=== PATIENT | male | born 1945 | race Caucasian/White ===

== ENCOUNTER 2019-02-01 20:55 | Inpatient (IN) | payer MEDICARE, MEDICAID ==
[~2019-02-01] VITALS: Ht 172.7 cm; Wt 97.6 kg
--- NOTE | 2019-02-01 21:15 | ED.ADGEN ---
Past History Past Medical History: Anxiety, Arthritis, CAD, Constipation, CVA, Dementia, Depression, Diabetes, Hypertension, Vascular Disease Past Surgical History: Other Past Surgical History Amputation lst toe Rt. and Lt. 5th toe- vascular dz Smoking: Chew Adult General Chief Complaint Chief Complaint " .. I guess they sent me here to get checked out....'.. Where did you get all these pretty nurses....?... " I am semi retired.. I bought the [employer] in [place]... and work there forever... 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 the only thing .. 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 I always had a fixation for trailers... all sizes.. and models...crazy thing.. stealing trailers... I do have bad diabetes.. and I chew tobacco for all my life.. just swallowed the juice.. did not spit.. but that probably made my circulation bad.. I ended up getting this right toe hacked off.. then the Lt side of my foot...for same thing... now my only problem is these fracture teeth and infection up here on the Rt... ( Teeth 2 and 3).. ..I ve been getting antibiotic for them... they probably need to come out...".. " Oh .. I do get jock rot... from my diabetes.. need to be powdered up down there...." HPI HPI Patient is a 73 year old male who presents with above hx and complaints. Pt. "Chiki" has been admitted to [facility] Dr. Jang after medical clearance in ED. Pt. is a resident of [facility]. since 08/15/16. Pt. recently having mental status change, disruptive behavior, Aggressive towards other pt. and staff, sexually inappropriate, urinating where ever he wants, difficult to re-direct for past 2 months. Pt. has hx of diabetes, delusions of persecution, dementia, hypertension, peripheral vascular disease resulting in amputation of right great toe and left lateral foot. Patient has a, gait disorder, generalized muscle weakness, deconditioning, osteoarthritis, abscess tooth infection. Patient has been noncompliant with medications and treatment plan. Pt. normally follows with Dr. Ulises Montemayor. Review of Systems Review of Systems Constitutional: Denies fever or chills [] Eyes: Denies change in visual acuity, redness, or eye pain [] HENT: Denies nasal congestion or sore throat [] Dental pain Respiratory: Denies cough or shortness of breath [] Cardiovascular: No additional information not addressed in HPI [] GI: Denies abdominal pain, nausea, vomiting, bloody stools or diarrhea [] : Denies dysuria or hematuria [] Musculoskeletal: Denies back pain or joint pain [] Integument: Denies rash or skin lesions [] Neurologic: Denies headache, focal weakness or sensory changes [] Endocrine: Denies polyuria or polydipsia [] All other systems were reviewed and found to be within normal limits, except as documented in this note. Family History Family History Diabetes hypertension Current Medications Current Medications Current Medications Medications (Trade) Dose Ordered Sig/Sandhya Start Time Stop Time Status Last Admin Dose Admin Acetaminophen (Tylenol) 650 mg PRN Q4HRS PRN 02/01/19 23:00 02/02/19 22:59 Enoxaparin Sodium (Lovenox 100mg Syringe) 100 mg 1X ONCE 02/01/19 23:00 02/01/19 23:01 DC 02/01/19 23:38 100 MG Insulin Human Regular (HumuLIN R VIAL) 10 unit 1X ONCE 02/01/19 23:00 02/01/19 23:01 DC 02/01/19 23:39 10 UNIT Lactated Ringer's 1,000 ml @ 1,000 mls/hr Q1H 02/01/19 21:30 02/01/19 22:29 DC 02/01/19 23:00 1,000 MLS/HR Allergies Allergies Allergies Coded Allergies Type Severity Reaction Last Updated Verified No Known Drug Allergies 02/01/19 No Physical Exam Physical Exam Constitutional: no acute distress, non-toxic appearance. [] HENT: Normocephalic, atraumatic, bilateral external ears normal, oropharynx moist, no oral exudates, nose normal. [Fx. and decay Dental area of 2,3. ] Eyes: PERRLA, EOMI, conjunctiva normal, no discharge. [] Neck: Normal range of motion, no tenderness, supple, no stridor. [] Cardiovascular: Tachycardia Heart rate regular rhythm, no murmur []PMI to Lt. Lungs & Thorax: Bilateral breath sounds equal at apexes on auscultation [] Abdomen: Bowel sounds normal, soft, no tenderness, no masses, no pulsatile masses. [] Obese. Skin: Warm, dry, areas of skin breakdown groin and sacral area. Yeast rash. Back: No tenderness, no CVA tenderness. Arthritic changes. Extremities: No tenderness, no cyanosis, no clubbing, ROM intact, bilateral edema. [] Hair loss. Missing Rt. lst toe and Lt 5th toe. No cording appreciated in legs. Delay in capillary refill more 3 sec in toes. Decreased foot pulses. Neurologic: Alert and oriented X 3, moves all ext. 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 . []Decreased distal sensory. Psychologic: Pt. at lst very angry and would not get out of transport vehicle when arrived at ED, Affect anxious, , obvious some memory problems. , mood normal. [] Current Patient Data Vital Signs Vital Signs Date Time Temp Pulse Resp B/P (MAP) Pulse Ox O2 Delivery O2 Flow Rate FiO2 02/01/19 21:04 97.8 109 18 97 Room Air Lab Results Laboratory Tests Test 02/01/19 21:07 02/01/19 21:15 Urine Collection Type Unknown Urine Color Yellow Urine Clarity Clear Urine pH 5.5 Urine Specific [place] 1.010 Urine Protein Neg (NEG-TRACE) Urine Glucose (UA) >=1000 mg/dL (NEG) Urine Ketones (Stick) Neg mg/dL (NEG) Urine Blood Neg (NEG) Urine Nitrite Neg (NEG) Urine Bilirubin Neg (NEG) Urine Urobilinogen Dipstick 0.2 mg/dL (0.2 mg/dL) Urine Leukocyte Esterase Neg (NEG) Urine RBC 0 /HPF (0-2) Urine WBC Occ /HPF (0-4) Urine Squamous Epithelial Cells Few /LPF Urine Bacteria 0 /HPF (0-FEW) Urine Opiates Screen Neg (NEG) Urine Methadone Screen Neg (NEG) Urine Barbiturates Neg (NEG) Urine Phencyclidine Screen Neg (NEG) Urine Amphetamine/Methamphetamine Neg (NEG) Urine Benzodiazepines Screen Neg (NEG) Urine Cocaine Screen Neg (NEG) Urine Cannabinoids Screen Neg (NEG) Urine Ethyl Alcohol Neg (NEG) White Blood Count 7.8 x10^3/uL (4.0-11.0) Red Blood Count 4.30 x10^6/uL (4.30-5.70) Hemoglobin 13.4 g/dL (13.0-17.5) Hematocrit 40.3 % (39.0-53.0) Mean Corpuscular Volume 94 fL (79-100) Mean Corpuscular Hemoglobin 31 pg (25-35) Mean Corpuscular Hemoglobin Concent 33 g/dL (31-37) Red Cell Distribution Width 14.3 % (11.5-14.5) Platelet Count 218 x10^3/uL (140-400) Neutrophils (%) (Auto) 59 % (31-73) Lymphocytes (%) (Auto) 29 % (24-48) Monocytes (%) (Auto) 10 % (0-9) H Eosinophils (%) (Auto) 2 % (0-3) Basophils (%) (Auto) 0 % (0-3) Neutrophils # (Auto) 4.5 x10^3uL (1.8-7.7) Lymphocytes # (Auto) 2.3 x10^3/uL (1.0-4.8) Monocytes # (Auto) 0.7 x10^3/uL (0.0-1.1) Eosinophils # (Auto) 0.2 x10^3/uL (0.0-0.7) Basophils # (Auto) 0.0 x10^3/uL (0.0-0.2) Erythrocyte Sedimentation Rate 17 (0-15) H Prothrombin Time 9.5 SEC (9.4-11.4) Prothrombin Time INR 0.9 (0.9-1.1) PTT 24 SEC (23-33) D-Dimer (Lakshmi) 0.59 mg/L (0.00-0.50) H Sodium Level 134 mmol/L (136-145) L Potassium Level 4.4 mmol/L (3.5-5.1) Chloride Level 98 mmol/L (98-107) Carbon Dioxide Level 27 mmol/L (21-32) Anion Gap 9 (6-14) Blood Urea Nitrogen 20 mg/dL (8-26) Creatinine 1.0 mg/dL (0.7-1.3) Estimated GFR (Cockcroft-Gault) 72.8 Glucose Level 310 mg/dL (70-99) H Calcium Level 8.7 mg/dL (8.5-10.1) Magnesium Level 2.0 mg/dL (1.8-2.4) Total Bilirubin 0.2 mg/dL (0.2-1.0) Direct Bilirubin 0.1 mg/dL (0.0-0.2) Aspartate Amino Transferase (AST) 17 U/L (15-37) Alanine Aminotransferase (ALT) 21 U/L (16-63) Alkaline Phosphatase 114 U/L (46-116) Creatine Kinase 160 U/L (39-308) Troponin I Quantitative 0.031 ng/mL (0-0.055) KE-Juj-A-Type Natriuretic Peptide 478 pg/mL (0-449) H Total Protein 7.0 g/dL (6.4-8.2) Albumin 3.7 g/dL (3.4-5.0) Lipase 163 U/L (73-393) EKG EKG My interpretation EKG shows a sinus rhythm at 99 bpm. Does have left axis deviation and a fascicular block. No findings of acute STEMI with contralateral changes.[] Radiology/Procedures Radiology/Procedures [][place] [address] IMAGING REPORT Signed PATIENT: TIARRA SKINNER ACCOUNT: [id number] : 1945 LOCATION: ER AGE: 73 SEX: M EXAM STATUS: REG ER ORD. PHYSICIAN: ANABEL MARTIN MD REASON: Mental status change, hx cva PROCEDURE: CT HEAD AND CERVICAL SPINE WO CT Head W/O Contrast: History: Mental status change Comparison: none Axial images were obtained without contrast. There is moderate diffuse atrophy. There is no mass effect, extraaxial fluid collections or hydrocephalus. There is no gross bleed. Moderate, diffuse periventricular and subcortical white matter hypoattenuation is seen. There is no focal loss of jhaveri-white matter distinction to suggest acute ischemia, i.e. stroke. Impression: No acute findings. End impression CT C-Spine without contrast: Clinical History: Technique: Axial helical images of the cervical spine were obtained without contrast, axial coronal and sagittal reconstruction was performed. Findings: There is no loss of vertebral body stature. There is no prevertebral soft tissue swelling. The vertebral bodies are well aligned. The C1-C2 relationship is normal. The visualized osseous structures appear normal. Evaluation of the central canal is limited without contrast. There is multiple posterior disc bulges resulting in flattening of the thecal sac. There does not appear to be gross flattening of the cervical cord. There is marked narrowing of multiple neuroforamen. Impression: No acute findings. Clinical correlation suggested. PQRS Compliance Statement: One or more of the following individualized dose reduction techniques were utilized for this examination: 1. Automated exposure control 2. Adjustment of the mA and/or kV according to patient size 3. Use of iterative reconstruction technique Electronically signed by: Paresh Fraga III, MD (02/01/2019 10:38 PM) [facility] [place] Course & Med Decision Making Course & Med Decision Making Pertinent Labs and Imaging studies reviewed. (See chart for details) Patient admitted to [facility]. . Consult to Dr. Schwartz for medical issues. [] Final Impression Final Impression 1. Mental Status Change 2. Behavior issues- Aggressive, Inappropriate Sexual 3. Paranoid delusions of persecution[] 4. Dementia 5. Diabetes gluc 310 6. Hypertension 7. Peripheral vascular disease 8. Gait disorder 9. Dental infection 10.Elevation D-dimer 0.59 11. Mild Elevation BNP 478 12. Mild Elevation D-dimer 0.59 13 Mild Elevation ESR 17 Dragon Disclaimer Dragon Disclaimer This electronic medical record was generated, in whole or in part, using a voice recognition dictation system. Discharge Summary Visit Information Final Diagnosis Problems Medical Problems: (1) Mental status change resolved Status: Acute Brief Hospital Course Allergies Allergies Coded Allergies Type Severity Reaction Last Updated Verified No Known Drug Allergies 02/01/19 No Vital Signs Vital Signs Date Time Temp Pulse Resp B/P (MAP) Pulse Ox O2 Delivery O2 Flow Rate FiO2 02/01/19 21:04 97.8 109 18 97 Room Air Lab Results Laboratory Tests Test 02/01/19 21:07 02/01/19 21:15 Urine Collection Type Unknown Urine Color Yellow Urine Clarity Clear Urine pH 5.5 Urine Specific [place] 1.010 Urine Protein Neg (NEG-TRACE) Urine Glucose (UA) >=1000 mg/dL (NEG) Urine Ketones (Stick) Neg mg/dL (NEG) Urine Blood Neg (NEG) Urine Nitrite Neg (NEG) Urine Bilirubin Neg (NEG) Urine Urobilinogen Dipstick 0.2 mg/dL (0.2 mg/dL) Urine Leukocyte Esterase Neg (NEG) Urine RBC 0 /HPF (0-2) Urine WBC Occ /HPF (0-4) Urine Squamous Epithelial Cells Few /LPF Urine Bacteria 0 /HPF (0-FEW) Urine Opiates Screen Neg (NEG) Urine Methadone Screen Neg (NEG) Urine Barbiturates Neg (NEG) Urine Phencyclidine Screen Neg (NEG) Urine Amphetamine/Methamphetamine Neg (NEG) Urine Benzodiazepines Screen Neg (NEG) Urine Cocaine Screen Neg (NEG) Urine Cannabinoids Screen Neg (NEG) Urine Ethyl Alcohol Neg (NEG) White Blood Count 7.8 x10^3/uL (4.0-11.0) Red Blood Count 4.30 x10^6/uL (4.30-5.70) Hemoglobin 13.4 g/dL (13.0-17.5) Hematocrit 40.3 % (39.0-53.0) Mean Corpuscular Volume 94 fL (79-100) Mean Corpuscular Hemoglobin 31 pg (25-35) Mean Corpuscular Hemoglobin Concent 33 g/dL (31-37) Red Cell Distribution Width 14.3 % (11.5-14.5) Platelet Count 218 x10^3/uL (140-400) Neutrophils (%) (Auto) 59 % (31-73) Lymphocytes (%) (Auto) 29 % (24-48) Monocytes (%) (Auto) 10 % (0-9) Eosinophils (%) (Auto) 2 % (0-3) Basophils (%) (Auto) 0 % (0-3) Neutrophils # (Auto) 4.5 x10^3uL (1.8-7.7) Lymphocytes # (Auto) 2.3 x10^3/uL (1.0-4.8) Monocytes # (Auto) 0.7 x10^3/uL (0.0-1.1) Eosinophils # (Auto) 0.2 x10^3/uL (0.0-0.7) Basophils # (Auto) 0.0 x10^3/uL (0.0-0.2) Erythrocyte Sedimentation Rate 17 (0-15) Prothrombin Time 9.5 SEC (9.4-11.4) Prothromb Time International Ratio 0.9 (0.9-1.1) Activated Partial Thromboplast Time 24 SEC (23-33) D-Dimer (Lakshmi) 0.59 mg/L (0.00-0.50) Sodium Level 134 mmol/L (136-145) Potassium Level 4.4 mmol/L (3.5-5.1) Chloride Level 98 mmol/L (98-107) Carbon Dioxide Level 27 mmol/L (21-32) Anion Gap 9 (6-14) Blood Urea Nitrogen 20 mg/dL (8-26) Creatinine 1.0 mg/dL (0.7-1.3) Estimated GFR (Cockcroft-Gault) 72.8 Glucose Level 310 mg/dL (70-99) Calcium Level 8.7 mg/dL (8.5-10.1) Magnesium Level 2.0 mg/dL (1.8-2.4) Total Bilirubin 0.2 mg/dL (0.2-1.0) Direct Bilirubin 0.1 mg/dL (0.0-0.2) Aspartate Amino Transf (AST/SGOT) 17 U/L (15-37) Alanine Aminotransferase (ALT/SGPT) 21 U/L (16-63) Alkaline Phosphatase 114 U/L (46-116) Creatine Kinase 160 U/L (39-308) Troponin I Quantitative 0.031 ng/mL (0-0.055) MJ-Xmc-F-Type Natriuretic Peptide 478 pg/mL (0-449) Total Protein 7.0 g/dL (6.4-8.2) Albumin 3.7 g/dL (3.4-5.0) Lipase 163 U/L (73-393) Brief Hospital Course Mr. Skinner is a 73 old male who presented with hx mental status change and behavioral issues. Admitted to [facility] Dr. Jang, and Med. consult to Dr. Schwartz for medical issues. Discharge Information Condition at Discharge: Improved, Stable Dischare Medications Current Medications Lactated Ringer's 1,000 ml @ 1,000 mls/hr Q1H IV Last administered on 02/01/19at 23:00; Admin Dose 1,000 MLS/HR; Start 02/01/19 at 21:30; Stop 02/01/19 at 22:29; Status DC Insulin Human Regular (HumuLIN R VIAL) 10 unit 1X ONCE IV Last administered on 02/01/19at 23:39; Admin Dose 10 UNIT; Start 02/01/19 at 23:00; Stop 02/01/19 at 23:01; Status DC Acetaminophen (Tylenol) 650 mg PRN Q4HRS PRN PO FEVER; Start 02/01/19 at 23:00; Stop 02/02/19 at 22:59 Enoxaparin Sodium (Lovenox 100mg Syringe) 100 mg 1X ONCE SQ Last administered on 02/01/19at 23:38; Admin Dose 100 MG; Start 02/01/19 at 23:00; Stop 02/01/19 at 23:01; Status DC Active Scripts Active Dragon Disclaimer This chart was dictated in whole or in part using Voice Recognition software in a busy, high-work load, and often noisy Emergency Department environment. It may contain unintended and wholly unrecognized errors or omissions. ANABEL MARTIN MD Feb 01, 2019 21:15
[2019-02-01] MEDS: IV RINGERS SOLUTION,LACTATED 1,000 ML IV SCH ×2 (21:30→23:00)
[2019-02-01 21:35] LABS: BASO % 0 % (0-3); EOS # 0.2 x10^3/uL (0.0-0.7); EOS % 2 % (0-3); HEMATOCRIT 40.3 % (39.0-53.0); HEMOGLOBIN 13.4 g/dL (13.0-17.5); LYMPH # 2.3 x10^3/uL (1.0-4.8); LYMPH % 29 % (24-48); MEAN CORPUSCULAR HEMOGLOBIN 31 pg (25-35); MEAN CORPUSCULAR HGB CONC 33 g/dL (31-37); MEAN CORPUSCULAR VOLUME 94 fL (79-100); MONO # 0.7 x10^3/uL (0.0-1.1); MONO % 10 % (0-9); NEUT # 4.5 x10^3uL (1.8-7.7); NEUT % 59 % (31-73); PLATELET COUNT 218 x10^3/uL (140-400); RED CELL DISTRIBUTION WIDTH 14.3 % (11.5-14.5); WHITE BLOOD COUNT 7.8 x10^3/uL (4.0-11.0)
[2019-02-01 21:39] LABS: BARBITURATES NEG (NEG); BENZODIAZEPINES NEG (NEG); CANNABINOIDS NEG (NEG); COCAINE NEG (NEG); METHADONE NEG (NEG); OPIATES NEG (NEG); PHENCYCLIDINE NEG (NEG)
[2019-02-01 21:40] LABS: AMPHETAMINE/METHAMPHETAMINE NEG (NEG)
[2019-02-01 21:43] LABS: BILIRUBIN,URINE NEG (NEG); CLARITY,URINE CLEAR; COLOR,URINE YELLOW; GLUCOSE,URINE >=1000 mg/dL (NEG); NITRITE,URINE NEG (NEG); UROBILINOGEN,URINE 0.2 mg/dL (0.2 mg/dL)
[2019-02-01 21:44] LABS: BACTERIA,URINE 0 /HPF (0-FEW); RBC,URINE 0 /HPF (0-2); SQUAMOUS EPITHELIAL CELL,UR FEW /LPF; WBC,URINE OCC /HPF (0-4)
[2019-02-01 22:02] LABS: ALBUMIN 3.7 g/dL (3.4-5.0); CALCIUM 8.7 mg/dL (8.5-10.1); DIRECT BILIRUBIN 0.1 mg/dL (0.0-0.2); GFR 72.8; POTASSIUM 4.4 mmol/L (3.5-5.1); TOTAL BILIRUBIN 0.2 mg/dL (0.2-1.0)
--- NOTE | 2019-02-01 22:31 | EKG ---
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
[2019-02-01 22:38] LABS: SEDIMENTATION RATE 17 (0-15)
--- NOTE | 2019-02-01 22:41 | RAD ---
CT Head W/O Contrast: History: Mental status change Comparison: none Axial images were obtained without contrast. There is moderate diffuse atrophy. There is no mass effect, extraaxial fluid collections or hydrocephalus. There is no gross bleed. Moderate, diffuse periventricular and subcortical white matter hypoattenuation is seen. There is no focal loss of jhaveri-white matter distinction to suggest acute ischemia, i.e. stroke. Impression: No acute findings. End impression CT C-Spine without contrast: Clinical History: Technique: Axial helical images of the cervical spine were obtained without contrast, axial coronal and sagittal reconstruction was performed. Findings: There is no loss of vertebral body stature. There is no prevertebral soft tissue swelling. The vertebral bodies are well aligned. The C1-C2 relationship is normal. The visualized osseous structures appear normal. Evaluation of the central canal is limited without contrast. There is multiple posterior disc bulges resulting in flattening of the thecal sac. There does not appear to be gross flattening of the cervical cord. There is marked narrowing of multiple neuroforamen. Impression: No acute findings. Clinical correlation suggested. PQRS Compliance Statement: One or more of the following individualized dose reduction techniques were utilized for this examination: 1. Automated exposure control 2. Adjustment of the mA and/or kV according to patient size 3. Use of iterative reconstruction technique Electronically signed by: Paresh Fraga III, MD (02/01/2019 10:38 PM) [facility]
[2019-02-01] MEDS ORDERED: ENOXAPARIN ** NOTE DOSE ** SYRINGE SQ ONE (23:00)
[2019-02-01] MEDS ORDERED: ACETAMINOPHEN 325 MG TABLET PO PRN (23:00)
[2019-02-01] MEDS ORDERED: INSULIN REGULAR 100 UNIT/ML 3ML VIAL. IV ONE (23:00)
[2019-02-02] MEDS ORDERED: MAG HYDROX/AL HYDROX/SIMETH 30 ML ORAL.SUSP PO PRN (00:45)
[2019-02-02] MEDS ORDERED: MAGNESIUM HYDROXIDE 2,400 MG/30 ML ORAL.SUSP. PO PRN (00:45)
[2019-02-02] MEDS ORDERED: METHYL SALICYLATE/MENTHOL TOPICAL OINTMENT 57GM TUBE. TP PRN (00:45)
[2019-02-02] MEDS ORDERED: ACETAMINOPHEN 325 MG TABLET PO PRN (00:45)
[2019-02-02] MEDS ORDERED: NYST15PO9 TP (01:09)
[2019-02-02] MEDS ORDERED: CARB1TAB46 PO (01:09)
[2019-02-02] MEDS ORDERED: DIVA500T4 PO (01:09)
[2019-02-02] MEDS ORDERED: ACET325T9 PO (01:09)
[2019-02-02] MEDS ORDERED: METO25TA4 PO (01:09)
[2019-02-02] MEDS ORDERED: DIVA125C2 PO (01:09)
[2019-02-02] MEDS ORDERED: INSU100V13 SQ (01:09)
[2019-02-02] MEDS ORDERED: CILO100T PO (01:09)
[2019-02-02] MEDS ORDERED: MULT1TAB52 PO (01:09)
[2019-02-02] MEDS ORDERED: METF10007 PO (01:09)
--- NOTE | 2019-02-02 01:18 | NUR ---
Admission Note with Justification for Admission to [facility] Patient admitted to [facility] for protective oversight for emergency stabilization of acute psychiatric crisis. Pt admitted from: [facility]/ [facility] Mode of arrival: EMS Accompanied By: [facility] Staff Precipitating behaviors that initiated intake and admission:delusional, sexually inappropriate comments, grabbing staff's private parts, exposing genitals, urinating around unit, verbally aggressive, paranoid, hides his belongings around unit and then blames staff for stealing them, barricading bathroom with chairs, running sink until bathroom is flooded, props chairs inside bathroom door so they will fall when door is opened, refusing medication, making racially inappropriate comments Description of failure of out patient attempts at stabilization in previous setting list behavior and medication trials:[place] Jul 2018, med changes Behaviors and assessment findings upon admission: calm, cooperative. A/O x4, flirtatious, interactive, compliant, helpless Plan: Admit for protective oversight for adjustment and stabilization of medications, behaviors and mood. Intense treatment regimen including groups, medication adjustments, therapy, consistent regimen for ADL's, self care, and sleep hygiene. Daily monitoring by Inpatient staff, Psychiatry, and Medical Physician.
[2019-02-02 01:54] VITALS: BP 124/65
--- NOTE | 2019-02-02 06:18 | NUR ---
Pt has been rude, irritable and argumentative this morning. Pt is very sarcastic and condescending when interacting with staff. Pt stating that he was kidnapped and that this isn't a hospital; it is a shelter.
[2019-02-02 06:30] VITALS: BP 132/71
[2019-02-02 07:36] LABS: BASO % 1 % (0-3); EOS # 0.2 x10^3/uL (0.0-0.7); EOS % 3 % (0-3); HEMATOCRIT 38.4 % (39.0-53.0); HEMOGLOBIN 12.9 g/dL (13.0-17.5); LYMPH # 1.6 x10^3/uL (1.0-4.8); LYMPH % 24 % (24-48); MEAN CORPUSCULAR HEMOGLOBIN 32 pg (25-35); MEAN CORPUSCULAR HGB CONC 34 g/dL (31-37); MEAN CORPUSCULAR VOLUME 94 fL (79-100); MONO # 0.6 x10^3/uL (0.0-1.1); MONO % 9 % (0-9); NEUT # 4.2 x10^3uL (1.8-7.7); NEUT % 64 % (31-73); PLATELET COUNT 207 x10^3/uL (140-400); RED BLOOD COUNT 4.08 x10^6/uL (4.30-5.70); WHITE BLOOD COUNT 6.6 x10^3/uL (4.0-11.0)
[2019-02-02 07:44] LABS: CALCIUM 8.8 mg/dL (8.5-10.1); CREATININE 0.8 mg/dL (0.7-1.3); GFR 94.2; POTASSIUM 4.2 mmol/L (3.5-5.1)
[2019-02-02] MEDS: DIVALPROEX 125 MG CAP.SPRINK PO SCH ×2 (07:54→20:21)
[2019-02-02] MEDS: ACETAMINOPHEN 325 MG TABLET PO SCH ×2 (07:54→20:14)
[2019-02-02] MEDS: ASPIRIN 81 MG TAB.CHEW PO SCH (07:55)
[2019-02-02] MEDS: CARBIDOPA/LEVODOPA 10/100MG TABLET PO SCH ×3 (07:55→20:11)
[2019-02-02] MEDS: MULTIVITAMIN with MINERAL TABLET. PO SCH (07:55)
[2019-02-02] MEDS: CEPHALEXIN 250 MG CAPSULE PO SCH ×3 (07:55→20:11)
[2019-02-02] MEDS: metFORMIN 500 MG TABLET PO SCH ×2 (07:55→17:00)
[2019-02-02] MEDS: CILOSTAZOL 50 MG TABLET. PO SCH ×2 (07:56→20:12)
[2019-02-02] MEDS: METOPROLOL TART IMMED RELEASE 25 MG TABLET PO SCH ×2 (07:56→20:14)
[2019-02-02] MEDS: LACTOBACILLUS RHAMNOSUS GG 1 CAPSULE. PO SCH ×2 (07:58→20:13)
[2019-02-02] MEDS: INSULIN LISPRO 300 UNITS/3 ML INSULN.PEN. SQ SCH ×3 (08:00→17:00)
--- NOTE | 2019-02-02 08:16 | RAD ---
AP chest. HISTORY: Hypertension AP view was taken of the chest. Lungs are clear. Heart is normal in size without heart failure. There is no pleural effusion. IMPRESSION: 1. No acute chest disease. Electronically signed by: Alejandro Valera MD (02/02/2019 8:13 AM) [facility]
--- NOTE | 2019-02-02 08:51 | RAD ---
Bilateral lower extremity venous ultrasound, : History: Bilateral leg swelling Sonographic evaluation including grayscale, color flow and spectral Doppler analysis of the deep veins of the lower extremities was performed. The femoral and popliteal veins demonstrate normal compressibility and normal responses to distal augmentation maneuvers. Color imaging of those vessels shows no evidence of intraluminal clot. The visualized deep veins in both calves are patent. IMPRESSION: There is no sonographic evidence of deep vein thrombosis in either lower extremity. Electronically signed by: Alejandro Valera MD (02/02/2019 8:48 AM) [facility]
[2019-02-02] MEDS ORDERED: ENOXAPARIN ** NOTE DOSE ** SYRINGE SQ SCH (09:00)
[2019-02-02] MEDS: IPRATRPIUM/ALBUTEROL 0.5/2.5MG 3 ML NEBU. NEB SCH ×4 (10:30→20:00)
[2019-02-02 10:42] LABS: THYROID STIM HORMONE (TSH) 2.891 uIU/mL (0.358-3.740)
[2019-02-02 16:27] VITALS: BP 111/69
--- NOTE | 2019-02-02 18:25 | NUR ---
Pt up for breakfast. was irritable and refused meds. stated he doesn't take any meds. Hid meds in lunch ice cream. Pt has not been sexually inappropriate thus far. is condescending with staff at times. pt urinated on floor in DR in am. states he cannot control his bladder.
[2019-02-02] MEDS: INSULIN GLARGINE 300 UNITS/3 ML INSULN.PEN. SQ SCH (20:30)
[2019-02-02] MEDS ORDERED: DIVALPROEX ER 500 MG TAB.ER.24H PO SCH (21:00)
--- NOTE | 2019-02-02 21:53 | PDOC ---
Exam Note: Maxwell Note: Please also refer to the separate dictated note~for this date of service dictated separately. Discussed the patient with Nursing staff reviewed the chart.~Reviewed interim history and current functioning. Reviewed vital signs,~Labs/ Radiology~and current medications noted below. Continue current treatment with the changes noted in the dictated addendum note Assessment: Vital Signs/I&O: Vital Signs Date Time Temp Pulse Resp B/P (MAP) Pulse Ox O2 Delivery O2 Flow Rate FiO2 02/02/19 20:14 71 111/69 02/02/19 16:27 97.9 20 99 02/02/19 06:30 Room Air I & O 02/01/19 02/01/19 02/02/19 15:00 23:00 07:00 Intake Total 1000 ml Balance 1000 ml Labs: Laboratory Tests Test 02/01/19 23:30 02/02/19 07:21 02/02/19 07:36 02/02/19 12:05 Glucose Level 253 mg/dL (70-99) H 280 mg/dL (70-99) H White Blood Count 6.6 x10^3/uL (4.0-11.0) Red Blood Count 4.08 x10^6/uL (4.30-5.70) L Hemoglobin 12.9 g/dL (13.0-17.5) L Hematocrit 38.4 % (39.0-53.0) L Mean Corpuscular Volume 94 fL (79-100) Mean Corpuscular Hemoglobin 32 pg (25-35) Mean Corpuscular Hemoglobin Concent 34 g/dL (31-37) Red Cell Distribution Width 14.0 % (11.5-14.5) Platelet Count 207 x10^3/uL (140-400) Neutrophils (%) (Auto) 64 % (31-73) Lymphocytes (%) (Auto) 24 % (24-48) Monocytes (%) (Auto) 9 % (0-9) Eosinophils (%) (Auto) 3 % (0-3) Basophils (%) (Auto) 1 % (0-3) Neutrophils # (Auto) 4.2 x10^3uL (1.8-7.7) Lymphocytes # (Auto) 1.6 x10^3/uL (1.0-4.8) Monocytes # (Auto) 0.6 x10^3/uL (0.0-1.1) Eosinophils # (Auto) 0.2 x10^3/uL (0.0-0.7) Basophils # (Auto) 0.0 x10^3/uL (0.0-0.2) Sodium Level 136 mmol/L (136-145) Potassium Level 4.2 mmol/L (3.5-5.1) Chloride Level 100 mmol/L (98-107) Carbon Dioxide Level 26 mmol/L (21-32) Anion Gap 10 (6-14) Blood Urea Nitrogen 17 mg/dL (8-26) Creatinine 0.8 mg/dL (0.7-1.3) Estimated GFR (Cockcroft-Gault) 94.2 Calcium Level 8.8 mg/dL (8.5-10.1) Glucose (Fingerstick) 265 mg/dL (70-99) H 289 mg/dL (70-99) H Test 02/02/19 17:22 02/02/19 20:42 Glucose (Fingerstick) 266 mg/dL (70-99) H 414 mg/dL (70-99) H Current Medications: Meds: Current Medications Medications (Trade) Dose Ordered Sig/Sandhya Route PRN Reason Start Time Stop Time Status Last Admin Dose Admin Insulin Human Regular (HumuLIN R VIAL) 10 unit 1X ONCE IV 02/01/19 23:00 02/01/19 23:01 DC 02/01/19 23:39 Albuterol/ Ipratropium (Duoneb) 3 ml RTQID NEB 02/02/19 08:00 02/03/19 07:59 02/02/19 16:21 Cephalexin HCl (Keflex) 500 mg TID PO 02/02/19 09:00 02/02/19 20:11 Enoxaparin Sodium (Lovenox 100mg Syringe) 100 mg 1X ONCE SQ 02/01/19 23:00 02/01/19 23:01 DC 02/01/19 23:38 Enoxaparin Sodium (Lovenox 100mg Syringe) 100 mg BID SQ 02/02/19 09:00 02/02/19 15:33 DC 02/02/19 07:56 Aspirin (Children'S Aspirin) 81 mg DAILY08 PO 02/02/19 08:00 02/02/19 07:55 Acetaminophen (Tylenol) 325 mg BID PO 02/02/19 09:00 02/02/19 07:54 Metoprolol Tartrate (Lopressor) 25 mg BID PO 02/02/19 09:00 02/02/19 20:14 Carbidopa/Levodopa (Sinemet 10/100) 1 tab TID PO 02/02/19 09:00 02/02/19 20:11 Cilostazol (Pletal) 100 mg BID PO 02/02/19 09:00 02/02/19 20:12 Divalproex Sodium (Depakote Sprinkles) 125 mg DAILY PO 02/02/19 09:00 02/02/19 07:54 Insulin Glargine (Lantus) 45 units QHS SQ 02/02/19 21:00 02/02/19 20:30 Metformin HCl (Glucophage) 1,000 mg BIDWMEALS PO 02/02/19 08:00 02/02/19 07:55 Multivitamins/ Calcium (Thera-M Plus) 1 tab DAILY PO 02/02/19 09:00 02/02/19 07:55 Insulin Human Lispro (HumaLOG) 0-5 UNITS TIDWMEALS SQ 02/02/19 08:00 02/02/19 17:00 Lactobacillus Rhamnosus (Culturelle) 1 cap BID PO 02/02/19 09:00 02/02/19 07:58 Divalproex Sodium (Depakote Sprinkles) 500 mg HS PO 02/02/19 21:00 02/02/19 20:21 I have reviewed the current psychotropics carefully including drug interactions. Risk benefit ratio favors no change other than as noted in my dictated progress note. Diagnosis: Problems: (1) Mental status change resolved (2) Anxiety disorder (3) Bipolar affective, mixed, sev w/ psych (4) Dementia, vascular, with depression (5) Dementia, vascular, with delusions (6) Impulse control disorder (7) Psychosis, atypical EMERSON RUTH MD Feb 02, 2019 21:53
--- NOTE | 2019-02-02 23:31 | NUR ---
Pt has been rude, condescending, sarcastic and irritable this evening. 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 Pt making statements to staff such as "he isn't worth a pimple on a poor man's ass." Pt refusing any snacks this evening. Pt approached with whole medications as he was rolling his wheelchair down the mota. Pt refused to stop his wheelchair, running over nurse's feet. Pt eventually compliant with medication. Pt taken to bed where he was rude and demanding, refusing to say please or thank you. Pt again stating that he was in charge here and that this nurse is fired.
[2019-02-03] MEDS: IPRATRPIUM/ALBUTEROL 0.5/2.5MG 3 ML NEBU. NEB SCH (06:34)
[2019-02-03 06:57] VITALS: BP 122/73
[2019-02-03 07:41] LABS: VAL ACID 35 mcg/mL (50-100)
[2019-02-03] MEDS: INSULIN LISPRO 300 UNITS/3 ML INSULN.PEN. SQ SCH ×3 (08:00→17:14)
[2019-02-03] MEDS: LACTOBACILLUS RHAMNOSUS GG 1 CAPSULE. PO SCH ×3 (08:13→20:24)
[2019-02-03] MEDS: METOPROLOL TART IMMED RELEASE 25 MG TABLET PO SCH ×3 (08:13→20:24)
[2019-02-03] MEDS: ASPIRIN 81 MG TAB.CHEW PO SCH ×2 (08:13→12:10)
[2019-02-03] MEDS: CARBIDOPA/LEVODOPA 10/100MG TABLET PO SCH ×5 (08:14→20:24)
[2019-02-03] MEDS: metFORMIN 500 MG TABLET PO SCH ×3 (08:14→17:00)
[2019-02-03] MEDS: DIVALPROEX 125 MG CAP.SPRINK PO SCH ×3 (08:14→20:24)
[2019-02-03] MEDS: MULTIVITAMIN with MINERAL TABLET. PO SCH ×2 (08:14→12:10)
[2019-02-03] MEDS: ACETAMINOPHEN 325 MG TABLET PO SCH ×3 (08:14→20:23)
[2019-02-03] MEDS: CEPHALEXIN 250 MG CAPSULE PO SCH ×4 (08:14→20:24)
[2019-02-03] MEDS: CETIRIZINE HCL 10 MG TABLET PO SCH ×2 (08:17→12:10)
[2019-02-03] MEDS: CILOSTAZOL 50 MG TABLET. PO SCH ×3 (08:19→20:28)
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
--- NOTE | 2019-02-03 12:30 | NUR ---
Patient has been refusing his morning medications. Attempted to hide medications in his lunch, patient did not eat those items. Patient did accept his lunch time insulin. Will continue to monitor.
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
--- NOTE | 2019-02-03 13:47 | NUR ---
PSYCHOSOCIAL ASSESSMENT ADMISSION DATE: 02/01/19 CONTACT INFORMATION: DPOA/Guardian Contact Name: Sera Martin Contact Address: [place], [place] Contact Phone #: ETHNIC ORIGIN: REASONS FOR ADMISSION: Aggressive Poor impulse control Other ADDITIONAL ADMISSION COMMENTS: According to the intake, pt is sexually inappropriate, non-compliant with medications and urinating everywhere. REASON FOR ADMISSION IN PATIENT/FAMILY'S OWN WORDS: We think he's been Bipolar for the longest time but never treated for it. PATIENT/FAMILY EXPECTATIONS FOR ADMISSION: Medication and Behavioral Mgmt LIVING SITUATION: Patient lives with: Jail Other living arrangements: Contact Name: [facility] Contact Address: [address] [place] [address]; [place] [address] Contact Phone #: Contact Fax #: FAMILY RELATIONS: Marital Status: # of Marriages: 1 # of Children: 2 [facility] Family Support: Cooperative Involved in DC Planning Additional Comments r/t Family: Pt was to his Latasha for over 30 years; however, pt fell ill 4 years ago (dx with Cancer) and . Together the 2 have 2 daughters. 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 service: N Mu-Ism background: "used to consider himself as Yazdanism". Sexual orientation: Heterosexual Educational Level: Graduated HS; last grade completed was 12th grade Past/Present Interests/Hobbies: fishing, being around people Financial support/resources: Social Security SS Disability Monthly income: Person handling finances: Pt dtr and facility has been named his payee Do you have a history of legal problems: N Cultural considerations: None SOCIAL RELATIONSHIPS-CURRENT/PAST: Psychiatrist: PCP: Dr. Restrepo Counselor/Therapist: [facility]: Support Group: [facility]Automation Qa Analyst: Other relationships: STRENGTHS & WEAKNESSES: Patient's strengths: Good verbal skills Financial support Approachable Other patient strengths: Patient's weaknesses: Poor social skills Verbally Aggressive Other patient weaknesses: PRELIMINARY PLAN OF TREATMENT: Preliminary plan: Promote Coping Skill Improved Social Skills Medication Stabilization Dec. Outbursts Other preliminary treatment comments: DISCHARGE PLANNING: Discharge planning/disposition: Placement Needed Additional discharge needs identified: ADDITIONAL INFORMATION: Other Pertinent Data: Pt dtr reports that his facility does not wish to have him back. She is not sure what to do next and has talked to [facility] about options. SW informed pt dtr that there would be 2 options for SW to check into and will be in contact with her.
[2019-02-03 16:28] VITALS: BP 143/80
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
--- NOTE | 2019-02-03 17:15 | NUR ---
Patient refused his afternoon dose of Sinnemet and dinner time dose of Metformin. He did accept the Keflex and insulin doses. Will report to MD and continue to monitor.
[2019-02-03 20:07] LABS: THYROXINE 7.1 ug/dL (4.5-12.0)
[2019-02-03] MEDS: INSULIN GLARGINE 300 UNITS/3 ML INSULN.PEN. SQ SCH (20:28)
[2019-02-03] MEDS: risperiDONE ORAL 1 MG/ML 30ml BOTTLE. SL SCH (20:29)
--- NOTE | 2019-02-03 21:45 | NUR ---
Nursing Note The patient was located in the day room and quiet mota this shift. The patient was very agitated at the beginning of the shift but was calm and compliant for his medication and assessment by this nurse. the patient is currently siting in the day room talking with staff members.
--- NOTE | 2019-02-03 22:37 | PDOC ---
Exam Note: Maxwell Note: Please also refer to the separate dictated note~for this date of service dictated separately.~Patient seen individually. Discussed the patient with Nursing staff reviewed the chart.~Reviewed interim history and current functioning. Reviewed vital signs,~Labs/ Radiology~and current medications noted below. Continue current treatment with the changes noted in the dictated addendum note Assessment: Vital Signs/I&O: Vital Signs Date Time Temp Pulse Resp B/P (MAP) Pulse Ox O2 Delivery O2 Flow Rate FiO2 02/03/19 20:24 87 143/80 02/03/19 16:28 97.7 18 99 02/02/19 06:30 Room Air I & O 02/02/19 02/02/19 02/03/19 14:59 22:59 06:59 Intake Total 960 ml 240 ml 240 ml Balance 960 ml 240 ml 240 ml Labs: Laboratory Tests Test 02/03/19 07:04 02/03/19 07:24 02/03/19 11:52 02/03/19 17:09 Iron Level 97 ug/dL (65-175) Total Iron Binding Capacity 330 ug/dL (250-450) Iron Saturation 29 % (15-34) 25-Hydroxy Vitamin D Total 20.8 ng/mL (30-100) L Thyroxine (T4) 7.1 ug/dL (4.5-12.0) Total Triiodothyronine (TT3) 101 ng/dL (71-180) Valproic Acid Level 35 mcg/mL (50-100) L Valproic Acid Last Dose Date 02/02/2019 Valproic Acid Last Dose Time 0900 Treponema pallidum Antibody Nonreactive (Nonreactive) Glucose (Fingerstick) 118 mg/dL (70-99) H 171 mg/dL (70-99) H 289 mg/dL (70-99) H Test 02/03/19 19:59 Glucose (Fingerstick) 302 mg/dL (70-99) H Current Medications: Meds: Current Medications Medications (Trade) Dose Ordered Sig/Sandhya Route PRN Reason Start Time Stop Time Status Last Admin Dose Admin Risperidone (RisperDAL) 0.25 mg HS SL 02/03/19 21:00 02/03/19 20:29 I have reviewed the current psychotropics carefully including drug interactions. Risk benefit ratio favors no change other than as noted in my dictated progress note. Diagnosis: Problems: (1) Anxiety disorder (2) Bipolar affective, mixed, sev w/ psych (3) Dementia, vascular, with depression (4) Dementia, vascular, with delusions (5) Impulse control disorder (6) Psychosis, atypical EMERSON RUTH MD Feb 03, 2019 22:37
[2019-02-03 23:11] LABS: HEMOGLOBIN A1C 10.3 % (4.8-5.6)
[2019-02-04 06:06] VITALS: BP 106/65
[2019-02-04] MEDS: INSULIN LISPRO 300 UNITS/3 ML INSULN.PEN. SQ SCH ×3 (08:00→17:35)
[2019-02-04] MEDS: ACETAMINOPHEN 325 MG TABLET PO SCH ×3 (08:17→19:27)
[2019-02-04] MEDS: metFORMIN 500 MG TABLET PO SCH ×3 (08:17→17:32)
[2019-02-04] MEDS: CEPHALEXIN 250 MG CAPSULE PO SCH ×3 (08:18→19:29)
[2019-02-04] MEDS: ASPIRIN 81 MG TAB.CHEW PO SCH (08:18)
[2019-02-04] MEDS: CARBIDOPA/LEVODOPA 10/100MG TABLET PO SCH ×3 (08:18→19:28)
[2019-02-04] MEDS: LACTOBACILLUS RHAMNOSUS GG 1 CAPSULE. PO SCH ×3 (08:18→19:28)
[2019-02-04] MEDS: DIVALPROEX 125 MG CAP.SPRINK PO SCH ×2 (08:18→19:28)
[2019-02-04] MEDS: CETIRIZINE HCL 10 MG TABLET PO SCH (08:18)
[2019-02-04] MEDS: MULTIVITAMIN with MINERAL TABLET. PO SCH (08:18)
[2019-02-04] MEDS: METOPROLOL TART IMMED RELEASE 25 MG TABLET PO SCH ×3 (08:19→19:28)
[2019-02-04] MEDS: CILOSTAZOL 50 MG TABLET. PO SCH ×3 (08:20→19:28)
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
[2019-02-04 16:26] VITALS: BP 121/72
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
--- NOTE | 2019-02-04 17:54 | NUR ---
patient was argumentative at dinner after an instance of incontinence. 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 He refused his metformin, but accepted his insulin injection. Will report to MD and oncoming shift, will continue to monitor.
[2019-02-04] MEDS: risperiDONE ORAL 1 MG/ML 30ml BOTTLE. SL SCH (19:31)
[2019-02-04] MEDS: INSULIN GLARGINE 300 UNITS/3 ML INSULN.PEN. SQ SCH (19:32)
--- NOTE | 2019-02-04 21:20 | NUR ---
Nursing Note The patient took his medication whole and was pleasant and calm during his assessment and interactions with this nurse. However the patient became increasingly agitated and called the staff fat and stupid while staff was providing cares for the patient. The patient is currently in the day room.
--- NOTE | 2019-02-04 22:46 | PDOC ---
Exam Note: Maxwell Note: Please also refer to the separate dictated note~for this date of service dictated separately.~Patient seen individually. Discussed the patient with Nursing staff reviewed the chart.~Reviewed interim history and current functioning. Reviewed vital signs,~Labs/ Radiology~and current medications noted below. Continue current treatment with the changes noted in the dictated addendum note Assessment: Vital Signs/I&O: Vital Signs Date Time Temp Pulse Resp B/P (MAP) Pulse Ox O2 Delivery O2 Flow Rate FiO2 02/04/19 19:28 77 121/72 02/04/19 16:26 98.9 16 97 02/04/19 06:06 Room Air I & O 02/03/19 02/03/19 02/04/19 14:59 22:59 06:59 Intake Total 1400 ml 460 ml Balance 1400 ml 460 ml Labs: Laboratory Tests Test 02/04/19 07:44 02/04/19 12:19 02/04/19 16:47 02/04/19 19:17 Glucose (Fingerstick) 137 mg/dL (70-99) H 282 mg/dL (70-99) H 238 mg/dL (70-99) H 272 mg/dL (70-99) H Current Medications: Meds: Current Medications Medications (Trade) Dose Ordered Sig/Sandhya Route PRN Reason Start Time Stop Time Status Last Admin Dose Admin Divalproex Sodium (Depakote Sprinkles) 500 mg BID PO 02/04/19 21:00 02/04/19 19:28 I have reviewed the current psychotropics carefully including drug interactions. Risk benefit ratio favors no change other than as noted in my dictated progress note. Diagnosis: Problems: (1) Mental status change resolved (2) Anxiety disorder (3) Bipolar affective, mixed, sev w/ psych (4) Dementia, vascular, with depression (5) Dementia, vascular, with delusions (6) Impulse control disorder (7) Psychosis, atypical (8) Dementia in Alzheimer's disease with delusions EMERSON RUTH MD Feb 04, 2019 22:46
--- NOTE | 2019-02-05 02:44 | PN ---
DATE: 02/03/2019 PSYCHIATRIC PROGRESS NOTE This late entry of 02/03/2019 covers elements not covered in my initial note. SUBJECTIVE: I met with the patient at length in the evening. The patient is alert, oriented x 4. He is quite grandiose, paranoid, believes he is a federal digital forensics investigator investigating nursing homes and hospitals. He believes he has been kidnapped and brought here. Refused his medications earlier in the day except insulin, took his p.m. Keflex. He attended groups and was social. 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 About 10 years ago, his alcohol intake increased dramatically. There is a family history of bipolar disorder, which is quite significant. He remains paranoid, delusional. REVIEW OF SYSTEMS: Ambulation impaired, in wheelchair. No CV, , pulmonary, eye, ENT system symptoms on review. MENTAL STATUS EXAM: Oriented to himself and situation. Speech coherent, rapid, loud at times. Abstraction fair, computation impaired, language function intact, attention span short. Mood and affect remains quite grandiose. No active suicidal or homicidal ideation. LABORATORY DATA: Reviewed. IMPRESSION: Schizoaffective disorder, bipolar type, mixed with psychotic features; anxiety disorder, unspecified; mild cognitive impairment; impulse control disorder. PLAN: Start Risperdal liquid 0.25 mg at bedtime. Maintain Depakote at current dosage. Check CBC, CMP, valproic acid level. Adjust Depakote to reach therapeutic level. MAN Bladimir RUTH MD DR: TAINA/siddhartha JOB#: [id number] / [id number]
[2019-02-05 05:59] VITALS: BP 119/49
[2019-02-05] MEDS: CEPHALEXIN 250 MG CAPSULE PO SCH ×3 (07:56→19:52)
[2019-02-05] MEDS: DIVALPROEX 125 MG CAP.SPRINK PO SCH ×2 (07:57→19:48)
[2019-02-05] MEDS: CARBIDOPA/LEVODOPA 10/100MG TABLET PO SCH ×3 (07:57→19:53)
[2019-02-05] MEDS: MULTIVITAMIN with MINERAL TABLET. PO SCH ×2 (07:57→09:00)
[2019-02-05] MEDS: CETIRIZINE HCL 10 MG TABLET PO SCH (07:57)
[2019-02-05] MEDS: ASPIRIN 81 MG TAB.CHEW PO SCH ×2 (07:57→08:00)
[2019-02-05] MEDS: ACETAMINOPHEN 325 MG TABLET PO SCH ×2 (07:58→19:48)
[2019-02-05] MEDS: LACTOBACILLUS RHAMNOSUS GG 1 CAPSULE. PO SCH ×3 (07:58→19:48)
[2019-02-05] MEDS: METOPROLOL TART IMMED RELEASE 25 MG TABLET PO SCH ×3 (07:58→19:48)
[2019-02-05] MEDS: metFORMIN 500 MG TABLET PO SCH ×2 (07:58→17:28)
[2019-02-05] MEDS: CILOSTAZOL 50 MG TABLET. PO SCH ×3 (08:03→19:52)
[2019-02-05] MEDS: INSULIN LISPRO 300 UNITS/3 ML INSULN.PEN. SQ SCH ×3 (08:04→17:29)
[2019-02-05] MEDS: BENZOCAINE 20% ORAL GEL 11.9GM TUBE. TP PRN ×2 (10:43→12:55)
[2019-02-05 16:23] VITALS: BP 148/84
--- NOTE | 2019-02-05 16:34 | NUR ---
SW left a message with pt dtr in order to complete pt PSA. SW will attempt again at a later time.
--- NOTE | 2019-02-05 18:30 | NUR ---
Patient has been calm, social, and interactive throughout this shift. He refused a portion of his morning medications, but was compliant with all future medications. Patient was compliant with male exterior urinary catheter placement and tolerated the procedure well. Patient stated that he prefers to have his showers done by the day shift only. He participated in most of the group activities today and had no reports of sexually inappropriate behavior. Will continue to monitor and report to oncoming shift.
[2019-02-05] MEDS: INSULIN GLARGINE 300 UNITS/3 ML INSULN.PEN. SQ SCH (19:50)
[2019-02-05] MEDS: risperiDONE ORAL 1 MG/ML 30ml BOTTLE. SL SCH (19:50)
--- NOTE | 2019-02-05 22:19 | PDOC ---
Exam Note: Maxwell Note: Please also refer to the separate dictated note~for this date of service dictated separately.~Patient seen individually. Discussed the patient with Nursing staff reviewed the chart.~Reviewed interim history and current functioning. Reviewed vital signs,~Labs/ Radiology~and current medications noted below. Continue current treatment with the changes noted in the dictated addendum note Assessment: Vital Signs/I&O: Vital Signs Date Time Temp Pulse Resp B/P (MAP) Pulse Ox O2 Delivery O2 Flow Rate FiO2 02/05/19 19:48 108 148/84 02/05/19 16:23 98.3 18 97 02/04/19 06:06 Room Air I & O 02/04/19 02/04/19 02/05/19 15:00 23:00 07:00 Intake Total 600 ml 240 ml 240 ml Balance 600 ml 240 ml 240 ml Labs: Laboratory Tests Test 02/05/19 07:26 02/05/19 12:09 02/05/19 16:55 02/05/19 19:30 Glucose (Fingerstick) 179 mg/dL (70-99) H 166 mg/dL (70-99) H 238 mg/dL (70-99) H 314 mg/dL (70-99) H Current Medications: I have reviewed the current psychotropics carefully including drug interactions. Risk benefit ratio favors no change other than as noted in my dictated progress note. Diagnosis: Problems: (1) Mental status change resolved (2) Anxiety disorder (3) Bipolar affective, mixed, sev w/ psych (4) Dementia, vascular, with depression (5) Dementia, vascular, with delusions (6) Impulse control disorder (7) Psychosis, atypical EMERSON RUTH MD Feb 05, 2019 22:18
--- NOTE | 2019-02-05 22:28 | NUR ---
Nursing Note The patient was located in the day room for his medication and assessment. The patient took his medication whole. The patient did not display any irritability this shift and was pleasant during interactions with this nurse and peers. The patient is currently sleeping in his room.
--- NOTE | 2019-02-06 01:55 | PN ---
DATE: 02/04/2019 This late entry of 02/04/2019 covers elements not covered in my initial note. SUBJECTIVE: I met with the patient evening of 02/04/2019. He slept 5 hours previous night. There is no change per nursing report. He refused his medications, agitated at times, agitated with a shower, later took his medications. Continues to have significant mood lability. REVIEW OF SYSTEMS: Ambulation impaired, in wheelchair. No CV, , pulmonary, eye, ENT system symptoms on review. Reliability varies. MENTAL STATUS EXAM: Oriented to himself and situation. Speech coherent, can be pressured at times, somewhat grandiose. Abstraction fair, computation impaired, language function intact. Mood and affect remains grandiose, labile. LABORATORY DATA: Reviewed. IMPRESSION: Bipolar 1 disorder, mixed with psychotic features; major neurocognitive disorder, Alzheimer, vascular with delusions. Rest unchanged. PLAN: Continue Risperdal 0.25 mg at bedtime, Depakote is 125 mg a.m. and 500 mg at bedtime, level subtherapeutic at 35. We will increase Depakote to 500 mg b.i.d. Check CBC, CMP, valproic acid level, ammonia level in 3 days. Rest unchanged for now. MAN Bladimir RUTH MD DR: TAINA/siddhartha JOB#: [id number] / [id number]
[2019-02-06 04:54] VITALS: BP 110/68
[2019-02-06] MEDS: CILOSTAZOL 50 MG TABLET. PO SCH ×2 (08:39→19:50)
[2019-02-06] MEDS: DIVALPROEX 125 MG CAP.SPRINK PO SCH ×2 (08:39→19:49)
[2019-02-06] MEDS: metFORMIN 500 MG TABLET PO SCH ×2 (08:40→17:33)
[2019-02-06] MEDS: CARBIDOPA/LEVODOPA 10/100MG TABLET PO SCH ×3 (08:40→19:49)
[2019-02-06] MEDS: CEPHALEXIN 250 MG CAPSULE PO SCH ×3 (08:40→19:49)
[2019-02-06] MEDS: ASPIRIN 81 MG TAB.CHEW PO SCH (08:40)
[2019-02-06] MEDS: CETIRIZINE HCL 10 MG TABLET PO SCH (08:41)
[2019-02-06] MEDS: INSULIN LISPRO 300 UNITS/3 ML INSULN.PEN. SQ SCH ×3 (08:43→17:34)
[2019-02-06] MEDS: INSULIN GLARGINE 300 UNITS/3 ML INSULN.PEN. SQ SCH ×2 (08:46→19:47)
[2019-02-06] MEDS: METOPROLOL TART IMMED RELEASE 25 MG TABLET PO SCH (09:00)
[2019-02-06] MEDS: LACTOBACILLUS RHAMNOSUS GG 1 CAPSULE. PO SCH ×2 (09:00→19:50)
[2019-02-06] MEDS: MULTIVITAMIN with MINERAL TABLET. PO SCH (09:00)
[2019-02-06] MEDS: ACETAMINOPHEN 325 MG TABLET PO SCH ×2 (09:00→19:50)
--- NOTE | 2019-02-06 10:20 | NUR ---
Patient has had urinary incontinence with large outputs. He has had excoriation issues in the general groin area since admission. External male urinary catheter was placed, and affected skin area covered with calazime lotion mixed with nystatin powder. Will discuss with hospitalist during rounds. While placing the catheter, patient mentioned in conversation multiple times that the female staff were possibly unpleasant because they were on their periods. Patient also mentioned that his investigation into the unit was not going to go well for multiple staff members, though he did state that he would offer me a large sum of money to go work at one of his [employer]. Will report to MD and continue to monitor. Addendum: 02/06/19 at 1405 by BHARTI LI II, RN Discussed the exterior male catheter with Laly Murray of infection control. She stated that her understanding of protocol is that the catheter had to be changed daily. Discussed implications for the patient and she agreed with decision to discuss with hospitalist and recommend indwelling Peres catheter and wound care consult until patient's incontinence issues are resolved.
--- NOTE | 2019-02-06 10:23 | NUR ---
WEEKLY ACTIVITY THERAPY NOTE Date of Admission: 02/02/2019 Date of AT Assessment: 02/04/2019 Goal aimed: to sustain engagement Initial goal:Pt. will participate in all groups he is invited to. Weekly progress towards goal: achieved Group participation level: moderate to full Weekly highlights: many full participations in groups Behaviors observed: commenting on how beautiful women are around here, hard of hearing moves closer to group lead, social Plan: no change to goal Beneficial adaptations: reminders and invitations
--- NOTE | 2019-02-06 11:29 | NUR ---
WEEKLY NOTE: Pt continues to be delusional and can be irritable at times. Pt has been noted to make some sexualized behaviors/comments towards female staff. Pt is social with his peers and is attempting to attend group more often. Pt will continues to have medication changes and monitor his Condom Catheter. Pt facility is requesting a level II for placement at this time. SW will educate pt facility as to why [facility] no longer completes level II on the unit and will aid in any way possible in resource setting for pt discharge/return to their facility. ELOS the end of next week, if not the beginning of the week after.
[2019-02-06 16:23] VITALS: BP 127/71
[2019-02-06] MEDS: risperiDONE ORAL 1 MG/ML 30ml BOTTLE. SL SCH (19:48)
[2019-02-06] MEDS: METOPROLOL SUCC 24HR ER 25 MG TAB.ER.24H. PO SCH (19:51)
--- NOTE | 2019-02-06 22:15 | NUR ---
Nursing Note The patient was located in the day room for his medication and assessment. The patient was compliant with his medication and took his medication whole. The patient was appropriate during interactions with this nurse. The patient was ordered to have a Peres catheter placed on 02/06/19@HS however when attempting to place the catheter this nurse was unable to fully insert the catheter due to an obstacle in the urethra. The patient was experiencing a large amount of pain throughout the procedure so this nurse stopped the attempt. A condom catheter was placed instead and the patient remains in bed at this time.
--- NOTE | 2019-02-06 22:22 | PDOC ---
Exam Note: Maxwell Note: Please also refer to the separate dictated note~for this date of service dictated separately.~Patient seen individually. Discussed the patient with Nursing staff reviewed the chart.~Reviewed interim history and current functioning. Reviewed vital signs,~Labs/ Radiology~and current medications noted below. Continue current treatment with the changes noted in the dictated addendum note Assessment: Vital Signs/I&O: Vital Signs Date Time Temp Pulse Resp B/P (MAP) Pulse Ox O2 Delivery O2 Flow Rate FiO2 02/06/19 19:51 117 127/71 02/06/19 16:23 97.7 20 98 Room Air I & O 02/05/19 02/05/19 02/06/19 14:59 22:59 06:59 Intake Total 600 ml 240 ml 120 ml Output Total 2200 ml Balance 600 ml 240 ml -2080 ml Labs: Laboratory Tests Test 02/06/19 07:23 02/06/19 11:38 02/06/19 17:13 02/06/19 19:28 Glucose (Fingerstick) 159 mg/dL (70-99) H 241 mg/dL (70-99) H 215 mg/dL (70-99) H 244 mg/dL (70-99) H Current Medications: Meds: Current Medications Medications (Trade) Dose Ordered Sig/Sandhya Route PRN Reason Start Time Stop Time Status Last Admin Dose Admin Insulin Glargine (Lantus) 10 units DAILY SQ 02/06/19 09:00 02/06/19 08:46 Metoprolol Succinate (Toprol Xl) 25 mg QHS PO 02/06/19 21:00 02/06/19 19:51 I have reviewed the current psychotropics carefully including drug interactions. Risk benefit ratio favors no change other than as noted in my dictated progress note. 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
[2019-02-07 04:58] VITALS: BP 94/58
--- NOTE | 2019-02-07 06:45 | NUR ---
Wound Care Wound care consult for groin maceration. Pt has IAD with yeasty rash. Applied vitamin A&D ointment mixed with Nystatin powder to groin and scrotum. Nystatin ointment ordered. Pt has condom catheter in place at this time. No other wounds noted on full skin inspection. WC will continue to follow for possible changes. Discussed POC with Kristyn PENALOZA
[2019-02-07] MEDS: INSULIN LISPRO 300 UNITS/3 ML INSULN.PEN. SQ SCH ×3 (09:20→17:20)
[2019-02-07] MEDS: INSULIN GLARGINE 300 UNITS/3 ML INSULN.PEN. SQ SCH ×2 (09:24→20:36)
[2019-02-07] MEDS: ACETAMINOPHEN 325 MG TABLET PO SCH ×2 (09:25→20:23)
[2019-02-07] MEDS: risperiDONE ORAL 1 MG/ML 30ml BOTTLE. SL SCH (09:25)
[2019-02-07] MEDS: ASPIRIN 81 MG TAB.CHEW PO SCH (09:26)
[2019-02-07] MEDS: CEPHALEXIN 250 MG CAPSULE PO SCH ×3 (09:26→20:22)
[2019-02-07] MEDS: DIVALPROEX 125 MG CAP.SPRINK PO SCH ×2 (09:26→20:22)
[2019-02-07] MEDS: LACTOBACILLUS RHAMNOSUS GG 1 CAPSULE. PO SCH ×3 (09:26→20:23)
[2019-02-07] MEDS: CARBIDOPA/LEVODOPA 10/100MG TABLET PO SCH ×3 (09:26→20:25)
[2019-02-07] MEDS: metFORMIN 500 MG TABLET PO SCH ×2 (09:26→17:21)
[2019-02-07] MEDS: CILOSTAZOL 50 MG TABLET. PO SCH ×2 (09:26→20:37)
[2019-02-07] MEDS: MULTIVITAMIN with MINERAL TABLET. PO SCH ×2 (09:26→09:46)
[2019-02-07] MEDS: CETIRIZINE HCL 10 MG TABLET PO SCH (09:27)
--- NOTE | 2019-02-07 14:51 | NUR ---
Patient condom catheter came off patient r/t inversion of uncircumcised penis. When nurse assessed patient and asked him why he has the catheter, he stated that he "just pisses all over". grain processor RN had attempted to place Peres catheter last night but insertion was met with resistance and patient was reportedly "writhing in pain and yelling out". It was suggested by night nursing staff that a Coude catheter be inserted. Will speak with doctor Schwartz regarding this at rounds. Per [employer]'s this patient has been able to express his need to urinate multiple times throughout the day and has only had one incontinent episode. He has skin excoriation in the scrotum and perineal area, which is being managed with calazime cream as a barrier.
--- NOTE | 2019-02-07 15:05 | NUR ---
patient grouchy and condescending at morning med pass. He pulled out the multivitamin and lactobacillus and refused to take them stating that he "does not need them". Nursing education provided but patient continued to refuse meds. He has been compliant with remainder of medications given to this point today and has not expressed any delusions to this staff member when asked.
[2019-02-07 15:37] VITALS: BP 107/55
--- NOTE | 2019-02-07 19:10 | NUR ---
Dr. Schwartz has discontinue the order for the catheter. Patient is able to realize that he has to urinate and make his needs known. Patient only had one episode of incontinence today. Dr. Schwartz aware that patient has excoriation in groin area. Wound care has recommended calazime cream for perineum and scrotal area.
[2019-02-07] MEDS: METOPROLOL SUCC 24HR ER 25 MG TAB.ER.24H. PO SCH (20:49)
[2019-02-07] MEDS ORDERED: NYSTATIN 100,000 UNIT/GM TOPICAL OINTMENT 15GM TUBE. TP SCH (21:00)
--- NOTE | 2019-02-07 22:36 | PDOC ---
Exam Note: Maxwell Note: Please also refer to the separate dictated note~for this date of service dictated separately.~Patient seen individually. Discussed the patient with Nursing staff reviewed the chart.~Reviewed interim history and current functioning. Reviewed vital signs,~Labs/ Radiology~and current medications noted below. Continue current treatment with the changes noted in the dictated addendum note Assessment: Vital Signs/I&O: Vital Signs Date Time Temp Pulse Resp B/P (MAP) Pulse Ox O2 Delivery O2 Flow Rate FiO2 02/07/19 20:49 108 107/55 02/07/19 15:37 98.5 18 99 02/06/19 16:23 Room Air I & O 02/06/19 02/06/19 02/07/19 14:59 22:59 06:59 Intake Total 720 ml 480 ml 120 ml Output Total 1900 ml Balance 720 ml 480 ml -1780 ml Labs: Laboratory Tests Test 02/07/19 07:12 02/07/19 11:40 02/07/19 16:38 02/07/19 19:54 Glucose (Fingerstick) 119 mg/dL (70-99) H 214 mg/dL (70-99) H 135 mg/dL (70-99) H 175 mg/dL (70-99) H Current Medications: I have reviewed the current psychotropics carefully including drug interactions. Risk benefit ratio favors no change other than as noted in my dictated progress note. 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
--- NOTE | 2019-02-07 22:59 | PN ---
DATE: 02/05/2019 PSYCHIATRIC PROGRESS NOTE. This late entry of 02/05/2019 covers the elements not covered in my initial note. SUBJECTIVE: I met with the patient in the evening of 02/05/2019. The patient slept 5-3/4 hours previous night. He has been compliant with his medications, but gets quite agitated at times, but he was calling staff stupid in the evening, does better during the day shift; compliant with medications. He was having repeated incontinence and has received [place] catheter and was very appreciative of this. REVIEW OF SYSTEMS: Ambulation impaired, in wheelchair. No CV, , pulmonary, eye system symptoms on review. MENTAL STATUS EXAM: Reasonably oriented. Speech is coherent, has some latency. Abstraction fair, computation impaired, language function intact, attention span short. Mood and affect somewhat anxious, labile at times. He does have short term memory deficits. LABORATORY DATA: Reviewed. IMPRESSION: Bipolar disorder, unspecified; major neurocognitive disorder; Alzheimer, vascular with delusion; depression; psychotic disorder, unspecified. Rest unchanged. PLAN: Continue Risperdal 0.25 mg at bedtime. Depakote has been adjusted to 500 mg b.i.d. with repeat labs and valproic acid level on 02/08/2019. EMERSON RUTH MD DR: TAINA/siddhartha JOB#: [id number] / [id number]
--- NOTE | 2019-02-07 23:51 | NUR ---
The patient was located in the day room for his medication and assessment. The patient was compliant with his medication and took his medication whole. The patient was appropriate during interactions with this nurse. pt is currently sleeping in his room
--- NOTE | 2019-02-08 02:22 | PN ---
DATE: 02/06/2019 PSYCHIATRIC PROGRESS NOTE This late entry 02/06/2019 covers elements not covered in my initial note. SUBJECTIVE: I met with the patient in the evening of 02/06/2019 and staffed at a treatment team meeting with the entire team in the morning. Reviewed the patient's history at length. He is sleeping about 6-1/4 hours. Appetite 75-100%, slept 5 hours previous night. He can be quite abrasive and demeaning to nursing staff, calling staff fat and stupid. We will do a mini mental status examinations or SLUMS score to quantify his cognitive deficits. He has some hypersexual talk telling staff that if someone is being raped, they should just enjoy it. I addressed this with him individually. Insight very limited. He has otherwise been social, somewhat delusional at times, refusing medications, argumentative. REVIEW OF SYSTEMS: Ambulation impaired, in wheelchair. No CV, , pulmonary, eye system symptoms on review. MENTAL STATUS EXAMINATION: Oriented to himself and situation. Speech has some latency, coherent. Abstraction fair, computation impaired, language function intact, attention span short. Memory is impaired. Mood and affect remain somewhat labile. LABORATORY DATA: Reviewed. IMPRESSION: Unchanged from initial note. PLAN: No change from initial note. We are adjusting his Depakote. We will repeat labs on 02/08/2019. Continue Respirdal. MAN Bladimir RUTH MD DR: TAINA/siddhartha JOB#: [id number] / [id number]
[2019-02-08 05:31] VITALS: BP 112/67
[2019-02-08] MEDS: NYSTATIN TOPICAL POWDER 15GM BOTTLE. TP PRN (06:05)
[2019-02-08] MEDS: ASPIRIN 81 MG TAB.CHEW PO SCH (07:36)
[2019-02-08] MEDS: metFORMIN 500 MG TABLET PO SCH ×4 (07:37→17:06)
[2019-02-08] MEDS: LACTOBACILLUS RHAMNOSUS GG 1 CAPSULE. PO SCH ×3 (07:37→21:00)
[2019-02-08] MEDS: ACETAMINOPHEN 325 MG TABLET PO SCH ×3 (07:38→21:00)
[2019-02-08] MEDS: DIVALPROEX 125 MG CAP.SPRINK PO SCH ×4 (07:38→21:00)
[2019-02-08] MEDS: MULTIVITAMIN with MINERAL TABLET. PO SCH (07:38)
[2019-02-08] MEDS: CEPHALEXIN 250 MG CAPSULE PO SCH ×5 (07:38→21:00)
[2019-02-08] MEDS: CARBIDOPA/LEVODOPA 10/100MG TABLET PO SCH ×5 (07:38→21:00)
[2019-02-08] MEDS: CETIRIZINE HCL 10 MG TABLET PO SCH (07:39)
[2019-02-08] MEDS: CILOSTAZOL 50 MG TABLET. PO SCH ×4 (07:41→21:00)
[2019-02-08 07:46] LABS: BASO % 1 % (0-3); EOS # 0.3 x10^3/uL (0.0-0.7); EOS % 5 % (0-3); HEMATOCRIT 37.5 % (39.0-53.0); HEMOGLOBIN 12.5 g/dL (13.0-17.5); LYMPH # 1.2 x10^3/uL (1.0-4.8); LYMPH % 19 % (24-48); MEAN CORPUSCULAR HEMOGLOBIN 31 pg (25-35); MEAN CORPUSCULAR HGB CONC 33 g/dL (31-37); MEAN CORPUSCULAR VOLUME 94 fL (79-100); MONO # 0.5 x10^3/uL (0.0-1.1); MONO % 9 % (0-9); NEUT % 66 % (31-73); PLATELET COUNT 227 x10^3/uL (140-400); RED BLOOD COUNT 3.98 x10^6/uL (4.30-5.70); RED CELL DISTRIBUTION WIDTH 14.3 % (11.5-14.5)
[2019-02-08 08:11] LABS: ALBUMIN 3.2 g/dL (3.4-5.0); ALBUMIN/GLOBULIN RATIO 0.9 (1.0-1.7); ALK PHOS 86 U/L (46-116); ALT (SGPT) 14 U/L (16-63); ANION GAP 10 (6-14); AST (SGOT) 14 U/L (15-37); BLOOD UREA NITROGEN 13 mg/dL (8-26); BUN/CREATININE RATIO 14 (6-20); CALCIUM 8.6 mg/dL (8.5-10.1); CARBON DIOXIDE 26 mmol/L (21-32); CHLORIDE 100 mmol/L (98-107); CREATININE 0.9 mg/dL (0.7-1.3); GFR 82.3; GLUCOSE 163 mg/dL (70-99); POTASSIUM 4.1 mmol/L (3.5-5.1); SODIUM 136 mmol/L (136-145); TOTAL BILIRUBIN 0.2 mg/dL (0.2-1.0); TOTAL PROTEIN 6.8 g/dL (6.4-8.2)
[2019-02-08] MEDS: INSULIN LISPRO 300 UNITS/3 ML INSULN.PEN. SQ SCH ×3 (08:14→17:15)
[2019-02-08 08:16] LABS: VAL ACID 77 mcg/mL (50-100)
[2019-02-08] MEDS: INSULIN GLARGINE 300 UNITS/3 ML INSULN.PEN. SQ SCH ×2 (09:09→19:53)
[2019-02-08] MEDS: NYSTATIN 100,000 UNIT/GM TOPICAL CREAM 15GM TUBE. TP SCH ×2 (09:09→19:51)
--- NOTE | 2019-02-08 10:34 | NUR ---
Patient was outside on the patio, allowed for morning assessment, took insulin and lantus only. Patient had the medications in his mouth at first but spit them out. Said that "he doesn't need any medications, that he stopped taking everything 4 years ago and has done great." Also that he wants medications to "stop being shoved down his throat." Patient went on to tell the nurse that "she didn't do anything wrong and that is how he is." Patient is now sitting on the patio, no agitation noted, will continue to monitor.
--- NOTE | 2019-02-08 14:00 | NUR ---
The nurse went to give patient his 1400 medications, patient took these whole with water. Patient visited with nurse, was talking about his relationship with his children and how difficult it is at times. Also that he feels that he was thrown in here and kidnapped. The nurse reminded patient that he needs to continue to take his medications. Patient became a little tearful. Patient is currently sleeping in bed, will continue to monitor.
[2019-02-08 16:24] VITALS: BP 151/81
--- NOTE | 2019-02-08 17:28 | NUR ---
While assisting to get the patient up and ready for dinner the patient was talking about how the governor of [place] asked him to be here and that he was kidnapped against his will. Also that he was documenting/investigating everything that takes place here and was going to report everything back to her. Patient said that "this place will be shut down." Patient also told the nurse she "will read about this place in the newspaper." Patient is currently eating dinner. Will continue to monitor.
[2019-02-08] MEDS: METOPROLOL SUCC 24HR ER 25 MG TAB.ER.24H. PO SCH ×2 (19:48→21:00)
[2019-02-08] MEDS: risperiDONE ORAL 1 MG/ML 30ml BOTTLE. SL SCH ×2 (19:51→21:02)
--- NOTE | 2019-02-08 23:04 | PDOC ---
Exam Note: Maxwell Note: Please also refer to the separate dictated note~for this date of service dictated separately.~Patient seen individually. Discussed the patient with Nursing staff reviewed the chart.~Reviewed interim history and current functioning. Reviewed vital signs,~Labs/ Radiology~and current medications noted below. Continue current treatment with the changes noted in the dictated addendum note Assessment: Vital Signs/I&O: Vital Signs Date Time Temp Pulse Resp B/P (MAP) Pulse Ox O2 Delivery O2 Flow Rate FiO2 02/08/19 21:00 92 151/81 02/08/19 16:24 97.6 20 98 02/06/19 16:23 Room Air I & O 02/07/19 02/07/19 02/08/19 15:00 23:00 07:00 Intake Total 480 ml 480 ml 240 ml Balance 480 ml 480 ml 240 ml Labs: Laboratory Tests Test 02/08/19 07:28 02/08/19 07:31 02/08/19 12:15 02/08/19 16:33 White Blood Count 6.0 x10^3/uL (4.0-11.0) Red Blood Count 3.98 x10^6/uL (4.30-5.70) L Hemoglobin 12.5 g/dL (13.0-17.5) L Hematocrit 37.5 % (39.0-53.0) L Mean Corpuscular Volume 94 fL (79-100) Mean Corpuscular Hemoglobin 31 pg (25-35) Mean Corpuscular Hemoglobin Concent 33 g/dL (31-37) Red Cell Distribution Width 14.3 % (11.5-14.5) Platelet Count 227 x10^3/uL (140-400) Neutrophils (%) (Auto) 66 % (31-73) Lymphocytes (%) (Auto) 19 % (24-48) L Monocytes (%) (Auto) 9 % (0-9) Eosinophils (%) (Auto) 5 % (0-3) H Basophils (%) (Auto) 1 % (0-3) Neutrophils # (Auto) 4.0 x10^3uL (1.8-7.7) Lymphocytes # (Auto) 1.2 x10^3/uL (1.0-4.8) Monocytes # (Auto) 0.5 x10^3/uL (0.0-1.1) Eosinophils # (Auto) 0.3 x10^3/uL (0.0-0.7) Basophils # (Auto) 0.0 x10^3/uL (0.0-0.2) Sodium Level 136 mmol/L (136-145) Potassium Level 4.1 mmol/L (3.5-5.1) Chloride Level 100 mmol/L (98-107) Carbon Dioxide Level 26 mmol/L (21-32) Anion Gap 10 (6-14) Blood Urea Nitrogen 13 mg/dL (8-26) Creatinine 0.9 mg/dL (0.7-1.3) Estimated GFR (Cockcroft-Gault) 82.3 BUN/Creatinine Ratio 14 (6-20) Glucose Level 163 mg/dL (70-99) H Calcium Level 8.6 mg/dL (8.5-10.1) Total Bilirubin 0.2 mg/dL (0.2-1.0) Aspartate Amino Transferase (AST) 14 U/L (15-37) L Alanine Aminotransferase (ALT) 14 U/L (16-63) L Alkaline Phosphatase 86 U/L (46-116) Ammonia 32 mcmol/L (11-34) Total Protein 6.8 g/dL (6.4-8.2) Albumin 3.2 g/dL (3.4-5.0) L Albumin/Globulin Ratio 0.9 (1.0-1.7) L Valproic Acid Level 77 mcg/mL (50-100) Valproic Acid Last Dose Date 02/07/19 Valproic Acid Last Dose Time 2100 Glucose (Fingerstick) 162 mg/dL (70-99) H 229 mg/dL (70-99) H 202 mg/dL (70-99) H Test 02/08/19 19:30 Glucose (Fingerstick) 243 mg/dL (70-99) H Current Medications: Meds: Current Medications Medications (Trade) Dose Ordered Sig/Sandhya Route PRN Reason Start Time Stop Time Status Last Admin Dose Admin Nystatin (Mycostatin) 1 laila BID TP 02/08/19 09:00 02/08/19 19:51 Risperidone (RisperDAL) 0.75 mg HS SL 02/08/19 21:00 02/08/19 21:02 I have reviewed the current psychotropics carefully including drug interactions. Risk benefit ratio favors no change other than as noted in my dictated progress note. 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
--- NOTE | 2019-02-08 23:43 | NUR ---
Pt has been located in the dayroom this evening. Pt had one episode of incontinence without alerting staff that he needed to use the restroom. Pt has been very argumentative and irritable with staff. Pt adamantly refused all of his HS medications, stating that he "does not need them;" he has "not taken any medications for 4 years and is doing just fine." Dr. Jang present and speaking with patient and pt continues to refuse his medications. Pt states "you are not my boss." Pt then tells this nurse that "you are in for a surprise. I am turning you in to the Feds. The tankage grinder operator and jurors will prosecute you and send you to the [facility]." Pt continues to be rude and argumentative with any staff that approach him.
--- NOTE | 2019-02-08 23:44 | NUR ---
Liquid risperdal hidden and consumed in [facility].
[2019-02-09 05:49] VITALS: BP 148/83
[2019-02-09] MEDS: CARBIDOPA/LEVODOPA 10/100MG TABLET PO SCH ×4 (07:44→21:00)
[2019-02-09] MEDS: DIVALPROEX 125 MG CAP.SPRINK PO SCH (07:44)
[2019-02-09] MEDS: CEPHALEXIN 250 MG CAPSULE PO SCH ×3 (07:44→21:00)
[2019-02-09] MEDS: metFORMIN 500 MG TABLET PO SCH ×3 (08:00→17:04)
[2019-02-09] MEDS: INSULIN LISPRO 300 UNITS/3 ML INSULN.PEN. SQ SCH ×3 (08:00→17:16)
[2019-02-09] MEDS: ASPIRIN 81 MG TAB.CHEW PO SCH (08:00)
[2019-02-09] MEDS: CILOSTAZOL 50 MG TABLET. PO SCH ×2 (08:02→21:00)
[2019-02-09] MEDS: LACTOBACILLUS RHAMNOSUS GG 1 CAPSULE. PO SCH ×2 (08:02→21:00)
[2019-02-09] MEDS: CETIRIZINE HCL 10 MG TABLET PO SCH (08:03)
[2019-02-09] MEDS: ACETAMINOPHEN 325 MG TABLET PO SCH ×2 (08:03→21:00)
[2019-02-09] MEDS: MULTIVITAMIN with MINERAL TABLET. PO SCH (08:03)
[2019-02-09] MEDS: NYSTATIN 100,000 UNIT/GM TOPICAL CREAM 15GM TUBE. TP SCH ×2 (08:06→21:00)
[2019-02-09] MEDS: INSULIN GLARGINE 300 UNITS/3 ML INSULN.PEN. SQ SCH ×2 (08:07→21:03)
--- NOTE | 2019-02-09 09:54 | NUR ---
Patient was in the dining room upon morning assessment, took the Depakote, antibiotic, and Lantus only. Patient refused the rest of his medications. Pt did allow for morning assessment. Patient was calm and interactive, no agitation noted. Will continue to monitor.
[2019-02-09 17:24] VITALS: BP 145/75
[2019-02-09] MEDS: VALPROATE ACID 250 MG/5 ML ORAL SOLUTION PO SCH (20:33)
[2019-02-09] MEDS: risperiDONE ORAL 1 MG/ML 30ml BOTTLE. SL SCH (20:33)
[2019-02-09] MEDS: METOPROLOL SUCC 24HR ER 25 MG TAB.ER.24H. PO SCH (21:00)
--- NOTE | 2019-02-09 22:11 | PDOC ---
Exam Note: Maxwell Note: Please also refer to the separate dictated note~for this date of service dictated separately.~Patient seen individually. Discussed the patient with Nursing staff reviewed the chart.~Reviewed interim history and current functioning. Reviewed vital signs,~Labs/ Radiology~and current medications noted below. Continue current treatment with the changes noted in the dictated addendum note Assessment: Vital Signs/I&O: Vital Signs Date Time Temp Pulse Resp B/P (MAP) Pulse Ox O2 Delivery O2 Flow Rate FiO2 02/09/19 21:00 97 145/75 02/09/19 17:24 98.0 20 99 02/09/19 05:49 Room Air I & O 02/08/19 02/08/19 02/09/19 15:00 23:00 07:00 Intake Total 960 ml 460 ml 240 ml Balance 960 ml 460 ml 240 ml Labs: Laboratory Tests Test 02/09/19 07:09 02/09/19 11:42 02/09/19 17:06 02/09/19 19:15 Glucose (Fingerstick) 100 mg/dL (70-99) H 232 mg/dL (70-99) H 234 mg/dL (70-99) H 273 mg/dL (70-99) H Current Medications: Meds: Current Medications Medications (Trade) Dose Ordered Sig/Sandhya Route PRN Reason Start Time Stop Time Status Last Admin Dose Admin Valproic Acid (Depakene) 500 mg BID PO 02/09/19 21:00 02/09/19 20:33 I have reviewed the current psychotropics carefully including drug interactions. Risk benefit ratio favors no change other than as noted in my dictated progress note. 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
--- NOTE | 2019-02-09 22:57 | NUR ---
Pt located in the dayroom this evening. Pt calm and pleasant until approached with medication. Pt adamantly refusing all medication, stating he does not need it. Liquid Risperdal and Depakene hidden and consumed in strawberry boost. All other HS medications non administered.
--- NOTE | 2019-02-09 23:49 | PN ---
DATE: PSYCHIATRIC PROGRESS NOTE This late entry 02/07/2019 covers elements not covered in my initial note. SUBJECTIVE: I met with the patient in the evening of 01/09/2019. The patient slept 6-1/4 hours previous night. He has been somewhat condescending sexually inappropriate at times, pulled off his condom catheter and has been continent of urine; thereafter, will defer to Dr. Schwartz. He refused his lactobacillus, did attend groups. REVIEW OF SYSTEMS: Ambulation impaired, in wheelchair. No CV, , pulmonary, eye, ENT system symptoms on review. MENTAL STATUS EXAM: Reasonably oriented. Speech is coherent, abstraction fair, computation impaired, language function intact, attention span short. Mood and affect remain somewhat anxious and labile, but improving. LABORATORY DATA: Reviewed. IMPRESSION: Unchanged from initial note. 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 PLAN: Continue Risperdal 0.25 mg at bedtime, Depakote 500 mg b.i.d. Check labs level on 02/08/2019. Adjust thereafter to reach therapeutic level. MAN Bladimir RUTH MD DR: TAINA/siddhartha JOB#: [id number] / [id number]
--- NOTE | 2019-02-09 23:49 | PN ---
DATE: 02/08/2019 PSYCHIATRIC PROGRESS NOTE This late entry of 02/08/2019 covers elements not covered in my initial note. SUBJECTIVE: I met with the patient in the evening. The patient slept 5-1/2 hours previous night. Since the [place] catheter was removed, he has been urinating all over the hallway and elsewhere, even though he is quite able to control this. I addressed this with him. He is refusing his p.m. medications. Valproic acid level on 02/08/2019 is 77, therapeutic. REVIEW OF SYSTEMS: Ambulation impaired, in wheelchair. No CV, , PULMONARY, EYE, ENT system symptoms on review. MENTAL STATUS EXAM: Oriented to himself and situation. Speech is coherent, abstraction fair, computation impaired, language function intact, attention span short. Mood and affect somewhat anxious, labile. LABORATORY DATA: Reviewed. IMPRESSION: Bipolar 1 disorder, unspecified; major neurocognitive disorder; Alzheimer, vascular with delusion; depression; behavioral disturbance; anxiety disorder, unspecified; personality disorder, unspecified. PLAN: Increase Risperdal from 0.25 mg at bedtime to 0.75 mg at bedtime. Continue Depakote at current dosage. Use Zyprexa p.r.n., rest we will adjust gradually. EMERSON RUTH MD DR: TAINA/siddhartha JOB#: [id number] / [id number]
[2019-02-10 06:02] VITALS: BP 102/73
[2019-02-10] MEDS: CILOSTAZOL 50 MG TABLET. PO SCH ×3 (07:41→20:16)
[2019-02-10] MEDS: LACTOBACILLUS RHAMNOSUS GG 1 CAPSULE. PO SCH ×3 (07:41→20:16)
[2019-02-10] MEDS: ASPIRIN 81 MG TAB.CHEW PO SCH (07:41)
[2019-02-10] MEDS: metFORMIN 500 MG TABLET PO SCH ×2 (07:41→17:00)
[2019-02-10] MEDS: MULTIVITAMIN with MINERAL TABLET. PO SCH (07:42)
[2019-02-10] MEDS: CARBIDOPA/LEVODOPA 10/100MG TABLET PO SCH ×3 (07:42→20:06)
[2019-02-10] MEDS: ACETAMINOPHEN 325 MG TABLET PO SCH ×2 (07:42→20:05)
[2019-02-10] MEDS: CETIRIZINE HCL 10 MG TABLET PO SCH (07:42)
[2019-02-10] MEDS: CEPHALEXIN 250 MG CAPSULE PO SCH ×2 (07:43→13:29)
[2019-02-10] MEDS: NYSTATIN 100,000 UNIT/GM TOPICAL CREAM 15GM TUBE. TP SCH ×2 (07:44→21:19)
[2019-02-10] MEDS: VALPROATE ACID 250 MG/5 ML ORAL SOLUTION PO SCH ×2 (07:44→19:57)
[2019-02-10] MEDS: INSULIN LISPRO 300 UNITS/3 ML INSULN.PEN. SQ SCH ×3 (08:00→17:15)
[2019-02-10] MEDS: INSULIN GLARGINE 300 UNITS/3 ML INSULN.PEN. SQ SCH ×2 (08:29→20:09)
--- NOTE | 2019-02-10 10:43 | NUR ---
Patient was in the dining room during rounding, took his antibiotic, drank most of his milk with depakene in it. Patient refused the rest of his medications, allowed for morning assessment. No agitation noted at this time, will continue to monitor.
[2019-02-10] MEDS: NYSTATIN TOPICAL POWDER 15GM BOTTLE. TP PRN (14:35)
[2019-02-10 16:03] VITALS: BP 149/84
[2019-02-10] MEDS: risperiDONE ORAL 1 MG/ML 30ml BOTTLE. SL SCH (19:58)
[2019-02-10] MEDS: METOPROLOL SUCC 24HR ER 25 MG TAB.ER.24H. PO SCH (20:06)
--- NOTE | 2019-02-10 20:29 | PN ---
DATE: 02/09/2019 PSYCHIATRIC PROGRESS NOTE This late entry 02/09/2019, covers the elements not covered in my initial note. SUBJECTIVE: I met with the patient in the evening of 02/09/2019. The patient slept 6-1/4 hours previous night. At night, he refused his medications, later took the Risperdal. He has been sarcastic, rude and condescending per nursing staff. He was threatening a female nursing staff that he did call the feds on her and [facility]. 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 Addressed this with him. REVIEW OF SYSTEMS: Ambulation impaired, in wheelchair. No CV, , pulmonary, eye, ENT system symptoms on review. MENTAL STATUS EXAM: Oriented to himself and situation. Speech is coherent, can be little pressured at times. Abstraction fair, computation impaired, language function intact, attention span short. Mood and affect remain somewhat anxious, labile at times. LABORATORY DATA: Reviewed. IMPRESSION: Schizoaffective disorder, bipolar type, major neurocognitive disorder, early Alzheimer, vascular with delusion, behavioral disturbance. Rest unchanged. PLAN: Start Zyprexa Zydis 2.5 mg q.2 hours p.r.n. psychosis, agitation, max 10 mg in 24 hours. Change the Depakote 500 b.i.d. to liquid. Maintain Risperdal 0.75 mg at bedtime to liquid. Adjust further as clinically indicated. MAN Bladimir RUTH MD DR: TAINA/siddhartha JOB#: [id number] / [id number]
--- NOTE | 2019-02-10 22:19 | NUR ---
Pt located in the dayroom all evening, sitting calmly. Liquid risperdal and depakene hidden and consumed in strawberry boost. Pt went through his HS pills and chose which meds he would take and which ones he would refuse for the night. Pt appears less argumentative this evening.
--- NOTE | 2019-02-10 22:30 | PDOC ---
Exam Note: Maxwell Note: Please also refer to the separate dictated note~for this date of service dictated separately.~Patient seen individually. Discussed the patient with Nursing staff reviewed the chart.~Reviewed interim history and current functioning. Reviewed vital signs,~Labs/ Radiology~and current medications noted below. Continue current treatment with the changes noted in the dictated addendum note Assessment: Vital Signs/I&O: Vital Signs Date Time Temp Pulse Resp B/P (MAP) Pulse Ox O2 Delivery O2 Flow Rate FiO2 02/10/19 20:06 94 149/84 02/10/19 16:03 97.9 18 99 02/09/19 05:49 Room Air I & O 02/09/19 02/09/19 02/10/19 14:59 22:59 06:59 Intake Total 840 ml 480 ml Balance 840 ml 480 ml Labs: Laboratory Tests Test 02/10/19 08:10 02/10/19 11:53 02/10/19 16:50 02/10/19 19:48 Glucose (Fingerstick) 134 mg/dL (70-99) H 175 mg/dL (70-99) H 194 mg/dL (70-99) H 276 mg/dL (70-99) H Current Medications: Meds: Current Medications Medications (Trade) Dose Ordered Sig/Sandhya Route PRN Reason Start Time Stop Time Status Last Admin Dose Admin Risperidone (RisperDAL) 1 mg HS SL 02/10/19 21:00 02/10/19 19:58 I have reviewed the current psychotropics carefully including drug interactions. Risk benefit ratio favors no change other than as noted in my dictated progress note. 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
[2019-02-11 04:19] VITALS: BP 102/64
[2019-02-11] MEDS: CARBIDOPA/LEVODOPA 10/100MG TABLET PO SCH ×4 (08:34→21:37)
[2019-02-11] MEDS: VALPROATE ACID 250 MG/5 ML ORAL SOLUTION PO SCH ×2 (08:34→21:35)
[2019-02-11] MEDS: metFORMIN 500 MG TABLET PO SCH ×2 (08:36→17:08)
[2019-02-11] MEDS: INSULIN LISPRO 300 UNITS/3 ML INSULN.PEN. SQ SCH ×3 (08:39→17:09)
[2019-02-11] MEDS: INSULIN GLARGINE 300 UNITS/3 ML INSULN.PEN. SQ SCH ×2 (08:42→21:39)
[2019-02-11] MEDS: MULTIVITAMIN with MINERAL TABLET. PO SCH (09:20)
[2019-02-11] MEDS: CETIRIZINE HCL 10 MG TABLET PO SCH (09:20)
[2019-02-11] MEDS: LACTOBACILLUS RHAMNOSUS GG 1 CAPSULE. PO SCH ×2 (09:20→21:37)
[2019-02-11] MEDS: NYSTATIN 100,000 UNIT/GM TOPICAL CREAM 15GM TUBE. TP SCH ×2 (09:20→21:34)
[2019-02-11] MEDS: ASPIRIN 81 MG TAB.CHEW PO SCH (09:20)
[2019-02-11] MEDS: CILOSTAZOL 50 MG TABLET. PO SCH ×2 (09:20→21:36)
[2019-02-11] MEDS: ACETAMINOPHEN 325 MG TABLET PO SCH ×2 (09:20→21:37)
--- NOTE | 2019-02-11 09:28 | NUR ---
Nursing Note: Wound care nurses treated pt this morning Heel Medix Boots ordered. Nystatin cream applied by them. Hid some of pt's meds; pt refused BP meds, vitamin, aspirin, and Pletal. Explained to pt that all meds are important, especially Pletal as it is effects blood flow to legs which is necessary for healing. Explained to pt that d/t new wounds discovered on his heals today by Wound Care, it is important that he take this particular medication. Pt understood and still refused. Pt was extremely rude when answering orientation questions, stating, "I've been here for nine days." Explained to pt that orientation question are part of our assessment each shift. Pt then complained of noise in the room.
--- NOTE | 2019-02-11 12:20 | NUR ---
Nursing Note: Pt's FSBS 351. Pt was given a regular Boost w/medication instead of a glucose controlled Boost which increased his FSBS. 8 units of Humalog given. Will continue to monitor.
--- NOTE | 2019-02-11 13:43 | NUR ---
Wound Care Wound care consult for groin maceration. see wound assessment. Pt has IAD with yeasty rash. Applied vitamin A&D ointment mixed with Nystatin powder to groin and scrotum. patient has a a DFU on the left and right heel, the wounds were cleaned, measured and pictured at this time, the right heel recommendations of skin prep and a foam dressing, change every 2-3 days, the left heel wound was cleaned, measured and pictured and redressed with Iodoflex with a foam dressing, recommendations of changing every 2-3 days. No other wounds noted on full skin inspection. WC will continue to follow for possible changes. Heelmedix boots ordered at this time, Discussed POC with with CA Joshi.
--- NOTE | 2019-02-11 14:31 | NUR ---
Nursing Note: Pt refused 1300 Carbidopa/Levodopa stating that he has never taking that medication before. Explained to pt that he had indeed rec this medication regularly since he had been here. Pt fervently denied. Will continue to monitor.
[2019-02-11 15:51] VITALS: BP 123/73
[2019-02-11] MEDS: FLUCONAZOLE 100 MG TABLET. PO SCH (17:08)
--- NOTE | 2019-02-11 18:48 | NUR ---
Nursing Note: After talking to Dr. Jang, pt says he is willing to take his Pletal. Will inform hourly shift. Will continue to monitor.
[2019-02-11] MEDS: METOPROLOL SUCC 24HR ER 25 MG TAB.ER.24H. PO SCH (21:37)
[2019-02-11] MEDS: risperiDONE ORAL 1 MG/ML 30ml BOTTLE. SL SCH (21:40)
--- NOTE | 2019-02-11 22:31 | PDOC ---
Exam Note: Maxwell Note: Please also refer to the separate dictated note~for this date of service dictated separately.~Patient seen individually. Discussed the patient with Nursing staff reviewed the chart.~Reviewed interim history and current functioning. Reviewed vital signs,~Labs/ Radiology~and current medications noted below. Continue current treatment with the changes noted in the dictated addendum note Assessment: Vital Signs/I&O: Vital Signs Date Time Temp Pulse Resp B/P (MAP) Pulse Ox O2 Delivery O2 Flow Rate FiO2 02/11/19 21:40 89 123/73 02/11/19 15:51 97.4 16 97 02/11/19 04:19 Room Air I & O 02/10/19 02/10/19 02/11/19 15:00 23:00 07:00 Intake Total 840 ml 840 ml Balance 840 ml 840 ml Labs: Laboratory Tests Test 02/11/19 07:33 02/11/19 12:08 02/11/19 16:25 02/11/19 19:09 Glucose (Fingerstick) 210 mg/dL (70-99) H 351 mg/dL (70-99) H 232 mg/dL (70-99) H 272 mg/dL (70-99) H Current Medications: Meds: Current Medications Medications (Trade) Dose Ordered Sig/Sandhya Route PRN Reason Start Time Stop Time Status Last Admin Dose Admin Fluconazole (Diflucan) 100 mg DAILY PO 02/11/19 16:30 02/20/19 17:00 02/11/19 17:09 I have reviewed the current psychotropics carefully including drug interactions. Risk benefit ratio favors no change other than as noted in my dictated progress note. 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
--- NOTE | 2019-02-11 23:01 | PN ---
DATE: 02/10/2019 PSYCHIATRIC PROGRESS NOTE This late entry 02/10/2019 covers elements not covered in my initial note. SUBJECTIVE: I met with the patient in the evening of 02/10/2019. The patient slept 6 hours previous night. At times, he is resistive to medications, but took his Depakene and milk from a particular female nursing staff that he is more accepting from. He has been making comments to this nursing staff that he is a pretty nurse. REVIEW OF SYSTEMS: Ambulation impaired, in wheelchair. No CV, , pulmonary, eye, ENT system symptoms on review. MENTAL STATUS EXAMINATION: Oriented to himself and situation. Speech is coherent, abstraction fair, computation impaired, language function intact, attention span short. Mood and affect remain somewhat anxious, labile at times. LABORATORY DATA: Reviewed. IMPRESSION: Unchanged from initial note. PLAN: Increase Risperdal from 0.75 mg at bedtime to 1 mg at bedtime. Rest unchanged for now. MAN Bladimir RUTH MD DR: TAINA/siddhartha JOB#: [id number] / [id number]
[2019-02-12 05:43] VITALS: BP 112/68
[2019-02-12] MEDS: INSULIN LISPRO 300 UNITS/3 ML INSULN.PEN. SQ SCH ×3 (08:12→17:37)
[2019-02-12] MEDS: CILOSTAZOL 50 MG TABLET. PO SCH ×3 (08:13→21:00)
[2019-02-12] MEDS: ASPIRIN 81 MG TAB.CHEW PO SCH ×2 (08:13→12:58)
[2019-02-12] MEDS: CARBIDOPA/LEVODOPA 10/100MG TABLET PO SCH ×4 (08:13→21:00)
[2019-02-12] MEDS: metFORMIN 500 MG TABLET PO SCH ×3 (08:14→17:36)
[2019-02-12] MEDS: LACTOBACILLUS RHAMNOSUS GG 1 CAPSULE. PO SCH ×3 (08:14→21:00)
[2019-02-12] MEDS: FLUCONAZOLE 100 MG TABLET. PO SCH ×2 (08:14→17:15)
[2019-02-12] MEDS: MULTIVITAMIN with MINERAL TABLET. PO SCH ×2 (08:15→13:00)
[2019-02-12] MEDS: CETIRIZINE HCL 10 MG TABLET PO SCH ×2 (08:15→12:59)
[2019-02-12] MEDS: ACETAMINOPHEN 325 MG TABLET PO SCH ×3 (08:15→21:00)
[2019-02-12] MEDS: NYSTATIN 100,000 UNIT/GM TOPICAL CREAM 15GM TUBE. TP SCH ×3 (08:16→21:00)
[2019-02-12] MEDS: INSULIN GLARGINE 300 UNITS/3 ML INSULN.PEN. SQ SCH ×2 (08:17→22:18)
[2019-02-12] MEDS: VALPROATE ACID 250 MG/5 ML ORAL SOLUTION PO SCH ×3 (08:18→21:00)
--- NOTE | 2019-02-12 13:19 | NUR ---
Patient rude and condescending to staff. He was combative during toileting, attempting to hit staff. He then banged his own head into the wall intentionally. He has refused all medications thus far today, even after being approached multiple times (3). He was only compliant with his insulin. Patient is acting hateful and talking down to staff. Will attempt to give psych meds this afternoon hidden in snack. Patient also stated that he had "been kidnapped". Attempted to reorient patient to situation but he refused to listen and rolled away in his wheel chair.
[2019-02-12 15:41] VITALS: BP 146/76
--- NOTE | 2019-02-12 18:00 | NUR ---
Patient was eventually compliant with depakene hidden in red gatorade and given to him by PHARMACEUTICAL SALES REPRESENTATIVE. At dinner time nurse brought metformin to patient in the wrapper and showed him the medication. He agreed to take the medication. He was compliant with insulin given all day. Patient continues to propel himself with his heels while in his wheelchair despite being told to stop doing it because it is making the heel wounds worse. Patient has medi-boots to wear while in bed to protect his heels.
--- NOTE | 2019-02-12 20:55 | PDOC ---
Exam Note: Maxwell Note: Please also refer to the separate dictated note~for this date of service dictated separately.~Patient seen individually. Discussed the patient with Nursing staff reviewed the chart.~Reviewed interim history and current functioning. Reviewed vital signs,~Labs/ Radiology~and current medications noted below. Continue current treatment with the changes noted in the dictated addendum note Assessment: Vital Signs/I&O: Vital Signs Date Time Temp Pulse Resp B/P (MAP) Pulse Ox O2 Delivery O2 Flow Rate FiO2 02/12/19 15:41 98.2 95 18 146/76 (99) 93 02/12/19 05:43 Room Air I & O 02/11/19 02/11/19 02/12/19 15:00 23:00 07:00 Intake Total 960 ml 600 ml Balance 960 ml 600 ml Labs: Laboratory Tests Test 02/12/19 07:22 02/12/19 11:49 02/12/19 17:14 02/12/19 19:01 Glucose (Fingerstick) 139 mg/dL (70-99) H 186 mg/dL (70-99) H 237 mg/dL (70-99) H 278 mg/dL (70-99) H Current Medications: I have reviewed the current psychotropics carefully including drug interactions. Risk benefit ratio favors no change other than as noted in my dictated progress note. Diagnosis: Problems: (1) Mental status change resolved (2) Anxiety disorder (3) Bipolar affective, mixed, sev w/ psych (4) Dementia, vascular, with depression (5) Dementia, vascular, with delusions (6) Impulse control disorder (7) Psychosis, atypical (8) Dementia in Alzheimer's disease with delusions (9) Major neurocognitive disorder (10) Personality disorder EMERSON RUTH MD Feb 12, 2019 20:55
[2019-02-12] MEDS: risperiDONE ORAL 1 MG/ML 30ml BOTTLE. SL SCH (21:00)
[2019-02-12] MEDS: METOPROLOL SUCC 24HR ER 25 MG TAB.ER.24H. PO SCH (21:00)
--- NOTE | 2019-02-12 22:00 | NUR ---
Pt in day room requested to see all meds before taking them. Meds shown to pt and pu Addendum: 02/12/19 at 2359 by MICKY TERRY RN purpose explained. Pt chose to only take the insulin. Reminded pt the meds were to help him and prevent complications and he said he knows that but it is his body.
--- NOTE | 2019-02-12 23:57 | PN ---
DATE: 02/11/2019 PSYCHIATRIC PROGRESS NOTE This late entry 02/11/2019 covers elements not covered in my initial note. SUBJECTIVE: I met with the patient in the evening of 02/11/2019 at length. The patient slept 6-3/4 hours previous night. He is compliant with his medications, but rude and argumentative with staff, refused his a.m. medications, refused his Pletal. I had a lengthy discussion with him about the need to be compliant with his medications. He did have a wound consult and they are following him for his wounds on the heel due to peripheral vascular disease and I explained to him the necessity to be compliant with Pletal in addition to the others. We have requested the pharmacy to printout drug information on Pletal and handed to him as well and he was appreciative of the information and said he would be compliant. REVIEW OF SYSTEMS: Ambulation impaired, in wheelchair. No CV, , pulmonary, eye system symptoms on review. He complained of feeling cold and I got him an extra blanket. MENTAL STATUS EXAMINATION: Oriented to himself and situation. Speech is coherent, less pressured. Abstraction fair, computation impaired, language function intact, attention span short. Mood and affect remain somewhat anxious, labile at times. LABORATORY DATA: Reviewed. IMPRESSION: Unchanged from initial note. PLAN: No change from initial note. EMERSON RUTH MD DR: TAINA/siddhartha JOB#: [id number] / [id number]
[2019-02-13 06:12] VITALS: BP 106/68
[2019-02-13] MEDS: metFORMIN 500 MG TABLET PO SCH ×2 (07:57→17:23)
[2019-02-13] MEDS: ASPIRIN 81 MG TAB.CHEW PO SCH (07:57)
[2019-02-13] MEDS: INSULIN LISPRO 300 UNITS/3 ML INSULN.PEN. SQ SCH ×3 (07:58→17:23)
[2019-02-13] MEDS: LACTOBACILLUS RHAMNOSUS GG 1 CAPSULE. PO SCH ×3 (07:58→20:33)
[2019-02-13] MEDS: ACETAMINOPHEN 325 MG TABLET PO SCH ×3 (08:00→20:34)
[2019-02-13] MEDS: CARBIDOPA/LEVODOPA 10/100MG TABLET PO SCH ×4 (08:00→20:33)
[2019-02-13] MEDS: MULTIVITAMIN with MINERAL TABLET. PO SCH (08:00)
[2019-02-13] MEDS: CILOSTAZOL 50 MG TABLET. PO SCH ×3 (08:01→20:33)
[2019-02-13] MEDS: FLUCONAZOLE 100 MG TABLET. PO SCH (08:01)
[2019-02-13] MEDS: CETIRIZINE HCL 10 MG TABLET PO SCH (08:01)
[2019-02-13] MEDS: INSULIN GLARGINE 300 UNITS/3 ML INSULN.PEN. SQ SCH ×2 (08:02→19:25)
[2019-02-13] MEDS: VALPROATE ACID 250 MG/5 ML ORAL SOLUTION PO SCH ×2 (08:02→19:21)
[2019-02-13] MEDS: NYSTATIN 100,000 UNIT/GM TOPICAL CREAM 15GM TUBE. TP SCH ×2 (08:03→19:25)
--- NOTE | 2019-02-13 10:18 | NUR ---
WEEKLY ACTIVITY THERAPY NOTE Date of Admission: 02/02/2019 Date of AT Assessment: 02/04/2019 Goal aimed: to sustain engagement Initial goal:Pt. will participate in all groups he is invited to. Weekly progress towards goal: did not achieve- no interest when invited on Sunday Group participation level: moderate to full Weekly highlights: enjoys socializing and watering the garden Behaviors observed: difficulty focusing at times, annoyed with peer earlier in the week but accepted assistance from ACT therapist to remove self from the situation and reminders he can only control himself, reading occasionally, chats with peer's visitors, impatient with a male peer towards the end of the week. Plan: no change to goal Beneficial adaptations: reminders and invitations, outdoor/garden
--- NOTE | 2019-02-13 11:26 | NUR ---
WEEKLY NOTE: Pt is eating 75-100% and sleeping on average 6 hours. Pt does attend groups but needs to be redirected at times due to his attitude and abrasive conversation. Pt is combative with cares and continues to refuse all medications, except for his insulin. Pt facility is attempting to find placement for pt and SW is aiding in this process. It is understood that pt may have to return to placement if nothing more can be found.
--- NOTE | 2019-02-13 13:27 | NUR ---
NURSING NOTE PT WAS IN THE DINNING ROOM UPON ASSESSMENT AND MEDICATION ADMINISTRATION. PT NEEDED EXTRA ENCOURAGEMENT FOR MEDICATIONS. PT WAS POURING PILLS OUT AND ASKING ABOUT EACH ONE OVER AND OVER AGAIN. PT TOLD THE MEDICATIONS ARE THE SAME AND THAT HE NEEDS TO TAKE THEM. PT DID EVENTUALLY TAKE HIS MEDS. PT WAS A&O THIS MORNING. PT HAS 3+ PITTING EDEMA IN BLE. PT C/O TOOTH PAIN THAT HE STATES HAS BEEN GOING ON FOR 4 MONTHS. NO SWELLING OR REDNESS NOTED. PT WAS ITCHING ON HIS ARMS AND LEGS, PT HAS SCRATCH ABRASIONS UP AND DOWN BOTH ARMS AND LEGS. PT ABDOMEN IS ROUND AND FIRM, PT DENIES PAIN. LBM REPORTED PER PT WAS THIS AM. PT HAS OCCASIONAL FLIRTATIOUS COMMENTS TO FEMALES. PT INSTRUCTED TO CALL EMPLOYEES AND PATIENTS BY NAME. WILL CONTINUE TO MONITOR. CA FISCHER
[2019-02-13 16:11] VITALS: BP 135/81
[2019-02-13] MEDS: METOPROLOL SUCC 24HR ER 25 MG TAB.ER.24H. PO SCH ×2 (19:22→20:34)
[2019-02-13] MEDS: risperiDONE ORAL 1 MG/ML 30ml BOTTLE. SL SCH (19:24)
--- NOTE | 2019-02-13 21:39 | NUR ---
Nursing note: Assumed care of pt in the day room where he was quietly reading a magazine. He was compliant with insulin but refused all his oral meds. He was given his liquid meds in [facility]. He was pleasant but adamant that he isn't taking his pills. Educated about the need for compliance but not interested. He is A&OX3, no c/o pain, not agitated unless pressed to take meds.
--- NOTE | 2019-02-13 22:27 | PDOC ---
Exam Note: Maxwell Note: Please also refer to the separate dictated note~for this date of service dictated separately.~Patient seen individually. Discussed the patient with Nursing staff reviewed the chart.~Reviewed interim history and current functioning. Reviewed vital signs,~Labs/ Radiology~and current medications noted below. Continue current treatment with the changes noted in the dictated addendum note Assessment: Vital Signs/I&O: Vital Signs Date Time Temp Pulse Resp B/P (MAP) Pulse Ox O2 Delivery O2 Flow Rate FiO2 02/13/19 20:34 103 135/81 02/13/19 16:11 97.8 20 98 02/13/19 06:12 Room Air I & O 02/12/19 02/12/19 02/13/19 15:00 23:00 07:00 Intake Total 720 ml 600 ml 240 ml Balance 720 ml 600 ml 240 ml Labs: Laboratory Tests Test 02/13/19 07:25 02/13/19 11:42 02/13/19 17:15 02/13/19 19:15 Glucose (Fingerstick) 135 mg/dL (70-99) H 270 mg/dL (70-99) H 187 mg/dL (70-99) H 266 mg/dL (70-99) H Current Medications: I have reviewed the current psychotropics carefully including drug interactions. Risk benefit ratio favors no change other than as noted in my dictated progress note. Diagnosis: Problems: (1) Anxiety disorder (2) Bipolar affective, mixed, sev w/ psych (3) Dementia, vascular, with depression (4) Dementia, vascular, with delusions (5) Impulse control disorder (6) Psychosis, atypical (7) Dementia in Alzheimer's disease with delusions (8) PVD (peripheral vascular disease) (9) Personality disorder (10) Major neurocognitive disorder EMERSON RUTH MD Feb 13, 2019 22:27
[2019-02-14 06:00] VITALS: BP 131/73
[2019-02-14] MEDS: INSULIN LISPRO 300 UNITS/3 ML INSULN.PEN. SQ SCH ×3 (08:39→17:36)
[2019-02-14] MEDS: INSULIN GLARGINE 300 UNITS/3 ML INSULN.PEN. SQ SCH ×2 (11:00→19:43)
[2019-02-14] MEDS: VALPROATE ACID 250 MG/5 ML ORAL SOLUTION PO SCH ×2 (11:38→19:38)
[2019-02-14] MEDS: ASPIRIN 81 MG TAB.CHEW PO SCH (11:42)
[2019-02-14] MEDS: MULTIVITAMIN with MINERAL TABLET. PO SCH (11:42)
[2019-02-14] MEDS: metFORMIN 500 MG TABLET PO SCH ×2 (11:43→16:38)
[2019-02-14] MEDS: CILOSTAZOL 50 MG TABLET. PO SCH ×2 (11:44→19:40)
[2019-02-14] MEDS: LACTOBACILLUS RHAMNOSUS GG 1 CAPSULE. PO SCH ×2 (11:44→19:40)
[2019-02-14] MEDS: FLUCONAZOLE 100 MG TABLET. PO SCH (11:44)
[2019-02-14] MEDS: CETIRIZINE HCL 10 MG TABLET PO SCH (11:45)
[2019-02-14] MEDS: NYSTATIN 100,000 UNIT/GM TOPICAL CREAM 15GM TUBE. TP SCH ×2 (11:45→21:00)
[2019-02-14] MEDS: ACETAMINOPHEN 325 MG TABLET PO SCH ×2 (11:45→19:40)
[2019-02-14] MEDS: CARBIDOPA/LEVODOPA 10/100MG TABLET PO SCH ×3 (11:45→19:40)
--- NOTE | 2019-02-14 11:47 | NUR ---
Patient has refused almost all of his morning PO medications. He was compliant with only the aspirin and a multivitamin. Nurse hid depakene in grape juice and he drank that. Nurse provided education about what each unopened pill was for. On a previous day his objection was that "you could be giving me anything, those pills are unwrapped". Today his objection was that "the doctor only prescribed those so he could get richer, I don't need any of those pills." Patient refused to take: glucaphage, cilostazol, carbidopa/levodopa, lactobacillus, cetirizine, acetaminophen and fluconazole. He also refused to allow nurse to apply nystatin cream to his rash. Nurse advised patient that he WOULD be getting his first IM Risperdal Consta injection today. He asked why and nurse replied that it would be something that is only given twice a month and it is an injection because he is non-compliant with his PO meds. He seemed happier to get an injection than to take PO medications.
[2019-02-14] MEDS: risperiDONE MICROSPHERES 12.5 MG/2 ML DISP.SYRIN. IM SCH (14:24)
[2019-02-14 16:04] VITALS: BP 150/78
--- NOTE | 2019-02-14 17:08 | NUR ---
Patient was compliant with meds in afternoon and evening. Risperdal Consta IM injection given in left bicep. patient cooperative with IM injection. It will be due again february 28 on the "every two week schedule". He was more social and less condescending toward this nurse. Patient tried to take a fork hidden in a magazine from lunchroom after meal was over. Staff found fork and patient denied knowledge of fork. He then asked to go to take a nap after lunch, but only laid down for 15 minutes and then insisted that we assist him up. He was " weighting" when DIRECTOR OF BRAND MARKETING's assisted him to transfer. At one point he was observed transferring himself from chair to toilet independently.
--- NOTE | 2019-02-14 18:34 | NUR ---
Patient again tried to smuggle a fork out of dining room. He seems to enjoy being "searched" for contraband. Spoke with charge nurse and other staff and decided to change patients diet to [employer] with NO utensils. Advised Torres in the kitchen and will change order in [facility] as well.
[2019-02-14] MEDS: risperiDONE ORAL 1 MG/ML 30ml BOTTLE. SL SCH (19:38)
[2019-02-14] MEDS: METOPROLOL SUCC 24HR ER 25 MG TAB.ER.24H. PO SCH (19:39)
[2019-02-14] MEDS: MIRTAZAPINE 7.5 MG TABLET. PO SCH (21:00)
--- NOTE | 2019-02-14 21:00 | NUR ---
Patient in day room on assumption of care, watching television. He was cooperative and compliant with his medications. Appropriate behavior with peers and staff. No agitation, denies SI/HI.
--- NOTE | 2019-02-14 22:13 | PDOC ---
Exam Note: Maxwell Note: Please also refer to the separate dictated note~for this date of service dictated separately.~Patient seen individually. Discussed the patient with Nursing staff reviewed the chart.~Reviewed interim history and current functioning. Reviewed vital signs,~Labs/ Radiology~and current medications noted below. Continue current treatment with the changes noted in the dictated addendum note Assessment: Vital Signs/I&O: Vital Signs Date Time Temp Pulse Resp B/P (MAP) Pulse Ox O2 Delivery O2 Flow Rate FiO2 02/14/19 19:43 102 150/78 02/14/19 16:04 97.2 20 98 Room Air I & O 02/13/19 02/13/19 02/14/19 14:59 22:59 06:59 Intake Total 960 ml 240 ml 120 ml Balance 960 ml 240 ml 120 ml Labs: Laboratory Tests Test 02/14/19 07:19 02/14/19 12:00 02/14/19 17:10 02/14/19 19:20 Glucose (Fingerstick) 121 mg/dL (70-99) H 189 mg/dL (70-99) H 275 mg/dL (70-99) H 298 mg/dL (70-99) H Current Medications: Meds: Current Medications Medications (Trade) Dose Ordered Sig/Sandhya Route PRN Reason Start Time Stop Time Status Last Admin Dose Admin Risperidone (RisperDAL CONSTA) 12.5 mg Q2WKS IM 02/14/19 09:00 02/14/19 14:24 Mirtazapine (Remeron) 7.5 mg QHS PO 02/14/19 21:00 02/14/19 21:08 I have reviewed the current psychotropics carefully including drug interactions. Risk benefit ratio favors no change other than as noted in my dictated progress note. 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
--- NOTE | 2019-02-14 22:57 | PN ---
DATE: 02/12/2019 PSYCHIATRIC PROGRESS NOTE This late entry, 02/12/2019, covers elements not covered in my initial note. SUBJECTIVE: I met with the patient in the evening of 02/12/2019. The patient slept 6-1/2 hours previous night. Per nursing report, he has been mean, somewhat combative during toileting, refused his medications, did take the insulin, took some of his medications in juice. He states he has been kidnapped. He was cooperative with physical therapy. REVIEW OF SYSTEMS: Ambulation impaired, in wheelchair. No CV, , pulmonary, eye, ENT system symptoms on review. MENTAL STATUS EXAM: Oriented to himself and situation. Speech has some latency, coherent. Abstraction fair, computation impaired, language function intact, attention span short. Mood and affect somewhat anxious, labile at times. LABORATORY DATA: Reviewed. IMPRESSION: Unchanged from initial note. Major depressive disorder, recurrent with psychotic features, mild cognitive impairment, major neurocognitive disorder, possibly vascular with depression, delusions. Rest unchanged. PLAN: Continue current psychotropics including Depakene 500 mg b.i.d., Risperdal 1 mg at bedtime, Zyprexa p.r.n. Adjust as clinically indicated. EMERSON RUTH MD DR: TAINA/siddhartha JOB#: [id number] / [id number]
--- NOTE | 2019-02-14 23:31 | PN ---
DATE: 02/13/2019 PSYCHIATRIC PROGRESS NOTE This late entry, 02/13/2019, covers elements not covered in my initial note. SUBJECTIVE: I met with the patient evening of 02/13/2019 at length and staffed at a treatment team meeting in the morning. Reviewed the patient's history, progress. Appetite 50-75% of his meals, sleeping about 7-1/2 hours. He has been combative with toileting, swinging at staff. At one point, he became aggressive, hit his head on the wall. No injuries noted. He often refuses his psychotropics and I addressed this with him. He feels he has been kidnapped. Nursing staff had raised the question about using Risperdal Consta to help with some of his paranoia, agitation, and we will discuss with the patient's daughter who is his DPOA including the risk/benefit ratio before doing this. REVIEW OF SYSTEMS: Ambulation impaired, in wheelchair. No CV, , pulmonary, eye system symptoms on review. MENTAL STATUS EXAM: Oriented to himself and situation. Speech has some latency, coherent. Abstraction fair, computation impaired, language function intact, attention span short. Mood and affect, intermittently anxious, labile, somewhat paranoid. LABORATORY DATA: Reviewed. IMPRESSION: Unchanged from initial note. PLAN: No change from initial note. I would prefer not to use the Risperdal Consta if he can avoid it, and we will have the daughter have a discussion with the patient as well before deciding finally, depending on his compliance with treatment going forward. MAN Bladimir RUTH MD DR: TAINA/siddhartha JOB#: [id number] / [id number]
[2019-02-15 06:27] VITALS: BP 117/69
[2019-02-15 06:46] LABS: BASO # 0.1 x10^3/uL (0.0-0.2); BASO % 1 % (0-3); EOS # 0.3 x10^3/uL (0.0-0.7); EOS % 4 % (0-3); HEMATOCRIT 39.7 % (39.0-53.0); HEMOGLOBIN 13.2 g/dL (13.0-17.5); LYMPH % 23 % (24-48); MEAN CORPUSCULAR HEMOGLOBIN 31 pg (25-35); MEAN CORPUSCULAR HGB CONC 33 g/dL (31-37); MEAN CORPUSCULAR VOLUME 94 fL (79-100); MONO % 12 % (0-9); NEUT # 5.1 x10^3uL (1.8-7.7); NEUT % 61 % (31-73); PLATELET COUNT 266 x10^3/uL (140-400); RED BLOOD COUNT 4.23 x10^6/uL (4.30-5.70); RED CELL DISTRIBUTION WIDTH 13.9 % (11.5-14.5); WHITE BLOOD COUNT 8.5 x10^3/uL (4.0-11.0)
[2019-02-15 07:13] LABS: ALBUMIN 3.5 g/dL (3.4-5.0); ALBUMIN/GLOBULIN RATIO 0.9 (1.0-1.7); CREATININE 0.9 mg/dL (0.7-1.3); GFR 82.3; POTASSIUM 4.3 mmol/L (3.5-5.1); TOTAL BILIRUBIN 0.2 mg/dL (0.2-1.0); TOTAL PROTEIN 7.4 g/dL (6.4-8.2)
[2019-02-15] MEDS: ACETAMINOPHEN 325 MG TABLET PO SCH ×2 (08:03→19:17)
[2019-02-15] MEDS: CETIRIZINE HCL 10 MG TABLET PO SCH (08:03)
[2019-02-15] MEDS: VALPROATE ACID 250 MG/5 ML ORAL SOLUTION PO SCH ×2 (08:03→19:16)
[2019-02-15] MEDS: CARBIDOPA/LEVODOPA 10/100MG TABLET PO SCH ×3 (08:03→19:16)
[2019-02-15] MEDS: MULTIVITAMIN with MINERAL TABLET. PO SCH (08:03)
[2019-02-15] MEDS: ASPIRIN 81 MG TAB.CHEW PO SCH (08:04)
[2019-02-15] MEDS: LACTOBACILLUS RHAMNOSUS GG 1 CAPSULE. PO SCH ×3 (08:04→19:16)
[2019-02-15] MEDS: FLUCONAZOLE 100 MG TABLET. PO SCH (08:04)
[2019-02-15] MEDS: metFORMIN 500 MG TABLET PO SCH ×2 (08:04→16:55)
[2019-02-15] MEDS: NYSTATIN 100,000 UNIT/GM TOPICAL CREAM 15GM TUBE. TP SCH ×2 (08:05→21:00)
[2019-02-15] MEDS: CILOSTAZOL 50 MG TABLET. PO SCH ×2 (08:05→19:36)
[2019-02-15] MEDS: INSULIN LISPRO 300 UNITS/3 ML INSULN.PEN. SQ SCH ×3 (08:11→16:58)
[2019-02-15] MEDS: INSULIN GLARGINE 300 UNITS/3 ML INSULN.PEN. SQ SCH ×2 (08:11→20:54)
--- NOTE | 2019-02-15 10:56 | NUR ---
Assumed care of pt at approx 0700. Patient was in day room at time of assessment and medication. Patient is calm and compliant with assessment. Patient is refusing all psych medications. Patient did take his diabetic medications and his insulin. Will attempt to administer medications crushed in food at lunch. Will continue to monitor.
[2019-02-15 16:34] VITALS: BP 136/79
[2019-02-15] MEDS: MIRTAZAPINE 7.5 MG TABLET. PO SCH (19:16)
[2019-02-15] MEDS: METOPROLOL SUCC 24HR ER 25 MG TAB.ER.24H. PO SCH (19:16)
[2019-02-15] MEDS: risperiDONE ORAL 1 MG/ML 30ml BOTTLE. SL SCH (19:25)
--- NOTE | 2019-02-15 19:36 | NUR ---
REPORT GIVEN VIA RAJESH, TRANSFER OF CARE. PT PLEASANT DURING BATH AND MEDICATIONS. PT WILL REFUSE MEDICATIONS IF IT IS NOT MIXED WITH ICECREAM. PT ASKING STAFF TO TOILET HIM; BUT IS ABLE TO TOILET HIMSELF,ATTENTION SEEKING BEHAVIOR. PT IS NOT AGGRESSIVE AT THIS TIME. WILL CTM.
--- NOTE | 2019-02-15 23:10 | PDOC ---
Exam Note: Maxwell Note: Please also refer to the separate dictated note~for this date of service dictated separately.~Patient seen individually. Discussed the patient with Nursing staff reviewed the chart.~Reviewed interim history and current functioning. Reviewed vital signs,~Labs/ Radiology~and current medications noted below. Continue current treatment with the changes noted in the dictated addendum note Assessment: Vital Signs/I&O: Vital Signs Date Time Temp Pulse Resp B/P (MAP) Pulse Ox O2 Delivery O2 Flow Rate FiO2 02/15/19 19:38 102 136/79 02/15/19 16:34 98.6 20 98 02/15/19 06:27 Room Air I & O 02/14/19 02/14/19 02/15/19 15:00 23:00 07:00 Intake Total 960 ml 720 ml Balance 960 ml 720 ml Labs: Laboratory Tests Test 02/15/19 06:26 02/15/19 07:17 02/15/19 13:04 02/15/19 16:48 White Blood Count 8.5 x10^3/uL (4.0-11.0) Red Blood Count 4.23 x10^6/uL (4.30-5.70) L Hemoglobin 13.2 g/dL (13.0-17.5) Hematocrit 39.7 % (39.0-53.0) Mean Corpuscular Volume 94 fL (79-100) Mean Corpuscular Hemoglobin 31 pg (25-35) Mean Corpuscular Hemoglobin Concent 33 g/dL (31-37) Red Cell Distribution Width 13.9 % (11.5-14.5) Platelet Count 266 x10^3/uL (140-400) Neutrophils (%) (Auto) 61 % (31-73) Lymphocytes (%) (Auto) 23 % (24-48) L Monocytes (%) (Auto) 12 % (0-9) H Eosinophils (%) (Auto) 4 % (0-3) H Basophils (%) (Auto) 1 % (0-3) Neutrophils # (Auto) 5.1 x10^3uL (1.8-7.7) Lymphocytes # (Auto) 2.0 x10^3/uL (1.0-4.8) Monocytes # (Auto) 1.0 x10^3/uL (0.0-1.1) Eosinophils # (Auto) 0.3 x10^3/uL (0.0-0.7) Basophils # (Auto) 0.1 x10^3/uL (0.0-0.2) Sodium Level 135 mmol/L (136-145) L Potassium Level 4.3 mmol/L (3.5-5.1) Chloride Level 101 mmol/L (98-107) Carbon Dioxide Level 27 mmol/L (21-32) Anion Gap 7 (6-14) Blood Urea Nitrogen 13 mg/dL (8-26) Creatinine 0.9 mg/dL (0.7-1.3) Estimated GFR (Cockcroft-Gault) 82.3 BUN/Creatinine Ratio 14 (6-20) Glucose Level 232 mg/dL (70-99) H Calcium Level 9.0 mg/dL (8.5-10.1) Total Bilirubin 0.2 mg/dL (0.2-1.0) Aspartate Amino Transferase (AST) 14 U/L (15-37) L Alanine Aminotransferase (ALT) 16 U/L (16-63) Alkaline Phosphatase 89 U/L (46-116) Total Protein 7.4 g/dL (6.4-8.2) Albumin 3.5 g/dL (3.4-5.0) Albumin/Globulin Ratio 0.9 (1.0-1.7) L Glucose (Fingerstick) 229 mg/dL (70-99) H 293 mg/dL (70-99) H 220 mg/dL (70-99) H Test 02/15/19 19:07 Glucose (Fingerstick) 295 mg/dL (70-99) H Current Medications: I have reviewed the current psychotropics carefully including drug interactions. Risk benefit ratio favors no change other than as noted in my dictated progress note. Diagnosis: Problems: (1) Mental status change resolved (2) Anxiety disorder (3) Bipolar affective, mixed, sev w/ psych (4) Dementia, vascular, with depression (5) Dementia, vascular, with delusions (6) Impulse control disorder (7) Psychosis, atypical (8) Dementia in Alzheimer's disease with delusions (9) Type 2 diabetes mellitus (10) HTN (hypertension) (11) HLD (hyperlipidemia) (12) PVD (peripheral vascular disease) (13) Personality disorder (14) Major neurocognitive disorder FLORY,MAN M MD Feb 15, 2019 23:10
[2019-02-16 06:03] VITALS: BP 113/69
[2019-02-16] MEDS: metFORMIN 500 MG TABLET PO SCH ×2 (07:37→16:37)
[2019-02-16] MEDS: CILOSTAZOL 50 MG TABLET. PO SCH ×2 (07:37→21:00)
[2019-02-16] MEDS: LACTOBACILLUS RHAMNOSUS GG 1 CAPSULE. PO SCH ×3 (07:37→19:41)
[2019-02-16] MEDS: CETIRIZINE HCL 10 MG TABLET PO SCH ×2 (07:38→08:37)
[2019-02-16] MEDS: CARBIDOPA/LEVODOPA 10/100MG TABLET PO SCH ×4 (07:38→19:43)
[2019-02-16] MEDS: FLUCONAZOLE 100 MG TABLET. PO SCH ×2 (07:38→08:37)
[2019-02-16] MEDS: VALPROATE ACID 250 MG/5 ML ORAL SOLUTION PO SCH ×2 (07:38→19:41)
[2019-02-16] MEDS: MULTIVITAMIN with MINERAL TABLET. PO SCH (07:38)
[2019-02-16] MEDS: ASPIRIN 81 MG TAB.CHEW PO SCH (07:38)
[2019-02-16] MEDS: INSULIN LISPRO 300 UNITS/3 ML INSULN.PEN. SQ SCH ×3 (07:38→16:38)
[2019-02-16] MEDS: ACETAMINOPHEN 325 MG TABLET PO SCH ×2 (07:38→19:42)
[2019-02-16] MEDS: INSULIN GLARGINE 300 UNITS/3 ML INSULN.PEN. SQ SCH ×2 (07:39→19:51)
[2019-02-16] MEDS: NYSTATIN TOPICAL POWDER 15GM BOTTLE. TP PRN ×2 (07:39→19:43)
[2019-02-16] MEDS: NYSTATIN 100,000 UNIT/GM TOPICAL CREAM 15GM TUBE. TP SCH ×2 (07:39→19:50)
--- NOTE | 2019-02-16 13:56 | NUR ---
NURSING NOTE PT WAS IN THE DINNING ROOM UPON ASSESSMENT AND MEDICATION ADMINISTRATION. PT REFUSED SOME OF HIS MEDS THIS AM. PT BECAME ANGRY WHEN STRESSING THE IMPORTANCE OF TAKING THE MEDICATIONS. PT WAS A&O THIS MORNING. PT HAS 3+ PITTING EDEMA IN BLE. PT WAS ITCHING ON HIS ARMS AND LEGS, PT HAS SCRATCH ABRASIONS UP AND DOWN BOTH ARMS AND LEGS. PT HAS OCCASIONAL FLIRTATIOUS COMMENTS TO FEMALES. PT INSTRUCTED TO CALL EMPLOYEES AND PATIENTS BY NAME, NO OTHER BEHAVIORS NOTED. WILL CONTINUE TO MONITOR. CA FISCHER
[2019-02-16 16:26] VITALS: BP 128/78
[2019-02-16] MEDS: MIRTAZAPINE 7.5 MG TABLET. PO SCH (19:42)
[2019-02-16] MEDS: METOPROLOL SUCC 24HR ER 25 MG TAB.ER.24H. PO SCH (19:42)
[2019-02-16] MEDS: risperiDONE ORAL 1 MG/ML 30ml BOTTLE. SL SCH (21:00)
--- NOTE | 2019-02-16 21:00 | NUR ---
Patient up in day room at change of shift, watching television. Pleasant mood, appropriate with peers and staff. Compliant with assessment, mostly compliant with medications. Took most of his meds crushed with yogurt. Liquid medications mixed with gatorade, which he drank half of. No agitation, denies SI/HI.
--- NOTE | 2019-02-16 22:30 | PDOC ---
Exam Note: Maxwell Note: Please also refer to the separate dictated note~for this date of service dictated separately.~Patient seen individually. Discussed the patient with Nursing staff reviewed the chart.~Reviewed interim history and current functioning. Reviewed vital signs,~Labs/ Radiology~and current medications noted below. Continue current treatment with the changes noted in the dictated addendum note Assessment: Vital Signs/I&O: Vital Signs Date Time Temp Pulse Resp B/P (MAP) Pulse Ox O2 Delivery O2 Flow Rate FiO2 02/16/19 19:43 90 113/69 02/16/19 16:26 97.6 20 98 02/16/19 06:03 Room Air I & O 02/15/19 02/15/19 02/16/19 14:59 22:59 06:59 Intake Total 720 ml 480 ml Balance 720 ml 480 ml Labs: Laboratory Tests Test 02/16/19 07:18 02/16/19 11:35 02/16/19 16:32 02/16/19 19:02 Glucose (Fingerstick) 123 mg/dL (70-99) H 199 mg/dL (70-99) H 180 mg/dL (70-99) H 219 mg/dL (70-99) H Current Medications: I have reviewed the current psychotropics carefully including drug interactions. Risk benefit ratio favors no change other than as noted in my dictated progress note. Diagnosis: Problems: (1) Mental status change resolved (2) Anxiety disorder (3) Bipolar affective, mixed, sev w/ psych (4) Dementia, vascular, with depression (5) Dementia, vascular, with delusions (6) Impulse control disorder (7) Psychosis, atypical (8) Dementia in Alzheimer's disease with delusions (9) Major neurocognitive disorder EMERSON RUTH MD Feb 16, 2019 22:30
--- NOTE | 2019-02-16 22:32 | PN ---
DATE: 02/14/2019 PSYCHIATRIC PROGRESS NOTE This late entry 02/14/2019 covers the elements not covered in my initial note. SUBJECTIVE: I met with the patient in the evening of 02/14/2019. He slept 3-3/4 hours previous night, refused his a.m. medications, took his aspirin. He has been started on Risperdal Consta 12.5 mg IM every 2 weeks post-consent from his DPOA and the patient was agreeable to this. He would rather have this and the oral psychotropics. Given his history of CVA, we will have to be careful with this and as soon as he is compliant with his oral psychotropics this should be discontinued. REVIEW OF SYSTEMS: Ambulation impaired, in wheelchair. No CV, , pulmonary, eye system symptoms on review. MENTAL STATUS EXAM: Reasonably oriented. Speech has some latency, coherent. Abstraction fair, computation impaired, language function intact, attention span short. Mood and affect somewhat withdrawn at times, less grandiose. LABORATORY DATA: Reviewed. IMPRESSION: Unchanged from initial note. PLAN: No change from initial note other than noted above. MAN Bladimir RUTH MD DR: TAINA/siddhartha JOB#: [id number] / [id number]
[2019-02-17 05:44] VITALS: BP 135/73
[2019-02-17] MEDS: LACTOBACILLUS RHAMNOSUS GG 1 CAPSULE. PO SCH ×2 (07:35→19:41)
[2019-02-17] MEDS: ACETAMINOPHEN 325 MG TABLET PO SCH ×2 (07:35→19:41)
[2019-02-17] MEDS: CARBIDOPA/LEVODOPA 10/100MG TABLET PO SCH ×3 (07:35→19:41)
[2019-02-17] MEDS: ASPIRIN 81 MG TAB.CHEW PO SCH (07:35)
[2019-02-17] MEDS: metFORMIN 500 MG TABLET PO SCH ×2 (07:35→17:01)
[2019-02-17] MEDS: CETIRIZINE HCL 10 MG TABLET PO SCH (07:35)
[2019-02-17] MEDS: FLUCONAZOLE 100 MG TABLET. PO SCH (07:35)
[2019-02-17] MEDS: MULTIVITAMIN with MINERAL TABLET. PO SCH (07:35)
[2019-02-17] MEDS: VALPROATE ACID 250 MG/5 ML ORAL SOLUTION PO SCH ×3 (07:36→21:00)
[2019-02-17] MEDS: CILOSTAZOL 50 MG TABLET. PO SCH ×2 (07:37→19:44)
[2019-02-17] MEDS: INSULIN LISPRO 300 UNITS/3 ML INSULN.PEN. SQ SCH ×3 (07:37→17:04)
[2019-02-17] MEDS: NYSTATIN 100,000 UNIT/GM TOPICAL CREAM 15GM TUBE. TP SCH ×2 (07:37→19:41)
[2019-02-17] MEDS: INSULIN GLARGINE 300 UNITS/3 ML INSULN.PEN. SQ SCH ×2 (07:38→19:43)
--- NOTE | 2019-02-17 10:32 | NUR ---
NURSING NOTE PT WAS IN THE DINNING ROOM UPON ASSESSMENT AND MEDICATION ADMINISTRATION. PT COMPLIANT WITH MEDS THIS AM. PT COMPLIANT WITH SHOWER THIS AM AND DRESSING CHANGES. NO BEHAVIORS NOTED THUS FAR. WILL CONTINUE TO MONITOR. CA FISCHER
[2019-02-17 16:07] VITALS: BP 133/73
--- NOTE | 2019-02-17 16:30 | NUR ---
Wound Care patient seen per f/u of Wound care consult. see wound assessment. Pt has IAD with yeasty rash. Applied Nystatin powder to groin and scrotum. patient has a a DFU on the left and right heel, the wounds were cleaned and measured at this time, recommendations of Iodoflex with Aquacel Ag with a non adhesive foam and tape, change every 2-3 days. the wounds have some maceration and bruising, recommendations of wearing the heelmedix boots all the time to off-load the heels. 1 boot was wet -possibly from urine- patient stated that could have happened because he doesn't always know when he has to urinate- staff notified and the boot was going to get washed, air dried and would be reapplied after that. applied 1 boot to the right foot and patient stated he would off- load the left by elevating it on the other boot. WC will f/u 02/20/2019 to reassess. Discussed plan of care with CA Shah.
--- NOTE | 2019-02-17 16:51 | NUR ---
SW attempted to contact pt dtr Sera to discuss pt care and to discuss referrals being sent out for placement. SW will attempt to contact pt dtr again at a later time!
[2019-02-17] MEDS: MIRTAZAPINE 7.5 MG TABLET. PO SCH (19:41)
[2019-02-17] MEDS: METOPROLOL SUCC 24HR ER 25 MG TAB.ER.24H. PO SCH (19:41)
[2019-02-17] MEDS: risperiDONE ORAL 1 MG/ML 30ml BOTTLE. SL SCH ×2 (19:41→21:00)
--- NOTE | 2019-02-17 21:00 | NUR ---
Patient in the day room on assumption of care, watching television. Calm, cooperative and compliant with assessment and most medications. Patient refused to take the liquid medications despite repeated attempts. Took all other medications crushed in yogurt. No agitation, no hallucinations or delusions noted. Medi-boots present on both feet, patient is tolerating well. Denies SI/HI.
--- NOTE | 2019-02-17 22:30 | PN ---
DATE: 02/15/2019 PSYCHIATRIC PROGRESS NOTE This late entry 02/15/2019 covers elements not covered in my initial note. SUBJECTIVE: I met with the patient in the evening of 02/15/2019. The patient slept 6-1/2 hours previous night. He refused his psychotropic medications, does take them later, trying to get staff to toilet him even though he can do it himself, complains of dry skin. REVIEW OF SYSTEMS: Ambulation impaired, in wheelchair. No CV, , pulmonary, eye, ENT system symptoms on review. MENTAL STATUS EXAM: Oriented to himself and situation. Speech has some latency, coherent. Abstraction fair, computation impaired, language function intact, attention span short. Mood and affect shows improvement. LABORATORY DATA: Reviewed. IMPRESSION: Unchanged from initial note. PLAN: Continue current psychotropics. He has been started on Risperdal Consta. Maintain the rest unchanged for now and gradually reduce the oral Risperdal. EMERSON RUTH MD DR: TAINA/siddhartha JOB#: [id number] / [id number]
--- NOTE | 2019-02-17 22:46 | PN ---
DATE: 02/16/2019 PSYCHIATRIC PROGRESS NOTE This late entry, 02/16, covers elements not covered in my initial note. SUBJECTIVE: I met with the patient in the evening of 02/16. The patient slept 6-1/4 hours previous night. He refused his a.m. medications. Blood sugar in the evening was 219, in the morning was in the 100s. Somewhat rude at times, but redirects. REVIEW OF SYSTEMS: Ambulation impaired, in wheelchair. No CV, , pulmonary, eye system symptoms on review. He has vague somatic symptoms. MENTAL STATUS EXAM: Oriented to himself and situation. Speech is coherent, abstraction fair, computation impaired, language function intact. Psychotic symptoms are much improved, less paranoid. LABORATORY DATA: Reviewed. IMPRESSION: Unchanged from initial note. PLAN: No change from initial note. MAN AyannaGena RUTH MD DR: TAINA/siddhartha JOB#: [id number] / [id number]
[2019-02-18 05:45] VITALS: BP 103/66
[2019-02-18] MEDS: metFORMIN 500 MG TABLET PO SCH ×2 (07:29→17:00)
[2019-02-18] MEDS: MULTIVITAMIN with MINERAL TABLET. PO SCH (07:29)
[2019-02-18] MEDS: LACTOBACILLUS RHAMNOSUS GG 1 CAPSULE. PO SCH ×2 (07:29→21:19)
[2019-02-18] MEDS: FLUCONAZOLE 100 MG TABLET. PO SCH (07:29)
[2019-02-18] MEDS: ACETAMINOPHEN 325 MG TABLET PO SCH ×2 (07:29→21:19)
[2019-02-18] MEDS: ASPIRIN 81 MG TAB.CHEW PO SCH (07:29)
[2019-02-18] MEDS: NYSTATIN 100,000 UNIT/GM TOPICAL CREAM 15GM TUBE. TP SCH ×2 (07:30→21:21)
[2019-02-18] MEDS: CILOSTAZOL 50 MG TABLET. PO SCH ×2 (07:30→21:21)
[2019-02-18] MEDS: VALPROATE ACID 250 MG/5 ML ORAL SOLUTION PO SCH ×2 (07:30→21:21)
[2019-02-18] MEDS: CARBIDOPA/LEVODOPA 10/100MG TABLET PO SCH ×3 (07:30→21:20)
[2019-02-18] MEDS: CETIRIZINE HCL 10 MG TABLET PO SCH (07:30)
[2019-02-18] MEDS: INSULIN LISPRO 300 UNITS/3 ML INSULN.PEN. SQ SCH ×3 (08:39→17:01)
[2019-02-18] MEDS: INSULIN GLARGINE 300 UNITS/3 ML INSULN.PEN. SQ SCH ×2 (08:41→21:23)
--- NOTE | 2019-02-18 08:52 | PDOC ---
Exam Note: Maxwell Note: Late entry for DOS 02/17/2019. Please also refer to the separate dictated note~for this date of service dictated separately.~Patient seen individually. Discussed the patient with Nursing staff reviewed the chart.~Reviewed interim history and current functioning. Reviewed vital signs,~Labs/ Radiology~and current medications noted below. Continue current treatment with the changes noted in the dictated addendum note Assessment: Vital Signs/I&O: Vital Signs Date Time Temp Pulse Resp B/P (MAP) Pulse Ox O2 Delivery O2 Flow Rate FiO2 02/18/19 05:45 98.2 94 20 103/66 (78) 97 Room Air I & O 02/17/19 02/17/19 02/18/19 15:00 23:00 07:00 Intake Total 600 ml 480 ml 240 ml Balance 600 ml 480 ml 240 ml Labs: Laboratory Tests Test 02/17/19 11:44 02/17/19 17:00 02/17/19 19:09 02/18/19 07:36 Glucose (Fingerstick) 218 mg/dL (70-99) H 197 mg/dL (70-99) H 212 mg/dL (70-99) H 173 mg/dL (70-99) H Current Medications: I have reviewed the current psychotropics carefully including drug interactions. Risk benefit ratio favors no change other than as noted in my dictated progress note. Diagnosis: Problems: (1) Anxiety disorder (2) Bipolar affective, mixed, sev w/ psych (3) Dementia, vascular, with depression (4) Dementia, vascular, with delusions (5) Impulse control disorder (6) Psychosis, atypical (7) Dementia in Alzheimer's disease with delusions (8) Personality disorder (9) Major neurocognitive disorder EMERSON RUTH MD Feb 18, 2019 08:52
--- NOTE | 2019-02-18 13:16 | NUR ---
NURSING NOTE PT WAS IN THE DINNING ROOM UPON ASSESSMENT AND MEDICATION ADMINISTRATION. PT COMPLIANT WITH MEDS THIS AM. PT WAS GIVEN NYSTATIN CREAM TO APPLY TO HIS GROIN AREA WITH A GLOVE. PT DID FINE PUTTING THE CREAM ON BY HIMSELF. PT COMPLIANT WITH HIS MEDI BOOTS. PT PARTICIPATED IN GROUP AND WAS CALM THUS FAR TODAY. NO BEHAVIORS NOTED THUS FAR. WILL CONTINUE TO MONITOR. CA FISCHER
--- NOTE | 2019-02-18 13:25 | PN ---
DATE: 02/17/2019 This late entry 02/17/2019 covers elements not covered in my initial note. SUBJECTIVE: I met with the patient evening of 02/17/2019. For the most part, the patient has done better during the day on 02/17/2019. He has attended groups, took his meds in the morning, refused Sinemet later in the day. He does have soft boot on his right heel and had questions if nursing staff could push his wheelchair so that he does not hurt and injure his left heel. Wound Care is involved with this. REVIEW OF SYSTEMS: Positive for impaired ambulation, in wheelchair. No CV, , pulmonary, eye, ENT system symptoms on review. MENTAL STATUS EXAM: Reasonably oriented to place and situation. Speech has some latency, coherent. Abstraction fair, computation impaired, language function intact, attention span short. He is less paranoid. LABORATORY DATA: Reviewed. IMPRESSION: Unchanged from initial note. PLAN: Since we have the Risperdal Consta started, we will reduce the oral Risperdal from 1 mg at bedtime down to 0.75 mg p.o. at bedtime and continue to reduce it gradually. Maintain Depakene and Remeron along with Zyprexa, which is p.r.n. EMERSON RUTH MD DR: TAINA/siddhartha JOB#: [id number] / [id number]
[2019-02-18 15:45] VITALS: BP 123/73
--- NOTE | 2019-02-18 17:00 | NUR ---
SW sent over referrals to [facility] and [facility] for review and potential placement.
[2019-02-18] MEDS: METOPROLOL SUCC 24HR ER 25 MG TAB.ER.24H. PO SCH (21:19)
[2019-02-18] MEDS: MIRTAZAPINE 7.5 MG TABLET. PO SCH (21:21)
[2019-02-18] MEDS: risperiDONE ORAL 1 MG/ML 30ml BOTTLE. SL SCH (21:29)
--- NOTE | 2019-02-18 22:25 | PDOC ---
Exam Note: Maxwell Note: Please also refer to the separate dictated note~for this date of service dictated separately.~Patient seen individually. Discussed the patient with Nursing staff reviewed the chart.~Reviewed interim history and current functioning. Reviewed vital signs,~Labs/ Radiology~and current medications noted below. Continue current treatment with the changes noted in the dictated addendum note Assessment: Vital Signs/I&O: Vital Signs Date Time Temp Pulse Resp B/P (MAP) Pulse Ox O2 Delivery O2 Flow Rate FiO2 02/18/19 21:30 113 123/73 02/18/19 15:45 97.7 20 95 Room Air I & O 02/17/19 02/17/19 02/18/19 14:59 22:59 06:59 Intake Total 600 ml 480 ml 240 ml Balance 600 ml 480 ml 240 ml Labs: Laboratory Tests Test 02/18/19 07:36 02/18/19 11:39 Glucose (Fingerstick) 173 mg/dL (70-99) H 232 mg/dL (70-99) H Current Medications: I have reviewed the current psychotropics carefully including drug interactions. Risk benefit ratio favors no change other than as noted in my dictated progress note. Diagnosis: Problems: (1) Anxiety disorder (2) Bipolar affective, mixed, sev w/ psych (3) Dementia, vascular, with depression (4) Dementia, vascular, with delusions (5) Impulse control disorder (6) Psychosis, atypical (7) Dementia in Alzheimer's disease with delusions (8) Personality disorder (9) Major neurocognitive disorder EMERSON RUTH MD Feb 18, 2019 22:25
--- NOTE | 2019-02-19 01:31 | NUR ---
Nursing Note The patient was located in the day room for his medication and assessment. The patient was compliant with his medication and assessment. The patient was cooperative during cares and was appropriate during interactions with staff and peers. The patient is currently sleeping in his room.
[2019-02-19 06:29] VITALS: BP 108/68
[2019-02-19] MEDS: ASPIRIN 81 MG TAB.CHEW PO SCH (07:35)
[2019-02-19] MEDS: metFORMIN 500 MG TABLET PO SCH ×2 (07:35→16:18)
[2019-02-19] MEDS: LACTOBACILLUS RHAMNOSUS GG 1 CAPSULE. PO SCH ×3 (07:36→20:44)
[2019-02-19] MEDS: VALPROATE ACID 250 MG/5 ML ORAL SOLUTION PO SCH ×3 (07:37→20:45)
[2019-02-19] MEDS: CILOSTAZOL 50 MG TABLET. PO SCH ×3 (07:37→20:45)
[2019-02-19] MEDS: FLUCONAZOLE 100 MG TABLET. PO SCH (07:37)
[2019-02-19] MEDS: ACETAMINOPHEN 325 MG TABLET PO SCH ×2 (07:38→19:20)
[2019-02-19] MEDS: NYSTATIN 100,000 UNIT/GM TOPICAL CREAM 15GM TUBE. TP SCH ×2 (07:38→19:22)
[2019-02-19] MEDS: CARBIDOPA/LEVODOPA 10/100MG TABLET PO SCH ×3 (07:38→16:17)
[2019-02-19] MEDS: MULTIVITAMIN with MINERAL TABLET. PO SCH (07:38)
[2019-02-19] MEDS: CETIRIZINE HCL 10 MG TABLET PO SCH (07:38)
[2019-02-19] MEDS: INSULIN LISPRO 300 UNITS/3 ML INSULN.PEN. SQ SCH ×3 (08:00→16:55)
[2019-02-19] MEDS: INSULIN GLARGINE 300 UNITS/3 ML INSULN.PEN. SQ SCH ×2 (08:12→19:39)
--- NOTE | 2019-02-19 09:34 | NUR ---
Patient was verbally aggressive this morning in the dining room during medication pass. Patient was agitated and suspicious of the medications that were being administered. He refused to take them in pudding. Patient was then placed in the quiet mota. He wanted to see all the medications in their receptacles and be educated on what they are for before he took them all whole. He was then more cooperative and released from the mota. Liquid medications put in coffee. Addendum: 02/19/19 at 1405 by DYLON BANKS RN Patient is becoming increasingly inappropriate today with some of the other patients on the unit. Patient was seen asking one of the other patients to be his girlfriend and was holding her hand.
[2019-02-19 15:49] VITALS: BP 114/75
[2019-02-19] MEDS: MIRTAZAPINE 7.5 MG TABLET. PO SCH (19:19)
[2019-02-19] MEDS: METOPROLOL SUCC 24HR ER 25 MG TAB.ER.24H. PO SCH (19:19)
[2019-02-19] MEDS: risperiDONE ORAL 1 MG/ML 30ml BOTTLE. SL SCH (19:22)
--- NOTE | 2019-02-19 21:31 | NUR ---
Nursingnote: Assumed care of pt in his room. He was sitting quietly reading. Pt was calm and cooperative, interactive and pleasant. 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 He was shown each of his meds in the blister packs and he refused to take the psyche meds. He took the risperdal in his water unaware. He remained in his room reading.
--- NOTE | 2019-02-19 21:57 | PDOC ---
Exam Note: Maxwell Note: Please also refer to the separate dictated note~for this date of service dictated separately.~Patient seen individually. Discussed the patient with Nursing staff reviewed the chart.~Reviewed interim history and current functioning. Reviewed vital signs,~Labs/ Radiology~and current medications noted below. Continue current treatment with the changes noted in the dictated addendum note Assessment: Vital Signs/I&O: Vital Signs Date Time Temp Pulse Resp B/P (MAP) Pulse Ox O2 Delivery O2 Flow Rate FiO2 02/19/19 19:24 104 114/75 02/19/19 15:49 97.8 18 98 02/18/19 15:45 Room Air I & O 02/18/19 02/18/19 02/19/19 15:00 23:00 07:00 Intake Total 960 ml 600 ml 360 ml Balance 960 ml 600 ml 360 ml Labs: Laboratory Tests Test 02/19/19 08:01 02/19/19 12:25 02/19/19 16:47 02/19/19 19:29 Glucose (Fingerstick) 117 mg/dL (70-99) H 146 mg/dL (70-99) H 161 mg/dL (70-99) H 185 mg/dL (70-99) H Current Medications: I have reviewed the current psychotropics carefully including drug interactions. Risk benefit ratio favors no change other than as noted in my dictated progress note. Diagnosis: Problems: (1) Anxiety disorder (2) Bipolar affective, mixed, sev w/ psych (3) Dementia, vascular, with depression (4) Dementia, vascular, with delusions (5) Impulse control disorder (6) Psychosis, atypical (7) Dementia in Alzheimer's disease with delusions (8) Personality disorder (9) Major neurocognitive disorder EMERSON RUTH MD Feb 19, 2019 21:56
--- NOTE | 2019-02-20 01:00 | PN ---
DATE: 02/18/2019 PSYCHIATRIC PROGRESS NOTE This late entry 02/18/2019 covers elements not covered in my initial note. SUBJECTIVE: I met with the patient in the evening of 02/18/2019. The patient slept 7 hours previous night. Overall, per nursing report, he is doing better, still somewhat rude and abrasive, but not sexually inappropriate. REVIEW OF SYSTEMS: Ambulation impaired, in wheelchair and he has podus boots on both lower extremities. No CV, , pulmonary, eye, ENT system symptoms on review. MENTAL STATUS EXAM: Reasonably oriented. Speech is coherent, has some latency. Abstraction fair, computation impaired, language function intact, attention span short. Mood and affect somewhat less labile. LABORATORY DATA: Reviewed. IMPRESSION: Unchanged from initial note. PLAN: Since the patient is on Risperdal Consta, we will reduce the oral Risperdal from 0.75 mg at bedtime down to 0.5 mg at bedtime after he has been on the 0.75 mg for 3 days. Continue rest unchanged for now. MAN Bladimir RUTH MD DR: TAINA/siddhartha JOB#: [id number] / [id number]
[2019-02-20 06:11] VITALS: BP 119/79
[2019-02-20] MEDS: ACETAMINOPHEN 325 MG TABLET PO SCH ×2 (07:58→20:57)
[2019-02-20] MEDS: metFORMIN 500 MG TABLET PO SCH ×2 (07:58→17:30)
[2019-02-20] MEDS: LACTOBACILLUS RHAMNOSUS GG 1 CAPSULE. PO SCH ×3 (07:58→20:57)
[2019-02-20] MEDS: MULTIVITAMIN with MINERAL TABLET. PO SCH (07:58)
[2019-02-20] MEDS: FLUCONAZOLE 100 MG TABLET. PO SCH ×2 (07:58→09:00)
[2019-02-20] MEDS: CETIRIZINE HCL 10 MG TABLET PO SCH ×2 (07:58→09:00)
[2019-02-20] MEDS: CARBIDOPA/LEVODOPA 10/100MG TABLET PO SCH ×4 (07:58→20:57)
[2019-02-20] MEDS: ASPIRIN 81 MG TAB.CHEW PO SCH (07:58)
[2019-02-20] MEDS: VALPROATE ACID 250 MG/5 ML ORAL SOLUTION PO SCH ×2 (07:59→20:57)
[2019-02-20] MEDS: CILOSTAZOL 50 MG TABLET. PO SCH ×2 (08:02→21:01)
[2019-02-20] MEDS: INSULIN GLARGINE 300 UNITS/3 ML INSULN.PEN. SQ SCH ×2 (08:03→21:08)
[2019-02-20] MEDS: INSULIN LISPRO 300 UNITS/3 ML INSULN.PEN. SQ SCH ×3 (08:04→17:31)
[2019-02-20] MEDS: NYSTATIN 100,000 UNIT/GM TOPICAL CREAM 15GM TUBE. TP SCH ×2 (09:00→21:08)
--- NOTE | 2019-02-20 10:13 | NUR ---
WEEKLY ACTIVITY THERAPY NOTE Date of Admission: 02/02/2019 Date of AT Assessment: 02/04/2019 Goal aimed: to sustain engagement Initial goal:Pt. will participate in all groups he is invited to. Weekly progress towards goal: achieved, 11 groups this weeks Group participation level: moderate to full Weekly highlights: painting independently a couple times this week Behaviors observed: appropriate with our groups, sleeping during many groups for half the time, enjoys cog stim groups Plan: no change to goal Beneficial adaptations: reminders and invitations, outdoor/garden
--- NOTE | 2019-02-20 13:41 | NUR ---
Patient has been calm, social, talkative, and interactive throughout this shift. He refused a portion of his morning medications as indicated in the eMAR. He has participated in the group activities today and was cooperative with Physical therapy. Will continue to monitor and report to oncoming shift.
--- NOTE | 2019-02-20 14:46 | NUR ---
WEEKLY NOTE: Pt is mostly medication compliant. He is more interactive with peers and it has been noted, he is being flirtatious with one peer in particular. Pt has had a decrease in making sexual comments towards staff and is overall more compliant with all cares and staff direction. ELISABETH has sent a referral to [facility] (who has no male beds) and [facility] for placment purposes. ELISABETH will follow up with those referrals and pt family. YUNIOR towards the end of next week.
[2019-02-20 15:49] VITALS: BP 111/58
--- NOTE | 2019-02-20 16:00 | NUR ---
Wound Care patient seen per f/u of Wound care consult. see wound assessment. Pt has IAD with yeasty rash. Applied Nystatin powder to groin and scrotum. patient has a a DFU on the left and right heel, the wounds were cleaned and redressed at this time with recommendations of Iodoflex with Aquacel Ag with a non adhesive foam and tape, change every 2-3 days. the wounds have some maceration and bruising, recommendations of wearing the heelmedix boots all the time to off-load the heels. patients heelmedix boots re-applied at this time. recommendations of patient elevating legs on pillows after eating d/t swelling and to off-load, recommendations that patient not scoot with his feet to wheel around the unit, to have staff help patient move to different places and patients feet be elevated. patient assessed from head to toe and no other wounds noted at this time. notified CA Aguilar about the POC and wound care will continue to f/u.
--- NOTE | 2019-02-20 18:10 | NUR ---
Patient was incontinent at dinner, at which time CNAs and he were in a verbal altercation. Patient left the dining room and was found in his room partially clothed. Assisted patient into his bed and finished dressing him. Adjusted him in bed with feet elevated. Re-informed the staff of wound care instructions to keep feet elevated, extremely limited walking, and that he is not to use his feet to propel himself in the wheelchair. Will continue to monitor.
[2019-02-20] MEDS: risperiDONE ORAL 1 MG/ML 30ml BOTTLE. SL SCH (20:57)
[2019-02-20] MEDS: MIRTAZAPINE 7.5 MG TABLET. PO SCH (20:57)
[2019-02-20] MEDS: METOPROLOL SUCC 24HR ER 25 MG TAB.ER.24H. PO SCH (21:10)
--- NOTE | 2019-02-20 22:10 | PDOC ---
Exam Note: Maxwell Note: Please also refer to the separate dictated note~for this date of service dictated separately.~Patient seen individually. Discussed the patient with Nursing staff reviewed the chart.~Reviewed interim history and current functioning. Reviewed vital signs,~Labs/ Radiology~and current medications noted below. Continue current treatment with the changes noted in the dictated addendum note Assessment: Vital Signs/I&O: Vital Signs Date Time Temp Pulse Resp B/P (MAP) Pulse Ox O2 Delivery O2 Flow Rate FiO2 02/20/19 21:11 125 158/99 02/20/19 15:49 97.8 20 98 Room Air I & O 02/19/19 02/19/19 02/20/19 15:00 23:00 07:00 Intake Total 720 ml 200 ml 240 ml Balance 720 ml 200 ml 240 ml Labs: Laboratory Tests Test 02/20/19 07:19 02/20/19 12:18 02/20/19 17:07 02/20/19 19:08 Glucose (Fingerstick) 184 mg/dL (70-99) H 204 mg/dL (70-99) H 177 mg/dL (70-99) H 224 mg/dL (70-99) H Current Medications: I have reviewed the current psychotropics carefully including drug interactions. Risk benefit ratio favors no change other than as noted in my dictated progress note. 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
--- NOTE | 2019-02-21 01:20 | NUR ---
Nursing Note The patient was located in his room for his medication and assessment. The patient took his medication whole and was calm and cooperative during interactions with this nurse. The patient is currently sleeping in his room.
[2019-02-21 05:25] VITALS: BP 95/57
[2019-02-21] MEDS: INSULIN LISPRO 300 UNITS/3 ML INSULN.PEN. SQ SCH ×3 (08:00→17:16)
[2019-02-21] MEDS: ACETAMINOPHEN 325 MG TABLET PO SCH ×2 (08:02→20:00)
[2019-02-21] MEDS: ASPIRIN 81 MG TAB.CHEW PO SCH (08:02)
[2019-02-21] MEDS: metFORMIN 500 MG TABLET PO SCH ×2 (08:02→17:11)
[2019-02-21] MEDS: MULTIVITAMIN with MINERAL TABLET. PO SCH (08:03)
[2019-02-21] MEDS: CARBIDOPA/LEVODOPA 10/100MG TABLET PO SCH ×3 (08:03→19:58)
[2019-02-21] MEDS: CETIRIZINE HCL 10 MG TABLET PO SCH ×2 (08:03→09:00)
[2019-02-21] MEDS: VALPROATE ACID 250 MG/5 ML ORAL SOLUTION PO SCH ×2 (08:04→19:58)
[2019-02-21] MEDS: CILOSTAZOL 50 MG TABLET. PO SCH ×2 (08:05→19:59)
[2019-02-21] MEDS: INSULIN GLARGINE 300 UNITS/3 ML INSULN.PEN. SQ SCH ×2 (08:27→20:03)
[2019-02-21] MEDS: LACTOBACILLUS RHAMNOSUS GG 1 CAPSULE. PO SCH ×2 (09:00→19:58)
[2019-02-21] MEDS: NYSTATIN 100,000 UNIT/GM TOPICAL CREAM 15GM TUBE. TP SCH ×2 (12:10→20:01)
[2019-02-21 15:31] VITALS: BP 117/70
--- NOTE | 2019-02-21 18:00 | NUR ---
Patient has been calm, social, talkative, and interactive throughout this shift. He refused a portion of his morning medications as indicated in the eMAR. He has participated in the group activities today and was cooperative with Physical therapy. Patient concerned that staff are not familiar with restrictions placed by wound care, reassured patient that they are aware. Patient concerned about abscess in LUQ region; wound care and MD notified, new orders received. Will continue to monitor and report to oncoming shift.
[2019-02-21] MEDS: MIRTAZAPINE 7.5 MG TABLET. PO SCH (19:58)
[2019-02-21] MEDS: METOPROLOL SUCC 24HR ER 25 MG TAB.ER.24H. PO SCH (20:00)
[2019-02-21] MEDS: CEPHALEXIN 250 MG/5 ML ORAL.SUSP. PEG SCH (20:00)
[2019-02-21] MEDS: risperiDONE ORAL 1 MG/ML 30ml BOTTLE. SL SCH (20:00)
--- NOTE | 2019-02-21 22:14 | PDOC ---
Exam Note: Maxwell Note: Please also refer to the separate dictated note~for this date of service dictated separately.~Patient seen individually. Discussed the patient with Nursing staff reviewed the chart.~Reviewed interim history and current functioning. Reviewed vital signs,~Labs/ Radiology~and current medications noted below. Continue current treatment with the changes noted in the dictated addendum note Assessment: Vital Signs/I&O: Vital Signs Date Time Temp Pulse Resp B/P (MAP) Pulse Ox O2 Delivery O2 Flow Rate FiO2 02/21/19 20:03 106 117/70 02/21/19 15:31 97.8 20 97 02/21/19 05:25 Room Air I & O 02/20/19 02/20/19 02/21/19 15:00 23:00 07:00 Intake Total 1200 ml 240 ml 120 ml Balance 1200 ml 240 ml 120 ml Labs: Laboratory Tests Test 02/21/19 07:18 02/21/19 12:11 02/21/19 17:09 02/21/19 19:05 Glucose (Fingerstick) 82 mg/dL (70-99) 143 mg/dL (70-99) H 162 mg/dL (70-99) H 259 mg/dL (70-99) H Current Medications: Meds: Current Medications Medications (Trade) Dose Ordered Sig/Sandhya Route PRN Reason Start Time Stop Time Status Last Admin Dose Admin Risperidone (RisperDAL) 0.5 mg HS SL 02/21/19 21:00 02/21/19 20:03 Cephalexin HCl (Keflex) 500 mg TID PEG 02/21/19 21:00 03/03/19 14:01 02/21/19 20:03 I have reviewed the current psychotropics carefully including drug interactions. Risk benefit ratio favors no change other than as noted in my dictated progress note. 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
--- NOTE | 2019-02-21 22:49 | PN ---
DATE: 02/19/2019 PSYCHAITRIC PROGRESS NOTE This is a late entry 02/19/2019, covers the elements not covered in my initial note. SUBJECTIVE: I met with the patient in the evening of 02/19/2019. The patient slept 5 hours previous night. Per nursing report, the patient had a "rough day." He refused his a.m. medications, took them later, somewhat anxious, a little abrasive with staff, but redirected. He resents staff when they point out to him how at times, he comes across somewhat inappropriate with another female patient. 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 REVIEW OF SYSTEMS: Ambulation impaired, in wheelchair, some discomfort of his heels consequent wounds. Wound care is involved. No CV, , pulmonary, eye system symptoms on review. MENTAL STATUS EXAM: Oriented to himself and situation. Speech has some latency, coherent. Abstraction fair, computation impaired, language function intact, attention span short. Mood and affect is improved. LABORATORY DATA: Reviewed. IMPRESSION: Unchanged from initial note. At times, he still has some mood lability, but overall better. IMPRESSION: Unchanged from initial note. PLAN: No change from initial note. EMERSON RUTH MD DR: TAINA/siddhartha JOB#: [id number] / [id number]
--- NOTE | 2019-02-21 23:01 | NUR ---
Nursing Note Pt remembers me by name from last weekend. He is pleasant but inquisitive about all of his meds. Patient requesting a list of his meds. Tries to refuse the remeron, and the culturelle but I crushed it and put in his yogurt. He talks about his day and the arguments he has with staff regarding propelling himself in the chair. His heel wounds seem worse to me than they were last week, instructed patient to keep the boots on and too not use his heels to propel himself in the chair. He responded "Well they won't push me so how am I supposed to get around?" Reinforced with patient to please be cautious of his heel wounds.
--- NOTE | 2019-02-21 23:08 | PN ---
DATE: 02/20/2019 This late entry, 02/20/2019, covers elements not covered in my initial note. SUBJECTIVE: I met with the patient in the evening of 02/20/2019. Staffed at a treatment team meeting with the entire team in the morning. The patient is sleeping 5-6 hours. Appetite 75-100%, often refuses medications, takes it later. REVIEW OF SYSTEMS: Ambulation impaired, in wheelchair, some discomfort of his heels and Wound Care is following him. REVIEW OF SYSTEMS: No CV, , pulmonary, eye system symptoms on review. MENTAL STATUS EXAM: Oriented reasonably. Speech is coherent, abstraction fair, computation impaired, language function intact, attention span short. Mood and affect somewhat withdrawn, met with him at some length in his room. LABORATORY DATA: Reviewed. IMPRESSION: Unchanged from initial note. PLAN: No change from initial note. MAN Bladimir RUTH MD DR: TAINA/siddhartha JOB#: [id number] / [id number]
[2019-02-22 05:44] VITALS: BP 121/72
[2019-02-22 07:37] LABS: BASO % 0 % (0-3); EOS # 0.4 x10^3/uL (0.0-0.7); EOS % 5 % (0-3); HEMATOCRIT 38.2 % (39.0-53.0); HEMOGLOBIN 12.7 g/dL (13.0-17.5); LYMPH # 1.5 x10^3/uL (1.0-4.8); LYMPH % 20 % (24-48); MEAN CORPUSCULAR HEMOGLOBIN 31 pg (25-35); MEAN CORPUSCULAR HGB CONC 33 g/dL (31-37); MEAN CORPUSCULAR VOLUME 94 fL (79-100); MONO # 0.7 x10^3/uL (0.0-1.1); MONO % 10 % (0-9); NEUT # 4.7 x10^3uL (1.8-7.7); NEUT % 64 % (31-73); PLATELET COUNT 229 x10^3/uL (140-400); RED BLOOD COUNT 4.05 x10^6/uL (4.30-5.70); RED CELL DISTRIBUTION WIDTH 13.8 % (11.5-14.5); WHITE BLOOD COUNT 7.4 x10^3/uL (4.0-11.0)
[2019-02-22 07:51] LABS: ALBUMIN 3.2 g/dL (3.4-5.0); ALBUMIN/GLOBULIN RATIO 0.8 (1.0-1.7); CALCIUM 8.7 mg/dL (8.5-10.1); CREATININE 0.9 mg/dL (0.7-1.3); GFR 82.3; POTASSIUM 4.2 mmol/L (3.5-5.1); TOTAL BILIRUBIN 0.2 mg/dL (0.2-1.0)
[2019-02-22] MEDS: INSULIN LISPRO 300 UNITS/3 ML INSULN.PEN. SQ SCH ×3 (08:00→17:21)
[2019-02-22] MEDS: ASPIRIN 81 MG TAB.CHEW PO SCH (08:09)
[2019-02-22] MEDS: ACETAMINOPHEN 325 MG TABLET PO SCH ×2 (08:09→19:48)
[2019-02-22] MEDS: CARBIDOPA/LEVODOPA 10/100MG TABLET PO SCH ×3 (08:09→19:53)
[2019-02-22] MEDS: metFORMIN 500 MG TABLET PO SCH ×2 (08:09→17:20)
[2019-02-22] MEDS: CETIRIZINE HCL 10 MG TABLET PO SCH (08:09)
[2019-02-22] MEDS: MULTIVITAMIN with MINERAL TABLET. PO SCH (08:09)
[2019-02-22] MEDS: LACTOBACILLUS RHAMNOSUS GG 1 CAPSULE. PO SCH ×2 (08:10→19:48)
[2019-02-22] MEDS: VALPROATE ACID 250 MG/5 ML ORAL SOLUTION PO SCH ×2 (08:10→19:46)
[2019-02-22] MEDS: NYSTATIN 100,000 UNIT/GM TOPICAL CREAM 15GM TUBE. TP SCH ×2 (08:10→19:52)
[2019-02-22] MEDS: INSULIN GLARGINE 300 UNITS/3 ML INSULN.PEN. SQ SCH ×2 (08:11→19:52)
[2019-02-22] MEDS: CILOSTAZOL 50 MG TABLET. PO SCH ×2 (08:12→19:49)
[2019-02-22] MEDS: CEPHALEXIN 250 MG/5 ML ORAL.SUSP. PEG SCH ×3 (08:13→19:49)
[2019-02-22] MEDS ORDERED: CETIRIZINE HCL 10 MG TABLET PO PRN (09:45)
--- NOTE | 2019-02-22 11:12 | NUR ---
Patient has been calm, social, talkative, and interactive so far this shift. He was cooperative with morning meds; all liquid meds were mixed together and given to him in juice. Patient continues to walk on his heels when self propelling his wheelchair; reinforced previous patient education on wound care instructions, but patient does not want to wait for staff. Staff reminded of wound care instruction related to his heel wounds. Patient continues to be concerned about abscess in LUQ region; reminded patient that MD started antibiotics to treat and that staff will monitor for changes. Will continue to monitor
[2019-02-22 15:52] VITALS: BP 139/72
--- NOTE | 2019-02-22 18:30 | NUR ---
Patient has been increasingly grandiose and talkative from late afternoon into this evening. 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 He offered me a job working for him, stating that I would have the exact same benefits as him as well as a generous salary. Patient requested county maps of local area, which were provided; and my personal contact information, provided patient with number to nurses' station. Will continue to monitor and report to oncoming shift.
[2019-02-22] MEDS: risperiDONE ORAL 1 MG/ML 30ml BOTTLE. SL SCH (19:47)
[2019-02-22] MEDS: METOPROLOL SUCC 24HR ER 25 MG TAB.ER.24H. PO SCH (19:48)
[2019-02-22] MEDS: MIRTAZAPINE 7.5 MG TABLET. PO SCH (19:48)
--- NOTE | 2019-02-22 21:00 | NUR ---
Patient in the day room on assumption of care. Calm, cooperative, pleasant demeanor. Compliant with meds crushed and mixed in pudding, but resistant to liquid meds. He was asked what he would like to drink, and he stated "water". This curriculum writer asked him again and explained that his liquid antibiotic would be mixed in with it, and wouldn't he prefer to have it mixed with something else to mask the taste. He declined. Liquid medications brought to him in water, which he went on to spill. Re-pulled medications and when asked what he wanted to mix it with, he stated "Just give it to me straight. He drank it and washed it down with water. Complai Addendum: 02/23/19 at 0035 by KYLE RAMIRES RN RN He was compliant with keeping his medi-boots on throughout the evening.
--- NOTE | 2019-02-22 22:03 | PDOC ---
Exam Note: Maxwell Note: Please also refer to the separate dictated note~for this date of service dictated separately.~Patient seen individually. Discussed the patient with Nursing staff reviewed the chart.~Reviewed interim history and current functioning. Reviewed vital signs,~Labs/ Radiology~and current medications noted below. Continue current treatment with the changes noted in the dictated addendum note Assessment: Vital Signs/I&O: Vital Signs Date Time Temp Pulse Resp B/P (MAP) Pulse Ox O2 Delivery O2 Flow Rate FiO2 02/22/19 19:52 88 139/72 02/22/19 15:52 97.6 22 98 02/21/19 05:25 Room Air I & O 02/21/19 02/21/19 02/22/19 15:00 23:00 07:00 Intake Total 480 ml 480 ml 120 ml Balance 480 ml 480 ml 120 ml Labs: Laboratory Tests Test 02/22/19 07:12 02/22/19 08:01 02/22/19 12:06 02/22/19 17:12 White Blood Count 7.4 x10^3/uL (4.0-11.0) Red Blood Count 4.05 x10^6/uL (4.30-5.70) L Hemoglobin 12.7 g/dL (13.0-17.5) L Hematocrit 38.2 % (39.0-53.0) L Mean Corpuscular Volume 94 fL (79-100) Mean Corpuscular Hemoglobin 31 pg (25-35) Mean Corpuscular Hemoglobin Concent 33 g/dL (31-37) Red Cell Distribution Width 13.8 % (11.5-14.5) Platelet Count 229 x10^3/uL (140-400) Neutrophils (%) (Auto) 64 % (31-73) Lymphocytes (%) (Auto) 20 % (24-48) L Monocytes (%) (Auto) 10 % (0-9) H Eosinophils (%) (Auto) 5 % (0-3) H Basophils (%) (Auto) 0 % (0-3) Neutrophils # (Auto) 4.7 x10^3uL (1.8-7.7) Lymphocytes # (Auto) 1.5 x10^3/uL (1.0-4.8) Monocytes # (Auto) 0.7 x10^3/uL (0.0-1.1) Eosinophils # (Auto) 0.4 x10^3/uL (0.0-0.7) Basophils # (Auto) 0.0 x10^3/uL (0.0-0.2) Sodium Level 139 mmol/L (136-145) Potassium Level 4.2 mmol/L (3.5-5.1) Chloride Level 103 mmol/L (98-107) Carbon Dioxide Level 30 mmol/L (21-32) Anion Gap 6 (6-14) Blood Urea Nitrogen 14 mg/dL (8-26) Creatinine 0.9 mg/dL (0.7-1.3) Estimated GFR (Cockcroft-Gault) 82.3 BUN/Creatinine Ratio 16 (6-20) Glucose Level 151 mg/dL (70-99) H Calcium Level 8.7 mg/dL (8.5-10.1) Total Bilirubin 0.2 mg/dL (0.2-1.0) Aspartate Amino Transferase (AST) 14 U/L (15-37) L Alanine Aminotransferase (ALT) 11 U/L (16-63) L Alkaline Phosphatase 82 U/L (46-116) Total Protein 7.0 g/dL (6.4-8.2) Albumin 3.2 g/dL (3.4-5.0) L Albumin/Globulin Ratio 0.8 (1.0-1.7) L Glucose (Fingerstick) 129 mg/dL (70-99) H 189 mg/dL (70-99) H 165 mg/dL (70-99) H Test 02/22/19 19:10 Glucose (Fingerstick) 192 mg/dL (70-99) H Current Medications: I have reviewed the current psychotropics carefully including drug interactions. Risk benefit ratio favors no change other than as noted in my dictated progress note. 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
[2019-02-23 05:00] VITALS: BP 112/82
[2019-02-23] MEDS: CILOSTAZOL 50 MG TABLET. PO SCH ×2 (07:42→19:47)
[2019-02-23] MEDS: ASPIRIN 81 MG TAB.CHEW PO SCH (07:42)
[2019-02-23] MEDS: MULTIVITAMIN with MINERAL TABLET. PO SCH (07:42)
[2019-02-23] MEDS: LACTOBACILLUS RHAMNOSUS GG 1 CAPSULE. PO SCH ×2 (07:42→19:39)
[2019-02-23] MEDS: ACETAMINOPHEN 325 MG TABLET PO SCH ×2 (07:42→19:39)
[2019-02-23] MEDS: CARBIDOPA/LEVODOPA 10/100MG TABLET PO SCH ×3 (07:42→19:39)
[2019-02-23] MEDS: VALPROATE ACID 250 MG/5 ML ORAL SOLUTION PO SCH ×2 (07:42→19:38)
[2019-02-23] MEDS: metFORMIN 500 MG TABLET PO SCH ×2 (07:42→16:17)
[2019-02-23] MEDS: CEPHALEXIN 250 MG/5 ML ORAL.SUSP. PEG SCH ×3 (07:48→19:40)
[2019-02-23] MEDS: INSULIN LISPRO 300 UNITS/3 ML INSULN.PEN. SQ SCH ×3 (08:06→17:15)
[2019-02-23] MEDS: INSULIN GLARGINE 300 UNITS/3 ML INSULN.PEN. SQ SCH ×2 (08:06→19:45)
[2019-02-23] MEDS: NYSTATIN 100,000 UNIT/GM TOPICAL CREAM 15GM TUBE. TP SCH ×2 (08:07→19:43)
[2019-02-23 16:07] VITALS: BP 122/80
[2019-02-23] MEDS: MIRTAZAPINE 7.5 MG TABLET. PO SCH (19:38)
[2019-02-23] MEDS: METOPROLOL SUCC 24HR ER 25 MG TAB.ER.24H. PO SCH (19:39)
[2019-02-23] MEDS: risperiDONE ORAL 1 MG/ML 30ml BOTTLE. SL SCH (19:43)
--- NOTE | 2019-02-23 21:00 | NUR ---
Patient in the day room on assumption of care. Calm, cooperative and compliant with medications and assessments. He took his medications crushed in yogurt, and drank his liquid medications mixed together, and washed it down with water. He was pleasant, interactive and appropriate with peers and staff. No agitation noted.
--- NOTE | 2019-02-23 21:07 | PDOC ---
Exam Note: Maxwell Note: Please also refer to the separate dictated note~for this date of service dictated separately.~Patient seen individually. Discussed the patient with Nursing staff reviewed the chart.~Reviewed interim history and current functioning. Reviewed vital signs,~Labs/ Radiology~and current medications noted below. Continue current treatment with the changes noted in the dictated addendum note Assessment: Vital Signs/I&O: Vital Signs Date Time Temp Pulse Resp B/P (MAP) Pulse Ox O2 Delivery O2 Flow Rate FiO2 02/23/19 19:46 98 122/80 02/23/19 16:07 98.0 18 99 Room Air I & O 02/22/19 02/22/19 02/23/19 14:59 22:59 06:59 Intake Total 600 ml 240 ml Balance 600 ml 240 ml Labs: Laboratory Tests Test 02/23/19 07:53 02/23/19 12:09 02/23/19 17:12 02/23/19 19:19 Glucose (Fingerstick) 126 mg/dL (70-99) H 156 mg/dL (70-99) H 171 mg/dL (70-99) H 145 mg/dL (70-99) H Current Medications: I have reviewed the current psychotropics carefully including drug interactions. Risk benefit ratio favors no change other than as noted in my dictated progress note. 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
--- NOTE | 2019-02-23 22:35 | PN ---
DATE: 02/21/2019 PSYCHIATRIC PROGRESS NOTE. This late entry of 02/21/2019 covers the elements not covered in my initial note. SUBJECTIVE: I met with the patient in the evening. The patient slept 6-1/2 hours previous night. He questions his medications at night to [place], the nursing staff, but took it later. Refused some of his a.m. medications. Wound care recommendations are being followed and he had many questions on this. REVIEW OF SYSTEMS: Ambulation impaired, in wheelchair. No CV, , pulmonary, eye system symptoms on review. MENTAL STATUS EXAM: Oriented to himself, situation. Speech is coherent, abstraction fair, computation impaired, language function intact, attention span short. Mood and affect is improved. LABORATORY DATA: Reviewed. IMPRESSION: Unchanged from initial note. PLAN: No change from initial note. MAN Bladimir RUTH MD DR: TAINA/siddhartha JOB#: [id number] / [id number]
[2019-02-24 05:00] VITALS: BP 110/67
--- NOTE | 2019-02-24 05:14 | PN ---
DATE: 02/22/2019 PSYCHIATRIC PROGRESS NOTE This late entry, 02/22/2019, covers elements not covered in my initial note. SUBJECTIVE: I met with the patient in the evening of 02/22/2019. The patient slept 4-1/2 hours previous night. He has been somewhat resistive to medications, took them crushed in yogurt, spilled his antibiotics in the evening, somewhat flirty with nursing staff per nursing report and Zyrtec has been changed p.r.n. REVIEW OF SYSTEMS: Ambulation impaired, in wheelchair, complains of discomfort in his heel consequent to the wounds being addressed by Wound Care. No CV, , pulmonary, eye system symptoms on review. MENTAL STATUS EXAM: Reasonably oriented. Speech is coherent, has some latency. Abstraction fair, computation impaired, language function intact. Mood and affect is improved. LABORATORY DATA: Reviewed. IMPRESSION: Unchanged from initial note. PLAN: No change from initial note. EMERSON RUTH MD DR: TAINA/siddhartha JOB#: [id number] / [id number]
[2019-02-24] MEDS: INSULIN LISPRO 300 UNITS/3 ML INSULN.PEN. SQ SCH ×3 (08:00→17:00)
[2019-02-24] MEDS: CILOSTAZOL 50 MG TABLET. PO SCH ×2 (08:13→21:43)
[2019-02-24] MEDS: LACTOBACILLUS RHAMNOSUS GG 1 CAPSULE. PO SCH ×2 (08:13→21:38)
[2019-02-24] MEDS: CEPHALEXIN 250 MG/5 ML ORAL.SUSP. PEG SCH ×3 (08:13→21:46)
[2019-02-24] MEDS: ACETAMINOPHEN 325 MG TABLET PO SCH ×2 (08:14→21:37)
[2019-02-24] MEDS: CARBIDOPA/LEVODOPA 10/100MG TABLET PO SCH ×3 (08:14→21:37)
[2019-02-24] MEDS: ASPIRIN 81 MG TAB.CHEW PO SCH (08:14)
[2019-02-24] MEDS: metFORMIN 500 MG TABLET PO SCH ×2 (08:14→17:15)
[2019-02-24] MEDS: MULTIVITAMIN with MINERAL TABLET. PO SCH (08:14)
[2019-02-24] MEDS: VALPROATE ACID 250 MG/5 ML ORAL SOLUTION PO SCH ×2 (08:15→21:37)
[2019-02-24] MEDS: INSULIN GLARGINE 300 UNITS/3 ML INSULN.PEN. SQ SCH ×2 (08:17→21:44)
[2019-02-24] MEDS: NYSTATIN 100,000 UNIT/GM TOPICAL CREAM 15GM TUBE. TP SCH ×2 (08:17→21:43)
[2019-02-24 15:53] VITALS: BP 131/73
--- NOTE | 2019-02-24 16:30 | NUR ---
Wound care Wound care follow up for bilateral heel DFU's. Left heel dressed with Iodoflex and Aquacel Ag with foam dressing, recommend to change every 2-3 days. Right heel dressed with Medihoney alginate, Aquacel Ag and foam dressing, recommend to change every 2-3 days. Bilateral heel medix boots applied. Groin maceration is resolved, Calazime cream applied for protection. NO other wounds noted at this time. WC will continue to follow for possible changes.
--- NOTE | 2019-02-24 18:10 | NUR ---
Patient has been grandiose and talkative from late afternoon into this evening. He extended the job offer again, with an increase in benefits and salary. 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 He was cooperative with all medications as provided and interactive during group activities. Will continue to monitor and report to oncoming shift.
[2019-02-24] MEDS: risperiDONE ORAL 1 MG/ML 30ml BOTTLE. SL SCH (21:38)
[2019-02-24] MEDS: MIRTAZAPINE 7.5 MG TABLET. PO SCH (21:38)
[2019-02-24] MEDS: METOPROLOL SUCC 24HR ER 25 MG TAB.ER.24H. PO SCH (21:38)
[2019-02-24] MEDS: ASCORBIC ACID 500 MG TABLET PO SCH (21:42)
--- NOTE | 2019-02-24 22:27 | PDOC ---
Exam Note: Maxwell Note: Please also refer to the separate dictated note~for this date of service dictated separately.~Patient seen individually. Discussed the patient with Nursing staff reviewed the chart.~Reviewed interim history and current functioning. Reviewed vital signs,~Labs/ Radiology~and current medications noted below. Continue current treatment with the changes noted in the dictated addendum note Assessment: Vital Signs/I&O: Vital Signs Date Time Temp Pulse Resp B/P (MAP) Pulse Ox O2 Delivery O2 Flow Rate FiO2 02/24/19 21:39 112 131/73 02/24/19 15:53 98.3 18 98 02/24/19 05:00 Room Air I & O 02/23/19 02/23/19 02/24/19 14:59 22:59 06:59 Intake Total 720 ml 240 ml 100 ml Balance 720 ml 240 ml 100 ml Labs: Laboratory Tests Test 02/24/19 07:39 02/24/19 08:49 02/24/19 11:50 02/24/19 16:55 Glucose (Fingerstick) 67 mg/dL (70-99) L 131 mg/dL (70-99) H 121 mg/dL (70-99) H 147 mg/dL (70-99) H Test 02/24/19 19:42 Glucose (Fingerstick) 207 mg/dL (70-99) H Current Medications: Meds: Current Medications Medications (Trade) Dose Ordered Sig/Sandhya Route PRN Reason Start Time Stop Time Status Last Admin Dose Admin Ascorbic Acid (Vitamin C) 500 mg BID PO 02/24/19 21:00 02/24/19 21:45 I have reviewed the current psychotropics carefully including drug interactions. Risk benefit ratio favors no change other than as noted in my dictated progress note. Diagnosis: Problems: (1) Mental status change resolved (2) Anxiety disorder (3) Bipolar affective, mixed, sev w/ psych (4) Dementia, vascular, with depression (5) Dementia, vascular, with delusions (6) Impulse control disorder (7) Psychosis, atypical (8) Dementia in Alzheimer's disease with delusions (9) Personality disorder (10) Major neurocognitive disorder EMERSON RUTH MD Feb 24, 2019 22:27
--- NOTE | 2019-02-24 23:37 | PN ---
DATE: 02/23/2019 PSYCHIATRIC PROGRESS NOTE This late entry 02/23/2019 covers elements not covered in my initial note. SUBJECTIVE: I met with the patient in the evening of 02/23/2019. The patient slept 5-1/2 hours previous night. Overall, he has had a good day. He is taking medications whole, takes some meds in liquids, more appropriate. REVIEW OF SYSTEMS: Ambulation impaired, in wheelchair. Complains of discomfort, bilateral heels, does have wound care following him. REVIEW OF SYSTEMS: No CV, , pulmonary, eye system symptoms on review. MENTAL STATUS EXAM: Reasonably oriented. Speech is coherent, has some latency. Abstraction fair, computation impaired, language function intact, attention span short. Mood and affect somewhat withdrawn, but improved. LABORATORY DATA: Reviewed. IMPRESSION: Unchanged from initial note. PLAN: No change from initial note. MAN Bladimir RUTH MD DR: TAINA/siddhartha JOB#: [id number] / [id number]
--- NOTE | 2019-02-25 | NUR ---
Nursing Note The patient was located in his room for his medication and assessment. The patient was compliant with his medication and assessment. The patient was appropriate during interactions with staff and peers. The patient is currently sleeping in his room.
[2019-02-25 06:20] VITALS: BP 121/73
[2019-02-25] MEDS: INSULIN LISPRO 300 UNITS/3 ML INSULN.PEN. SQ SCH ×3 (08:00→17:06)
[2019-02-25] MEDS: CARBIDOPA/LEVODOPA 10/100MG TABLET PO SCH ×3 (08:08→21:11)
[2019-02-25] MEDS: MULTIVITAMIN with MINERAL TABLET. PO SCH (08:08)
[2019-02-25] MEDS: ASPIRIN 81 MG TAB.CHEW PO SCH (08:08)
[2019-02-25] MEDS: VALPROATE ACID 250 MG/5 ML ORAL SOLUTION PO SCH ×2 (08:08→21:11)
[2019-02-25] MEDS: LACTOBACILLUS RHAMNOSUS GG 1 CAPSULE. PO SCH ×2 (08:08→21:12)
[2019-02-25] MEDS: ASCORBIC ACID 500 MG TABLET PO SCH ×2 (08:08→21:12)
[2019-02-25] MEDS: ACETAMINOPHEN 325 MG TABLET PO SCH ×2 (08:09→21:12)
[2019-02-25] MEDS: metFORMIN 500 MG TABLET PO SCH ×2 (08:09→17:05)
[2019-02-25] MEDS: CILOSTAZOL 50 MG TABLET. PO SCH ×2 (08:10→21:14)
[2019-02-25] MEDS: NYSTATIN 100,000 UNIT/GM TOPICAL CREAM 15GM TUBE. TP SCH ×2 (08:11→21:43)
[2019-02-25] MEDS: INSULIN GLARGINE 300 UNITS/3 ML INSULN.PEN. SQ SCH (08:12)
[2019-02-25] MEDS: CEPHALEXIN 250 MG/5 ML ORAL.SUSP. PEG SCH ×3 (08:14→21:57)
[2019-02-25] MEDS: INSULIN GLARGINE SYRINGE. SQ SCH ×2 (08:54→21:38)
[2019-02-25] MEDS ORDERED: INSULIN GLARGINE SYRINGE. SQ SCH (09:00)
[2019-02-25 16:13] VITALS: BP 113/69
[2019-02-25] MEDS ORDERED: INSULIN GLARGINE 300 UNITS/3 ML INSULN.PEN. SQ SCH (21:00)
[2019-02-25] MEDS: MIRTAZAPINE 7.5 MG TABLET. PO SCH (21:12)
[2019-02-25] MEDS: METOPROLOL SUCC 24HR ER 25 MG TAB.ER.24H. PO SCH (21:16)
[2019-02-25] MEDS: risperiDONE ORAL 1 MG/ML 30ml BOTTLE. SL SCH (21:17)
--- NOTE | 2019-02-25 21:28 | PN ---
DATE: 02/24/2019 PSYCHIATRIC PROGRESS NOTE This late entry 02/24/2019 covers elements not covered in my initial note. SUBJECTIVE: I met with the patient at length in his room individually. The patient slept 6 hours previous night. He is doing reasonably well, but was complaining about some of the nursing aides and how they interact with him. We addressed this at some length. He has been less grandiose, not offering $50,000 salary to one of the nursing staff to work for him like he did a few days back. REVIEW OF SYSTEMS: Ambulation impaired, in wheelchair. No CV, , pulmonary, eye system symptoms on review. Complains of discomfort in his chest area from skin wounds being treated by Dr. Schwartz, is on Keflex. MENTAL STATUS EXAM: Oriented to himself and situation. Speech is less pressured. Abstraction fair, computation impaired, language function intact. Mood and affect despite the above is improved. LABORATORY DATA: Reviewed. IMPRESSION: Unchanged from initial note. PLAN: No change from initial note. MAN Bladimir RUTH MD DR: TAINA/siddhartha JOB#: [id number] / [id number]
--- NOTE | 2019-02-25 21:57 | PDOC ---
Exam Note: Maxwell Note: Please also refer to the separate dictated note~for this date of service dictated separately.~Patient seen individually. Discussed the patient with Nursing staff reviewed the chart.~Reviewed interim history and current functioning. Reviewed vital signs,~Labs/ Radiology~and current medications noted below. Continue current treatment with the changes noted in the dictated addendum note Assessment: Vital Signs/I&O: Vital Signs Date Time Temp Pulse Resp B/P (MAP) Pulse Ox O2 Delivery O2 Flow Rate FiO2 02/25/19 21:24 116 155/94 02/25/19 16:13 98.4 18 97 02/25/19 06:20 Room Air I & O 02/24/19 02/24/19 02/25/19 15:00 23:00 07:00 Intake Total 840 ml 240 ml 240 ml Balance 840 ml 240 ml 240 ml Labs: Laboratory Tests Test 02/25/19 07:45 02/25/19 11:35 02/25/19 16:53 02/25/19 19:09 Glucose (Fingerstick) 110 mg/dL (70-99) H 150 mg/dL (70-99) H 183 mg/dL (70-99) H 201 mg/dL (70-99) H Current Medications: Meds: Current Medications Medications (Trade) Dose Ordered Sig/Sandhya Route PRN Reason Start Time Stop Time Status Last Admin Dose Admin Insulin Glargine (Lantus Syringe) 10 unit DAILY SQ 02/25/19 09:00 02/25/19 08:54 Insulin Glargine (Lantus Syringe) 45 unit QHS SQ 02/25/19 21:00 02/25/19 21:40 I have reviewed the current psychotropics carefully including drug interactions. Risk benefit ratio favors no change other than as noted in my dictated progress note. 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
--- NOTE | 2019-02-26 00:58 | NUR ---
Nursing Note The patient was calm and compliant taking his medication whole. The patient was appropriate during interactions with staff and peers. The patient is currently sleeping in his room.
[2019-02-26 05:53] VITALS: BP 102/63
[2019-02-26] MEDS: INSULIN LISPRO 300 UNITS/3 ML INSULN.PEN. SQ SCH ×3 (08:00→17:00)
[2019-02-26] MEDS: VALPROATE ACID 250 MG/5 ML ORAL SOLUTION PO SCH ×2 (09:11→20:48)
[2019-02-26] MEDS: ASPIRIN 81 MG TAB.CHEW PO SCH (09:11)
[2019-02-26] MEDS: metFORMIN 500 MG TABLET PO SCH ×2 (09:12→17:22)
[2019-02-26] MEDS: CARBIDOPA/LEVODOPA 10/100MG TABLET PO SCH ×3 (09:12→20:48)
[2019-02-26] MEDS: ASCORBIC ACID 500 MG TABLET PO SCH ×2 (09:12→20:48)
[2019-02-26] MEDS: LACTOBACILLUS RHAMNOSUS GG 1 CAPSULE. PO SCH ×2 (09:12→20:48)
[2019-02-26] MEDS: ACETAMINOPHEN 325 MG TABLET PO SCH ×2 (09:12→20:48)
[2019-02-26] MEDS: CILOSTAZOL 50 MG TABLET. PO SCH ×2 (09:12→20:45)
[2019-02-26] MEDS: MULTIVITAMIN with MINERAL TABLET. PO SCH (09:12)
[2019-02-26] MEDS: CEPHALEXIN 250 MG/5 ML ORAL.SUSP. PEG SCH ×3 (09:13→20:52)
[2019-02-26] MEDS: INSULIN GLARGINE SYRINGE. SQ SCH ×2 (09:13→20:47)
[2019-02-26] MEDS: NYSTATIN 100,000 UNIT/GM TOPICAL CREAM 15GM TUBE. TP SCH ×2 (09:14→20:52)
--- NOTE | 2019-02-26 13:50 | NUR ---
ELISABETH spoke with Opal at [facility] to discuss pt care. Opal just wanted to make sure that pt was not having anymore physical behaviors and felt that he would be fine on their milieu. ELISABETH will send updated notes; pt will be able to discharge there once they are able to straighten out his Medicaid payment. Since pt was in a Skilled facility, they will need to have permission from Medicaid to place him in an AL/MC unit. ELISABETH will contact Michelle at [facility] and let them know; as well as pt daughter.
[2019-02-26 15:55] VITALS: BP 124/72
--- NOTE | 2019-02-26 18:10 | NUR ---
Patient has been calm, social, talkative, and interactive throughout this shift. He has participated in the group activities today and was cooperative with Physical therapy. He has been grandiose and talking about opening a baltazar/orchard and buying a plane after discharge. Will continue to monitor and report to oncoming shift.
[2019-02-26] MEDS: risperiDONE ORAL 1 MG/ML 30ml BOTTLE. SL SCH (20:46)
[2019-02-26] MEDS: MIRTAZAPINE 7.5 MG TABLET. PO SCH (20:48)
[2019-02-26] MEDS: METOPROLOL SUCC 24HR ER 25 MG TAB.ER.24H. PO SCH (20:48)
--- NOTE | 2019-02-26 21:32 | PDOC ---
Exam Note: Maxwell Note: Please also refer to the separate dictated note~for this date of service dictated separately.~Patient seen individually. Discussed the patient with Nursing staff reviewed the chart.~Reviewed interim history and current functioning. Reviewed vital signs,~Labs/ Radiology~and current medications noted below. Continue current treatment with the changes noted in the dictated addendum note Assessment: Vital Signs/I&O: Vital Signs Date Time Temp Pulse Resp B/P (MAP) Pulse Ox O2 Delivery O2 Flow Rate FiO2 02/26/19 20:52 75 124/72 02/26/19 15:55 97.7 18 97 02/25/19 06:20 Room Air I & O 02/25/19 02/25/19 02/26/19 15:00 23:00 07:00 Intake Total 840 ml 720 ml Balance 840 ml 720 ml Labs: Laboratory Tests Test 02/26/19 08:12 02/26/19 12:25 02/26/19 17:13 02/26/19 19:04 Glucose (Fingerstick) 126 mg/dL (70-99) H 149 mg/dL (70-99) H 146 mg/dL (70-99) H 174 mg/dL (70-99) H Current Medications: Meds: Current Medications Medications (Trade) Dose Ordered Sig/Sandhya Route PRN Reason Start Time Stop Time Status Last Admin Dose Admin Risperidone (RisperDAL) 0.25 mg HS SL 02/26/19 21:00 02/26/19 20:52 I have reviewed the current psychotropics carefully including drug interactions. Risk benefit ratio favors no change other than as noted in my dictated progress note. 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
--- NOTE | 2019-02-27 01:41 | PN ---
DATE: 02/25/2019 PSYCHIATRIC PROGRESS NOTE This late entry, 02/25/2019, covers elements not covered in my initial note. SUBJECTIVE: I met with the patient in the evening of 02/25/2019. The patient slept 6 hours previous night. Per CA Aguilar, he did well the previous night, but today, on 02/25/2019, he stripped his bandages off the leg. He is somewhat withdrawn, confused. REVIEW OF SYSTEMS: No CV, , pulmonary, eye system symptoms on review. Ambulation impaired, in wheelchair. As I met with him at length, he is complaining of certain staff members; I addressed with him. MENTAL STATUS EXAMINATION: Oriented to himself, situation. Speech has some latency, coherent and otherwise quite interactive. Abstraction fair, computation impaired. Language function intact. Attention span short, mood and affect is improved. LABORATORY DATA: Reviewed. IMPRESSION: Unchanged from initial note. Major depressive disorder, rule out psychotic features; mild cognitive impairment, status post cerebrovascular accident. PLAN: Continue current psychotropics. In a day or so, we will reduce his oral Risperdal as he is on the Risperdal Consta, continue rest unchanged. MAN Bladimir RUTH MD DR: TAINA/siddhartha JOB#: [id number] / [id number]
[2019-02-27 05:49] VITALS: BP 123/71
[2019-02-27] MEDS: LACTOBACILLUS RHAMNOSUS GG 1 CAPSULE. PO SCH ×2 (08:00→19:55)
[2019-02-27] MEDS: INSULIN LISPRO 300 UNITS/3 ML INSULN.PEN. SQ SCH ×3 (08:00→17:00)
[2019-02-27] MEDS: CEPHALEXIN 250 MG/5 ML ORAL.SUSP. PEG SCH ×3 (08:00→20:00)
[2019-02-27] MEDS: VALPROATE ACID 250 MG/5 ML ORAL SOLUTION PO SCH ×2 (08:00→19:54)
[2019-02-27] MEDS: ACETAMINOPHEN 325 MG TABLET PO SCH ×2 (08:01→19:55)
[2019-02-27] MEDS: metFORMIN 500 MG TABLET PO SCH ×2 (08:01→17:45)
[2019-02-27] MEDS: MULTIVITAMIN with MINERAL TABLET. PO SCH (08:01)
[2019-02-27] MEDS: CARBIDOPA/LEVODOPA 10/100MG TABLET PO SCH ×4 (08:01→20:58)
[2019-02-27] MEDS: ASPIRIN 81 MG TAB.CHEW PO SCH (08:01)
[2019-02-27] MEDS: ASCORBIC ACID 500 MG TABLET PO SCH ×2 (08:02→19:55)
[2019-02-27] MEDS: INSULIN GLARGINE SYRINGE. SQ SCH ×2 (08:02→19:55)
[2019-02-27] MEDS: CILOSTAZOL 50 MG TABLET. PO SCH ×3 (08:06→20:58)
[2019-02-27] MEDS: NYSTATIN 100,000 UNIT/GM TOPICAL CREAM 15GM TUBE. TP SCH ×2 (08:06→19:59)
--- NOTE | 2019-02-27 10:56 | NUR ---
WEEKLY ACTIVITY THERAPY NOTE Date of Admission: 02/02/2019 Date of AT Assessment: 02/04/2019 Goal aimed: to sustain engagement Initial goal:Pt. will participate in all groups he is invited to. Weekly progress towards goal: did not achieve Group participation level: moderate Weekly highlights: played with pool noodles with a peer, joking and pleasant Behaviors observed: sleepy this week- sleeping through groups more often, generally friendly with therapists, makes friends easily with other patients Plan: no change to goal Beneficial adaptations: reminders and invitations, outdoor/garden, trivia
--- NOTE | 2019-02-27 10:58 | NUR ---
WEEKLY NOTE: Pt is eating 75-100% of meals and sleeping on average 7 hours a night. Pt attends groups moderately and is able to discharge once the Medicaid transitions over to the appropriate payment plan for his new placement. Pt is able to be more independent within his care and is more redirectable. Pt is somewhat delusional but no concerns have been noted.
--- NOTE | 2019-02-27 15:25 | NUR ---
Patient has been calm, social, talkative, and interactive throughout this shift. He has participated in the group activities today and was cooperative with therapy. He has been asking for an atlas of [place] that he had last night, this has not been found. Will continue to monitor and report to oncoming shift.
--- NOTE | 2019-02-27 16:00 | NUR ---
Patient was found lying on the floor in his room. Patient stated that he attempted to transfer himself into bed and got stuck in an awkward position. When he could no longer hold that position, he slipped onto the floor. From there he rolled to the bathroom wall. He denies any pain or injuries. Will continue to monitor.
[2019-02-27 16:34] VITALS: BP 143/88
[2019-02-27] MEDS: METOPROLOL SUCC 24HR ER 25 MG TAB.ER.24H. PO SCH ×2 (19:54→20:59)
[2019-02-27] MEDS: MIRTAZAPINE 7.5 MG TABLET. PO SCH ×2 (19:54→20:58)
[2019-02-27] MEDS: risperiDONE ORAL 1 MG/ML 30ml BOTTLE. SL SCH (19:57)
--- NOTE | 2019-02-27 21:38 | PDOC ---
Exam Note: Maxwell Note: Please also refer to the separate dictated note~for this date of service dictated separately.~Patient seen individually. Discussed the patient with Nursing staff reviewed the chart.~Reviewed interim history and current functioning. Reviewed vital signs,~Labs/ Radiology~and current medications noted below. Continue current treatment with the changes noted in the dictated addendum note Assessment: Vital Signs/I&O: Vital Signs Date Time Temp Pulse Resp B/P (MAP) Pulse Ox O2 Delivery O2 Flow Rate FiO2 02/27/19 20:59 105 143/88 02/27/19 16:34 97.7 18 99 Room Air I & O 02/26/19 02/26/19 02/27/19 15:00 23:00 07:00 Intake Total 960 ml 480 ml 480 ml Balance 960 ml 480 ml 480 ml Labs: Laboratory Tests Test 02/27/19 07:21 02/27/19 12:21 02/27/19 17:19 02/27/19 19:19 Glucose (Fingerstick) 135 mg/dL (70-99) H 135 mg/dL (70-99) H 122 mg/dL (70-99) H 148 mg/dL (70-99) H Current Medications: I have reviewed the current psychotropics carefully including drug interactions. Risk benefit ratio favors no change other than as noted in my dictated progress note. 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
--- NOTE | 2019-02-27 22:06 | NUR ---
Nursing note: Assumed care of pt in the day room. He was coherent and pleasant but still refusing to take some meds, he doesn't believe he needs them no matter how much it is explained to him. He is cooperative otherwise.
[2019-02-28 05:46] VITALS: BP 117/71
[2019-02-28] MEDS: INSULIN LISPRO 300 UNITS/3 ML INSULN.PEN. SQ SCH ×3 (08:00→17:19)
[2019-02-28] MEDS: ASPIRIN 81 MG TAB.CHEW PO SCH ×2 (08:00→08:11)
[2019-02-28] MEDS: metFORMIN 500 MG TABLET PO SCH ×3 (08:00→17:00)
[2019-02-28] MEDS: VALPROATE ACID 250 MG/5 ML ORAL SOLUTION PO SCH ×2 (08:08→19:49)
[2019-02-28] MEDS: MULTIVITAMIN with MINERAL TABLET. PO SCH ×2 (08:09→09:00)
[2019-02-28] MEDS: ASCORBIC ACID 500 MG TABLET PO SCH ×3 (08:09→19:50)
[2019-02-28] MEDS: CARBIDOPA/LEVODOPA 10/100MG TABLET PO SCH ×5 (08:09→20:59)
[2019-02-28] MEDS: ACETAMINOPHEN 325 MG TABLET PO SCH ×3 (08:09→19:50)
[2019-02-28] MEDS: LACTOBACILLUS RHAMNOSUS GG 1 CAPSULE. PO SCH ×3 (08:10→19:48)
[2019-02-28] MEDS: CEPHALEXIN 250 MG/5 ML ORAL.SUSP. PEG SCH ×3 (08:20→19:48)
[2019-02-28] MEDS: NYSTATIN 100,000 UNIT/GM TOPICAL CREAM 15GM TUBE. TP SCH ×2 (08:21→19:50)
[2019-02-28] MEDS: CILOSTAZOL 50 MG TABLET. PO SCH ×4 (08:21→20:59)
[2019-02-28] MEDS: risperiDONE MICROSPHERES 12.5 MG/2 ML DISP.SYRIN. IM SCH (09:49)
[2019-02-28] MEDS: INSULIN GLARGINE SYRINGE. SQ SCH ×2 (09:51→20:02)
--- NOTE | 2019-02-28 12:04 | NUR ---
Patient was in the dayroom, took some medications, refused the rest. Allowed for morning assessment, no agitation noted. Patient denies pain. Will continue to monitor.
--- NOTE | 2019-02-28 14:06 | NUR ---
Patient received shot, while getting the shot pt stated that "he will turn us in to the Feds, and that they will shut this facility down." Patient is now resting quietly in bed, will continue to monitor.
--- NOTE | 2019-02-28 15:39 | NUR ---
SW sat with pt and informed him of pt discharge plans. Pt and SW went over the factor that the accepting facility would be able to accept pt once his insurance approved a different level of care. Pt was at [facility] and will be able to discharge to [facility] in [place]. Pt reports that he is hopeful to see his family soon, as he has not seen them since November. SW will pass this on to pt dtr to see if they will visit over the weekend.
[2019-02-28 16:28] VITALS: BP 132/79
[2019-02-28] MEDS: MIRTAZAPINE 7.5 MG TABLET. PO SCH ×3 (19:49→21:00)
[2019-02-28] MEDS: risperiDONE ORAL 1 MG/ML 30ml BOTTLE. SL SCH (19:50)
[2019-02-28] MEDS: METOPROLOL SUCC 24HR ER 25 MG TAB.ER.24H. PO SCH ×2 (19:50→20:59)
--- NOTE | 2019-02-28 21:41 | PDOC ---
Exam Note: Maxwell Note: Please also refer to the separate dictated note~for this date of service dictated separately.~Patient seen individually. Discussed the patient with Nursing staff reviewed the chart.~Reviewed interim history and current functioning. Reviewed vital signs,~Labs/ Radiology~and current medications noted below. Continue current treatment with the changes noted in the dictated addendum note Assessment: Vital Signs/I&O: Vital Signs Date Time Temp Pulse Resp B/P (MAP) Pulse Ox O2 Delivery O2 Flow Rate FiO2 02/28/19 16:28 97.8 101 18 132/79 (96) 94 02/27/19 16:34 Room Air I & O 02/27/19 02/27/19 02/28/19 15:00 23:00 07:00 Intake Total 720 ml 480 ml Balance 720 ml 480 ml Labs: Laboratory Tests Test 02/28/19 07:15 02/28/19 11:53 02/28/19 17:11 02/28/19 19:55 Glucose (Fingerstick) 96 mg/dL (70-99) 173 mg/dL (70-99) H 158 mg/dL (70-99) H 245 mg/dL (70-99) H Current Medications: Meds: Current Medications Medications (Trade) Dose Ordered Sig/Sandhya Route PRN Reason Start Time Stop Time Status Last Admin Dose Admin Risperidone (RisperDAL) 0.5 mg HS SL 02/28/19 21:00 02/28/19 19:51 I have reviewed the current psychotropics carefully including drug interactions. Risk benefit ratio favors no change other than as noted in my dictated progress note. 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
--- NOTE | 2019-02-28 21:41 | NUR ---
Nursing note: Assumed care of pt in his room. He was sitting in his wheelchair with his feet propped up. He was compliant with some meds and refused others. No agitation at this time, no c/o pain.
--- NOTE | 2019-02-28 23:08 | PN ---
DATE: 02/27/2019 PROGRESS NOTE This late entry 02/27/2019 covers elements not covered in my initial note. SUBJECTIVE: I met with the patient evening of 02/27/2019 and staffed at treatment team meeting in the morning. The patient is sleeping average 6 hours, takes his medications whole. Appetite 75-100%. He gets a little grandiose at times, offering one of the nursing staff a job to work for him for $60,000 a year. Clarification from my note of 02/26/2019, Risperdal Consta 25 mg IM q. 2 weeks was discontinued, but he remains on Risperdal Consta 12.5 mg IM q. 2 weeks. REVIEW OF SYSTEMS: Ambulation impaired, in wheelchair. No CV, , pulmonary, eye system symptoms on review. At treatment team meeting reviewed his progress at length. MENTAL STATUS EXAM: Oriented to himself and situation. Speech is coherent, abstraction fair, computation impaired, language function intact, attention span short. He was in the toilet area needing assistance and I asked the nursing aides to assist him after my visit. LABORATORY DATA: Reviewed. IMPRESSION: Unchanged from initial note. PLAN: No change from initial note other than clarification on the Risperdal Consta noted above. EMERSON RUTH MD DR: TAINA/siddhartha JOB#: [id number] / [id number]
--- NOTE | 2019-02-28 23:16 | PN ---
DATE: 02/26/2019 PSYCHIATRY PROGRESS NOTE This late entry 02/26 covers elements not covered in my initial note. SUBJECTIVE: I met with the patient evening of 02/26. The patient slept 5-1/2 hours previous night. Otherwise doing reasonably well, gets a little irritable with staff, but redirects. REVIEW OF SYSTEMS: Ambulation impaired, in wheelchair. No CV, , pulmonary, eye system symptoms on review. MENTAL STATUS EXAM: Oriented to himself and situation. Speech has some latency, coherent. Abstraction fair, computation impaired, language function intact. Mood and affect is improved. LABORATORY DATA: Reviewed. IMPRESSION: Unchanged from initial note. PLAN: Continue Risperdal Consta, but we will reduce the oral Risperdal from 0.5 mg at bedtime down to 0.25 mg at bedtime given his history of CVA and discontinue the Risperdal Consta. Make further adjustments as clinically indicated. Maintain Depakene level therapeutic at 77. If psychotic symptoms, agitation resurface, we may need to increase the oral Risperdal. MAN Bladimir RUTH MD DR: TAINA/siddhartha JOB#: [id number] / [id number]
[2019-03-01 06:19] VITALS: BP 121/75
[2019-03-01 07:14] LABS: BASO % 0 % (0-3); EOS # 0.3 x10^3/uL (0.0-0.7); EOS % 6 % (0-3); HEMATOCRIT 37.2 % (39.0-53.0); HEMOGLOBIN 12.5 g/dL (13.0-17.5); LYMPH # 1.7 x10^3/uL (1.0-4.8); LYMPH % 29 % (24-48); MEAN CORPUSCULAR HEMOGLOBIN 31 pg (25-35); MEAN CORPUSCULAR HGB CONC 34 g/dL (31-37); MEAN CORPUSCULAR VOLUME 93 fL (79-100); MONO # 0.6 x10^3/uL (0.0-1.1); MONO % 11 % (0-9); NEUT # 3.2 x10^3uL (1.8-7.7); NEUT % 54 % (31-73); PLATELET COUNT 228 x10^3/uL (140-400); RED CELL DISTRIBUTION WIDTH 13.9 % (11.5-14.5); WHITE BLOOD COUNT 5.9 x10^3/uL (4.0-11.0)
[2019-03-01 07:27] LABS: ALBUMIN 3.2 g/dL (3.4-5.0); ALBUMIN/GLOBULIN RATIO 0.9 (1.0-1.7); CALCIUM 8.7 mg/dL (8.5-10.1); CREATININE 0.8 mg/dL (0.7-1.3); GFR 94.2; POTASSIUM 4.2 mmol/L (3.5-5.1); TOTAL BILIRUBIN 0.2 mg/dL (0.2-1.0); TOTAL PROTEIN 6.9 g/dL (6.4-8.2)
[2019-03-01] MEDS: ASPIRIN 81 MG TAB.CHEW PO SCH ×2 (07:45→08:00)
[2019-03-01] MEDS: metFORMIN 500 MG TABLET PO SCH ×3 (07:46→17:00)
[2019-03-01] MEDS: LACTOBACILLUS RHAMNOSUS GG 1 CAPSULE. PO SCH ×3 (07:47→19:30)
[2019-03-01] MEDS: VALPROATE ACID 250 MG/5 ML ORAL SOLUTION PO SCH ×2 (07:47→19:27)
[2019-03-01] MEDS: CILOSTAZOL 50 MG TABLET. PO SCH ×4 (07:47→20:45)
[2019-03-01] MEDS: CARBIDOPA/LEVODOPA 10/100MG TABLET PO SCH ×5 (07:47→20:45)
[2019-03-01] MEDS: MULTIVITAMIN with MINERAL TABLET. PO SCH ×2 (07:48→09:00)
[2019-03-01] MEDS: ASCORBIC ACID 500 MG TABLET PO SCH ×2 (07:48→19:28)
[2019-03-01] MEDS: ACETAMINOPHEN 325 MG TABLET PO SCH ×2 (07:48→19:28)
[2019-03-01] MEDS: INSULIN LISPRO 300 UNITS/3 ML INSULN.PEN. SQ SCH ×3 (08:00→17:22)
[2019-03-01] MEDS: CEPHALEXIN 250 MG/5 ML ORAL.SUSP. PEG SCH ×3 (08:58→19:26)
[2019-03-01] MEDS: NYSTATIN 100,000 UNIT/GM TOPICAL CREAM 15GM TUBE. TP SCH ×2 (08:58→19:29)
[2019-03-01] MEDS: INSULIN GLARGINE SYRINGE. SQ SCH ×2 (09:06→19:32)
--- NOTE | 2019-03-01 10:24 | NUR ---
Patient was in the dining room during assessment, took some medications, refused all of his pills. Allowed for morning assessment, patient has been a little flirtacious with staff. Patient mentioned that he has a girlfriend the shares the "same name as his nurse, that there's a 50 year age difference." Also for the nurse to tell her significant other that " a 75 y/o has a crush on her at work." Patient is currently in the dayroom, no agitation noted. Pt denies pain, will continue to monitor.
[2019-03-01 16:08] VITALS: BP 162/84
[2019-03-01] MEDS: MIRTAZAPINE 7.5 MG TABLET. PO SCH ×2 (19:27→20:45)
[2019-03-01] MEDS: risperiDONE ORAL 1 MG/ML 30ml BOTTLE. SL SCH (19:28)
[2019-03-01] MEDS: METOPROLOL SUCC 24HR ER 25 MG TAB.ER.24H. PO SCH ×2 (19:28→20:45)
--- NOTE | 2019-03-01 21:39 | NUR ---
Nursing note: Assumed care of pt in the day room where he was watching the football game. He was compliant with liquid meds over ice but refusing pills except Tylenol and Vit C. He is compliant with insulin. No c/o pain. Agreed we would redress his heels tonight. A&OX3
--- NOTE | 2019-03-01 22:58 | PDOC ---
Exam Note: Maxwell Note: Please also refer to the separate dictated note~for this date of service dictated separately.~Patient seen individually. Discussed the patient with Nursing staff reviewed the chart.~Reviewed interim history and current functioning. Reviewed vital signs,~Labs/ Radiology~and current medications noted below. Continue current treatment with the changes noted in the dictated addendum note Assessment: Vital Signs/I&O: Vital Signs Date Time Temp Pulse Resp B/P (MAP) Pulse Ox O2 Delivery O2 Flow Rate FiO2 03/01/19 20:46 100 162/84 03/01/19 16:08 98.6 16 97 02/27/19 16:34 Room Air I & O 02/28/19 02/28/19 03/01/19 15:00 23:00 07:00 Intake Total 720 ml 720 ml Balance 720 ml 720 ml Labs: Laboratory Tests Test 03/01/19 06:21 03/01/19 07:19 03/01/19 11:44 03/01/19 16:30 White Blood Count 5.9 x10^3/uL (4.0-11.0) Red Blood Count 4.00 x10^6/uL (4.30-5.70) L Hemoglobin 12.5 g/dL (13.0-17.5) L Hematocrit 37.2 % (39.0-53.0) L Mean Corpuscular Volume 93 fL (79-100) Mean Corpuscular Hemoglobin 31 pg (25-35) Mean Corpuscular Hemoglobin Concent 34 g/dL (31-37) Red Cell Distribution Width 13.9 % (11.5-14.5) Platelet Count 228 x10^3/uL (140-400) Neutrophils (%) (Auto) 54 % (31-73) Lymphocytes (%) (Auto) 29 % (24-48) Monocytes (%) (Auto) 11 % (0-9) H Eosinophils (%) (Auto) 6 % (0-3) H Basophils (%) (Auto) 0 % (0-3) Neutrophils # (Auto) 3.2 x10^3uL (1.8-7.7) Lymphocytes # (Auto) 1.7 x10^3/uL (1.0-4.8) Monocytes # (Auto) 0.6 x10^3/uL (0.0-1.1) Eosinophils # (Auto) 0.3 x10^3/uL (0.0-0.7) Basophils # (Auto) 0.0 x10^3/uL (0.0-0.2) Sodium Level 138 mmol/L (136-145) Potassium Level 4.2 mmol/L (3.5-5.1) Chloride Level 103 mmol/L (98-107) Carbon Dioxide Level 30 mmol/L (21-32) Anion Gap 5 (6-14) L Blood Urea Nitrogen 13 mg/dL (8-26) Creatinine 0.8 mg/dL (0.7-1.3) Estimated GFR (Cockcroft-Gault) 94.2 BUN/Creatinine Ratio 16 (6-20) Glucose Level 117 mg/dL (70-99) H Calcium Level 8.7 mg/dL (8.5-10.1) Total Bilirubin 0.2 mg/dL (0.2-1.0) Aspartate Amino Transferase (AST) 16 U/L (15-37) Alanine Aminotransferase (ALT) 13 U/L (16-63) L Alkaline Phosphatase 71 U/L (46-116) Total Protein 6.9 g/dL (6.4-8.2) Albumin 3.2 g/dL (3.4-5.0) L Albumin/Globulin Ratio 0.9 (1.0-1.7) L Glucose (Fingerstick) 106 mg/dL (70-99) H 190 mg/dL (70-99) H 211 mg/dL (70-99) H Test 03/01/19 19:08 Glucose (Fingerstick) 236 mg/dL (70-99) H Current Medications: I have reviewed the current psychotropics carefully including drug interactions. Risk benefit ratio favors no change other than as noted in my dictated progress note. 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
[2019-03-02 05:28] VITALS: BP 105/61
[2019-03-02] MEDS: MULTIVITAMIN with MINERAL TABLET. PO SCH (07:53)
[2019-03-02] MEDS: ASPIRIN 81 MG TAB.CHEW PO SCH (07:53)
[2019-03-02] MEDS: ACETAMINOPHEN 325 MG TABLET PO SCH ×2 (07:53→20:02)
[2019-03-02] MEDS: ASCORBIC ACID 500 MG TABLET PO SCH ×2 (07:53→20:02)
[2019-03-02] MEDS: CARBIDOPA/LEVODOPA 10/100MG TABLET PO SCH ×3 (07:53→20:01)
[2019-03-02] MEDS: VALPROATE ACID 250 MG/5 ML ORAL SOLUTION PO SCH ×2 (07:53→20:01)
[2019-03-02] MEDS: LACTOBACILLUS RHAMNOSUS GG 1 CAPSULE. PO SCH ×2 (07:53→20:01)
[2019-03-02] MEDS: CILOSTAZOL 50 MG TABLET. PO SCH ×2 (07:53→20:04)
[2019-03-02] MEDS: metFORMIN 500 MG TABLET PO SCH ×2 (07:53→17:00)
[2019-03-02] MEDS: CEPHALEXIN 250 MG/5 ML ORAL.SUSP. PEG SCH ×3 (07:54→20:00)
[2019-03-02] MEDS: INSULIN LISPRO 300 UNITS/3 ML INSULN.PEN. SQ SCH ×3 (07:55→17:00)
[2019-03-02] MEDS: NYSTATIN 100,000 UNIT/GM TOPICAL CREAM 15GM TUBE. TP SCH ×2 (07:56→19:59)
[2019-03-02] MEDS: INSULIN GLARGINE SYRINGE. SQ SCH ×2 (07:59→20:04)
[2019-03-02 15:57] VITALS: BP 145/78
--- NOTE | 2019-03-02 18:55 | NUR ---
Pt up in wc for meals. Has been compliant with cares. Some meds were hidden in food or drink.
[2019-03-02] MEDS: MIRTAZAPINE 7.5 MG TABLET. PO SCH (20:01)
[2019-03-02] MEDS: METOPROLOL SUCC 24HR ER 25 MG TAB.ER.24H. PO SCH (20:02)
[2019-03-02] MEDS: risperiDONE ORAL 1 MG/ML 30ml BOTTLE. SL SCH (20:02)
--- NOTE | 2019-03-02 21:34 | PDOC ---
Exam Note: Maxwell Note: Please also refer to the separate dictated note~for this date of service dictated separately.~Patient seen individually. Discussed the patient with Nursing staff reviewed the chart.~Reviewed interim history and current functioning. Reviewed vital signs,~Labs/ Radiology~and current medications noted below. Continue current treatment with the changes noted in the dictated addendum note Assessment: Vital Signs/I&O: Vital Signs Date Time Temp Pulse Resp B/P (MAP) Pulse Ox O2 Delivery O2 Flow Rate FiO2 03/02/19 20:04 113 145/78 03/02/19 15:57 97.5 20 96 Room Air I & O 03/01/19 03/01/19 03/02/19 15:00 23:00 07:00 Intake Total 1080 ml 480 ml 120 ml Balance 1080 ml 480 ml 120 ml Labs: Laboratory Tests Test 03/02/19 07:22 03/02/19 11:44 03/02/19 17:32 03/02/19 19:01 Glucose (Fingerstick) 135 mg/dL (70-99) H 187 mg/dL (70-99) H 166 mg/dL (70-99) H 279 mg/dL (70-99) H Current Medications: I have reviewed the current psychotropics carefully including drug interactions. Risk benefit ratio favors no change other than as noted in my dictated progress note. 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
--- NOTE | 2019-03-02 22:04 | NUR ---
Nursing note: Assumed care of pt in the day room. He was watching tv. Pt was pleasant and compliant-got most pills in drink, he was a little upset that he could not have a specific aide do his shower. Pt was compliant with shower.
--- NOTE | 2019-03-03 00:14 | PN ---
DATE: 02/28/2019 This late entry 02/28/2019 covers the elements not covered in my initial note. SUBJECTIVE: I met with the patient evening of 02/28/2019. The patient slept 6-3/4 hours previous night. He did receive Risperdal Consta on 02/28/2019. Antibiotics have been completed. He was somewhat paranoid, talking about the FBI going to [facility] amongst other things. He is upset that his wound care recommendations are not being followed and I discussed with nursing staff and in fact they are following this per nursing report and Dr. Schwartz is aware and following the patient medically. REVIEW OF SYSTEMS: Ambulation impaired, in wheelchair, complains of discomfort, bilateral heels. No CV, , pulmonary, eye system symptoms on review. MENTAL STATUS EXAM: Reasonably oriented. Speech is coherent, abstraction fair, computation impaired, language function intact, attention span short. Mood and affect at times a little anxious, labile. LABORATORY DATA: Reviewed. IMPRESSION: Unchanged from initial note. PLAN: We will go ahead and increase the oral Risperdal to 0.5 mg at bedtime. I had reduced this significantly since he is on Risperdal Consta 12.5 mg a day and we will ultimately discontinue the oral Risperdal and gradually as he stabilizes, even the Risperdal Consta could be stopped. Maintain Depakene 500 b.i.d., level therapeutic at 77, Remeron 7.5 mg at bedtime, Zyprexa p.r.n. EMERSON RUTH MD DR: TAINA/siddhartha JOB#: [id number] / [id number]
--- NOTE | 2019-03-03 00:17 | PN ---
DATE: 03/01/2019 This late entry 03/01/2019 covers elements not covered in my initial note. SUBJECTIVE: I met with the patient evening of 03/01/2019. The patient slept 8-1/4 hours previous night. Per nursing report, he was flirting with female nursing staff, stating he had a girlfriend with the same name and making admiration remarks towards the nursing staff. He talked about his girlfriend being 50 years younger than him per nursing report. He is compliant with his insulin, took his Depakene liquid and antibiotics liquid. REVIEW OF SYSTEMS: Ambulation impaired, in wheelchair, some discomfort bilateral heels. I discussed with CA Ervin and she will followup with making sure recommendations for wound care consult or followed. REVIEW OF SYSTEMS: No CV, , pulmonary, eye system symptoms on review. MENTAL STATUS EXAM: The patient is reasonably oriented. Speech has some latency, coherent. Abstraction fair, computation impaired, language function intact, somewhat paranoid. Mood and affect despite the above showing improvement. LABORATORY DATA: Reviewed. IMPRESSION: Unchanged from initial note. PLAN: No change from initial note. MAN Bladimir RUTH MD DR: TAINA/siddhartha JOB#: [id number] / [id number]
[2019-03-03 06:04] VITALS: BP 132/73
[2019-03-03] MEDS: INSULIN LISPRO 300 UNITS/3 ML INSULN.PEN. SQ SCH ×3 (08:00→17:20)
[2019-03-03] MEDS: LACTOBACILLUS RHAMNOSUS GG 1 CAPSULE. PO SCH ×2 (08:47→19:28)
[2019-03-03] MEDS: MULTIVITAMIN with MINERAL TABLET. PO SCH (08:48)
[2019-03-03] MEDS: CILOSTAZOL 50 MG TABLET. PO SCH ×2 (08:48→19:28)
[2019-03-03] MEDS: metFORMIN 500 MG TABLET PO SCH ×2 (08:48→17:19)
[2019-03-03] MEDS: CARBIDOPA/LEVODOPA 10/100MG TABLET PO SCH ×3 (08:48→19:28)
[2019-03-03] MEDS: ASCORBIC ACID 500 MG TABLET PO SCH ×2 (08:49→19:28)
[2019-03-03] MEDS: ASPIRIN 81 MG TAB.CHEW PO SCH (08:49)
[2019-03-03] MEDS: ACETAMINOPHEN 325 MG TABLET PO SCH ×2 (08:49→19:28)
[2019-03-03] MEDS: VALPROATE ACID 250 MG/5 ML ORAL SOLUTION PO SCH ×2 (08:50→19:27)
[2019-03-03] MEDS: CEPHALEXIN 250 MG/5 ML ORAL.SUSP. PEG SCH ×2 (08:50→14:00)
[2019-03-03] MEDS: INSULIN GLARGINE SYRINGE. SQ SCH ×2 (08:51→20:44)
[2019-03-03] MEDS: NYSTATIN 100,000 UNIT/GM TOPICAL CREAM 15GM TUBE. TP SCH ×2 (08:52→19:28)
--- NOTE | 2019-03-03 13:30 | NUR ---
SW returned call to pt dtr, Sera, to give her an update on how pt is doing. SW went over pt delusional reports and in comparison to his behavior now versus in the beginning, pt is doing much better. Pt dtr questioned how the process would work with him going to [facility] and SW explained that pt Medicaid would have to be switched over to HCBS, per Jailene at [facility]. Once that happens, they will be able to take pt. Pt family will look towards seeing the facility and will contact SW at a later time if they have any questions.
--- NOTE | 2019-03-03 16:06 | NUR ---
Patient has been calm, social, talkative, and interactive throughout this shift. He has participated in the group activities today and was cooperative with therapy. Staff reports he has been better mannered today. Will continue to monitor and report to oncoming shift.
[2019-03-03 16:09] VITALS: BP 119/70
[2019-03-03] MEDS: METOPROLOL SUCC 24HR ER 25 MG TAB.ER.24H. PO SCH (19:28)
[2019-03-03] MEDS: MIRTAZAPINE 7.5 MG TABLET. PO SCH (19:28)
[2019-03-03] MEDS: risperiDONE ORAL 1 MG/ML 30ml BOTTLE. SL SCH (19:30)
--- NOTE | 2019-03-03 21:42 | PDOC ---
Exam Note: Maxwell Note: Please also refer to the separate dictated note~for this date of service dictated separately.~Patient seen individually. Discussed the patient with Nursing staff reviewed the chart.~Reviewed interim history and current functioning. Reviewed vital signs,~Labs/ Radiology~and current medications noted below. Continue current treatment with the changes noted in the dictated addendum note Assessment: Vital Signs/I&O: Vital Signs Date Time Temp Pulse Resp B/P (MAP) Pulse Ox O2 Delivery O2 Flow Rate FiO2 03/03/19 19:32 102 119/70 03/03/19 16:09 97.8 16 96 03/02/19 15:57 Room Air I & O 03/02/19 03/02/19 03/03/19 14:59 22:59 06:59 Intake Total 1200 ml 600 ml Balance 1200 ml 600 ml Labs: Laboratory Tests Test 03/03/19 07:28 03/03/19 12:04 03/03/19 16:38 03/03/19 19:05 Glucose (Fingerstick) 73 mg/dL (70-99) 168 mg/dL (70-99) H 166 mg/dL (70-99) H 185 mg/dL (70-99) H Current Medications: I have reviewed the current psychotropics carefully including drug interactions. Risk benefit ratio favors no change other than as noted in my dictated progress note. 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
--- NOTE | 2019-03-03 22:37 | PN ---
DATE: 03/02/2019 PROGRESS NOTE This late entry 03/02/2019 covers elements not covered in my initial note. SUBJECTIVE: I met with the patient evening of 03/02/2019. The patient slept 5-3/4 hours previous night. He has been noncompliant with meds at times, but took them in the evening. He was asking for a particular female staff to help him in the shower, but was accepting when this was not possible. REVIEW OF SYSTEMS: Ambulation impaired, in wheelchair. No CV, , pulmonary, eye system symptoms on review. MENTAL STATUS EXAM: Reasonably oriented. Speech is coherent, abstraction fair, computation impaired, language function intact, attention span short. Mood and affect less anxious and labile, less withdrawn. LABORATORY DATA: Reviewed. IMPRESSION: Unchanged from initial note. PLAN: No change from initial note. MAN Bladimir RUTH MD DR: TAINA/siddhartha JOB#: [id number] / [id number]
--- NOTE | 2019-03-04 01:45 | NUR ---
Pt sitting up in day room watching television at shift change. Pt calm, pleasant, and interactive. Pt cooperative with assessment and compliant with medications this evening.
[2019-03-04 06:11] VITALS: BP 101/62
--- NOTE | 2019-03-04 06:45 | NUR ---
Wound care Wound care follow up for bilateral heel DFU's. Left heel dressed with Iodoflex and Aquacel Ag with foam dressing, recommend to change every 2-3 days. Right heel dressed with, Hydrofera blue with Xeroform gauze with a foam dressing, recommend to change every 2-3 days. Bilateral heel medix boots applied. Groin maceration is resolved, Calazime cream applied for protection. NO other wounds noted at this time. WC will continue to follow for possible changes.
[2019-03-04] MEDS: INSULIN LISPRO 300 UNITS/3 ML INSULN.PEN. SQ SCH ×3 (08:00→17:45)
[2019-03-04] MEDS: ASCORBIC ACID 500 MG TABLET PO SCH ×2 (08:46→20:10)
[2019-03-04] MEDS: LACTOBACILLUS RHAMNOSUS GG 1 CAPSULE. PO SCH ×2 (08:46→20:10)
[2019-03-04] MEDS: ASPIRIN 81 MG TAB.CHEW PO SCH (08:46)
[2019-03-04] MEDS: CILOSTAZOL 50 MG TABLET. PO SCH ×2 (08:46→20:14)
[2019-03-04] MEDS: MULTIVITAMIN with MINERAL TABLET. PO SCH (08:46)
[2019-03-04] MEDS: VALPROATE ACID 250 MG/5 ML ORAL SOLUTION PO SCH ×2 (08:46→20:11)
[2019-03-04] MEDS: CARBIDOPA/LEVODOPA 10/100MG TABLET PO SCH ×3 (08:46→20:10)
[2019-03-04] MEDS: metFORMIN 500 MG TABLET PO SCH ×2 (08:47→17:32)
[2019-03-04] MEDS: ACETAMINOPHEN 325 MG TABLET PO SCH ×2 (08:47→20:10)
[2019-03-04] MEDS: NYSTATIN 100,000 UNIT/GM TOPICAL CREAM 15GM TUBE. TP SCH ×2 (08:49→20:11)
[2019-03-04] MEDS: INSULIN GLARGINE SYRINGE. SQ SCH ×2 (08:50→21:08)
[2019-03-04 15:52] VITALS: BP 146/76
--- NOTE | 2019-03-04 18:17 | NUR ---
Patient has been calm, social, talkative, and interactive throughout this shift. He has participated in the group activities today, making contributions. He was mildly obsessed with his discharge planning, but was calmer after his discussion with SW at dinner time. Will continue to monitor and report to oncoming shift.
[2019-03-04] MEDS: MIRTAZAPINE 7.5 MG TABLET. PO SCH (20:10)
[2019-03-04] MEDS: METOPROLOL SUCC 24HR ER 25 MG TAB.ER.24H. PO SCH (20:10)
[2019-03-04] MEDS: risperiDONE ORAL 1 MG/ML 30ml BOTTLE. SL SCH (20:12)
--- NOTE | 2019-03-04 21:53 | PDOC ---
Exam Note: Maxwell Note: Please also refer to the separate dictated note~for this date of service dictated separately.~Patient seen individually. Discussed the patient with Nursing staff reviewed the chart.~Reviewed interim history and current functioning. Reviewed vital signs,~Labs/ Radiology~and current medications noted below. Continue current treatment with the changes noted in the dictated addendum note Assessment: Vital Signs/I&O: Vital Signs Date Time Temp Pulse Resp B/P (MAP) Pulse Ox O2 Delivery O2 Flow Rate FiO2 03/04/19 20:14 102 146/76 03/04/19 15:52 98.2 20 98 Room Air I & O 03/03/19 03/03/19 03/04/19 15:00 23:00 07:00 Intake Total 840 ml 360 ml 360 ml Balance 840 ml 360 ml 360 ml Labs: Laboratory Tests Test 03/04/19 07:18 03/04/19 11:39 03/04/19 17:02 Glucose (Fingerstick) 127 mg/dL (70-99) H 172 mg/dL (70-99) H 168 mg/dL (70-99) H Current Medications: I have reviewed the current psychotropics carefully including drug interactions. Risk benefit ratio favors no change other than as noted in my dictated progress note. 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
--- NOTE | 2019-03-04 23:54 | NUR ---
Pt sitting up in day room watching television at shift change. Pt calm, pleasant, and interactive. Pt cooperative with assessment and cares, compliant with medications this evening.
--- NOTE | 2019-03-05 02:26 | PN ---
DATE: 03/03/2019 PROGRESS NOTE This late entry 03/03/2019 covers elements not covered in my initial note. SUBJECTIVE: I met with the patient evening of 03/03/2019. The patient slept 6 hours previous night. I met with him in his room. Per nursing report, he has had a good day. Previous night, he refused his medications, but on 03/03/2019 he was polite per nursing report. He is somewhat anxious, obsessive about his wound on the heels and wound care nurse will be visiting on 03/04/2019 and we will give him a copy of their recommendations to keep on him as he requested. REVIEW OF SYSTEMS: Ambulation impaired, in wheelchair, some discomfort in his heels. No CV, , pulmonary, eye system symptoms on review. MENTAL STATUS EXAM: Reasonably oriented. Speech is coherent, abstraction fair, computation impaired, language function intact, attention span short. Mood and affect is improved, less withdrawn, less irritable. LABORATORY DATA: Reviewed. IMPRESSION: Unchanged from initial note. PLAN: No change from initial note. EMERSON RUTH MD DR: TAINA/siddhartha JOB#: [id number] / [id number]
[2019-03-05 06:18] VITALS: BP 110/66
[2019-03-05] MEDS: INSULIN LISPRO 300 UNITS/3 ML INSULN.PEN. SQ SCH ×3 (08:00→17:00)
[2019-03-05] MEDS: CILOSTAZOL 50 MG TABLET. PO SCH ×2 (08:04→19:52)
[2019-03-05] MEDS: ACETAMINOPHEN 325 MG TABLET PO SCH ×2 (08:04→19:49)
[2019-03-05] MEDS: metFORMIN 500 MG TABLET PO SCH ×2 (08:04→17:00)
[2019-03-05] MEDS: LACTOBACILLUS RHAMNOSUS GG 1 CAPSULE. PO SCH ×2 (08:04→19:47)
[2019-03-05] MEDS: ASPIRIN 81 MG TAB.CHEW PO SCH (08:04)
[2019-03-05] MEDS: ASCORBIC ACID 500 MG TABLET PO SCH ×2 (08:04→19:48)
[2019-03-05] MEDS: MULTIVITAMIN with MINERAL TABLET. PO SCH (08:05)
[2019-03-05] MEDS: VALPROATE ACID 250 MG/5 ML ORAL SOLUTION PO SCH ×2 (08:05→19:47)
[2019-03-05] MEDS: CARBIDOPA/LEVODOPA 10/100MG TABLET PO SCH ×3 (08:05→19:51)
[2019-03-05] MEDS: NYSTATIN 100,000 UNIT/GM TOPICAL CREAM 15GM TUBE. TP SCH ×2 (08:05→19:49)
[2019-03-05] MEDS: INSULIN GLARGINE SYRINGE. SQ SCH ×2 (09:15→21:00)
[2019-03-05 16:29] VITALS: BP 138/77
--- NOTE | 2019-03-05 17:41 | NUR ---
Patient has been calm, social, talkative, and interactive throughout this shift. He participated in the morning group activities today, making contributions. Patient was withdrawn to his room after lunch for most of the afternoon. Will continue to monitor and report to oncoming shift.
[2019-03-05] MEDS: MIRTAZAPINE 7.5 MG TABLET. PO SCH (19:48)
[2019-03-05] MEDS: METOPROLOL SUCC 24HR ER 25 MG TAB.ER.24H. PO SCH (19:48)
[2019-03-05] MEDS: risperiDONE ORAL 1 MG/ML 30ml BOTTLE. SL SCH (19:52)
--- NOTE | 2019-03-05 21:48 | PDOC ---
Exam Note: Maxwell Note: Please also refer to the separate dictated note~for this date of service dictated separately.~Patient seen individually. Discussed the patient with Nursing staff reviewed the chart.~Reviewed interim history and current functioning. Reviewed vital signs,~Labs/ Radiology~and current medications noted below. Continue current treatment with the changes noted in the dictated addendum note Assessment: Vital Signs/I&O: Vital Signs Date Time Temp Pulse Resp B/P (MAP) Pulse Ox O2 Delivery O2 Flow Rate FiO2 03/05/19 19:52 100 138/77 03/05/19 16:29 97.5 18 96 03/05/19 06:18 Room Air I & O 03/04/19 03/04/19 03/05/19 15:00 23:00 07:00 Intake Total 840 ml 240 ml 360 ml Balance 840 ml 240 ml 360 ml Labs: Laboratory Tests Test 03/05/19 08:12 03/05/19 11:58 03/05/19 17:20 03/05/19 19:11 Glucose (Fingerstick) 101 mg/dL (70-99) H 120 mg/dL (70-99) H 137 mg/dL (70-99) H 239 mg/dL (70-99) H Current Medications: I have reviewed the current psychotropics carefully including drug interactions. Risk benefit ratio favors no change other than as noted in my dictated progress note. 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
--- NOTE | 2019-03-05 23:14 | PN ---
DATE: 03/04/2019 PSYCHIATRIC PROGRESS NOTE This late entry 03/04/2019 covers elements not covered in my initial note. SUBJECTIVE: I met with the patient evening of 03/04/2019. The patient slept 8 hours previous night. Per nursing report, he remains somewhat obsessive regarding discharge and I addressed this with him. He did have a wound care followup on 03/04/2019 and recommendations are being followed per nursing staff. REVIEW OF SYSTEMS: Ambulation impaired, in wheelchair. No CV, , pulmonary, eye system symptoms on review. MENTAL STATUS EXAM: Reasonably oriented. Speech is coherent, abstraction fair, computation impaired, language function intact. Mood and affect less obsessive, less paranoid, overall improved. LABORATORY DATA: Reviewed. IMPRESSION: Unchanged from initial note. PLAN: No change from initial note. MAN Bladimir RUTH MD DR: TAINA/siddhartha JOB#: [id number] / [id number]
--- NOTE | 2019-03-06 | NUR ---
Nursing note: Assumed care of pt in the day room. He was pleasant and cooperative. Pt compliant with meds/assessment. No c/o pain, no agitation.
[2019-03-06 06:39] VITALS: BP 126/71
[2019-03-06] MEDS: metFORMIN 500 MG TABLET PO SCH ×2 (07:45→17:35)
[2019-03-06] MEDS: VALPROATE ACID 250 MG/5 ML ORAL SOLUTION PO SCH ×2 (07:45→19:54)
[2019-03-06] MEDS: ASPIRIN 81 MG TAB.CHEW PO SCH (07:46)
[2019-03-06] MEDS: ACETAMINOPHEN 325 MG TABLET PO SCH ×2 (07:46→19:56)
[2019-03-06] MEDS: ASCORBIC ACID 500 MG TABLET PO SCH ×2 (07:46→19:56)
[2019-03-06] MEDS: MULTIVITAMIN with MINERAL TABLET. PO SCH (07:46)
[2019-03-06] MEDS: CARBIDOPA/LEVODOPA 10/100MG TABLET PO SCH ×3 (07:46→19:55)
[2019-03-06] MEDS: INSULIN LISPRO 300 UNITS/3 ML INSULN.PEN. SQ SCH ×3 (07:46→17:38)
[2019-03-06] MEDS: LACTOBACILLUS RHAMNOSUS GG 1 CAPSULE. PO SCH ×2 (07:46→19:54)
[2019-03-06] MEDS: CILOSTAZOL 50 MG TABLET. PO SCH ×2 (07:48→19:54)
[2019-03-06] MEDS: NYSTATIN 100,000 UNIT/GM TOPICAL CREAM 15GM TUBE. TP SCH ×2 (07:48→19:56)
[2019-03-06] MEDS: INSULIN GLARGINE SYRINGE. SQ SCH ×2 (09:30→21:06)
--- NOTE | 2019-03-06 11:01 | NUR ---
WEEKLY ACTIVITY THERAPY NOTE Date of Admission: 02/02/2019 Date of AT Assessment: 02/04/2019 Goal aimed: to sustain engagement Initial goal:Pt. will participate in all groups he is invited to. Weekly progress towards goal: achieved, 7 groups total Group participation level: moderate to full Weekly highlights: many full groups Behaviors observed: usually sleeping or in room reading if not participating in group, encouraging with peers at times, pleasant with staff Plan: no change to goal Beneficial adaptations: reminders and invitations, outdoor/garden, trivia
--- NOTE | 2019-03-06 11:06 | NUR ---
WEEKLY NOTE: Pt is stable and communicating well with staff and more with peers. Pt is eating and sleeping well, as well as medication compliant. Pt has approval for placement at [facility] in [place]; however, his Medicaid has to be switched over to HCBS status to pay for placement. ELOS ALEKS!
--- NOTE | 2019-03-06 15:01 | NUR ---
Patient has been calm, social, talkative, and interactive throughout this shift. He sat in the day room for most of the morning; he did complain that the aide that helped him shower kept spraying him in the ear. Patient was withdrawn to his room after lunch for a short period then returned to the day room where he participated in group. Will continue to monitor and report to oncoming shift.
[2019-03-06 16:30] VITALS: BP 118/61
[2019-03-06] MEDS: MIRTAZAPINE 7.5 MG TABLET. PO SCH (19:55)
[2019-03-06] MEDS: METOPROLOL SUCC 24HR ER 25 MG TAB.ER.24H. PO SCH (19:55)
[2019-03-06] MEDS: risperiDONE ORAL 1 MG/ML 30ml BOTTLE. SL SCH (19:56)
--- NOTE | 2019-03-06 21:51 | PDOC ---
Exam Note: Maxwell Note: Please also refer to the separate dictated note~for this date of service dictated separately.~Patient seen individually. Discussed the patient with Nursing staff reviewed the chart.~Reviewed interim history and current functioning. Reviewed vital signs,~Labs/ Radiology~and current medications noted below. Continue current treatment with the changes noted in the dictated addendum note Assessment: Vital Signs/I&O: Vital Signs Date Time Temp Pulse Resp B/P (MAP) Pulse Ox O2 Delivery O2 Flow Rate FiO2 03/06/19 19:56 104 118/61 03/06/19 16:30 97.9 18 97 Room Air I & O 03/05/19 03/05/19 03/06/19 15:00 23:00 07:00 Intake Total 960 ml 360 ml 120 ml Balance 960 ml 360 ml 120 ml Labs: Laboratory Tests Test 03/06/19 07:14 03/06/19 11:29 03/06/19 16:59 03/06/19 19:11 Glucose (Fingerstick) 125 mg/dL (70-99) H 207 mg/dL (70-99) H 188 mg/dL (70-99) H 178 mg/dL (70-99) H Current Medications: I have reviewed the current psychotropics carefully including drug interactions. Risk benefit ratio favors no change other than as noted in my dictated progress note. 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
--- NOTE | 2019-03-06 23:10 | NUR ---
Nursing note: Assumed care of pt in the day room. He was sitting quietly watching the game on tv. Pt was pleasant, calm, and cooperative. No c/o pain. No agitation.
[2019-03-07 06:00] VITALS: BP 119/63
[2019-03-07] MEDS: INSULIN LISPRO 300 UNITS/3 ML INSULN.PEN. SQ SCH ×3 (08:00→17:00)
[2019-03-07] MEDS: CARBIDOPA/LEVODOPA 10/100MG TABLET PO SCH ×4 (09:00→19:44)
[2019-03-07] MEDS: VALPROATE ACID 250 MG/5 ML ORAL SOLUTION PO SCH ×2 (09:08→19:45)
[2019-03-07] MEDS: LACTOBACILLUS RHAMNOSUS GG 1 CAPSULE. PO SCH ×2 (09:08→19:44)
[2019-03-07] MEDS: CILOSTAZOL 50 MG TABLET. PO SCH ×2 (09:08→19:46)
[2019-03-07] MEDS: metFORMIN 500 MG TABLET PO SCH ×2 (09:08→17:25)
[2019-03-07] MEDS: ASCORBIC ACID 500 MG TABLET PO SCH ×2 (09:09→19:44)
[2019-03-07] MEDS: ACETAMINOPHEN 325 MG TABLET PO SCH ×2 (09:09→19:45)
[2019-03-07] MEDS: ASPIRIN 81 MG TAB.CHEW PO SCH (09:09)
[2019-03-07] MEDS: MULTIVITAMIN with MINERAL TABLET. PO SCH (09:09)
[2019-03-07] MEDS: NYSTATIN 100,000 UNIT/GM TOPICAL CREAM 15GM TUBE. TP SCH ×2 (09:12→19:46)
--- NOTE | 2019-03-07 10:00 | NUR ---
Nursing Note: Pt calm, cooperative w/ assessment, compliant w/ meds taken whole, liquid meds given over ice per pt's request. Pt alert, interactive w/ staff and peers.
[2019-03-07] MEDS: INSULIN GLARGINE SYRINGE. SQ SCH ×2 (13:00→20:31)
--- NOTE | 2019-03-07 13:19 | NUR ---
Pt refused 1400 Sinemet stating, "I don't take that." Explained to pt the reason for the med. Pt continued to refused.
[2019-03-07 16:44] VITALS: BP 126/73
[2019-03-07] MEDS: MIRTAZAPINE 7.5 MG TABLET. PO SCH (19:44)
[2019-03-07] MEDS: METOPROLOL SUCC 24HR ER 25 MG TAB.ER.24H. PO SCH (19:44)
[2019-03-07] MEDS: risperiDONE ORAL 1 MG/ML 30ml BOTTLE. SL SCH (19:45)
--- NOTE | 2019-03-07 21:55 | PDOC ---
Exam Note: Maxwell Note: Please also refer to the separate dictated note~for this date of service dictated separately.~Patient seen individually. Discussed the patient with Nursing staff reviewed the chart.~Reviewed interim history and current functioning. Reviewed vital signs,~Labs/ Radiology~and current medications noted below. Continue current treatment with the changes noted in the dictated addendum note Assessment: Vital Signs/I&O: Vital Signs Date Time Temp Pulse Resp B/P (MAP) Pulse Ox O2 Delivery O2 Flow Rate FiO2 03/07/19 19:47 76 126/73 03/07/19 16:44 97.5 20 97 Room Air I & O 03/06/19 03/06/19 03/07/19 15:00 23:00 07:00 Intake Total 1080 ml 240 ml 240 ml Balance 1080 ml 240 ml 240 ml Labs: Laboratory Tests Test 03/07/19 07:27 03/07/19 11:41 03/07/19 17:19 03/07/19 19:09 Glucose (Fingerstick) 111 mg/dL (70-99) H 209 mg/dL (70-99) H 141 mg/dL (70-99) H 166 mg/dL (70-99) H Current Medications: I have reviewed the current psychotropics carefully including drug interactions. Risk benefit ratio favors no change other than as noted in my dictated progress note. Diagnosis: Problems: (1) Anxiety disorder (2) Dementia, vascular, with depression (3) Dementia, vascular, with delusions (4) Impulse control disorder (5) Psychosis, atypical (6) Dementia in Alzheimer's disease with delusions (7) Major neurocognitive disorder (8) Mild cognitive impairment EMERSON RUTH MD Mar 07, 2019 21:55
--- NOTE | 2019-03-08 00:47 | PN ---
DATE: 03/05/2019 PSYCHIATRIC PROGRESS NOTE This late entry, 03/05, covers elements not covered in my initial note. SUBJECTIVE: I met with the patient evening of 03/05. The patient slept 6-1/2 hours previous night. I met with him in his room. He has been transferring himself better, which is an improvement, less anxious, less labile. REVIEW OF SYSTEMS: Ambulation impaired, in wheelchair. No CV, , pulmonary, eye system symptoms on review. MENTAL STATUS EXAM: Oriented to himself and situation. Speech is coherent, very animated as I met with him. Abstraction fair, computation impaired, language function intact. Mood and affect is improved. LABORATORY DATA: Reviewed. IMPRESSION: Unchanged from initial note. PLAN: No change from initial note. MAN Bladimir RUTH MD DR: TAINA/siddhartha JOB#: [id number] / [id number]
--- NOTE | 2019-03-08 00:50 | PN ---
DATE: 03/06/2019 PSYCHIATRIC PROGRESS NOTE This late entry 03/06/2019 covers elements not covered in my initial note. SUBJECTIVE: I met with the patient evening of 03/06/2019 and staffed a treatment team meeting with the entire team in the morning. He is sleeping average 6 hours. Appetite 75-100%. He is more interactive, better in the morning than in the evening. REVIEW OF SYSTEMS: Ambulation impaired, in wheelchair. No CV, , PULMONARY, EYE system symptoms on review. MENTAL STATUS EXAM: Oriented to himself and situation. Speech is coherent, quite animated, as I met with him individually. Abstraction fair, computation impaired, language function intact, attention span fair. Mood and affect is improved. LABORATORY DATA: Reviewed. IMPRESSION: Unchanged from initial note. PLAN: No change from initial note. MAN Bladimir RUTH MD DR: TAINA/siddhartha JOB#: [id number] / [id number]
[2019-03-08 05:52] VITALS: BP 108/68
[2019-03-08] MEDS: ASPIRIN 81 MG TAB.CHEW PO SCH (08:19)
[2019-03-08] MEDS: INSULIN LISPRO 300 UNITS/3 ML INSULN.PEN. SQ SCH (08:19)
[2019-03-08] MEDS: metFORMIN 500 MG TABLET PO SCH ×2 (08:19→17:16)
[2019-03-08] MEDS: MULTIVITAMIN with MINERAL TABLET. PO SCH (08:20)
[2019-03-08] MEDS: LACTOBACILLUS RHAMNOSUS GG 1 CAPSULE. PO SCH ×2 (08:20→19:54)
[2019-03-08] MEDS: ACETAMINOPHEN 325 MG TABLET PO SCH ×2 (08:20→19:54)
[2019-03-08] MEDS: CARBIDOPA/LEVODOPA 10/100MG TABLET PO SCH ×3 (08:20→19:54)
[2019-03-08] MEDS: VALPROATE ACID 250 MG/5 ML ORAL SOLUTION PO SCH ×2 (08:20→19:54)
[2019-03-08] MEDS: CILOSTAZOL 50 MG TABLET. PO SCH ×2 (08:20→19:57)
[2019-03-08] MEDS: ASCORBIC ACID 500 MG TABLET PO SCH ×2 (08:21→19:54)
[2019-03-08] MEDS: INSULIN GLARGINE SYRINGE. SQ SCH ×2 (08:21→19:57)
[2019-03-08] MEDS: NYSTATIN 100,000 UNIT/GM TOPICAL CREAM 15GM TUBE. TP SCH ×2 (08:22→19:55)
[2019-03-08 09:00] LABS: BASO % 1 % (0-3); EOS # 0.5 x10^3/uL (0.0-0.7); EOS % 7 % (0-3); HEMATOCRIT 36.5 % (39.0-53.0); HEMOGLOBIN 12.5 g/dL (13.0-17.5); LYMPH # 1.9 x10^3/uL (1.0-4.8); LYMPH % 26 % (24-48); MEAN CORPUSCULAR HEMOGLOBIN 32 pg (25-35); MEAN CORPUSCULAR HGB CONC 34 g/dL (31-37); MEAN CORPUSCULAR VOLUME 93 fL (79-100); MONO # 0.8 x10^3/uL (0.0-1.1); MONO % 11 % (0-9); NEUT # 4.2 x10^3uL (1.8-7.7); NEUT % 56 % (31-73); PLATELET COUNT 200 x10^3/uL (140-400); RED BLOOD COUNT 3.93 x10^6/uL (4.30-5.70); RED CELL DISTRIBUTION WIDTH 13.8 % (11.5-14.5); WHITE BLOOD COUNT 7.4 x10^3/uL (4.0-11.0)
[2019-03-08 09:15] LABS: ALBUMIN 3.3 g/dL (3.4-5.0); ALBUMIN/GLOBULIN RATIO 0.8 (1.0-1.7); CALCIUM 9.1 mg/dL (8.5-10.1); GFR 72.8; POTASSIUM 4.8 mmol/L (3.5-5.1); TOTAL BILIRUBIN 0.3 mg/dL (0.2-1.0); TOTAL PROTEIN 7.2 g/dL (6.4-8.2)
--- NOTE | 2019-03-08 12:22 | NUR ---
Pt is calm, cooperative, compliant. No agitation, no aggression, no hallucinations, no delusions. Pt is compliant with his medications and assessment.
[2019-03-08] MEDS: INSULIN LISPRO 300 UNITS/3 ML VIAL. SQ SCH ×2 (13:00→17:25)
[2019-03-08 15:50] VITALS: BP 125/79
[2019-03-08] MEDS ORDERED: INSULIN LISPRO 300 UNITS/3 ML VIAL. SQ SCH (17:00)
[2019-03-08] MEDS: METOPROLOL SUCC 24HR ER 25 MG TAB.ER.24H. PO SCH (19:54)
[2019-03-08] MEDS: MIRTAZAPINE 7.5 MG TABLET. PO SCH (19:54)
[2019-03-08] MEDS: risperiDONE ORAL 1 MG/ML 30ml BOTTLE. SL SCH (19:57)
--- NOTE | 2019-03-08 21:46 | NUR ---
Nursing note: Assumed care of pt in the hallway where he was just sitting quietly. He was complaint and pleasant, no agitation and no c/o pain. No inappropriate behaviors or comments.
--- NOTE | 2019-03-08 22:50 | PDOC ---
Exam Note: Maxwell Note: Please also refer to the separate dictated note~for this date of service dictated separately.~Patient seen individually. Discussed the patient with Nursing staff reviewed the chart.~Reviewed interim history and current functioning. Reviewed vital signs,~Labs/ Radiology~and current medications noted below. Continue current treatment with the changes noted in the dictated addendum note Assessment: Vital Signs/I&O: Vital Signs Date Time Temp Pulse Resp B/P (MAP) Pulse Ox O2 Delivery O2 Flow Rate FiO2 03/08/19 19:57 113 125/79 03/08/19 15:50 98.3 20 98 03/07/19 16:44 Room Air I & O 03/07/19 03/07/19 03/08/19 15:00 23:00 07:00 Intake Total 840 ml 600 ml Balance 840 ml 600 ml Labs: Laboratory Tests Test 03/08/19 07:12 03/08/19 08:53 03/08/19 12:06 03/08/19 16:56 Glucose (Fingerstick) 116 mg/dL (70-99) H 195 mg/dL (70-99) H 165 mg/dL (70-99) H White Blood Count 7.4 x10^3/uL (4.0-11.0) Red Blood Count 3.93 x10^6/uL (4.30-5.70) L Hemoglobin 12.5 g/dL (13.0-17.5) L Hematocrit 36.5 % (39.0-53.0) L Mean Corpuscular Volume 93 fL (79-100) Mean Corpuscular Hemoglobin 32 pg (25-35) Mean Corpuscular Hemoglobin Concent 34 g/dL (31-37) Red Cell Distribution Width 13.8 % (11.5-14.5) Platelet Count 200 x10^3/uL (140-400) Neutrophils (%) (Auto) 56 % (31-73) Lymphocytes (%) (Auto) 26 % (24-48) Monocytes (%) (Auto) 11 % (0-9) H Eosinophils (%) (Auto) 7 % (0-3) H Basophils (%) (Auto) 1 % (0-3) Neutrophils # (Auto) 4.2 x10^3uL (1.8-7.7) Lymphocytes # (Auto) 1.9 x10^3/uL (1.0-4.8) Monocytes # (Auto) 0.8 x10^3/uL (0.0-1.1) Eosinophils # (Auto) 0.5 x10^3/uL (0.0-0.7) Basophils # (Auto) 0.0 x10^3/uL (0.0-0.2) Sodium Level 138 mmol/L (136-145) Potassium Level 4.8 mmol/L (3.5-5.1) Chloride Level 100 mmol/L (98-107) Carbon Dioxide Level 27 mmol/L (21-32) Anion Gap 11 (6-14) Blood Urea Nitrogen 19 mg/dL (8-26) Creatinine 1.0 mg/dL (0.7-1.3) Estimated GFR (Cockcroft-Gault) 72.8 BUN/Creatinine Ratio 19 (6-20) Glucose Level 107 mg/dL (70-99) H Calcium Level 9.1 mg/dL (8.5-10.1) Total Bilirubin 0.3 mg/dL (0.2-1.0) Aspartate Amino Transferase (AST) 17 U/L (15-37) Alanine Aminotransferase (ALT) 11 U/L (16-63) L Alkaline Phosphatase 70 U/L (46-116) Total Protein 7.2 g/dL (6.4-8.2) Albumin 3.3 g/dL (3.4-5.0) L Albumin/Globulin Ratio 0.8 (1.0-1.7) L Test 03/08/19 19:12 Glucose (Fingerstick) 201 mg/dL (70-99) H Current Medications: Meds: Current Medications Medications (Trade) Dose Ordered Sig/Sandhya Route PRN Reason Start Time Stop Time Status Last Admin Dose Admin Insulin Human Lispro (HumaLOG) 0-5 UNITS TIDWMEALS SQ 03/08/19 12:00 03/08/19 17:25 I have reviewed the current psychotropics carefully including drug interactions. Risk benefit ratio favors no change other than as noted in my dictated progress note. Diagnosis: Problems: (1) Mental status change resolved (2) Anxiety disorder (3) Bipolar affective, mixed, sev w/ psych (4) Dementia, vascular, with depression (5) Dementia, vascular, with delusions (6) Impulse control disorder (7) Psychosis, atypical (8) Dementia in Alzheimer's disease with delusions (9) PVD (peripheral vascular disease) (10) Personality disorder (11) Major neurocognitive disorder (12) Status post cerebrovascular accident (13) Mild cognitive impairment EMERSON RUTH MD Mar 08, 2019 22:50
[2019-03-09 06:09] VITALS: BP 115/68
[2019-03-09] MEDS: ASPIRIN 81 MG TAB.CHEW PO SCH (08:13)
[2019-03-09] MEDS: metFORMIN 500 MG TABLET PO SCH ×2 (08:17→17:45)
[2019-03-09] MEDS: CILOSTAZOL 50 MG TABLET. PO SCH ×2 (08:19→19:39)
[2019-03-09] MEDS: CARBIDOPA/LEVODOPA 10/100MG TABLET PO SCH ×3 (08:19→19:37)
[2019-03-09] MEDS: VALPROATE ACID 250 MG/5 ML ORAL SOLUTION PO SCH ×2 (08:19→19:37)
[2019-03-09] MEDS: LACTOBACILLUS RHAMNOSUS GG 1 CAPSULE. PO SCH ×2 (08:19→19:38)
[2019-03-09] MEDS: ACETAMINOPHEN 325 MG TABLET PO SCH ×2 (08:20→19:37)
[2019-03-09] MEDS: ASCORBIC ACID 500 MG TABLET PO SCH ×2 (08:20→19:37)
[2019-03-09] MEDS: MULTIVITAMIN with MINERAL TABLET. PO SCH (08:20)
[2019-03-09] MEDS: INSULIN GLARGINE SYRINGE. SQ SCH ×2 (08:38→19:40)
[2019-03-09] MEDS: INSULIN LISPRO 300 UNITS/3 ML VIAL. SQ SCH ×3 (08:38→17:00)
[2019-03-09] MEDS: NYSTATIN 100,000 UNIT/GM TOPICAL CREAM 15GM TUBE. TP SCH ×2 (09:00→19:39)
--- NOTE | 2019-03-09 10:40 | NUR ---
Pt is compliant with his medications and assessment. Pt is calm, cooperative, compliant. No agitation, no aggression, no hallucinations, no delusions.
[2019-03-09 15:49] VITALS: BP 139/83
[2019-03-09] MEDS: risperiDONE ORAL 1 MG/ML 30ml BOTTLE. SL SCH (19:36)
[2019-03-09] MEDS: METOPROLOL SUCC 24HR ER 25 MG TAB.ER.24H. PO SCH (19:37)
[2019-03-09] MEDS: MIRTAZAPINE 7.5 MG TABLET. PO SCH (19:37)
--- NOTE | 2019-03-09 21:07 | PDOC ---
Exam Note: Maxwell Note: Please also refer to the separate dictated note~for this date of service dictated separately.~Patient seen individually. Discussed the patient with Nursing staff reviewed the chart.~Reviewed interim history and current functioning. Reviewed vital signs,~Labs/ Radiology~and current medications noted below. Continue current treatment with the changes noted in the dictated addendum note Assessment: Vital Signs/I&O: Vital Signs Date Time Temp Pulse Resp B/P (MAP) Pulse Ox O2 Delivery O2 Flow Rate FiO2 03/09/19 19:41 102 139/83 03/09/19 15:49 97.8 18 95 03/07/19 16:44 Room Air I & O 03/08/19 03/08/19 03/09/19 15:00 23:00 07:00 Intake Total 720 ml 480 ml 240 ml Balance 720 ml 480 ml 240 ml Labs: Laboratory Tests Test 03/09/19 07:47 03/09/19 11:39 03/09/19 17:39 03/09/19 19:15 Glucose (Fingerstick) 188 mg/dL (70-99) H 250 mg/dL (70-99) H 137 mg/dL (70-99) H 204 mg/dL (70-99) H Current Medications: I have reviewed the current psychotropics carefully including drug interactions. Risk benefit ratio favors no change other than as noted in my dictated progress note. Diagnosis: Problems: (1) PVD (peripheral vascular disease) (2) HLD (hyperlipidemia) (3) HTN (hypertension) (4) Type 2 diabetes mellitus (5) Impulse control disorder (6) Psychosis, atypical (7) Bipolar affective, mixed, sev w/ psych (8) Anxiety disorder EMERSON RUTH MD Mar 09, 2019 21:07
--- NOTE | 2019-03-10 01:02 | NUR ---
Patient in day room and compliant with medications. Patient was social, cooperative and interactive with staff. He has not been delusional or made any inappropriate comments this shift. Dressings on heels were clean and intact, they had been changed and photographed on day shift.
--- NOTE | 2019-03-10 01:22 | PN ---
DATE: 03/07/2019 PSYCHIATRIC PROGRESS NOTE This late entry, 03/07, covers elements not covered in my initial note. SUBJECTIVE: I met with the patient evening of 03/07. The patient slept 6-1/2 hours previous night. He has been compliant with his medications, alert, oriented, more interactive, refused Sinemet. REVIEW OF SYSTEMS: Ambulation impaired, in wheelchair. No CV, , pulmonary, eye system symptoms on review. MENTAL STATUS EXAM: Oriented to himself and situation. Speech is coherent, abstraction fair, computation impaired, language function intact, attention span short. Mood and affect somewhat withdrawn at times, but improved. LABORATORY DATA: Reviewed. IMPRESSION: Unchanged from initial note. PLAN: No change from initial note. MAN Bladimir RUTH MD DR: TAINA/siddhartha JOB#: [id number] / [id number]
--- NOTE | 2019-03-10 01:25 | PN ---
DATE: 03/08/2019 PSYCHIATRIC PROGRESS NOTE This late entry 03/08/2019 covers elements not covered in my initial note. SUBJECTIVE: I met with the patient evening of 03/08/2019. The patient slept 6-3/4 hours previous night. He has been appropriate, compliant, less paranoid. REVIEW OF SYSTEMS: Ambulation impaired with wheelchair. No CV, , pulmonary, eye system symptoms on review. MENTAL STATUS EXAM: Oriented reasonably. Speech is coherent, abstraction fair, computation impaired, language function intact, attention span short. Mood and affect somewhat withdrawn. LABORATORY DATA: Reviewed. IMPRESSION: Unchanged from initial note. PLAN: No change from initial note. EMERSON RUTH MD DR: TAINA/siddhartha JOB#: [id number] / [id number]
--- NOTE | 2019-03-10 02:15 | NUR ---
Patient has been calm and pleasant. He was cooperative with his medications. Patient spent time in the day room but was noted to be sleeping in his wheelchair. Patient is currently on antibiotic for a wound on his right great toe. It was reported that patient had several episodes of diarrhea on day shift, Dr. Carrasco was consulted and stated that it was from the antibiotic. Patient is also on Lactobacillus. No aggression or agitation noted this shift. Addendum: 03/10/19 at 0218 by TYLER THOMPSON RN wrong patient. Julio César Thompson RN
[2019-03-10 05:50] VITALS: BP 133/75
[2019-03-10] MEDS: INSULIN LISPRO 300 UNITS/3 ML VIAL. SQ SCH ×3 (08:00→17:15)
[2019-03-10] MEDS: VALPROATE ACID 250 MG/5 ML ORAL SOLUTION PO SCH ×2 (08:27→19:37)
[2019-03-10] MEDS: ASCORBIC ACID 500 MG TABLET PO SCH ×2 (08:28→19:40)
[2019-03-10] MEDS: CARBIDOPA/LEVODOPA 10/100MG TABLET PO SCH ×3 (08:28→19:39)
[2019-03-10] MEDS: CILOSTAZOL 50 MG TABLET. PO SCH ×2 (08:28→19:38)
[2019-03-10] MEDS: metFORMIN 500 MG TABLET PO SCH ×2 (08:28→17:14)
[2019-03-10] MEDS: ASPIRIN 81 MG TAB.CHEW PO SCH (08:28)
[2019-03-10] MEDS: MULTIVITAMIN with MINERAL TABLET. PO SCH (08:28)
[2019-03-10] MEDS: ACETAMINOPHEN 325 MG TABLET PO SCH ×2 (08:28→19:40)
[2019-03-10] MEDS: LACTOBACILLUS RHAMNOSUS GG 1 CAPSULE. PO SCH ×2 (08:28→19:37)
[2019-03-10] MEDS: NYSTATIN 100,000 UNIT/GM TOPICAL CREAM 15GM TUBE. TP SCH ×2 (08:29→19:42)
[2019-03-10] MEDS: INSULIN GLARGINE SYRINGE. SQ SCH ×2 (08:30→19:42)
--- NOTE | 2019-03-10 15:24 | NUR ---
Patient has been calm, social, talkative, and interactive throughout this shift. He sat in the day room for most of the morning after his shower. Patient was in the day room after lunch. Will continue to monitor and report to oncoming shift.
[2019-03-10 16:35] VITALS: BP 123/74
--- NOTE | 2019-03-10 19:26 | PDOC ---
Exam Note: Maxwell Note: Please also refer to the separate dictated note~for this date of service dictated separately.~Patient seen individually. Discussed the patient with Nursing staff reviewed the chart.~Reviewed interim history and current functioning. Reviewed vital signs,~Labs/ Radiology~and current medications noted below. Continue current treatment with the changes noted in the dictated addendum note Assessment: Vital Signs/I&O: Vital Signs Date Time Temp Pulse Resp B/P (MAP) Pulse Ox O2 Delivery O2 Flow Rate FiO2 03/10/19 16:35 98.0 113 20 123/74 (90) 97 03/07/19 16:44 Room Air I & O 03/09/19 03/09/19 03/10/19 15:00 23:00 07:00 Intake Total 1080 ml 840 ml 240 ml Balance 1080 ml 840 ml 240 ml Labs: Laboratory Tests Test 03/10/19 08:05 03/10/19 11:50 03/10/19 17:11 Glucose (Fingerstick) 135 mg/dL (70-99) H 180 mg/dL (70-99) H 171 mg/dL (70-99) H Current Medications: I have reviewed the current psychotropics carefully including drug interactions. Risk benefit ratio favors no change other than as noted in my dictated progress note. 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
[2019-03-10] MEDS: MIRTAZAPINE 7.5 MG TABLET. PO SCH (19:38)
[2019-03-10] MEDS: METOPROLOL SUCC 24HR ER 25 MG TAB.ER.24H. PO SCH (19:40)
[2019-03-10] MEDS: risperiDONE ORAL 1 MG/ML 30ml BOTTLE. SL SCH (19:40)
--- NOTE | 2019-03-10 21:49 | NUR ---
Nursing note: Assumed care of pt in his room. He had been in the day room watching the tv and having a snack. He is pleasant and compliant, likes to converse. 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
[2019-03-11 05:54] VITALS: BP 133/83
[2019-03-11] MEDS: CILOSTAZOL 50 MG TABLET. PO SCH ×2 (08:51→20:19)
[2019-03-11] MEDS: metFORMIN 500 MG TABLET PO SCH ×2 (08:51→17:21)
[2019-03-11] MEDS: ASPIRIN 81 MG TAB.CHEW PO SCH (08:51)
[2019-03-11] MEDS: ASCORBIC ACID 500 MG TABLET PO SCH ×2 (08:51→20:21)
[2019-03-11] MEDS: MULTIVITAMIN with MINERAL TABLET. PO SCH (08:51)
[2019-03-11] MEDS: ACETAMINOPHEN 325 MG TABLET PO SCH ×2 (08:51→20:21)
[2019-03-11] MEDS: VALPROATE ACID 250 MG/5 ML ORAL SOLUTION PO SCH ×2 (08:51→20:19)
[2019-03-11] MEDS: LACTOBACILLUS RHAMNOSUS GG 1 CAPSULE. PO SCH ×2 (08:51→20:19)
[2019-03-11] MEDS: CARBIDOPA/LEVODOPA 10/100MG TABLET PO SCH ×3 (08:51→20:20)
[2019-03-11] MEDS: INSULIN LISPRO 300 UNITS/3 ML VIAL. SQ SCH ×3 (08:53→17:23)
[2019-03-11] MEDS: NYSTATIN 100,000 UNIT/GM TOPICAL CREAM 15GM TUBE. TP SCH ×2 (08:53→20:21)
[2019-03-11] MEDS: INSULIN GLARGINE SYRINGE. SQ SCH ×2 (08:53→20:27)
--- NOTE | 2019-03-11 15:43 | NUR ---
Patient has been calm, social, talkative, and interactive throughout this shift. He has been alternating between his room and the day room, and participated in a couple of groups. He continues to propel himself in his wheelchair using his feet despite reminders to use his hands. Will continue to monitor and report to oncoming shift.
[2019-03-11 16:28] VITALS: BP 127/84
--- NOTE | 2019-03-11 18:52 | PDOC ---
Exam Note: Maxwell Note: Please also refer to the separate dictated note~for this date of service dictated separately.~Patient seen individually. Discussed the patient with Nursing staff reviewed the chart.~Reviewed interim history and current functioning. Reviewed vital signs,~Labs/ Radiology~and current medications noted below. Continue current treatment with the changes noted in the dictated addendum note Assessment: Vital Signs/I&O: Vital Signs Date Time Temp Pulse Resp B/P (MAP) Pulse Ox O2 Delivery O2 Flow Rate FiO2 03/11/19 16:28 97.8 108 18 127/84 (98) 96 Room Air I & O 03/10/19 03/10/19 03/11/19 15:00 23:00 07:00 Intake Total 960 ml 480 ml 240 ml Balance 960 ml 480 ml 240 ml Labs: Laboratory Tests Test 03/10/19 19:54 03/11/19 07:31 03/11/19 12:00 03/11/19 17:05 Glucose (Fingerstick) 175 mg/dL (70-99) H 175 mg/dL (70-99) H 206 mg/dL (70-99) H 164 mg/dL (70-99) H Current Medications: I have reviewed the current psychotropics carefully including drug interactions. Risk benefit ratio favors no change other than as noted in my dictated progress note. Diagnosis: Problems: (1) Mild cognitive impairment (2) Status post cerebrovascular accident (3) Personality disorder (4) HLD (hyperlipidemia) (5) HTN (hypertension) (6) Type 2 diabetes mellitus (7) Dementia in Alzheimer's disease with delusions (8) Psychosis, atypical (9) Impulse control disorder (10) Dementia, vascular, with delusions (11) Dementia, vascular, with depression (12) Bipolar affective, mixed, sev w/ psych (13) Anxiety disorder EMERSON RUTH MD Mar 11, 2019 18:52
[2019-03-11] MEDS: MIRTAZAPINE 7.5 MG TABLET. PO SCH (20:20)
[2019-03-11] MEDS: METOPROLOL SUCC 24HR ER 25 MG TAB.ER.24H. PO SCH (20:21)
[2019-03-11] MEDS: risperiDONE ORAL 1 MG/ML 30ml BOTTLE. SL SCH (20:22)
--- NOTE | 2019-03-11 23:50 | NUR ---
Nursing note: Assumed care of pt in the day room. He was calm, compliant, and cooperative. No c/o pain, no agitation.
--- NOTE | 2019-03-12 00:51 | PN ---
DATE: 03/10/2019 PSYCHIATRIC PROGRESS NOTE This late entry 03/10/2019 covers the elements not covered in my initial note. SUBJECTIVE: I met with the patient in the evening of 03/10/2019. The patient slept 6-1/2 hours previous night. I met with him in his room. He has been quite appropriate on the unit. REVIEW OF SYSTEMS: Ambulation impaired, in wheelchair. No CV, , pulmonary, eye system symptoms on review. MENTAL STATUS EXAM: Reasonably oriented. Speech is coherent, abstraction fair, computation impaired, language function intact. Mood and affect showing improvement, less grandiose. LABORATORY DATA: Reviewed. IMPRESSION: Unchanged from initial note. PLAN: No change from initial note. MAN Bladimir RUTH MD DR: TAINA/siddhartha JOB#: [id number] / [id number]
--- NOTE | 2019-03-12 02:16 | PN ---
DATE: 03/09/2019 PSYCHIATRIC PROGRESS NOTE This late entry 03/09/2019 covers elements not covered in my initial note. SUBJECTIVE: I met with the patient evening of 03/09/2019. The patient slept 6-1/2 hours previous night. I met with him in his room. He is pleasant, cooperative. REVIEW OF SYSTEMS: Ambulation impaired, in wheelchair. No CV, , pulmonary, eye system symptoms on review. MENTAL STATUS EXAM: Reasonably oriented. Speech is coherent, a little grandiose at times, but minimally. He talked about being very fond of a particular female nursing staff/aide and said he did not have those feelings to her, but greatly appreciated the help she gave him. Abstraction fair, computation reasonable, language function intact. Mood and affect is improved. LABORATORY DATA: Reviewed. IMPRESSION: Unchanged from initial note. PLAN: No change from initial note. MAN Bladimir RUTH MD DR: TAINA/siddhartha JOB#: [id number] / [id number]
[2019-03-12 05:52] VITALS: BP 136/74
--- NOTE | 2019-03-12 07:00 | NUR ---
Wound care Wound care follow up for bilateral heel DFU's. see wound assessment. the wounds were cleaned and redressed with Hydrofera blue with aquacel ag with a foam dressing, recommend to change every 2-3 days. Bilateral heel medix boots applied. Groin maceration is resolved, Calazime cream applied for protection. NO other wounds noted at this time. ordered patient Podus boots to ambulate and the patient will be able to have protection when using the wheelchair. WC will continue to follow for possible changes.
[2019-03-12] MEDS: INSULIN LISPRO 300 UNITS/3 ML VIAL. SQ SCH ×3 (08:00→17:19)
[2019-03-12] MEDS: MULTIVITAMIN with MINERAL TABLET. PO SCH (08:50)
[2019-03-12] MEDS: ACETAMINOPHEN 325 MG TABLET PO SCH ×2 (08:50→19:55)
[2019-03-12] MEDS: CILOSTAZOL 50 MG TABLET. PO SCH ×2 (08:50→19:55)
[2019-03-12] MEDS: CARBIDOPA/LEVODOPA 10/100MG TABLET PO SCH ×3 (08:51→19:54)
[2019-03-12] MEDS: ASPIRIN 81 MG TAB.CHEW PO SCH (08:51)
[2019-03-12] MEDS: LACTOBACILLUS RHAMNOSUS GG 1 CAPSULE. PO SCH ×2 (08:51→19:54)
[2019-03-12] MEDS: metFORMIN 500 MG TABLET PO SCH ×2 (08:51→17:18)
[2019-03-12] MEDS: ASCORBIC ACID 500 MG TABLET PO SCH ×2 (08:52→19:54)
[2019-03-12] MEDS: VALPROATE ACID 250 MG/5 ML ORAL SOLUTION PO SCH ×2 (08:52→19:54)
[2019-03-12] MEDS: NYSTATIN 100,000 UNIT/GM TOPICAL CREAM 15GM TUBE. TP SCH ×2 (09:00→19:56)
[2019-03-12] MEDS: INSULIN GLARGINE SYRINGE. SQ SCH ×2 (09:04→21:17)
--- NOTE | 2019-03-12 13:15 | NUR ---
ELISABETH attempted to contact pt Sera yap and left a message asking for a returned phone call to confirm that pt was not allowed to return to [facility] and to give her an update on pt.
[2019-03-12 16:27] VITALS: BP 116/61
--- NOTE | 2019-03-12 16:30 | NUR ---
ELISABETH returned call to Sera pt dtr to discuss insurance, in which Sera reports she herself has called and left four messages for a lady named Nicole LondonoElias. Sera has gone to the facility and feels that it is definitely the best option for pt at this time. She will continue to call Nicole and will call ELISABETH back with the contact number so that ELISABETH is able to also call and inquire about the hold up. Addendum: 03/14/19 at 1248 by JOE BARBER Pt dtr did report that pt is not allowed to return to [facility]. Pt has burnt a lot of bridges and states that he would not be welcomed back to [place], [place]. Pt brother is on hospice and not doing well. Pt believes that the house is still his;however, the house is in pt brother's name (who purchased the house from pt to help financially after pt ) and his brother's children are cleaning the house out to sell it. Pt dtr reports that pt has been told this but still is not aware enough to cognitively believe or recognize it.
--- NOTE | 2019-03-12 18:15 | NUR ---
Patient has been calm, social, talkative, and interactive throughout this shift. He was less participative today, mainly staying withdrawn to room. He was compliant with new boots ordered by wound care this morning. Will continue to monitor and report to oncoming shift.
[2019-03-12] MEDS: risperiDONE ORAL 1 MG/ML 30ml BOTTLE. SL SCH (19:55)
[2019-03-12] MEDS: METOPROLOL SUCC 24HR ER 25 MG TAB.ER.24H. PO SCH (19:58)
[2019-03-12] MEDS: MIRTAZAPINE 7.5 MG TABLET. PO SCH (19:58)
--- NOTE | 2019-03-12 21:00 | NUR ---
Assumed care of the patient in the day room. He was calm, cooperative and compliant with medications and assessments. Took his meds whole. No agitation, no delusions or hallucinations noted this shift. Denies pain, denies SI/HI.
--- NOTE | 2019-03-12 21:58 | PDOC ---
Exam Note: Maxwell Note: Please also refer to the separate dictated note~for this date of service dictated separately.~Patient seen individually. Discussed the patient with Nursing staff reviewed the chart.~Reviewed interim history and current functioning. Reviewed vital signs,~Labs/ Radiology~and current medications noted below. Continue current treatment with the changes noted in the dictated addendum note Assessment: Vital Signs/I&O: Vital Signs Date Time Temp Pulse Resp B/P (MAP) Pulse Ox O2 Delivery O2 Flow Rate FiO2 03/12/19 19:58 116 116/61 03/12/19 16:27 97.8 18 96 03/11/19 16:28 Room Air I & O 03/11/19 03/11/19 03/12/19 15:00 23:00 07:00 Intake Total 1200 ml 600 ml 240 ml Balance 1200 ml 600 ml 240 ml Labs: Laboratory Tests Test 03/12/19 08:27 03/12/19 11:48 03/12/19 17:04 03/12/19 19:23 Glucose (Fingerstick) 142 mg/dL (70-99) H 216 mg/dL (70-99) H 191 mg/dL (70-99) H 185 mg/dL (70-99) H Current Medications: I have reviewed the current psychotropics carefully including drug interactions. Risk benefit ratio favors no change other than as noted in my dictated progress note. Diagnosis: Problems: (1) Anxiety disorder (2) Bipolar affective, mixed, sev w/ psych (3) Dementia, vascular, with depression (4) Dementia, vascular, with delusions (5) Impulse control disorder (6) Psychosis, atypical (7) Dementia in Alzheimer's disease with delusions (8) Personality disorder (9) Major neurocognitive disorder (10) Mild cognitive impairment EMERSON RUTH MD Mar 12, 2019 21:58
--- NOTE | 2019-03-13 00:07 | PN ---
DATE: 03/11/2019 This late entry 03/11/2019 covers elements not covered in my initial note. SUBJECTIVE: I met with the patient on the evening of 03/11/2019 at length in his room. The patient slept 7-1/4 hours previous night. He is doing reasonably well. More cooperative, less grandiose, less inappropriate, more appreciative of nursing staff. REVIEW OF SYSTEMS: Ambulation impaired, in wheelchair. No CV, , pulmonary, eye system symptoms on review. MENTAL STATUS EXAM: Oriented reasonably. Speech is coherent, abstraction fair, computation impaired, language function intact, attention span short. Mood and affect is improved. LABORATORY DATA: Reviewed. IMPRESSION: Unchanged from initial note. PLAN: No change from initial note. MAN Bladimir RUTH MD DR: TAINA/siddhartha JOB#: [id number] / [id number]
--- NOTE | 2019-03-13 06:26 | RAD ---
AP chest. HISTORY: Tachycardia CHF, weakness AP view was taken of the chest. Comparison is made to study from January. Heart is within normal limits in size. There is no pleural effusion. There is a carli in the right humerus. There are no acute infiltrates. IMPRESSION: 1. No acute infiltrates. Electronically signed by: Alejandro Valera MD (03/13/2019 6:23 AM) [facility]
[2019-03-13 06:42] VITALS: BP 129/77
[2019-03-13 06:46] LABS: HEMATOCRIT 35.8 % (39.0-53.0); HEMOGLOBIN 12.1 g/dL (13.0-17.5); RED BLOOD COUNT 3.86 x10^6/uL (4.30-5.70); RED CELL DISTRIBUTION WIDTH 13.6 % (11.5-14.5); WHITE BLOOD COUNT 7.2 x10^3/uL (4.0-11.0)
[2019-03-13] MEDS: INSULIN LISPRO 300 UNITS/3 ML VIAL. SQ SCH ×3 (08:00→17:30)
[2019-03-13] MEDS: metFORMIN 500 MG TABLET PO SCH ×2 (08:27→17:29)
[2019-03-13] MEDS: MULTIVITAMIN with MINERAL TABLET. PO SCH (08:27)
[2019-03-13] MEDS: ASCORBIC ACID 500 MG TABLET PO SCH ×2 (08:27→20:42)
[2019-03-13] MEDS: ACETAMINOPHEN 325 MG TABLET PO SCH ×2 (08:27→20:42)
[2019-03-13] MEDS: ASPIRIN 81 MG TAB.CHEW PO SCH (08:27)
[2019-03-13] MEDS: CARBIDOPA/LEVODOPA 10/100MG TABLET PO SCH ×3 (08:27→20:42)
[2019-03-13] MEDS: LACTOBACILLUS RHAMNOSUS GG 1 CAPSULE. PO SCH ×2 (08:27→20:42)
[2019-03-13] MEDS: VALPROATE ACID 250 MG/5 ML ORAL SOLUTION PO SCH ×2 (08:27→20:43)
[2019-03-13] MEDS: INSULIN GLARGINE SYRINGE. SQ SCH ×2 (08:29→21:09)
[2019-03-13] MEDS: CILOSTAZOL 50 MG TABLET. PO SCH ×2 (08:30→20:44)
--- NOTE | 2019-03-13 08:40 | NUR ---
ELISABETH received voicemail from pt dtr Sera about the number for Nicole with the Medicaid division needed to switch pt to [employer]. That number is . ELISABETH will attempt to give that number a call today.
[2019-03-13] MEDS: NYSTATIN 100,000 UNIT/GM TOPICAL CREAM 15GM TUBE. TP SCH ×2 (09:00→20:44)
--- NOTE | 2019-03-13 10:36 | NUR ---
WEEKLY NOTE: Pt is medication compliant and appears to be a bit anxious about his discharge. Pt averages 6 hours of sleep a night and eats roughly 75-100% of meals. Pt is at baseline and will discharge [facility]. Pt has some grandiosity and minor delusions. But redirectable and has no trouble.
--- NOTE | 2019-03-13 10:42 | NUR ---
WEEKLY ACTIVITY THERAPY NOTE Date of Admission: 02/02/2019 Date of AT Assessment: 02/04/2019 Goal aimed: to sustain engagement Initial goal:Pt. will participate in all groups he is invited to. Weekly progress towards goal: achieved, 6 groups this week Group participation level: varied Weekly highlights: played LEOLA independently on Sunday Behaviors observed: sleeping often, in room reading newspaper, overall content Plan: no change to goal Beneficial adaptations: reminders and invitations, outdoor/garden, trivia
[2019-03-13 16:02] VITALS: BP 109/72
[2019-03-13] MEDS: MIRTAZAPINE 7.5 MG TABLET. PO SCH (20:42)
[2019-03-13] MEDS: METOPROLOL SUCC 24HR ER 25 MG TAB.ER.24H. PO SCH (20:43)
[2019-03-13] MEDS: risperiDONE ORAL 1 MG/ML 30ml BOTTLE. SL SCH (20:44)
--- NOTE | 2019-03-13 21:00 | NUR ---
Patient is in his room on assumption of care. Pleasant, calm and compliant with medications and assessments. This scenario writer asked patient if he would be willing to take his Risperdal and depakote in pill form again, and he answered yes. Patient then asked "Is the reason I am still here, because there aren't enough patients?" This scenario writer assured him that we are doing what we can to find him appropriate placement. He denies pain, denies SI/HI.
--- NOTE | 2019-03-13 21:14 | PDOC ---
Exam Note: Maxwell Note: Please also refer to the separate dictated note~for this date of service dictated separately.~Patient seen individually. Discussed the patient with Nursing staff reviewed the chart.~Reviewed interim history and current functioning. Reviewed vital signs,~Labs/ Radiology~and current medications noted below. Continue current treatment with the changes noted in the dictated addendum note Assessment: Vital Signs/I&O: Vital Signs Date Time Temp Pulse Resp B/P (MAP) Pulse Ox O2 Delivery O2 Flow Rate FiO2 03/13/19 20:44 118 109/72 03/13/19 16:02 98.2 22 97 03/11/19 16:28 Room Air I & O 03/12/19 03/12/19 03/13/19 14:59 22:59 06:59 Intake Total 840 ml 240 ml 240 ml Balance 840 ml 240 ml 240 ml Labs: Laboratory Tests Test 03/13/19 06:15 03/13/19 07:47 03/13/19 12:01 03/13/19 16:49 White Blood Count 7.2 x10^3/uL (4.0-11.0) Red Blood Count 3.86 x10^6/uL (4.30-5.70) L Hemoglobin 12.1 g/dL (13.0-17.5) L Hematocrit 35.8 % (39.0-53.0) L Mean Corpuscular Volume 93 fL (79-100) Mean Corpuscular Hemoglobin 31 pg (25-35) Mean Corpuscular Hemoglobin Concent 34 g/dL (31-37) Red Cell Distribution Width 13.6 % (11.5-14.5) Platelet Count 193 x10^3/uL (140-400) Glucose (Fingerstick) 147 mg/dL (70-99) H 257 mg/dL (70-99) H 179 mg/dL (70-99) H Test 03/13/19 19:09 Glucose (Fingerstick) 232 mg/dL (70-99) H Current Medications: I have reviewed the current psychotropics carefully including drug interactions. Risk benefit ratio favors no change other than as noted in my dictated progress note. Diagnosis: Problems: (1) Anxiety disorder (2) Bipolar affective, mixed, sev w/ psych (3) Dementia, vascular, with depression (4) Dementia, vascular, with delusions (5) Impulse control disorder (6) Psychosis, atypical (7) Dementia in Alzheimer's disease with delusions (8) Major neurocognitive disorder (9) Mild cognitive impairment EMERSON RUTH MD Mar 13, 2019 21:14
[2019-03-14 06:37] VITALS: BP 125/81
[2019-03-14] MEDS: INSULIN LISPRO 300 UNITS/3 ML VIAL. SQ SCH ×3 (08:00→17:00)
[2019-03-14] MEDS: metFORMIN 500 MG TABLET PO SCH ×3 (08:15→20:39)
[2019-03-14] MEDS: LACTOBACILLUS RHAMNOSUS GG 1 CAPSULE. PO SCH ×2 (08:15→20:38)
[2019-03-14] MEDS: MULTIVITAMIN with MINERAL TABLET. PO SCH (08:15)
[2019-03-14] MEDS: CARBIDOPA/LEVODOPA 10/100MG TABLET PO SCH ×3 (08:15→20:38)
[2019-03-14] MEDS: ASCORBIC ACID 500 MG TABLET PO SCH ×2 (08:16→20:39)
[2019-03-14] MEDS: ACETAMINOPHEN 325 MG TABLET PO SCH ×2 (08:16→20:39)
[2019-03-14] MEDS: ASPIRIN 81 MG TAB.CHEW PO SCH (08:16)
[2019-03-14] MEDS: VALPROATE ACID 250 MG/5 ML ORAL SOLUTION PO SCH (08:16)
[2019-03-14] MEDS: CILOSTAZOL 50 MG TABLET. PO SCH ×2 (08:19→20:40)
[2019-03-14] MEDS: NYSTATIN 100,000 UNIT/GM TOPICAL CREAM 15GM TUBE. TP SCH ×2 (08:21→20:40)
[2019-03-14] MEDS: INSULIN GLARGINE SYRINGE. SQ SCH ×2 (08:21→20:44)
[2019-03-14] MEDS: risperiDONE MICROSPHERES 12.5 MG/2 ML DISP.SYRIN. IM SCH (09:00)
--- NOTE | 2019-03-14 11:15 | NUR ---
ELISABETH left a message for Nicole Alicea to contact ELISABETH when possible. Pt has been ready to discharge for over a week and a half now. Pt is in need to have his Medicaid status changed to HCBS and that has not been completed as of yet; despite the facility turning everything in last Sunday. ELISABETH asked that Nicole contact ELISABETH ALEKS in order to see what needs to be done so that pt is able to discharge from the facility pronto.
[2019-03-14 15:57] VITALS: BP 115/73
--- NOTE | 2019-03-14 18:54 | NUR ---
Pt up for meals in wc. Has been compliant with meds and cares.
[2019-03-14] MEDS: MIRTAZAPINE 7.5 MG TABLET. PO SCH (20:38)
[2019-03-14] MEDS: METOPROLOL SUCC 24HR ER 25 MG TAB.ER.24H. PO SCH (20:39)
[2019-03-14] MEDS: risperiDONE 0.5 MG TABLET. PO SCH (20:43)
[2019-03-14] MEDS: DIVALPROEX 125 MG CAP.SPRINK PO SCH (20:43)
--- NOTE | 2019-03-14 21:00 | NUR ---
Patient is in the day room on assumption of care. He is calm, cooperative and compliant with medications, assessments and cares. He took all of his medications whole without issue. No agitation. Denies pain, denies SI/HI.
--- NOTE | 2019-03-14 22:07 | PDOC ---
Exam Note: Maxwell Note: Please also refer to the separate dictated note~for this date of service dictated separately.~Patient seen individually. Discussed the patient with Nursing staff reviewed the chart.~Reviewed interim history and current functioning. Reviewed vital signs,~Labs/ Radiology~and current medications noted below. Continue current treatment with the changes noted in the dictated addendum note Assessment: Vital Signs/I&O: Vital Signs Date Time Temp Pulse Resp B/P (MAP) Pulse Ox O2 Delivery O2 Flow Rate FiO2 03/14/19 20:44 104 115/73 03/14/19 15:57 97.8 20 98 03/14/19 06:37 Room Air I & O 03/13/19 03/13/19 03/14/19 14:59 22:59 06:59 Intake Total 960 ml 480 ml 420 ml Balance 960 ml 480 ml 420 ml Labs: Laboratory Tests Test 03/14/19 07:17 03/14/19 11:17 03/14/19 16:16 03/14/19 19:15 Glucose (Fingerstick) 110 mg/dL (70-99) H 186 mg/dL (70-99) H 168 mg/dL (70-99) H 170 mg/dL (70-99) H Current Medications: Meds: Current Medications Medications (Trade) Dose Ordered Sig/Sandhya Route PRN Reason Start Time Stop Time Status Last Admin Dose Admin Risperidone (RisperDAL) 0.5 mg HS PO 03/14/19 21:00 03/14/19 20:44 Divalproex Sodium (Depakote Sprinkles) 500 mg BID PO 03/14/19 21:00 03/14/19 20:44 I have reviewed the current psychotropics carefully including drug interactions. Risk benefit ratio favors no change other than as noted in my dictated progress note. Diagnosis: Problems: (1) Anxiety disorder (2) Bipolar affective, mixed, sev w/ psych (3) Dementia, vascular, with depression (4) Dementia, vascular, with delusions (5) Impulse control disorder (6) Psychosis, atypical (7) Dementia in Alzheimer's disease with delusions (8) Personality disorder (9) Major neurocognitive disorder (10) Mild cognitive impairment (11) HLD (hyperlipidemia) EMERSON RUTH MD Mar 14, 2019 22:07
[2019-03-15 05:55] VITALS: BP 100/61
[2019-03-15] MEDS: metFORMIN 500 MG TABLET PO SCH (07:52)
[2019-03-15] MEDS: ASCORBIC ACID 500 MG TABLET PO SCH ×2 (07:52→19:48)
[2019-03-15] MEDS: ACETAMINOPHEN 325 MG TABLET PO SCH ×2 (07:52→19:48)
[2019-03-15] MEDS: MULTIVITAMIN with MINERAL TABLET. PO SCH (07:52)
[2019-03-15] MEDS: ASPIRIN 81 MG TAB.CHEW PO SCH (07:52)
[2019-03-15] MEDS: LACTOBACILLUS RHAMNOSUS GG 1 CAPSULE. PO SCH ×2 (07:52→19:46)
[2019-03-15] MEDS: CILOSTAZOL 50 MG TABLET. PO SCH ×2 (07:52→20:02)
[2019-03-15] MEDS: DIVALPROEX 125 MG CAP.SPRINK PO SCH ×2 (07:52→19:46)
[2019-03-15] MEDS: CARBIDOPA/LEVODOPA 10/100MG TABLET PO SCH ×3 (07:53→19:47)
[2019-03-15] MEDS: INSULIN LISPRO 300 UNITS/3 ML VIAL. SQ SCH ×3 (07:54→17:00)
[2019-03-15] MEDS: NYSTATIN 100,000 UNIT/GM TOPICAL CREAM 15GM TUBE. TP SCH ×2 (07:54→19:45)
[2019-03-15] MEDS: INSULIN GLARGINE SYRINGE. SQ SCH ×2 (09:00→19:57)
--- NOTE | 2019-03-15 09:24 | PN ---
DATE: 03/13/2019 PSYCHIATRIC PROGRESS NOTE This late entry 03/13/2019 covers elements not covered in my initial note. SUBJECTIVE: I met with the patient evening of 03/13/2019. The patient was also staffed at a treatment team meeting with the entire team in the morning. The patient slept 7-1/4 hours. Appetite 75-100%. Social service staff reviewed his placement options, possibly at [facility] in [place] and arrangements are being finalized for this. He is compliant with his medications, less paranoid, more appropriate, less sexually inappropriate. REVIEW OF SYSTEMS: Ambulation impaired, in wheelchair. No CV, , pulmonary, eye system symptoms on review. MENTAL STATUS EXAMINATION: Oriented to himself and situation. Speech has some latency, coherent, very verbally interactive with me, abstraction fair, computation impaired, language function intact. Mood and affect is improved. LABORATORY DATA: Reviewed. IMPRESSION: Unchanged from initial note. PLAN: No change from initial note. EMERSON RUTH MD DR: TAINA/siddhartha JOB#: [id number] / [id number]
--- NOTE | 2019-03-15 09:31 | PN ---
DATE: 03/12/2019 PSYCHIATRIC PROGRESS NOTE This late entry 03/12/2019 covers elements not covered in my initial note. SUBJECTIVE: I met with the patient evening of 03/12/2019. The patient slept 6 hours previous night. I met with him at some length in his room. He has new boots for his lower extremities for the heel wounds and is very pleased with this. REVIEW OF SYSTEMS: Ambulation impaired with wheelchair. No CV, , pulmonary, eye system symptoms on review. MENTAL STATUS EXAM: The patient is reasonably oriented. Speech is coherent, abstraction fair, computation impaired, language function intact. Mood and affect is improved. LABORATORY DATA: Reviewed. IMPRESSION: Unchanged from initial note. PLAN: No change from initial note. MAN Bladimir RUTH MD DR: TAINA/siddhartha JOB#: [id number] / [id number]
[2019-03-15 16:06] VITALS: BP 120/88
--- NOTE | 2019-03-15 18:10 | NUR ---
Pt has been up for meals and out to groups. Has been in pleasant spirits. Compliant with meds and cares.
[2019-03-15] MEDS: risperiDONE 0.5 MG TABLET. PO SCH (19:47)
[2019-03-15] MEDS: METOPROLOL SUCC 24HR ER 25 MG TAB.ER.24H. PO SCH (19:48)
[2019-03-15] MEDS: MIRTAZAPINE 7.5 MG TABLET. PO SCH (20:03)
--- NOTE | 2019-03-15 22:47 | PDOC ---
Exam Note: Maxwell Note: Please also refer to the separate dictated note~for this date of service dictated separately.~Patient seen individually. Discussed the patient with Nursing staff reviewed the chart.~Reviewed interim history and current functioning. Reviewed vital signs,~Labs/ Radiology~and current medications noted below. Continue current treatment with the changes noted in the dictated addendum note Assessment: Vital Signs/I&O: Vital Signs Date Time Temp Pulse Resp B/P (MAP) Pulse Ox O2 Delivery O2 Flow Rate FiO2 03/15/19 19:58 85 120/88 03/15/19 16:06 98.2 20 96 03/15/19 05:55 Room Air I & O 03/14/19 03/14/19 03/15/19 15:00 23:00 07:00 Intake Total 1200 ml 720 ml Balance 1200 ml 720 ml Labs: Laboratory Tests Test 03/15/19 07:13 03/15/19 11:53 03/15/19 16:31 03/15/19 19:08 Glucose (Fingerstick) 152 mg/dL (70-99) H 157 mg/dL (70-99) H 163 mg/dL (70-99) H 183 mg/dL (70-99) H Current Medications: I have reviewed the current psychotropics carefully including drug interactions. Risk benefit ratio favors no change other than as noted in my dictated progress note. Diagnosis: Problems: (1) Mental status change resolved (2) Anxiety disorder (3) Bipolar affective, mixed, sev w/ psych (4) Dementia, vascular, with depression (5) Dementia, vascular, with delusions (6) Impulse control disorder (7) Psychosis, atypical (8) Dementia in Alzheimer's disease with delusions (9) Personality disorder (10) Major neurocognitive disorder (11) Mild cognitive impairment EMERSON RUTH MD Mar 15, 2019 22:47
--- NOTE | 2019-03-16 04:24 | NUR ---
Nursing note: Patient was compliant during medication pass @ HS. Patient was having appropriate conversation in regards to the movie that was on in the day room and about his day, etc., Pleasant mood. Patient went to bed shortly after medication pass and had no issues throughout the night.
[2019-03-16 05:52] VITALS: BP 108/53
[2019-03-16] MEDS: INSULIN LISPRO 300 UNITS/3 ML VIAL. SQ SCH ×3 (07:29→17:00)
[2019-03-16] MEDS: ASPIRIN 81 MG TAB.CHEW PO SCH (07:39)
[2019-03-16] MEDS: metFORMIN 500 MG TABLET PO SCH ×2 (07:39→17:00)
[2019-03-16] MEDS: LACTOBACILLUS RHAMNOSUS GG 1 CAPSULE. PO SCH ×2 (07:39→20:07)
[2019-03-16] MEDS: ACETAMINOPHEN 325 MG TABLET PO SCH ×2 (07:39→20:09)
[2019-03-16] MEDS: MULTIVITAMIN with MINERAL TABLET. PO SCH (07:39)
[2019-03-16] MEDS: DIVALPROEX 125 MG CAP.SPRINK PO SCH ×2 (07:39→20:08)
[2019-03-16] MEDS: CARBIDOPA/LEVODOPA 10/100MG TABLET PO SCH ×3 (07:39→20:08)
[2019-03-16] MEDS: ASCORBIC ACID 500 MG TABLET PO SCH ×2 (07:39→20:09)
[2019-03-16] MEDS: NYSTATIN 100,000 UNIT/GM TOPICAL CREAM 15GM TUBE. TP SCH ×2 (07:40→20:26)
[2019-03-16] MEDS: CILOSTAZOL 50 MG TABLET. PO SCH ×2 (07:53→20:24)
[2019-03-16] MEDS: INSULIN GLARGINE SYRINGE. SQ SCH ×2 (09:00→20:14)
[2019-03-16 16:10] VITALS: BP 122/78
--- NOTE | 2019-03-16 18:25 | NUR ---
Pt up in wc for meals. Has been in pleasant spirits. Compliant with meds and cares.
[2019-03-16] MEDS: risperiDONE 0.5 MG TABLET. PO SCH (20:08)
[2019-03-16] MEDS: MIRTAZAPINE 7.5 MG TABLET. PO SCH (20:08)
[2019-03-16] MEDS: METOPROLOL SUCC 24HR ER 25 MG TAB.ER.24H. PO SCH (20:09)
--- NOTE | 2019-03-16 22:30 | PDOC ---
Exam Note: Maxwell Note: Please also refer to the separate dictated note~for this date of service dictated separately.~Patient seen individually. Discussed the patient with Nursing staff reviewed the chart.~Reviewed interim history and current functioning. Reviewed vital signs,~Labs/ Radiology~and current medications noted below. Continue current treatment with the changes noted in the dictated addendum note Assessment: Vital Signs/I&O: Vital Signs Date Time Temp Pulse Resp B/P (MAP) Pulse Ox O2 Delivery O2 Flow Rate FiO2 03/16/19 20:17 101 122/78 03/16/19 16:10 97.2 20 98 03/15/19 05:55 Room Air I & O 03/15/19 03/15/19 03/16/19 15:00 23:00 07:00 Intake Total 1080 ml 480 ml 420 ml Balance 1080 ml 480 ml 420 ml Labs: Laboratory Tests Test 03/16/19 07:07 03/16/19 11:54 03/16/19 16:24 03/16/19 19:18 Glucose (Fingerstick) 101 mg/dL (70-99) H 142 mg/dL (70-99) H 156 mg/dL (70-99) H 170 mg/dL (70-99) H Current Medications: I have reviewed the current psychotropics carefully including drug interactions. Risk benefit ratio favors no change other than as noted in my dictated progress note. 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
--- NOTE | 2019-03-16 23:19 | PN ---
DATE: 03/14/2019 PSYCHIATRIC PROGRESS NOTE This late entry, 03/14, covers elements not covered in my initial note. SUBJECTIVE: I met with the patient evening of 03/14. The patient slept 5-3/4 hours previous night. I met with him in his room. REVIEW OF SYSTEMS: Ambulation impaired, in wheelchair. No CV, or pulmonary system symptoms on review. He got his Risperdal Consta on 03/14. MENTAL STATUS EXAM: Oriented reasonably. Speech is coherent, abstraction fair, computation impaired, language function intact. Mood and affect was improved. LABORATORY DATA: Reviewed. IMPRESSION: Unchanged from initial note. PLAN: No change from initial note. Social service staff is actively seeking placement and he can be transitioned as soon as this is arranged and this has been true for the last many days. MAN Bladimir RUTH MD DR: TAINA/siddhartha JOB#: [id number] / [id number]
--- NOTE | 2019-03-16 23:23 | PN ---
DATE: 03/15/2019 PSYCHIATRIC PROGRESS NOTE This late entry 03/15/2019 covers elements not covered in my initial note. SUBJECTIVE: I met with the patient individually. The patient slept 8 hours previous night. Blood sugar is stable. REVIEW OF SYSTEMS: Ambulation impaired, in wheelchair. No CV, , pulmonary, eye system symptoms on review. He has not been sexually inappropriate. MENTAL STATUS EXAM: Oriented reasonably. Speech is coherent, abstraction fair, computation impaired. Mood and affect is improved. No suicidal or homicidal ideation. LABORATORY DATA: Reviewed. IMPRESSION: Unchanged from initial note. PLAN: No change from initial note. MAN Bladimir RUTH MD DR: TAINA/siddhartha JOB#: [id number] / [id number]
--- NOTE | 2019-03-17 04:51 | NUR ---
Nsg Notes: Patient was in the day room during medication pass. Patient was compliant with all medications and had some pleasant conversation. Patient went to sleep shortly after medication pass.
[2019-03-17 05:57] VITALS: BP 120/73
[2019-03-17] MEDS: INSULIN LISPRO 300 UNITS/3 ML VIAL. SQ SCH ×3 (08:00→17:51)
[2019-03-17] MEDS: DIVALPROEX 125 MG CAP.SPRINK PO SCH ×2 (08:34→19:21)
[2019-03-17] MEDS: CILOSTAZOL 50 MG TABLET. PO SCH ×2 (08:34→19:21)
[2019-03-17] MEDS: ASPIRIN 81 MG TAB.CHEW PO SCH (08:35)
[2019-03-17] MEDS: ASCORBIC ACID 500 MG TABLET PO SCH ×2 (08:35→19:22)
[2019-03-17] MEDS: MULTIVITAMIN with MINERAL TABLET. PO SCH (08:35)
[2019-03-17] MEDS: metFORMIN 500 MG TABLET PO SCH ×2 (08:35→17:18)
[2019-03-17] MEDS: ACETAMINOPHEN 325 MG TABLET PO SCH ×2 (08:35→19:22)
[2019-03-17] MEDS: CARBIDOPA/LEVODOPA 10/100MG TABLET PO SCH ×3 (08:35→19:22)
[2019-03-17] MEDS: LACTOBACILLUS RHAMNOSUS GG 1 CAPSULE. PO SCH ×2 (08:35→19:21)
[2019-03-17] MEDS: INSULIN GLARGINE SYRINGE. SQ SCH ×2 (08:37→20:18)
[2019-03-17] MEDS: NYSTATIN 100,000 UNIT/GM TOPICAL CREAM 15GM TUBE. TP SCH ×2 (08:38→19:23)
[2019-03-17 15:38] VITALS: BP 143/91
--- NOTE | 2019-03-17 15:41 | NUR ---
Pt has been calm, cooperative with meds and assessment. No behaviors noted.
[2019-03-17] MEDS: MIRTAZAPINE 7.5 MG TABLET. PO SCH (19:21)
[2019-03-17] MEDS: risperiDONE 0.5 MG TABLET. PO SCH (19:21)
[2019-03-17] MEDS: METOPROLOL SUCC 24HR ER 25 MG TAB.ER.24H. PO SCH (19:22)
--- NOTE | 2019-03-17 21:39 | NUR ---
Nursing note: Assumed care of pt in the day room. He was enjoying the tv and eating popcorn. He is compliant w/meds and assessment. No c/o pain, A&OX3. No delusions at this time.
--- NOTE | 2019-03-17 21:50 | PDOC ---
Exam Note: Maxwell Note: Please also refer to the separate dictated note~for this date of service dictated separately.~Patient seen individually. Discussed the patient with Nursing staff reviewed the chart.~Reviewed interim history and current functioning. Reviewed vital signs,~Labs/ Radiology~and current medications noted below. Continue current treatment with the changes noted in the dictated addendum note Assessment: Vital Signs/I&O: Vital Signs Date Time Temp Pulse Resp B/P (MAP) Pulse Ox O2 Delivery O2 Flow Rate FiO2 03/17/19 19:23 108 143/91 03/17/19 15:38 98.1 20 95 03/15/19 05:55 Room Air I & O 03/16/19 03/16/19 03/17/19 15:00 23:00 07:00 Intake Total 720 ml 600 ml Balance 720 ml 600 ml Labs: Laboratory Tests Test 03/17/19 08:00 03/17/19 11:21 03/17/19 16:27 03/17/19 19:02 Glucose (Fingerstick) 130 mg/dL (70-99) H 206 mg/dL (70-99) H 192 mg/dL (70-99) H 177 mg/dL (70-99) H Current Medications: I have reviewed the current psychotropics carefully including drug interactions. Risk benefit ratio favors no change other than as noted in my dictated progress note. 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
--- NOTE | 2019-03-18 04:50 | PN ---
DATE: 03/16/2019 PSYCHIATRIC PROGRESS NOTE This late entry on March 16 covers elements not covered in my initial note. SUBJECTIVE: I met with the patient on the evening of March 16. The patient slept 5-1/2 hours previous night. He has been quite appropriate in the unit, pleasant, verbal, interactive as I met with him in the evening. REVIEW OF SYSTEMS: Ambulation impaired, in wheelchair. No CV, , pulmonary, eye, ENT system symptoms on review. MENTAL STATUS EXAMINATION: Reasonably oriented. Speech is coherent, abstraction fair, computation impaired, language function intact. Mood and affect is improved. Psychotic symptoms appear subsided. LABORATORY DATA: Reviewed. IMPRESSION: Unchanged from initial note. PLAN: No change from initial note. EMERSON RUTH MD DR: TAINA/siddhartha JOB#: [id number] / [id number]
[2019-03-18 05:52] VITALS: BP 103/62
[2019-03-18] MEDS: DIVALPROEX 125 MG CAP.SPRINK PO SCH ×2 (07:48→19:31)
[2019-03-18] MEDS: ASCORBIC ACID 500 MG TABLET PO SCH ×2 (07:49→19:34)
[2019-03-18] MEDS: CARBIDOPA/LEVODOPA 10/100MG TABLET PO SCH ×3 (07:49→19:32)
[2019-03-18] MEDS: metFORMIN 500 MG TABLET PO SCH ×2 (07:49→18:03)
[2019-03-18] MEDS: CILOSTAZOL 50 MG TABLET. PO SCH ×2 (07:49→19:32)
[2019-03-18] MEDS: ACETAMINOPHEN 325 MG TABLET PO SCH ×2 (07:49→19:34)
[2019-03-18] MEDS: MULTIVITAMIN with MINERAL TABLET. PO SCH (07:50)
[2019-03-18] MEDS: LACTOBACILLUS RHAMNOSUS GG 1 CAPSULE. PO SCH ×2 (07:50→19:31)
[2019-03-18] MEDS: INSULIN GLARGINE SYRINGE. SQ SCH ×2 (07:56→20:18)
[2019-03-18] MEDS: NYSTATIN 100,000 UNIT/GM TOPICAL CREAM 15GM TUBE. TP SCH ×2 (07:56→19:34)
[2019-03-18] MEDS: INSULIN LISPRO 300 UNITS/3 ML VIAL. SQ SCH ×3 (07:57→18:03)
[2019-03-18] MEDS: ASPIRIN 81 MG TAB.CHEW PO SCH (07:58)
[2019-03-18 09:45] LABS: ALBUMIN 3.2 g/dL (3.4-5.0); ALBUMIN/GLOBULIN RATIO 0.8 (1.0-1.7); CREATININE 0.9 mg/dL (0.7-1.3); GFR 82.3; POTASSIUM 4.6 mmol/L (3.5-5.1); TOTAL BILIRUBIN 0.3 mg/dL (0.2-1.0); TOTAL PROTEIN 7.1 g/dL (6.4-8.2)
[2019-03-18 09:48] LABS: BASO % 1 % (0-3); EOS # 0.6 x10^3/uL (0.0-0.7); EOS % 7 % (0-3); HEMOGLOBIN 12.3 g/dL (13.0-17.5); LYMPH # 2.1 x10^3/uL (1.0-4.8); LYMPH % 25 % (24-48); MEAN CORPUSCULAR HEMOGLOBIN 31 pg (25-35); MEAN CORPUSCULAR HGB CONC 33 g/dL (31-37); MEAN CORPUSCULAR VOLUME 94 fL (79-100); MONO # 0.8 x10^3/uL (0.0-1.1); MONO % 10 % (0-9); NEUT # 4.8 x10^3uL (1.8-7.7); NEUT % 57 % (31-73); PLATELET COUNT 222 x10^3/uL (140-400); RED BLOOD COUNT 3.93 x10^6/uL (4.30-5.70); RED CELL DISTRIBUTION WIDTH 13.8 % (11.5-14.5); WHITE BLOOD COUNT 8.4 x10^3/uL (4.0-11.0)
--- NOTE | 2019-03-18 12:26 | NUR ---
Pt has been calm, cooperative with meds and assessment. No behaviors noted.
--- NOTE | 2019-03-18 14:28 | NUR ---
ELISABETH attempted to contact Nicole Lockr and ended up leaving a message for her to contact ELISABETH back re: pt status. Pt has been stable for 2 weeks now and is awaiting for the HCBS to transfer over so he can discharge.
--- NOTE | 2019-03-18 14:35 | NUR ---
ELISABETH contacted pt dtr, Sera, to see if she has heard from the [employer] rep. Sera reports that she has not and started to look through the papers they received to see if she can find an alternate number for people to help. ELISABETH also discussed possibly seeing if Ellie would be willing to see if their billing office would be able to push a bit harder to get the status changed. Sera reports that her Aunt is not doing well and is having some trouble but does not want to have pt know at the moment.
[2019-03-18 15:41] VITALS: BP 99/57
--- NOTE | 2019-03-18 18:08 | PN ---
DATE: 03/17/2019 PSYCHIATRIC PROGRESS NOTE This late entry, 03/17/2019, covers elements not covered in my initial note. SUBJECTIVE: I met with the patient evening of 03/17/2019. The patient slept 7 hours previous night. He has been appropriate. No sexually inappropriate behaviors noted, reasonably oriented. REVIEW OF SYSTEMS: Ambulation impaired, in wheelchair. No CV, , pulmonary, eye system symptoms on review. MENTAL STATUS EXAM: Reasonably oriented. Speech coherent, very pleasant, verbal, shaking my hand, looking for his discharge date and social service staff are actively looking for placement arrangements. Mood and affect are improved. No suicidal or homicidal ideation. No psychotic symptoms. LABORATORY DATA: Reviewed. IMPRESSION: Unchanged from initial note. PLAN: No change from initial note. The patient can transition to long-term as soon as arrangement by social service staff. MAN Bladimir RUTH MD DR: TAINA/siddhartha JOB#: [id number] / [id number]
[2019-03-18] MEDS: risperiDONE 0.5 MG TABLET. PO SCH (19:32)
[2019-03-18] MEDS: MIRTAZAPINE 7.5 MG TABLET. PO SCH (19:32)
[2019-03-18] MEDS: METOPROLOL SUCC 24HR ER 25 MG TAB.ER.24H. PO SCH (19:33)
--- NOTE | 2019-03-18 21:23 | NUR ---
Nursing note: Assumed care of pt in the day room where he was sitting quietly and occasionally dozing. he is pleasant and compliant, no agitation, no c/o pain.
--- NOTE | 2019-03-18 21:52 | PDOC ---
Exam Note: Maxwell Note: Please also refer to the separate dictated note~for this date of service dictated separately.~Patient seen individually. Discussed the patient with Nursing staff reviewed the chart.~Reviewed interim history and current functioning. Reviewed vital signs,~Labs/ Radiology~and current medications noted below. Continue current treatment with the changes noted in the dictated addendum note Assessment: Vital Signs/I&O: Vital Signs Date Time Temp Pulse Resp B/P (MAP) Pulse Ox O2 Delivery O2 Flow Rate FiO2 03/18/19 19:34 113 99/57 03/18/19 15:41 97.7 18 97 03/18/19 05:52 Room Air I & O 03/17/19 03/17/19 03/18/19 15:00 23:00 07:00 Intake Total 240 ml 480 ml Balance 240 ml 480 ml Labs: Laboratory Tests Test 03/18/19 07:36 03/18/19 09:23 03/18/19 11:24 03/18/19 16:48 Glucose (Fingerstick) 113 mg/dL (70-99) H 148 mg/dL (70-99) H 206 mg/dL (70-99) H White Blood Count 8.4 x10^3/uL (4.0-11.0) Red Blood Count 3.93 x10^6/uL (4.30-5.70) L Hemoglobin 12.3 g/dL (13.0-17.5) L Hematocrit 37.0 % (39.0-53.0) L Mean Corpuscular Volume 94 fL (79-100) Mean Corpuscular Hemoglobin 31 pg (25-35) Mean Corpuscular Hemoglobin Concent 33 g/dL (31-37) Red Cell Distribution Width 13.8 % (11.5-14.5) Platelet Count 222 x10^3/uL (140-400) Neutrophils (%) (Auto) 57 % (31-73) Lymphocytes (%) (Auto) 25 % (24-48) Monocytes (%) (Auto) 10 % (0-9) H Eosinophils (%) (Auto) 7 % (0-3) H Basophils (%) (Auto) 1 % (0-3) Neutrophils # (Auto) 4.8 x10^3uL (1.8-7.7) Lymphocytes # (Auto) 2.1 x10^3/uL (1.0-4.8) Monocytes # (Auto) 0.8 x10^3/uL (0.0-1.1) Eosinophils # (Auto) 0.6 x10^3/uL (0.0-0.7) Basophils # (Auto) 0.0 x10^3/uL (0.0-0.2) Sodium Level 140 mmol/L (136-145) Potassium Level 4.6 mmol/L (3.5-5.1) Chloride Level 102 mmol/L (98-107) Carbon Dioxide Level 29 mmol/L (21-32) Anion Gap 9 (6-14) Blood Urea Nitrogen 20 mg/dL (8-26) Creatinine 0.9 mg/dL (0.7-1.3) Estimated GFR (Cockcroft-Gault) 82.3 BUN/Creatinine Ratio 22 (6-20) H Glucose Level 136 mg/dL (70-99) H Calcium Level 9.0 mg/dL (8.5-10.1) Total Bilirubin 0.3 mg/dL (0.2-1.0) Aspartate Amino Transferase (AST) 16 U/L (15-37) Alanine Aminotransferase (ALT) 12 U/L (16-63) L Alkaline Phosphatase 67 U/L (46-116) Total Protein 7.1 g/dL (6.4-8.2) Albumin 3.2 g/dL (3.4-5.0) L Albumin/Globulin Ratio 0.8 (1.0-1.7) L Test 03/18/19 19:17 Glucose (Fingerstick) 262 mg/dL (70-99) H Current Medications: I have reviewed the current psychotropics carefully including drug interactions. Risk benefit ratio favors no change other than as noted in my dictated progress note. 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
[2019-03-19 04:52] VITALS: BP 101/62
[2019-03-19] MEDS: CARBIDOPA/LEVODOPA 10/100MG TABLET PO SCH ×3 (07:29→20:54)
[2019-03-19] MEDS: MULTIVITAMIN with MINERAL TABLET. PO SCH (07:29)
[2019-03-19] MEDS: ASCORBIC ACID 500 MG TABLET PO SCH ×2 (07:29→20:53)
[2019-03-19] MEDS: DIVALPROEX 125 MG CAP.SPRINK PO SCH ×2 (07:29→20:53)
[2019-03-19] MEDS: LACTOBACILLUS RHAMNOSUS GG 1 CAPSULE. PO SCH ×2 (07:29→20:54)
[2019-03-19] MEDS: ACETAMINOPHEN 325 MG TABLET PO SCH ×2 (07:29→20:54)
[2019-03-19] MEDS: ASPIRIN 81 MG TAB.CHEW PO SCH (07:30)
[2019-03-19] MEDS: metFORMIN 500 MG TABLET PO SCH ×2 (07:30→17:04)
[2019-03-19] MEDS: NYSTATIN 100,000 UNIT/GM TOPICAL CREAM 15GM TUBE. TP SCH ×2 (07:30→20:56)
[2019-03-19] MEDS: CILOSTAZOL 50 MG TABLET. PO SCH ×2 (07:30→20:58)
[2019-03-19] MEDS: INSULIN LISPRO 300 UNITS/3 ML VIAL. SQ SCH ×3 (08:00→17:17)
[2019-03-19] MEDS: INSULIN GLARGINE SYRINGE. SQ SCH ×2 (09:39→20:55)
--- NOTE | 2019-03-19 11:26 | NUR ---
Pt has been calm, cooperative with meds and assessment. No behaviors noted.
--- NOTE | 2019-03-19 13:45 | NUR ---
SW received a call from pt dtr upset as she received a message from Jailene at [facility] that she is not able to accept pt because he has [employer] and they have not received payment from there since July. SW questioned when that was and reported that they could not do that. Pt dtr reports that she was told to change pt [facility] to [facility] and was not sure if she was able to do so. ELISABETH will contact the historical records administrator to see if this is correct information and get back to pt dtr. It is ELISABETH understanding that no changes in Medicaid can be done until either May or July. ELISABETH left a message with the historical records administrator at [facility] asking for a returned call on pt status.
--- NOTE | 2019-03-19 15:00 | NUR ---
ELISABETH spoke to Jailene and the inventory administrator at [facility] about pt dtr concerns. Both parties report that the only thing they need is for the HCBS status change. Once that happens, they are more than happy to have pt discharge to them. Jailene reports it was her fault for mentioning the [employer] situation; however, she was wanting to make sure she was able to consider changing his payor source once able. Jailene will be able to contact pt dtr to further explain things as needed; both parties agreed that pt definitely would discharge to them once the HCBS was finalized.
[2019-03-19 15:46] VITALS: BP 118/73
--- NOTE | 2019-03-19 15:50 | NUR ---
ELISABETH contacted pt dtr to follow up on the conversation had with [facility]. Pt dtr was relieved to know that they are able to continue to care for pt and reports that she will call the [facility] insurance person ALEKS and ask for an Emergency Expedition of the HCBS.
[2019-03-19] MEDS: MIRTAZAPINE 7.5 MG TABLET. PO SCH (20:53)
[2019-03-19] MEDS: risperiDONE 0.5 MG TABLET. PO SCH (20:53)
[2019-03-19] MEDS: METOPROLOL SUCC 24HR ER 25 MG TAB.ER.24H. PO SCH (20:54)
--- NOTE | 2019-03-19 21:00 | NUR ---
Patient in the day room on assumption of care. Pleasant demeanor. Calm, cooperative and compliant with meds and assessments. Dressings on bilateral heels got wet in the shower, so were changed. Patient cooperative with dressing change. No agitation, no delusions or hallucinations. Denies pain, denies SI/HI.
--- NOTE | 2019-03-19 21:12 | PDOC ---
Exam Note: Maxwell Note: Please also refer to the separate dictated note~for this date of service dictated separately.~Patient seen individually. Discussed the patient with Nursing staff reviewed the chart.~Reviewed interim history and current functioning. Reviewed vital signs,~Labs/ Radiology~and current medications noted below. Continue current treatment with the changes noted in the dictated addendum note Assessment: Vital Signs/I&O: Vital Signs Date Time Temp Pulse Resp B/P (MAP) Pulse Ox O2 Delivery O2 Flow Rate FiO2 03/19/19 20:56 110 118/73 03/19/19 15:46 98.5 18 97 03/18/19 05:52 Room Air I & O 03/18/19 03/18/19 03/19/19 14:59 22:59 06:59 Intake Total 1080 ml 960 ml Balance 1080 ml 960 ml Labs: Laboratory Tests Test 03/19/19 07:32 03/19/19 12:01 03/19/19 16:36 03/19/19 19:35 Glucose (Fingerstick) 105 mg/dL (70-99) H 169 mg/dL (70-99) H 169 mg/dL (70-99) H 193 mg/dL (70-99) H Current Medications: I have reviewed the current psychotropics carefully including drug interactions. Risk benefit ratio favors no change other than as noted in my dictated progress note. Diagnosis: Problems: (1) Bipolar affective, mixed, sev w/ psych (2) Anxiety disorder (3) Dementia, vascular, with depression (4) Dementia, vascular, with delusions (5) Impulse control disorder (6) Psychosis, atypical (7) Dementia in Alzheimer's disease with delusions (8) Major neurocognitive disorder (9) Mild cognitive impairment EMERSON RUTH MD Mar 19, 2019 21:12
--- NOTE | 2019-03-20 01:17 | PN ---
DATE: 03/18/2019 PSYCHIATRIC PROGRESS NOTE This late entry 03/18/2019 covers elements not covered in my initial note. SUBJECTIVE: I met with the patient evening of 03/18/2019. Overall, the patient has been fairly appropriate on the unit, slept 7-1/2 hours. REVIEW OF SYSTEMS: Ambulation impaired, in wheelchair. No CV, , pulmonary, eye system symptoms on review. MENTAL STATUS EXAM: Reasonably oriented. Speech is coherent, abstraction fair, computation impaired, language function intact. Mood and affect improved. LABORATORY DATA: Reviewed. IMPRESSION: Unchanged from initial note. PLAN: No change from initial note. MAN Bladimir RUTH MD DR: TAINA/siddhartha JOB#: [id number] / [id number]
[2019-03-20 05:39] VITALS: BP 110/65
[2019-03-20] MEDS: INSULIN LISPRO 300 UNITS/3 ML VIAL. SQ SCH ×3 (08:00→17:00)
[2019-03-20] MEDS: ASCORBIC ACID 500 MG TABLET PO SCH ×2 (10:09→19:29)
[2019-03-20] MEDS: LACTOBACILLUS RHAMNOSUS GG 1 CAPSULE. PO SCH ×2 (10:09→19:29)
[2019-03-20] MEDS: ACETAMINOPHEN 325 MG TABLET PO SCH ×2 (10:09→19:29)
[2019-03-20] MEDS: ASPIRIN 81 MG TAB.CHEW PO SCH (10:09)
[2019-03-20] MEDS: metFORMIN 500 MG TABLET PO SCH ×2 (10:09→17:23)
[2019-03-20] MEDS: CARBIDOPA/LEVODOPA 10/100MG TABLET PO SCH ×3 (10:09→19:29)
[2019-03-20] MEDS: MULTIVITAMIN with MINERAL TABLET. PO SCH (10:10)
[2019-03-20] MEDS: DIVALPROEX 125 MG CAP.SPRINK PO SCH ×2 (10:10→19:30)
[2019-03-20] MEDS: CILOSTAZOL 50 MG TABLET. PO SCH ×2 (10:12→19:30)
[2019-03-20] MEDS: NYSTATIN 100,000 UNIT/GM TOPICAL CREAM 15GM TUBE. TP SCH ×2 (10:12→19:31)
[2019-03-20] MEDS: INSULIN GLARGINE SYRINGE. SQ SCH ×2 (10:14→20:44)
--- NOTE | 2019-03-20 10:43 | NUR ---
WEEKLY ACTIVITY THERAPY NOTE Date of Admission: 02/02/2019 Date of AT Assessment: 02/04/2019 Goal aimed: to sustain engagement Initial goal:Pt. will participate in all groups he is invited to. Weekly progress towards goal: 12 groups as of Wed AM Group participation level: moderate to full Weekly highlights: doubled groups this week as compared to last week Behaviors observed: increased group participation this week, more engaged, calm, pleasant Plan: no change to goal Beneficial adaptations: reminders and invitations, outdoor/garden, trivia
--- NOTE | 2019-03-20 11:16 | NUR ---
Patient asleep in chair in day room after breakfast and through exercise group. Held morning insulin r/t blood sugar 76. Remainder of morning meds given now as patient has woke up. He has been calm, compliant and cooperative at this time. Patient can self apply nystatin cream to groin area.
--- NOTE | 2019-03-20 13:31 | NUR ---
Patient blood sugar 147 at lunch. Held insulin r/t preset parameters on the [facility]. Patient has been pleasant and calm this day.
--- NOTE | 2019-03-20 15:30 | NUR ---
Wound care patient seen for Wound care follow up for bilateral heel DFU's. see wound assessment. the wounds were cleaned and redressed on the right heel with Hydrofera blue with Xeroform gauze with an abd pad, kerlix and tape, recommend to change every 2-3 days, the left heel has a moderate amount of drainage, recommendations of Aquacel ag with an abd pad kerlix and tape, change daily and prn iff saturated. Bilateral Podus boots reapplied at this time. patient also has Heelmedix boots for while in bed. NO other wounds noted at this time. patient has a red, indurated area to the right thigh, no drainage noted from this area, notified [place] about the POC and WC will continue to follow for possible changes.
[2019-03-20 15:53] VITALS: BP 133/82
[2019-03-20] MEDS: MIRTAZAPINE 7.5 MG TABLET. PO SCH (19:29)
[2019-03-20] MEDS: METOPROLOL SUCC 24HR ER 25 MG TAB.ER.24H. PO SCH (19:29)
[2019-03-20] MEDS: risperiDONE 0.5 MG TABLET. PO SCH (19:29)
--- NOTE | 2019-03-20 21:00 | NUR ---
Patient in the day room on assumption of care. He is pleasant, interactive and appropriate with staff and peers. Calm, cooperative and compliant with medications and assessments. Denies pain or discomfort. No agitation, no delusions noted.
--- NOTE | 2019-03-20 22:04 | PDOC ---
Exam Note: Maxwell Note: Please also refer to the separate dictated note~for this date of service dictated separately.~Patient seen individually. Discussed the patient with Nursing staff reviewed the chart.~Reviewed interim history and current functioning. Reviewed vital signs,~Labs/ Radiology~and current medications noted below. Continue current treatment with the changes noted in the dictated addendum note Assessment: Vital Signs/I&O: Vital Signs Date Time Temp Pulse Resp B/P (MAP) Pulse Ox O2 Delivery O2 Flow Rate FiO2 03/20/19 19:31 105 133/82 03/20/19 15:53 97.8 19 96 Room Air I & O 03/19/19 03/19/19 03/20/19 15:00 23:00 07:00 Intake Total 720 ml 240 ml 240 ml Balance 720 ml 240 ml 240 ml Labs: Laboratory Tests Test 03/20/19 07:34 03/20/19 11:37 03/20/19 17:04 03/20/19 20:02 Glucose (Fingerstick) 76 mg/dL (70-99) 147 mg/dL (70-99) H 147 mg/dL (70-99) H 173 mg/dL (70-99) H Current Medications: I have reviewed the current psychotropics carefully including drug interactions. Risk benefit ratio favors no change other than as noted in my dictated progress note. 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
[2019-03-21 06:00] VITALS: BP 127/68
[2019-03-21] MEDS: INSULIN LISPRO 300 UNITS/3 ML VIAL. SQ SCH ×3 (07:29→17:36)
[2019-03-21] MEDS: INSULIN GLARGINE SYRINGE. SQ SCH ×2 (09:00→20:25)
[2019-03-21] MEDS: ASCORBIC ACID 500 MG TABLET PO SCH ×2 (09:11→20:13)
[2019-03-21] MEDS: LACTOBACILLUS RHAMNOSUS GG 1 CAPSULE. PO SCH ×2 (09:11→20:12)
[2019-03-21] MEDS: metFORMIN 500 MG TABLET PO SCH ×3 (09:11→20:14)
[2019-03-21] MEDS: CARBIDOPA/LEVODOPA 10/100MG TABLET PO SCH ×3 (09:11→20:12)
[2019-03-21] MEDS: DIVALPROEX 125 MG CAP.SPRINK PO SCH ×2 (09:12→20:14)
[2019-03-21] MEDS: MULTIVITAMIN with MINERAL TABLET. PO SCH (09:12)
[2019-03-21] MEDS: ASPIRIN 81 MG TAB.CHEW PO SCH (09:12)
[2019-03-21] MEDS: ACETAMINOPHEN 325 MG TABLET PO SCH ×2 (09:12→20:13)
[2019-03-21] MEDS: CILOSTAZOL 50 MG TABLET. PO SCH ×2 (09:15→20:14)
[2019-03-21] MEDS: NYSTATIN 100,000 UNIT/GM TOPICAL CREAM 15GM TUBE. TP SCH ×2 (09:15→20:15)
--- NOTE | 2019-03-21 11:45 | NUR ---
ELISABETH met with pt to discuss an update on his placement. ELISABETH explained that pt family finally got ahold of [facility] and will have an Emergency Case set for the HCBS status changed. Pt should be able to discharge beginning of the week as it should take no more than 72 hours. Pt is very happy with that news and thanked ELISABETH. ELISABETH to follow up with pt dtr on Sunday.
[2019-03-21 16:58] VITALS: BP 102/63
[2019-03-21] MEDS: CEPHALEXIN 250 MG CAPSULE PO SCH ×2 (17:36→20:16)
--- NOTE | 2019-03-21 17:46 | RAD ---
Ultrasound of the right thigh 03/21/2019 CLINICAL HISTORY: Right thigh redness with palpable lump. TECHNIQUE: A real-time ultrasound examination of the soft tissues of the right mid thigh and the area of the patient's palpable abnormality was performed. Multiple images were obtained. FINDINGS: Edema is seen within the subcutaneous soft tissues of the right midthigh in the area of the patient's palpable abnormality. An irregular hypoechoic area is seen 4 mm deep to the skin surface which measures 7 mm in greatest diameter. This could represent a small abscess. No solid mass is seen. IMPRESSION: 7 mm irregular hypoechoic area is seen within the subcutaneous fat near the skin surface which could represent a small abscess. Electronically signed by: Mike Holley MD (03/21/2019 5:43 PM) [facility]
--- NOTE | 2019-03-21 18:04 | NUR ---
Pt has been calm and compliant all day. Very pleasant to talk with. Dozes off to sleep in wheelchair. Compliant with wound dressing changes, right thigh ultrasound and wound culture. Dr Schwartz did see patients wounds, ordered US for possible abscess on right thigh. Site on lower left leg oozing, site cultured and sent to lab. WCTM.
[2019-03-21] MEDS: METOPROLOL SUCC 24HR ER 25 MG TAB.ER.24H. PO SCH (20:13)
[2019-03-21] MEDS: risperiDONE 0.5 MG TABLET. PO SCH (20:14)
[2019-03-21] MEDS: MIRTAZAPINE 7.5 MG TABLET. PO SCH (20:14)
--- NOTE | 2019-03-21 20:42 | PN ---
DATE: 03/19/2019 PSYCHIATRIC PROGRESS NOTE This late entry 03/19/2019 covers elements not covered in my initial note. SUBJECTIVE: I met with the patient in the evening of 03/19/2019. The patient has been fairly appropriate on the unit, slept well. REVIEW OF SYSTEMS: Ambulation impaired, in wheelchair. No CV, , pulmonary, eye, ENT system symptoms on review. No inappropriate sexual comments noted. MENTAL STATUS EXAM: Reasonably oriented. Speech is coherent, has some latency. Abstraction fair, computation impaired, language function intact, attention span short. Mood and affect is improved. He was very verbal, open, forthcoming, appreciative of his care here. Repeatedly shaking my hand, but quite appropriate. LABORATORY DATA: Reviewed. IMPRESSION: Unchanged from initial note. PLAN: No change from initial note. MAN Bladimir RUTH MD DR: TAINA/siddhartha JOB#: [id number] / [id number]
--- NOTE | 2019-03-21 21:00 | NUR ---
Patient is in the day room on assumption of care. He is pleasant and interactive with peers and staff. He is calm, cooperative and compliant with medications and assessments. Denies pain or discomfort. Denies SI/HI, no delusions or hallucinations noted.
--- NOTE | 2019-03-21 21:50 | PDOC ---
Exam Note: Maxwell Note: Please also refer to the separate dictated note~for this date of service dictated separately.~Patient seen individually. Discussed the patient with Nursing staff reviewed the chart.~Reviewed interim history and current functioning. Reviewed vital signs,~Labs/ Radiology~and current medications noted below. Continue current treatment with the changes noted in the dictated addendum note Assessment: Vital Signs/I&O: Vital Signs Date Time Temp Pulse Resp B/P (MAP) Pulse Ox O2 Delivery O2 Flow Rate FiO2 03/21/19 20:16 108 102/63 03/21/19 16:58 98.8 20 94 03/20/19 15:53 Room Air I & O 03/20/19 03/20/19 03/21/19 15:00 23:00 07:00 Intake Total 1200 ml 480 ml 240 ml Balance 1200 ml 480 ml 240 ml Labs: Laboratory Tests Test 03/21/19 07:28 03/21/19 17:22 03/21/19 19:19 Glucose (Fingerstick) 58 mg/dL (70-99) L 168 mg/dL (70-99) H 200 mg/dL (70-99) H Current Medications: Meds: Current Medications Medications (Trade) Dose Ordered Sig/Sandhya Route PRN Reason Start Time Stop Time Status Last Admin Dose Admin Cephalexin HCl (Keflex) 500 mg QID PO 03/21/19 17:00 03/21/19 20:16 I have reviewed the current psychotropics carefully including drug interactions. Risk benefit ratio favors no change other than as noted in my dictated progress note. 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
--- NOTE | 2019-03-22 00:03 | PN ---
DATE: 03/20/2019 PSYCHIATRIC PROGRESS NOTE This late entry 03/20/2019 covers elements not covered in my initial note. SUBJECTIVE: I met with the patient evening of 03/20/2019 and staffed at a treatment team meeting with the entire team in the morning. I had a lengthy discussion with social service staff on about the patient's placement, which may occur at [facility] on 03/24/2019. He is sleeping an average 7 hours, appetite 75%. REVIEW OF SYSTEMS: Ambulation impaired, in wheelchair. No CV, , pulmonary, eye, ENT system symptoms on review. MENTAL STATUS EXAMINATION: Oriented reasonably. Speech is coherent, abstraction fair, computation impaired, language function intact, attention span short. Mood and affect is improved. LABORATORY DATA: Reviewed. IMPRESSION: Unchanged from initial note. PLAN: No change from initial note. MAN Bladimir RUTH MD DR: TAINA/siddhartha JOB#: [id number] / [id number]
[2019-03-22 06:00] VITALS: BP 145/82
[2019-03-22] MEDS: INSULIN LISPRO 300 UNITS/3 ML VIAL. SQ SCH ×3 (08:00→17:31)
[2019-03-22] MEDS: metFORMIN 500 MG TABLET PO SCH (08:34)
[2019-03-22] MEDS: DIVALPROEX 125 MG CAP.SPRINK PO SCH ×2 (08:34→20:15)
[2019-03-22] MEDS: ASCORBIC ACID 500 MG TABLET PO SCH ×2 (08:34→20:15)
[2019-03-22] MEDS: ACETAMINOPHEN 325 MG TABLET PO SCH ×2 (08:34→20:16)
[2019-03-22] MEDS: ASPIRIN 81 MG TAB.CHEW PO SCH (08:34)
[2019-03-22] MEDS: MULTIVITAMIN with MINERAL TABLET. PO SCH (08:34)
[2019-03-22] MEDS: LACTOBACILLUS RHAMNOSUS GG 1 CAPSULE. PO SCH ×2 (08:35→20:16)
[2019-03-22] MEDS: CARBIDOPA/LEVODOPA 10/100MG TABLET PO SCH ×3 (08:35→20:15)
[2019-03-22] MEDS: CEPHALEXIN 250 MG CAPSULE PO SCH ×4 (08:35→20:15)
[2019-03-22] MEDS: CILOSTAZOL 50 MG TABLET. PO SCH ×2 (08:38→20:17)
[2019-03-22] MEDS: INSULIN GLARGINE SYRINGE. SQ SCH ×2 (09:00→20:18)
[2019-03-22] MEDS: NYSTATIN 100,000 UNIT/GM TOPICAL CREAM 15GM TUBE. TP SCH ×2 (09:00→20:17)
[2019-03-22] MEDS: NYSTATIN TOPICAL POWDER 15GM BOTTLE. TP PRN ×2 (10:59→12:19)
--- NOTE | 2019-03-22 12:32 | NUR ---
Interactive with peers and staff in day room. Denies pain currently. Eating in dining room, agreed to notify me before he napped so I could change heel dressing. A & O.
[2019-03-22 15:30] VITALS: BP 124/72
--- NOTE | 2019-03-22 20:00 | PDOC ---
Exam Note: Maxwell Note: Please also refer to the separate dictated note~for this date of service dictated separately.~Patient seen individually. Discussed the patient with Nursing staff reviewed the chart.~Reviewed interim history and current functioning. Reviewed vital signs,~Labs/ Radiology~and current medications noted below. Continue current treatment with the changes noted in the dictated addendum note Assessment: Vital Signs/I&O: Vital Signs Date Time Temp Pulse Resp B/P (MAP) Pulse Ox O2 Delivery O2 Flow Rate FiO2 03/22/19 15:30 97.8 116 22 124/72 (89) 97 03/20/19 15:53 Room Air I & O 03/21/19 03/21/19 03/22/19 15:00 23:00 07:00 Intake Total 1200 ml 480 ml 550 ml Balance 1200 ml 480 ml 550 ml Labs: Laboratory Tests Test 03/22/19 07:21 03/22/19 11:36 03/22/19 17:18 03/22/19 19:13 Glucose (Fingerstick) 144 mg/dL (70-99) H 225 mg/dL (70-99) H 226 mg/dL (70-99) H 199 mg/dL (70-99) H Current Medications: I have reviewed the current psychotropics carefully including drug interactions. Risk benefit ratio favors no change other than as noted in my dictated progress note. 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
[2019-03-22] MEDS: MIRTAZAPINE 7.5 MG TABLET. PO SCH (20:15)
[2019-03-22] MEDS: risperiDONE 0.5 MG TABLET. PO SCH (20:16)
[2019-03-22] MEDS: METOPROLOL SUCC 24HR ER 25 MG TAB.ER.24H. PO SCH (20:17)
--- NOTE | 2019-03-22 23:04 | NUR ---
Pt located in the dayroom this evening. Pt calm, pleasant and interactive. Compliant with shower and medications.
[2019-03-23 06:07] VITALS: BP 135/80
[2019-03-23] MEDS: INSULIN LISPRO 300 UNITS/3 ML VIAL. SQ SCH ×3 (08:00→17:39)
[2019-03-23] MEDS: ACETAMINOPHEN 325 MG TABLET PO SCH ×2 (08:28→20:22)
[2019-03-23] MEDS: metFORMIN 500 MG TABLET PO SCH ×2 (08:28→17:04)
[2019-03-23] MEDS: LACTOBACILLUS RHAMNOSUS GG 1 CAPSULE. PO SCH ×2 (08:28→20:22)
[2019-03-23] MEDS: CARBIDOPA/LEVODOPA 10/100MG TABLET PO SCH ×3 (08:28→20:19)
[2019-03-23] MEDS: ASCORBIC ACID 500 MG TABLET PO SCH ×2 (08:28→20:22)
[2019-03-23] MEDS: DIVALPROEX 125 MG CAP.SPRINK PO SCH ×2 (08:29→20:22)
[2019-03-23] MEDS: ASPIRIN 81 MG TAB.CHEW PO SCH (08:29)
[2019-03-23] MEDS: CEPHALEXIN 250 MG CAPSULE PO SCH ×4 (08:29→20:20)
[2019-03-23] MEDS: MULTIVITAMIN with MINERAL TABLET. PO SCH (08:29)
[2019-03-23] MEDS: NYSTATIN 100,000 UNIT/GM TOPICAL CREAM 15GM TUBE. TP SCH ×2 (09:00→20:23)
[2019-03-23] MEDS: INSULIN GLARGINE SYRINGE. SQ SCH ×2 (09:00→20:24)
[2019-03-23] MEDS: CILOSTAZOL 50 MG TABLET. PO SCH ×2 (09:44→20:20)
[2019-03-23] MEDS: NYSTATIN TOPICAL POWDER 15GM BOTTLE. TP PRN ×2 (09:45→09:46)
--- NOTE | 2019-03-23 13:51 | NUR ---
Cooperative and compliant with all cares and meds. A & O, slight forgetfulness. Will assess and redress wounds later today.
[2019-03-23 16:25] VITALS: BP 143/84
[2019-03-23] MEDS: MIRTAZAPINE 7.5 MG TABLET. PO SCH (20:19)
[2019-03-23] MEDS: risperiDONE 0.5 MG TABLET. PO SCH (20:19)
[2019-03-23] MEDS: METOPROLOL SUCC 24HR ER 25 MG TAB.ER.24H. PO SCH (20:20)
--- NOTE | 2019-03-23 21:45 | PDOC ---
Exam Note: Maxwell Note: Please also refer to the separate dictated note~for this date of service dictated separately.~Patient seen individually. Discussed the patient with Nursing staff reviewed the chart.~Reviewed interim history and current functioning. Reviewed vital signs,~Labs/ Radiology~and current medications noted below. Continue current treatment with the changes noted in the dictated addendum note Assessment: Vital Signs/I&O: Vital Signs Date Time Temp Pulse Resp B/P (MAP) Pulse Ox O2 Delivery O2 Flow Rate FiO2 03/23/19 20:24 109 143/84 03/23/19 16:25 98.0 20 97 03/20/19 15:53 Room Air I & O 03/22/19 03/22/19 03/23/19 15:00 23:00 07:00 Intake Total 960 ml 720 ml Balance 960 ml 720 ml Labs: Laboratory Tests Test 03/23/19 07:41 03/23/19 12:31 03/23/19 16:42 03/23/19 19:05 Glucose (Fingerstick) 144 mg/dL (70-99) H 244 mg/dL (70-99) H 175 mg/dL (70-99) H 230 mg/dL (70-99) H Current Medications: I have reviewed the current psychotropics carefully including drug interactions. Risk benefit ratio favors no change other than as noted in my dictated progress note. Diagnosis: Problems: (1) Anxiety disorder (2) Bipolar affective, mixed, sev w/ psych (3) Dementia, vascular, with depression (4) Dementia, vascular, with delusions (5) Impulse control disorder (6) Psychosis, atypical (7) Dementia in Alzheimer's disease with delusions (8) Personality disorder (9) Major neurocognitive disorder EMERSON RUTH MD Mar 23, 2019 21:45
--- NOTE | 2019-03-23 22:06 | PN ---
DATE: 03/22/2019 PSYCHIATRIC PROGRESS NOTE This late entry 03/22/2019 covers elements not covered in my initial note. SUBJECTIVE: I met with the patient evening of 03/22/2019. The patient slept 6-1/4 hours previous night. He has been appropriate, cooperative, and interactive. No inappropriate sexual behaviors or comments noted. REVIEW OF SYSTEMS: Ambulation impaired, in wheelchair. No CV, , pulmonary, eye system symptoms on review. MENTAL STATUS EXAM: Reasonably oriented. Speech is coherent, has some latency. Abstraction fair, computation impaired, language function intact. Mood and affect is improved. LABORATORY DATA: Reviewed. IMPRESSION: Unchanged from initial note. PLAN: No change from initial note. MAN Bladimir RUTH MD DR: TAINA/siddhartha JOB#: [id number] / [id number]
--- NOTE | 2019-03-24 00:35 | NUR ---
Pt located in dayroom this evening. Pt pleasant, cooperative and interactive. Compliant with medications. No behaviors noted.
--- NOTE | 2019-03-24 03:25 | PN ---
DATE: 03/21/2019 PSYCHIATRIC PROGRESS NOTE This late entry on 03/21/2019 covers elements not covered in my initial note. SUBJECTIVE: I met with the patient evening of 03/21/2019. The patient slept 6-1/2 hours previous night. He has been appropriate on the unit, cooperative, does have an abscess, right thigh, wound care is following him. Remains on antibiotics. REVIEW OF SYSTEMS: Ambulation impaired, in wheelchair. No CV, , pulmonary, eye, ENT system symptoms on review. MENTAL STATUS EXAM: Reasonably oriented. Speech is coherent, abstraction fair, computation impaired, language function intact, attention span short. Mood and affect is improved. LABORATORY DATA: Reviewed. IMPRESSION: Unchanged from initial note. PLAN: No change from initial note. MAN Bladimir RUTH MD DR: TAINA/siddhartha JOB#: [id number] / [id number]
[2019-03-24 06:16] VITALS: BP 106/63
[2019-03-24] MEDS: INSULIN LISPRO 300 UNITS/3 ML VIAL. SQ SCH ×3 (08:00→17:00)
[2019-03-24] MEDS: CILOSTAZOL 50 MG TABLET. PO SCH ×2 (08:37→19:43)
[2019-03-24] MEDS: ASCORBIC ACID 500 MG TABLET PO SCH ×2 (08:37→19:41)
[2019-03-24] MEDS: CARBIDOPA/LEVODOPA 10/100MG TABLET PO SCH ×3 (08:37→19:41)
[2019-03-24] MEDS: metFORMIN 500 MG TABLET PO SCH ×2 (08:37→18:42)
[2019-03-24] MEDS: MULTIVITAMIN with MINERAL TABLET. PO SCH (08:37)
[2019-03-24] MEDS: LACTOBACILLUS RHAMNOSUS GG 1 CAPSULE. PO SCH ×2 (08:37→19:41)
[2019-03-24] MEDS: CEPHALEXIN 250 MG CAPSULE PO SCH ×4 (08:37→19:42)
[2019-03-24] MEDS: DIVALPROEX 125 MG CAP.SPRINK PO SCH ×2 (08:37→19:42)
[2019-03-24] MEDS: ACETAMINOPHEN 325 MG TABLET PO SCH ×2 (08:38→19:41)
[2019-03-24] MEDS: ASPIRIN 81 MG TAB.CHEW PO SCH (08:38)
[2019-03-24] MEDS: NYSTATIN 100,000 UNIT/GM TOPICAL CREAM 15GM TUBE. TP SCH ×2 (08:39→19:43)
[2019-03-24] MEDS: INSULIN GLARGINE SYRINGE. SQ SCH ×2 (10:00→21:17)
[2019-03-24 16:26] VITALS: BP 122/69
--- NOTE | 2019-03-24 16:41 | NUR ---
SW followed up with pt dtr to discuss how the meeting with insurance went. They have approved the status for pt to be HCBS; however, even with it expedited, it could take a couple more weeks. Pt was present during the meeting and pt dtr reports not being happy with the wait, but reports that he is cared for here and will do whatever it takes as long as he knows he's getting to get out. SW did note with pt dtr that he has 8 hospital days before it would go into his 30 co-pay days.
[2019-03-24] MEDS: risperiDONE 0.5 MG TABLET. PO SCH (19:41)
[2019-03-24] MEDS: MIRTAZAPINE 7.5 MG TABLET. PO SCH (19:42)
[2019-03-24] MEDS: METOPROLOL SUCC 24HR ER 25 MG TAB.ER.24H. PO SCH (19:42)
--- NOTE | 2019-03-24 21:42 | PDOC ---
Exam Note: Maxwell Note: Please also refer to the separate dictated note~for this date of service dictated separately.~Patient seen individually. Discussed the patient with Nursing staff reviewed the chart.~Reviewed interim history and current functioning. Reviewed vital signs,~Labs/ Radiology~and current medications noted below. Continue current treatment with the changes noted in the dictated addendum note Assessment: Vital Signs/I&O: Vital Signs Date Time Temp Pulse Resp B/P (MAP) Pulse Ox O2 Delivery O2 Flow Rate FiO2 03/24/19 19:43 110 122/69 03/24/19 16:26 98.7 18 97 03/20/19 15:53 Room Air I & O 03/23/19 03/23/19 03/24/19 15:00 23:00 07:00 Intake Total 720 ml 240 ml 240 ml Balance 720 ml 240 ml 240 ml Labs: Laboratory Tests Test 03/24/19 07:32 03/24/19 11:38 03/24/19 17:18 03/24/19 19:31 Glucose (Fingerstick) 133 mg/dL (70-99) H 167 mg/dL (70-99) H 125 mg/dL (70-99) H 171 mg/dL (70-99) H Current Medications: I have reviewed the current psychotropics carefully including drug interactions. Risk benefit ratio favors no change other than as noted in my dictated progress note. Diagnosis: Problems: (1) Anxiety disorder (2) Bipolar affective, mixed, sev w/ psych (3) Dementia, vascular, with depression (4) Dementia, vascular, with delusions (5) Impulse control disorder (6) Psychosis, atypical (7) Dementia in Alzheimer's disease with delusions (8) Major neurocognitive disorder (9) Mild cognitive impairment EMERSON RUTH MD Mar 24, 2019 21:42
--- NOTE | 2019-03-24 22:51 | NUR ---
Pt located in dayroom this evening. Compliant with shower and medications. Pleasant. No behaviors noted.
--- NOTE | 2019-03-25 04:50 | PN ---
DATE: 03/23/2019 PSYCHIATRIC PROGRESS NOTE This late entry 03/23/2019 covers elements not covered in my initial note. SUBJECTIVE: I met with the patient evening of 03/23/2019. The patient slept 7-1/2 hours previous night. He has been fairly appropriate, cooperative, not sexually inappropriate or grandiose. REVIEW OF SYSTEMS: Ambulation impaired, in wheelchair. No CV, , pulmonary, eye, ENT system symptoms on review. MENTAL STATUS EXAM: Reasonably oriented. Speech is coherent, abstraction fair, computation impaired, language function intact. Mood and affect is improved. LABORATORY DATA: Reviewed. IMPRESSION: Unchanged from initial note. PLAN: No change from initial note. EMERSON RUTH MD DR: TAINA/siddhartha JOB#: [id number] / [id number]
[2019-03-25 06:08] VITALS: BP 122/74
--- NOTE | 2019-03-25 07:15 | NUR ---
Wound care patient seen for Wound care follow up for bilateral heel DFU's. see wound assessment. the wounds were cleaned and redressed on the right heel with Xeroform gauze with foam dressing and tape, recommend to change every 2-3 days, the left heel has a moderate/large amount of drainage, recommendations of Iodoflex with Aquacel ag with an abd pad Kerlix and tape, change every other day. Bilateral Podus boots reapplied at this time. patient also has Heelmedix boots for while in bed. NO other wounds noted at this time. patient has a red, indurated area to the right thigh, applied Betadine moistened gauze with a foam dressing. spoke with staff regarding showers. wound care to reassess wounds on 03/27/2019
[2019-03-25 07:21] LABS: BASO % 0 % (0-3); EOS # 0.5 x10^3/uL (0.0-0.7); EOS % 8 % (0-3); HEMATOCRIT 33.7 % (39.0-53.0); HEMOGLOBIN 11.3 g/dL (13.0-17.5); LYMPH # 1.5 x10^3/uL (1.0-4.8); LYMPH % 24 % (24-48); MEAN CORPUSCULAR HEMOGLOBIN 31 pg (25-35); MEAN CORPUSCULAR HGB CONC 33 g/dL (31-37); MEAN CORPUSCULAR VOLUME 93 fL (79-100); MONO # 0.7 x10^3/uL (0.0-1.1); MONO % 11 % (0-9); NEUT # 3.7 x10^3uL (1.8-7.7); NEUT % 57 % (31-73); PLATELET COUNT 204 x10^3/uL (140-400); RED BLOOD COUNT 3.63 x10^6/uL (4.30-5.70); RED CELL DISTRIBUTION WIDTH 13.8 % (11.5-14.5); WHITE BLOOD COUNT 6.5 x10^3/uL (4.0-11.0)
[2019-03-25 07:44] LABS: ALBUMIN 2.9 g/dL (3.4-5.0); ALBUMIN/GLOBULIN RATIO 0.8 (1.0-1.7); CALCIUM 8.6 mg/dL (8.5-10.1); CREATININE 0.9 mg/dL (0.7-1.3); GFR 82.3; POTASSIUM 4.1 mmol/L (3.5-5.1); TOTAL BILIRUBIN 0.2 mg/dL (0.2-1.0); TOTAL PROTEIN 6.6 g/dL (6.4-8.2)
[2019-03-25] MEDS: INSULIN LISPRO 300 UNITS/3 ML VIAL. SQ SCH ×3 (08:00→16:59)
[2019-03-25] MEDS: CARBIDOPA/LEVODOPA 10/100MG TABLET PO SCH ×3 (08:04→20:33)
[2019-03-25] MEDS: metFORMIN 500 MG TABLET PO SCH ×2 (08:04→16:59)
[2019-03-25] MEDS: MULTIVITAMIN with MINERAL TABLET. PO SCH (08:04)
[2019-03-25] MEDS: ACETAMINOPHEN 325 MG TABLET PO SCH ×2 (08:05→20:34)
[2019-03-25] MEDS: DIVALPROEX 125 MG CAP.SPRINK PO SCH ×2 (08:05→20:32)
[2019-03-25] MEDS: ASCORBIC ACID 500 MG TABLET PO SCH ×2 (08:05→20:34)
[2019-03-25] MEDS: LACTOBACILLUS RHAMNOSUS GG 1 CAPSULE. PO SCH ×2 (08:05→20:43)
[2019-03-25] MEDS: ASPIRIN 81 MG TAB.CHEW PO SCH (08:05)
[2019-03-25] MEDS: CEPHALEXIN 250 MG CAPSULE PO SCH ×4 (08:05→20:32)
[2019-03-25] MEDS: CILOSTAZOL 50 MG TABLET. PO SCH ×2 (08:06→20:33)
[2019-03-25] MEDS: INSULIN GLARGINE SYRINGE. SQ SCH ×2 (08:06→20:39)
[2019-03-25] MEDS: NYSTATIN 100,000 UNIT/GM TOPICAL CREAM 15GM TUBE. TP SCH ×2 (08:46→20:34)
--- NOTE | 2019-03-25 14:54 | NUR ---
NURSING NOTE PT WAS A&O X 4 TODAY, COMPLIANT WITH MEDICATIONS. WOUND CARE CHANGED BANDAGES TODAY AND STATES THEY WILL CHANGE THEM SUNDAY AND TO NOT SHOWER PT. SPONGE BATH ONLY. PT HAS HARD BOOTS ON HIS FEET TO PROTECT HIS HEELS. PT IS CALM AND COOPERATIVE. PARTICIPATES IN GROUP. NAPPING THIS AFTERNOON IN ROOM. WILL CONTINUE TO MONITOR. [place]CH[place].
[2019-03-25 15:56] VITALS: BP 121/62
[2019-03-25] MEDS: risperiDONE 0.5 MG TABLET. PO SCH (20:33)
[2019-03-25] MEDS: MIRTAZAPINE 7.5 MG TABLET. PO SCH (20:33)
[2019-03-25] MEDS: METOPROLOL SUCC 24HR ER 25 MG TAB.ER.24H. PO SCH (20:34)
--- NOTE | 2019-03-25 22:03 | PDOC ---
Exam Note: Maxwell Note: Please also refer to the separate dictated note~for this date of service dictated separately.~Patient seen individually. Discussed the patient with Nursing staff reviewed the chart.~Reviewed interim history and current functioning. Reviewed vital signs,~Labs/ Radiology~and current medications noted below. Continue current treatment with the changes noted in the dictated addendum note Assessment: Vital Signs/I&O: Vital Signs Date Time Temp Pulse Resp B/P (MAP) Pulse Ox O2 Delivery O2 Flow Rate FiO2 03/25/19 20:41 110 121/62 03/25/19 15:56 98.2 20 96 Room Air I & O 03/24/19 03/24/19 03/25/19 15:00 23:00 07:00 Intake Total 600 ml 240 ml 240 ml Output Total 800 ml Balance 600 ml 240 ml -560 ml Labs: Laboratory Tests Test 03/25/19 06:49 03/25/19 07:34 03/25/19 11:38 03/25/19 16:37 White Blood Count 6.5 x10^3/uL (4.0-11.0) Red Blood Count 3.63 x10^6/uL (4.30-5.70) L Hemoglobin 11.3 g/dL (13.0-17.5) L Hematocrit 33.7 % (39.0-53.0) L Mean Corpuscular Volume 93 fL (79-100) Mean Corpuscular Hemoglobin 31 pg (25-35) Mean Corpuscular Hemoglobin Concent 33 g/dL (31-37) Red Cell Distribution Width 13.8 % (11.5-14.5) Platelet Count 204 x10^3/uL (140-400) Neutrophils (%) (Auto) 57 % (31-73) Lymphocytes (%) (Auto) 24 % (24-48) Monocytes (%) (Auto) 11 % (0-9) H Eosinophils (%) (Auto) 8 % (0-3) H Basophils (%) (Auto) 0 % (0-3) Neutrophils # (Auto) 3.7 x10^3uL (1.8-7.7) Lymphocytes # (Auto) 1.5 x10^3/uL (1.0-4.8) Monocytes # (Auto) 0.7 x10^3/uL (0.0-1.1) Eosinophils # (Auto) 0.5 x10^3/uL (0.0-0.7) Basophils # (Auto) 0.0 x10^3/uL (0.0-0.2) Sodium Level 139 mmol/L (136-145) Potassium Level 4.1 mmol/L (3.5-5.1) Chloride Level 102 mmol/L (98-107) Carbon Dioxide Level 27 mmol/L (21-32) Anion Gap 10 (6-14) Blood Urea Nitrogen 19 mg/dL (8-26) Creatinine 0.9 mg/dL (0.7-1.3) Estimated GFR (Cockcroft-Gault) 82.3 BUN/Creatinine Ratio 21 (6-20) H Glucose Level 84 mg/dL (70-99) Calcium Level 8.6 mg/dL (8.5-10.1) Total Bilirubin 0.2 mg/dL (0.2-1.0) Aspartate Amino Transferase (AST) 13 U/L (15-37) L Alanine Aminotransferase (ALT) 9 U/L (16-63) L Alkaline Phosphatase 56 U/L (46-116) Total Protein 6.6 g/dL (6.4-8.2) Albumin 2.9 g/dL (3.4-5.0) L Albumin/Globulin Ratio 0.8 (1.0-1.7) L Glucose (Fingerstick) 76 mg/dL (70-99) 132 mg/dL (70-99) H 151 mg/dL (70-99) H Test 03/25/19 19:12 Glucose (Fingerstick) 197 mg/dL (70-99) H Current Medications: I have reviewed the current psychotropics carefully including drug interactions. Risk benefit ratio favors no change other than as noted in my dictated progress note. Diagnosis: Problems: (1) Anxiety disorder (2) Bipolar affective, mixed, sev w/ psych (3) Dementia, vascular, with depression (4) Dementia, vascular, with delusions (5) Impulse control disorder (6) Psychosis, atypical (7) Dementia in Alzheimer's disease with delusions (8) Major neurocognitive disorder (9) Mild cognitive impairment EMERSON RUTH MD Mar 25, 2019 22:02
--- NOTE | 2019-03-26 00:24 | PN ---
DATE: 03/24/2019 PSYCHIATRIC PROGRESS NOTE This late entry 03/24/2019 covers elements not covered in my initial note. SUBJECTIVE: I met with the patient evening of 03/24/2019. The patient slept 6 hours previous night. He has been fairly cooperative on the unit, appropriate, not sexually inappropriate, less grandiose. REVIEW OF SYSTEMS: Ambulation impaired, in wheelchair. No CV, , pulmonary, eye, ENT system symptoms on review. MENTAL STATUS EXAM: Reasonably oriented. Speech is coherent, has some latency. Abstraction fair, computation impaired, language function intact. Mood and affect is improved. LABORATORY DATA: Reviewed. IMPRESSION: Unchanged from initial note. PLAN: No change from initial note. EMERSON RUTH MD DR: TAINA/siddhartha JOB#: [id number] / [id number]
--- NOTE | 2019-03-26 02:49 | NUR ---
Nsg Note: Patient was in room at time of medication administration getting ready for bed. Patient was compliant with medications and pleasant. No hallucinations, delusions, SI or other notable behaviors at this time
[2019-03-26 05:40] VITALS: BP 100/62
[2019-03-26] MEDS: INSULIN LISPRO 300 UNITS/3 ML VIAL. SQ SCH ×3 (08:50→18:19)
[2019-03-26] MEDS: CILOSTAZOL 50 MG TABLET. PO SCH ×2 (08:53→19:48)
[2019-03-26] MEDS: metFORMIN 500 MG TABLET PO SCH ×2 (08:54→18:17)
[2019-03-26] MEDS: ASCORBIC ACID 500 MG TABLET PO SCH ×2 (08:54→19:46)
[2019-03-26] MEDS: ASPIRIN 81 MG TAB.CHEW PO SCH (08:54)
[2019-03-26] MEDS: CEPHALEXIN 250 MG CAPSULE PO SCH ×4 (08:54→19:47)
[2019-03-26] MEDS: ACETAMINOPHEN 325 MG TABLET PO SCH ×2 (08:54→19:46)
[2019-03-26] MEDS: DIVALPROEX 125 MG CAP.SPRINK PO SCH ×2 (08:54→19:46)
[2019-03-26] MEDS: NYSTATIN 100,000 UNIT/GM TOPICAL CREAM 15GM TUBE. TP SCH ×2 (08:55→19:48)
[2019-03-26] MEDS: MULTIVITAMIN with MINERAL TABLET. PO SCH (08:55)
[2019-03-26] MEDS: CARBIDOPA/LEVODOPA 10/100MG TABLET PO SCH ×3 (08:55→19:47)
[2019-03-26] MEDS: LACTOBACILLUS RHAMNOSUS GG 1 CAPSULE. PO SCH ×2 (08:55→19:46)
[2019-03-26] MEDS: INSULIN GLARGINE SYRINGE. SQ SCH ×2 (08:56→20:33)
--- NOTE | 2019-03-26 13:30 | NUR ---
ELISABETH received a call from Nicole with pt [employer] ([employer]) and reports that all the paperwork has been turned in and awaiting approval. Nicole did ask ELISABETH for a few request, which are as follows: 1.) A PT/OT eval for a w/c and lift mechanism (more specially a type of mattress for pt). 2.) There needs to be a script for HH due to his wound care. 3.) To find out from [place] if they have records re: pt hearing evaluation so they can work on getting him hearing aids. Nicole reports that pt will see Dr. Latham while at [facility] for his primary care physician. ELISABETH will work on these tasks and get everything over to Nicole FINK!
--- NOTE | 2019-03-26 14:03 | NUR ---
WEEKLY ACTIVITY THERAPY NOTE Date of Admission: 02/02/2019 Date of AT Assessment: 02/04/2019 Goal aimed: to sustain engagement Initial goal:Pt. will participate in all groups he is invited to. Weekly progress towards goal: achieved, 4 groups this week Group participation level: varied Weekly highlights: positive remarks about play-dough activity being good hand therapy Behaviors observed: sleeping often, calm, content, keeps self busy Plan: no change to goal Beneficial adaptations: reminders and invitations, outdoor/garden, trivia
[2019-03-26 15:55] VITALS: BP 105/64
--- NOTE | 2019-03-26 17:01 | NUR ---
WEEKLY NOTE: Pt is calm and compliant with all cares. Pt is attending groups and interacts well with staff and patients. Pt insurance is finally able to look at getting pt status changed. They have requested a few notes and assessments in order to help get everything set up. ELOS ALEKS!
--- NOTE | 2019-03-26 18:43 | NUR ---
Patient was calm and cooperative. He took his medications whole and was pleasant. He took an afternoon nap. No adverse behaviors noted.
[2019-03-26] MEDS: risperiDONE 0.5 MG TABLET. PO SCH (19:46)
[2019-03-26] MEDS: MIRTAZAPINE 7.5 MG TABLET. PO SCH (19:47)
[2019-03-26] MEDS: METOPROLOL SUCC 24HR ER 25 MG TAB.ER.24H. PO SCH (19:47)
--- NOTE | 2019-03-26 22:08 | PDOC ---
Exam Note: Maxwell Note: Please also refer to the separate dictated note~for this date of service dictated separately.~Patient seen individually. Discussed the patient with Nursing staff reviewed the chart.~Reviewed interim history and current functioning. Reviewed vital signs,~Labs/ Radiology~and current medications noted below. Continue current treatment with the changes noted in the dictated addendum note Assessment: Vital Signs/I&O: Vital Signs Date Time Temp Pulse Resp B/P (MAP) Pulse Ox O2 Delivery O2 Flow Rate FiO2 03/26/19 19:48 101 105/64 03/26/19 15:55 98.7 16 96 03/25/19 15:56 Room Air I & O 03/25/19 03/25/19 03/26/19 15:00 23:00 07:00 Intake Total 1080 ml 360 ml Balance 1080 ml 360 ml Labs: Laboratory Tests Test 03/26/19 07:16 03/26/19 11:44 03/26/19 16:30 03/26/19 19:07 Glucose (Fingerstick) 74 mg/dL (70-99) 137 mg/dL (70-99) H 136 mg/dL (70-99) H 201 mg/dL (70-99) H Current Medications: I have reviewed the current psychotropics carefully including drug interactions. Risk benefit ratio favors no change other than as noted in my dictated progress note. Diagnosis: Problems: (1) Anxiety disorder (2) Bipolar affective, mixed, sev w/ psych (3) Dementia, vascular, with depression (4) Dementia, vascular, with delusions (5) Impulse control disorder (6) Psychosis, atypical (7) Dementia in Alzheimer's disease with delusions (8) Major neurocognitive disorder (9) Mild cognitive impairment EMERSON RUTH MD Mar 26, 2019 22:08
--- NOTE | 2019-03-26 22:47 | PN ---
DATE: 03/25/2019 PSYCHIATRIC PROGRESS NOTE This late entry 03/25/2019 covers elements not covered in my initial note. SUBJECTIVE: I met with the patient in the evening of 03/25/2019 in his room. The patient slept 6 hours previous night per CA Shah. He has been cooperative. No inappropriate sexual comments and the paranoia appears to have subsided. REVIEW OF SYSTEMS: Ambulation impaired, in wheelchair. No CV, , pulmonary, eye system symptoms on review. MENTAL STATUS EXAM: Oriented reasonably. Speech is coherent, abstraction fair, computation impaired, language function intact, attention span fair. Mood and affect is improved. LABORATORY DATA: Reviewed. IMPRESSION: Unchanged from initial note. PLAN: No change from initial note. He can be discharged anytime, social service staff arrange placement, which is being actively pursued. MAN Bladimir RUTH MD DR: TAINA/siddhartha JOB#: [id number] / [id number]
--- NOTE | 2019-03-26 23:34 | NUR ---
Pt located in dayroom watching TV this evening. Pt pleasant, cooperative and interactive with staff. Compliant with medications. No behaviors noted at this time.
[2019-03-27 06:07] VITALS: BP 109/64
[2019-03-27] MEDS: LACTOBACILLUS RHAMNOSUS GG 1 CAPSULE. PO SCH ×2 (09:58→21:01)
[2019-03-27] MEDS: CEPHALEXIN 250 MG CAPSULE PO SCH ×4 (09:58→21:01)
[2019-03-27] MEDS: CARBIDOPA/LEVODOPA 10/100MG TABLET PO SCH ×3 (09:58→21:00)
[2019-03-27] MEDS: ASPIRIN 81 MG TAB.CHEW PO SCH (09:58)
[2019-03-27] MEDS: ASCORBIC ACID 500 MG TABLET PO SCH ×2 (09:58→21:01)
[2019-03-27] MEDS: DIVALPROEX 125 MG CAP.SPRINK PO SCH ×2 (09:58→21:02)
[2019-03-27] MEDS: MULTIVITAMIN with MINERAL TABLET. PO SCH (09:58)
[2019-03-27] MEDS: ACETAMINOPHEN 325 MG TABLET PO SCH ×2 (09:59→21:01)
[2019-03-27] MEDS: CILOSTAZOL 50 MG TABLET. PO SCH ×2 (09:59→21:03)
[2019-03-27] MEDS: INSULIN LISPRO 300 UNITS/3 ML VIAL. SQ SCH ×3 (09:59→17:00)
[2019-03-27] MEDS: metFORMIN 500 MG TABLET PO SCH ×2 (10:01→18:36)
[2019-03-27] MEDS: NYSTATIN 100,000 UNIT/GM TOPICAL CREAM 15GM TUBE. TP SCH ×2 (10:02→21:49)
[2019-03-27] MEDS: INSULIN GLARGINE SYRINGE. SQ SCH ×2 (10:02→21:04)
--- NOTE | 2019-03-27 10:30 | NUR ---
Wound care patient seen for Wound care follow up for bilateral heel DFU's. see wound assessment. the wounds were cleaned and redressed on the right heel with contact layer with foam dressing and tape, recommend to change every 2-3 days, the left heel has a small/moderate amount of drainage, recommendations of Iodoflex with foam, change every other day. Bilateral Podus boots reapplied at this time. patient also has Heelmedix boots for while in bed. NO other wounds noted at this time. patient has a red, indurated area to the right thigh, appears to be resolving well. Recommend pt to continue bed baths due to inability to keep dressings dry while in shower. WC will continue to follow for possible changes.
--- NOTE | 2019-03-27 16:50 | NUR ---
SW spoke with pt re: an update on being one step closer. SW was able to talk to PT about getting measurements for a w/c and a lift mechanism/mattress. Pt does have a HH order completed for continued wound care and SW attempted to find out from [facility] [place] about pt hearing aid evaluation and they did not have any records. Pt reports that he set up the appointment at a place in the [facility] and [facility] took him but they didn't receive the records. SW will check the name of the agency and see if records can be sent. Pt also questioned if he could have a bar with his bed stating "I have the upper body strength and can pull myself up in bed easier". SW will follow up with [facility] and let him know.
[2019-03-27 16:52] VITALS: BP 119/77
--- NOTE | 2019-03-27 18:03 | NUR ---
Patient has been compliant with his medications. He has been calm and cooperative. He has not adverse behaviors at this time. He is appropriate in conversation and actions. He stated he enjoys visiting with staff when he can. Patient took several naps today in his wheelchair in the day room this morning and then in his room this afternoon. He denies pain in his heel wounds, wound care RNs changed the bandages this morning.
[2019-03-27] MEDS: METOPROLOL SUCC 24HR ER 25 MG TAB.ER.24H. PO SCH (21:00)
[2019-03-27] MEDS: risperiDONE 0.5 MG TABLET. PO SCH (21:01)
[2019-03-27] MEDS: MIRTAZAPINE 7.5 MG TABLET. PO SCH (21:01)
--- NOTE | 2019-03-27 21:45 | PDOC ---
Exam Note: Maxwell Note: Please also refer to the separate dictated note~for this date of service dictated separately.~Patient seen individually. Discussed the patient with Nursing staff reviewed the chart.~Reviewed interim history and current functioning. Reviewed vital signs,~Labs/ Radiology~and current medications noted below. Continue current treatment with the changes noted in the dictated addendum note Assessment: Vital Signs/I&O: Vital Signs Date Time Temp Pulse Resp B/P (MAP) Pulse Ox O2 Delivery O2 Flow Rate FiO2 03/27/19 21:05 100 139/80 03/27/19 16:52 97.7 16 97 03/25/19 15:56 Room Air I & O 03/26/19 03/26/19 03/27/19 14:59 22:59 06:59 Intake Total 720 ml 240 ml 120 ml Balance 720 ml 240 ml 120 ml Labs: Laboratory Tests Test 03/27/19 07:49 03/27/19 09:35 03/27/19 12:03 03/27/19 16:43 Glucose (Fingerstick) 58 mg/dL (70-99) L 95 mg/dL (70-99) 173 mg/dL (70-99) H 135 mg/dL (70-99) H Test 03/27/19 19:10 Glucose (Fingerstick) 163 mg/dL (70-99) H Current Medications: I have reviewed the current psychotropics carefully including drug interactions. Risk benefit ratio favors no change other than as noted in my dictated progress note. Diagnosis: Problems: (1) Anxiety disorder (2) Bipolar affective, mixed, sev w/ psych (3) Dementia, vascular, with depression (4) Dementia, vascular, with delusions (5) Impulse control disorder (6) Psychosis, atypical (7) Dementia in Alzheimer's disease with delusions (8) Major neurocognitive disorder (9) Mild cognitive impairment EMERSON RUTH MD Mar 27, 2019 21:45
--- NOTE | 2019-03-27 23:09 | NUR ---
Nursing Note: Assumed care of pt. this evening, he was sitting out in the day room. He has been calm, cooperative, and interacting appropriately with the staff and other pt's. He has been compliant with taking his HS meds whole this evening. No behaviors noted at this time.
[2019-03-28 06:03] VITALS: BP 123/78
[2019-03-28] MEDS: ACETAMINOPHEN 325 MG TABLET PO SCH ×2 (07:49→19:44)
[2019-03-28] MEDS: metFORMIN 500 MG TABLET PO SCH ×2 (07:49→17:00)
[2019-03-28] MEDS: LACTOBACILLUS RHAMNOSUS GG 1 CAPSULE. PO SCH ×2 (07:49→19:44)
[2019-03-28] MEDS: ASPIRIN 81 MG TAB.CHEW PO SCH (07:49)
[2019-03-28] MEDS: CARBIDOPA/LEVODOPA 10/100MG TABLET PO SCH ×3 (07:49→19:44)
[2019-03-28] MEDS: ASCORBIC ACID 500 MG TABLET PO SCH ×2 (07:50→19:44)
[2019-03-28] MEDS: CEPHALEXIN 250 MG CAPSULE PO SCH ×4 (07:50→19:43)
[2019-03-28] MEDS: CILOSTAZOL 50 MG TABLET. PO SCH ×2 (07:50→19:45)
[2019-03-28] MEDS: DIVALPROEX 125 MG CAP.SPRINK PO SCH ×2 (07:50→19:45)
[2019-03-28] MEDS: MULTIVITAMIN with MINERAL TABLET. PO SCH (07:52)
[2019-03-28] MEDS: risperiDONE MICROSPHERES 12.5 MG/2 ML DISP.SYRIN. IM SCH (07:52)
[2019-03-28] MEDS: NYSTATIN TOPICAL POWDER 15GM BOTTLE. TP PRN ×2 (07:52→19:45)
[2019-03-28] MEDS: NYSTATIN 100,000 UNIT/GM TOPICAL CREAM 15GM TUBE. TP SCH ×2 (07:53→19:45)
[2019-03-28] MEDS: INSULIN LISPRO 300 UNITS/3 ML VIAL. SQ SCH ×3 (08:00→17:00)
[2019-03-28] MEDS: INSULIN GLARGINE SYRINGE. SQ SCH ×2 (09:00→19:48)
[2019-03-28 17:14] VITALS: BP 106/68
--- NOTE | 2019-03-28 18:30 | NUR ---
Pt up for meals in wc. Has c/o weakness today. Required assistance to BR. Pt is usually able to transfer self. Pt was incontinent of one loose stool today. Unable to obtain specimen. Lower ext. edema increased. Dr Schwartz aware. To obtain stool sample when available.
[2019-03-28] MEDS: MIRTAZAPINE 7.5 MG TABLET. PO SCH (19:43)
[2019-03-28] MEDS: risperiDONE 0.5 MG TABLET. PO SCH (19:44)
[2019-03-28] MEDS: METOPROLOL SUCC 24HR ER 25 MG TAB.ER.24H. PO SCH (19:44)
--- NOTE | 2019-03-28 21:58 | NUR ---
Patient resting in bed at shift change. Patient assessed and states he is not feeling well, he has been having bouts of loose stool, however he had been drinking a lot of prune juice and patient does take miralax. Patient pleasant with assessment and cares. Patient was med compliant. Will continue to monitor.
--- NOTE | 2019-03-28 22:07 | PDOC ---
Exam Note: Maxwell Note: Please also refer to the separate dictated note~for this date of service dictated separately.~Patient seen individually. Discussed the patient with Nursing staff reviewed the chart.~Reviewed interim history and current functioning. Reviewed vital signs,~Labs/ Radiology~and current medications noted below. Continue current treatment with the changes noted in the dictated addendum note Assessment: Vital Signs/I&O: Vital Signs Date Time Temp Pulse Resp B/P (MAP) Pulse Ox O2 Delivery O2 Flow Rate FiO2 03/28/19 19:48 113 106/68 03/28/19 17:14 97.4 16 96 03/25/19 15:56 Room Air I & O 03/27/19 03/27/19 03/28/19 15:00 23:00 07:00 Intake Total 240 ml 360 ml 120 ml Balance 240 ml 360 ml 120 ml Labs: Laboratory Tests Test 03/28/19 07:19 03/28/19 11:38 03/28/19 17:27 03/28/19 19:34 Glucose (Fingerstick) 61 mg/dL (70-99) L 146 mg/dL (70-99) H 156 mg/dL (70-99) H 153 mg/dL (70-99) H Current Medications: I have reviewed the current psychotropics carefully including drug interactions. Risk benefit ratio favors no change other than as noted in my dictated progress note. 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
[2019-03-29 05:45] VITALS: BP 115/53
[2019-03-29] MEDS: INSULIN LISPRO 300 UNITS/3 ML VIAL. SQ SCH ×3 (08:00→16:58)
[2019-03-29] MEDS: LACTOBACILLUS RHAMNOSUS GG 1 CAPSULE. PO SCH ×2 (08:01→20:01)
[2019-03-29] MEDS: CILOSTAZOL 50 MG TABLET. PO SCH ×2 (08:01→20:08)
[2019-03-29] MEDS: MULTIVITAMIN with MINERAL TABLET. PO SCH (08:02)
[2019-03-29] MEDS: ASPIRIN 81 MG TAB.CHEW PO SCH (08:02)
[2019-03-29] MEDS: ASCORBIC ACID 500 MG TABLET PO SCH ×2 (08:02→20:02)
[2019-03-29] MEDS: CEPHALEXIN 250 MG CAPSULE PO SCH ×4 (08:02→20:01)
[2019-03-29] MEDS: ACETAMINOPHEN 325 MG TABLET PO SCH ×2 (08:02→20:01)
[2019-03-29] MEDS: NYSTATIN 100,000 UNIT/GM TOPICAL CREAM 15GM TUBE. TP SCH ×2 (08:02→20:13)
[2019-03-29] MEDS: DIVALPROEX 125 MG CAP.SPRINK PO SCH ×2 (08:02→20:04)
[2019-03-29] MEDS: CARBIDOPA/LEVODOPA 10/100MG TABLET PO SCH ×3 (08:02→20:05)
[2019-03-29] MEDS: metFORMIN 500 MG TABLET PO SCH ×2 (08:05→17:00)
[2019-03-29] MEDS: INSULIN GLARGINE SYRINGE. SQ SCH ×2 (09:00→20:10)
[2019-03-29 09:58] LABS: BASO % 1 % (0-3); EOS # 0.4 x10^3/uL (0.0-0.7); EOS % 6 % (0-3); HEMATOCRIT 37.6 % (39.0-53.0); HEMOGLOBIN 12.5 g/dL (13.0-17.5); LYMPH # 1.7 x10^3/uL (1.0-4.8); LYMPH % 26 % (24-48); MEAN CORPUSCULAR HEMOGLOBIN 31 pg (25-35); MEAN CORPUSCULAR HGB CONC 33 g/dL (31-37); MEAN CORPUSCULAR VOLUME 94 fL (79-100); MONO # 0.6 x10^3/uL (0.0-1.1); MONO % 10 % (0-9); NEUT # 3.7 x10^3uL (1.8-7.7); NEUT % 57 % (31-73); PLATELET COUNT 235 x10^3/uL (140-400); RED BLOOD COUNT 4.02 x10^6/uL (4.30-5.70); RED CELL DISTRIBUTION WIDTH 13.7 % (11.5-14.5); WHITE BLOOD COUNT 6.5 x10^3/uL (4.0-11.0)
[2019-03-29 10:18] LABS: ALBUMIN 3.2 g/dL (3.4-5.0); ALBUMIN/GLOBULIN RATIO 0.8 (1.0-1.7); CALCIUM 8.9 mg/dL (8.5-10.1); GFR 72.8; POTASSIUM 4.4 mmol/L (3.5-5.1); TOTAL BILIRUBIN 0.2 mg/dL (0.2-1.0); TOTAL PROTEIN 7.3 g/dL (6.4-8.2)
--- NOTE | 2019-03-29 10:22 | PN ---
DATE: 03/26/2019 PSYCHIATRIC PROGRESS NOTE This late entry 03/26/2019 covers elements not covered in my initial note. SUBJECTIVE: I met with the patient evening of 03/26/2019. The patient was also staffed at a treatment team meeting with the entire team earlier in the day. He slept 6 hours previous night. Appetite 75-100% pleasant with cares cooperative. REVIEW OF SYSTEMS: Ambulation impaired, in wheelchair, some discomfort in his heel, but is much better. No CV, , pulmonary, eye system symptoms on review. MENTAL STATUS EXAM: Reasonably oriented. Speech is coherent, abstraction fair, computation impaired, language function intact. Mood and affect is improved. LABORATORY DATA: Reviewed. IMPRESSION: Unchanged from initial note. PLAN: No change from initial note. MAN Bladimir RUTH MD DR: TAINA/siddhartha JOB#: [id number] / [id number]
[2019-03-29 16:03] VITALS: BP 92/57
--- NOTE | 2019-03-29 17:59 | NUR ---
Pt up in wc for meals. has been compliant with meds and cares Has had no loose stools today.
[2019-03-29] MEDS: MIRTAZAPINE 7.5 MG TABLET. PO SCH (20:01)
[2019-03-29] MEDS: risperiDONE 0.5 MG TABLET. PO SCH (20:01)
[2019-03-29] MEDS: METOPROLOL SUCC 24HR ER 25 MG TAB.ER.24H. PO SCH (20:04)
--- NOTE | 2019-03-29 22:28 | PN ---
DATE: 03/27/2019 PSYCHIATRIC PROGRESS NOTE This late entry 03/27/2019 covers elements not covered in my initial note. SUBJECTIVE: I met with the patient evening of 03/27/2019 in his room. The patient slept 7-1/4 hours previous night. Per nursing report, he got up at 10:00 a.m. to eat. Compliant with medications. No behaviors noted. REVIEW OF SYSTEMS: Ambulation impaired, in wheelchair. No CV, , pulmonary, eye system symptoms on review. MENTAL STATUS EXAM: Reasonably oriented. Speech is coherent, abstraction fair, computation impaired, language function intact. Mood and affect is improved. No suicidal or homicidal ideation. No inappropriate sexual behaviors. LABORATORY DATA: Reviewed. IMPRESSION: Unchanged from initial note. PLAN: No change from initial note. MAN Bladimir RUTH MD DR: TAINA/siddhartha JOB#: [id number] / [id number]
--- NOTE | 2019-03-29 23:07 | PDOC ---
Exam Note: Maxwell Note: Please also refer to the separate dictated note~for this date of service dictated separately.~Patient seen individually. Discussed the patient with Nursing staff reviewed the chart.~Reviewed interim history and current functioning. Reviewed vital signs,~Labs/ Radiology~and current medications noted below. Continue current treatment with the changes noted in the dictated addendum note Assessment: Vital Signs/I&O: Vital Signs Date Time Temp Pulse Resp B/P (MAP) Pulse Ox O2 Delivery O2 Flow Rate FiO2 03/29/19 20:13 112 92/57 03/29/19 16:03 97.7 18 97 03/25/19 15:56 Room Air I & O 03/28/19 03/28/19 03/29/19 15:00 23:00 07:00 Intake Total 840 ml 340 ml Output Total 400 ml Balance 840 ml -60 ml Labs: Laboratory Tests Test 03/29/19 07:09 03/29/19 09:00 03/29/19 11:48 03/29/19 16:27 Glucose (Fingerstick) 107 mg/dL (70-99) H 160 mg/dL (70-99) H 157 mg/dL (70-99) H White Blood Count 6.5 x10^3/uL (4.0-11.0) Red Blood Count 4.02 x10^6/uL (4.30-5.70) L Hemoglobin 12.5 g/dL (13.0-17.5) L Hematocrit 37.6 % (39.0-53.0) L Mean Corpuscular Volume 94 fL (79-100) Mean Corpuscular Hemoglobin 31 pg (25-35) Mean Corpuscular Hemoglobin Concent 33 g/dL (31-37) Red Cell Distribution Width 13.7 % (11.5-14.5) Platelet Count 235 x10^3/uL (140-400) Neutrophils (%) (Auto) 57 % (31-73) Lymphocytes (%) (Auto) 26 % (24-48) Monocytes (%) (Auto) 10 % (0-9) H Eosinophils (%) (Auto) 6 % (0-3) H Basophils (%) (Auto) 1 % (0-3) Neutrophils # (Auto) 3.7 x10^3uL (1.8-7.7) Lymphocytes # (Auto) 1.7 x10^3/uL (1.0-4.8) Monocytes # (Auto) 0.6 x10^3/uL (0.0-1.1) Eosinophils # (Auto) 0.4 x10^3/uL (0.0-0.7) Basophils # (Auto) 0.0 x10^3/uL (0.0-0.2) Sodium Level 140 mmol/L (136-145) Potassium Level 4.4 mmol/L (3.5-5.1) Chloride Level 102 mmol/L (98-107) Carbon Dioxide Level 28 mmol/L (21-32) Anion Gap 10 (6-14) Blood Urea Nitrogen 19 mg/dL (8-26) Creatinine 1.0 mg/dL (0.7-1.3) Estimated GFR (Cockcroft-Gault) 72.8 BUN/Creatinine Ratio 19 (6-20) Glucose Level 116 mg/dL (70-99) H Calcium Level 8.9 mg/dL (8.5-10.1) Total Bilirubin 0.2 mg/dL (0.2-1.0) Aspartate Amino Transferase (AST) 16 U/L (15-37) Alanine Aminotransferase (ALT) 10 U/L (16-63) L Alkaline Phosphatase 65 U/L (46-116) Total Protein 7.3 g/dL (6.4-8.2) Albumin 3.2 g/dL (3.4-5.0) L Albumin/Globulin Ratio 0.8 (1.0-1.7) L Test 03/29/19 19:13 Glucose (Fingerstick) 147 mg/dL (70-99) H Current Medications: I have reviewed the current psychotropics carefully including drug interactions. Risk benefit ratio favors no change other than as noted in my dictated progress note. Diagnosis: Problems: (1) Mental status change resolved (2) Anxiety disorder (3) Bipolar affective, mixed, sev w/ psych (4) Dementia, vascular, with depression (5) Dementia, vascular, with delusions (6) Impulse control disorder (7) Psychosis, atypical (8) Dementia in Alzheimer's disease with delusions (9) Major neurocognitive disorder (10) Mild cognitive impairment (11) Personality disorder EMERSON RUTH MD Mar 29, 2019 23:07
--- NOTE | 2019-03-30 01:53 | PN ---
DATE: 03/28/2019 PSYCHIATRIC PROGRESS NOTE This late entry 03/28/2019 covers the elements not covered in my initial note. SUBJECTIVE: I met with the patient in the evening of 03/28/2019 in his room. Per CA Jackson, the patient slept 6 hours previous night. He has been appearing little more helpless, wanting nursing staff to do more for him even though he can do certain things, but not excessively so. REVIEW OF SYSTEMS: Ambulation impaired, in wheelchair. No CV, , pulmonary, eye, ENT system symptoms on review. Reliability fair. MENTAL STATUS EXAM: Reasonably oriented. Speech is coherent, abstraction fair, computation impaired, language function intact, attention span short. Mood and affect is improved. LABORATORY DATA: Reviewed. IMPRESSION: Unchanged from initial note. PLAN: No change from initial note. MAN Bladimir RUTH MD DR: TAINA/siddhartha JOB#: [id number] / [id number]
--- NOTE | 2019-03-30 02:06 | NUR ---
Pt sitting in wc in dayroom having a snack and watching television at start of shift. Pt pleasant and cooperative with cares and medications.
[2019-03-30 06:31] VITALS: BP 108/57
[2019-03-30] MEDS: ASCORBIC ACID 500 MG TABLET PO SCH ×2 (07:48→20:03)
[2019-03-30] MEDS: MULTIVITAMIN with MINERAL TABLET. PO SCH (07:48)
[2019-03-30] MEDS: ACETAMINOPHEN 325 MG TABLET PO SCH ×2 (07:48→20:03)
[2019-03-30] MEDS: CEPHALEXIN 250 MG CAPSULE PO SCH ×4 (07:48→20:03)
[2019-03-30] MEDS: ASPIRIN 81 MG TAB.CHEW PO SCH (07:48)
[2019-03-30] MEDS: NYSTATIN 100,000 UNIT/GM TOPICAL CREAM 15GM TUBE. TP SCH ×2 (07:49→20:01)
[2019-03-30] MEDS: metFORMIN 500 MG TABLET PO SCH ×2 (07:49→17:00)
[2019-03-30] MEDS: CARBIDOPA/LEVODOPA 10/100MG TABLET PO SCH ×3 (07:49→20:02)
[2019-03-30] MEDS: DIVALPROEX 125 MG CAP.SPRINK PO SCH ×2 (07:49→20:03)
[2019-03-30] MEDS: LACTOBACILLUS RHAMNOSUS GG 1 CAPSULE. PO SCH ×2 (07:49→20:03)
[2019-03-30] MEDS: CILOSTAZOL 50 MG TABLET. PO SCH ×2 (07:52→20:02)
[2019-03-30] MEDS: INSULIN LISPRO 300 UNITS/3 ML VIAL. SQ SCH ×3 (08:00→17:00)
[2019-03-30] MEDS: INSULIN GLARGINE SYRINGE. SQ SCH ×2 (08:11→20:04)
[2019-03-30 15:59] VITALS: BP 123/75
--- NOTE | 2019-03-30 18:02 | NUR ---
Pt up in wc for meals. has been pleasant. Compliant with meds and cares.
[2019-03-30] MEDS: NYSTATIN TOPICAL POWDER 15GM BOTTLE. TP PRN (20:01)
[2019-03-30] MEDS: MIRTAZAPINE 7.5 MG TABLET. PO SCH (20:03)
[2019-03-30] MEDS: risperiDONE 0.5 MG TABLET. PO SCH (20:03)
[2019-03-30] MEDS: METOPROLOL SUCC 24HR ER 25 MG TAB.ER.24H. PO SCH (20:03)
--- NOTE | 2019-03-30 21:42 | PDOC ---
Exam Note: Maxwell Note: Please also refer to the separate dictated note~for this date of service dictated separately.~Patient seen individually. Discussed the patient with Nursing staff reviewed the chart.~Reviewed interim history and current functioning. Reviewed vital signs,~Labs/ Radiology~and current medications noted below. Continue current treatment with the changes noted in the dictated addendum note Assessment: Vital Signs/I&O: Vital Signs Date Time Temp Pulse Resp B/P (MAP) Pulse Ox O2 Delivery O2 Flow Rate FiO2 03/30/19 20:05 112 123/75 03/30/19 15:59 97.7 20 97 03/25/19 15:56 Room Air I & O 03/29/19 03/29/19 03/30/19 15:00 23:00 07:00 Intake Total 1080 ml 480 ml Balance 1080 ml 480 ml Labs: Laboratory Tests Test 03/30/19 08:24 03/30/19 11:31 03/30/19 16:44 03/30/19 19:13 Glucose (Fingerstick) 73 mg/dL (70-99) 140 mg/dL (70-99) H 152 mg/dL (70-99) H 154 mg/dL (70-99) H Current Medications: I have reviewed the current psychotropics carefully including drug interactions. Risk benefit ratio favors no change other than as noted in my dictated progress note. 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
--- NOTE | 2019-03-31 01:05 | NUR ---
Pt sitting up in w/c in the day room at shift change. Pt calm, pleasant, and interactive upon approach. Pt cooperative with assessment and compliant with medications administered whole. Stool sample for c-diff sent to lab this evening.
[2019-03-31 06:14] VITALS: BP 127/72
[2019-03-31] MEDS: MULTIVITAMIN with MINERAL TABLET. PO SCH (07:48)
[2019-03-31] MEDS: ACETAMINOPHEN 325 MG TABLET PO SCH ×2 (07:48→19:26)
[2019-03-31] MEDS: ASCORBIC ACID 500 MG TABLET PO SCH ×2 (07:49→19:23)
[2019-03-31] MEDS: CARBIDOPA/LEVODOPA 10/100MG TABLET PO SCH ×3 (07:49→19:23)
[2019-03-31] MEDS: ASPIRIN 81 MG TAB.CHEW PO SCH (07:49)
[2019-03-31] MEDS: metFORMIN 500 MG TABLET PO SCH ×2 (07:49→17:18)
[2019-03-31] MEDS: DIVALPROEX 125 MG CAP.SPRINK PO SCH ×2 (07:49→19:24)
[2019-03-31] MEDS: CEPHALEXIN 250 MG CAPSULE PO SCH ×4 (07:49→19:23)
[2019-03-31] MEDS: LACTOBACILLUS RHAMNOSUS GG 1 CAPSULE. PO SCH ×2 (07:49→19:23)
[2019-03-31] MEDS: CILOSTAZOL 50 MG TABLET. PO SCH ×2 (07:49→19:29)
[2019-03-31] MEDS: NYSTATIN 100,000 UNIT/GM TOPICAL CREAM 15GM TUBE. TP SCH ×2 (07:50→19:25)
[2019-03-31] MEDS: INSULIN LISPRO 300 UNITS/3 ML VIAL. SQ SCH ×3 (08:00→17:24)
[2019-03-31] MEDS: INSULIN GLARGINE SYRINGE. SQ SCH ×2 (10:24→21:10)
--- NOTE | 2019-03-31 12:40 | NUR ---
SW received a call from Chrissie from [facility] re: having to come out again to assess pt with a new sales representative [employer]. Chrissie is having to transfer the case and needs the 2 to become acquainted and finalize plans for pt to be considered [employer].
[2019-03-31 16:14] VITALS: BP 117/76
[2019-03-31] MEDS: risperiDONE 0.5 MG TABLET. PO SCH (19:23)
[2019-03-31] MEDS: METOPROLOL SUCC 24HR ER 25 MG TAB.ER.24H. PO SCH (19:23)
[2019-03-31] MEDS: MIRTAZAPINE 7.5 MG TABLET. PO SCH (19:23)
--- NOTE | 2019-03-31 21:45 | PDOC ---
Exam Note: Maxwell Note: Please also refer to the separate dictated note~for this date of service dictated separately.~Patient seen individually. Discussed the patient with Nursing staff reviewed the chart.~Reviewed interim history and current functioning. Reviewed vital signs,~Labs/ Radiology~and current medications noted below. Continue current treatment with the changes noted in the dictated addendum note Assessment: Vital Signs/I&O: Vital Signs Date Time Temp Pulse Resp B/P (MAP) Pulse Ox O2 Delivery O2 Flow Rate FiO2 03/31/19 19:29 110 117/76 03/31/19 16:14 98.1 18 96.0 03/31/19 06:14 93 03/25/19 15:56 Room Air I & O 03/30/19 03/30/19 03/31/19 15:00 23:00 07:00 Intake Total 720 ml 480 ml Balance 720 ml 480 ml Labs: Laboratory Tests Test 03/31/19 07:41 03/31/19 11:47 03/31/19 17:00 03/31/19 19:13 Glucose (Fingerstick) 116 mg/dL (70-99) H 132 mg/dL (70-99) H 158 mg/dL (70-99) H 194 mg/dL (70-99) H Current Medications: I have reviewed the current psychotropics carefully including drug interactions. Risk benefit ratio favors no change other than as noted in my dictated progress note. 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
--- NOTE | 2019-03-31 22:41 | NUR ---
Pt sitting up in w/c in the day room at shift change. Pt calm, pleasant, and interactive upon approach. Pt cooperative with assessment and compliant with medications administered whole.
--- NOTE | 2019-04-01 04:13 | PN ---
DATE: 03/30/2019 PSYCHIATRIC PROGRESS NOTE This late entry 03/30/2019 covers elements not covered in my initial note. SUBJECTIVE: I met with the patient evening of 03/30/2019. The patient slept 6-1/2 hours previous night. He has been pleasant, cooperative, a little withdrawn at times. REVIEW OF SYSTEMS: Ambulation impaired, in wheelchair. No CV, , pulmonary, eye, ENT system symptoms on review. MENTAL STATUS EXAM: Reasonably oriented. Speech is coherent, abstraction fair, computation impaired, language function intact. Mood and affect is improved. IMPRESSION: Unchanged from initial note. PLAN: No change from initial note. MAN Bladimir RUTH MD DR: TAINA/siddhartha JOB#: [id number] / [id number]
--- NOTE | 2019-04-01 05:39 | PN ---
DATE: 03/29/2019 PSYCHIATRIC PROGRESS NOTE This late entry of 03/29/2019 covers elements not covered in my initial note. SUBJECTIVE: I met with the patient in the evening. The patient slept 6-1/2 hours the previous night. He is fairly cooperative, less withdrawn, still somewhat tired, but has had no diarrhea on 03/29/2019. Compliant with medications. REVIEW OF SYSTEMS: Ambulation impaired, in wheelchair. No CV, , pulmonary, eye system symptoms on review. MENTAL STATUS EXAMINATION: Reasonably oriented. Speech is coherent, abstraction fair, computation impaired, language function intact, attention span short. Mood and affect appears improved. LABORATORY DATA: Reviewed. IMPRESSION: Unchanged from initial note. PLAN: No change from initial note. MAN Bladimir RUTH MD DR: TAINA/siddhartha JOB#: [id number] / [id number]
[2019-04-01 06:14] VITALS: BP 95/62
[2019-04-01] MEDS: INSULIN LISPRO 300 UNITS/3 ML VIAL. SQ SCH ×3 (08:20→17:39)
[2019-04-01] MEDS: DIVALPROEX 125 MG CAP.SPRINK PO SCH ×2 (09:34→19:39)
[2019-04-01] MEDS: ASCORBIC ACID 500 MG TABLET PO SCH ×2 (09:34→19:39)
[2019-04-01] MEDS: CEPHALEXIN 250 MG CAPSULE PO SCH ×4 (09:34→19:38)
[2019-04-01] MEDS: CILOSTAZOL 50 MG TABLET. PO SCH ×2 (09:34→19:40)
[2019-04-01] MEDS: MULTIVITAMIN with MINERAL TABLET. PO SCH (09:35)
[2019-04-01] MEDS: ACETAMINOPHEN 325 MG TABLET PO SCH ×2 (09:35→19:38)
[2019-04-01] MEDS: LACTOBACILLUS RHAMNOSUS GG 1 CAPSULE. PO SCH ×2 (09:35→19:38)
[2019-04-01] MEDS: CARBIDOPA/LEVODOPA 10/100MG TABLET PO SCH ×3 (09:35→19:39)
[2019-04-01] MEDS: metFORMIN 500 MG TABLET PO SCH ×2 (09:35→17:34)
[2019-04-01] MEDS: ASPIRIN 81 MG TAB.CHEW PO SCH (09:35)
[2019-04-01] MEDS: NYSTATIN 100,000 UNIT/GM TOPICAL CREAM 15GM TUBE. TP SCH ×2 (09:36→19:39)
[2019-04-01] MEDS: INSULIN GLARGINE SYRINGE. SQ SCH ×2 (09:38→21:01)
--- NOTE | 2019-04-01 12:59 | NUR ---
Patient is calm and compliant. He is cooperative with cares and takes his medications whole. Patient laid down after breakfast because his buttocks and heels were hurting. Heel bandages intact, wound care scheduled to come today. Wound pictures were taken on Sunday. Patient has had no adverse behaviors this day. Patient is pleasant and social with peers and staff.
--- NOTE | 2019-04-01 16:30 | NUR ---
Wound care patient seen for Wound care follow up for bilateral heel DFU's. see wound assessment. the wounds were cleaned and redressed with Iodoflex with foam, change every other day. left heel is not improving and appears bruised and has large amount of serous drainage. Recommend arterial doppler and Cristina Muro APRN with wound care to consult for bedside debridement. Discussed with Dr Schwartz and will proceeded with plans. Bilateral Podus boots reapplied at this time. patient also has Heel medix boots for while in bed. NO other wounds noted at this time. patient right thigh appears to be resolving well. Recommend pt to continue bed baths due to inability to keep dressings dry while in shower. WC will continue to follow for possible changes.
[2019-04-01 17:01] VITALS: BP 117/62
[2019-04-01] MEDS: MIRTAZAPINE 7.5 MG TABLET. PO SCH (19:38)
[2019-04-01] MEDS: METOPROLOL SUCC 24HR ER 25 MG TAB.ER.24H. PO SCH (19:39)
[2019-04-01] MEDS: risperiDONE 0.5 MG TABLET. PO SCH (19:39)
--- NOTE | 2019-04-01 20:33 | NUR ---
Patients feet were photographed by [facility] nursing staff on Sunday. Wounds on bi-lateral heels have not gotten better despite strict adherence to wound care directions provided to [facility] staff via wound care nurses. Patient wears Podus boots during the day to protect his heels and has been instructed not to use his heels to move his wheelchair. Staff places Medi Boots on patient whenever he is in bed. This nurse spoke to Dr. Schwartz regarding the condition of the wounds on the heels. Wound care nurses here to monitor wounds and change dressings today. Wound care nurse stated they will consult the wound care TERRAZZO ROLLER to come evaluate patients heels tomorrow. Dr. Schwartz is aware of and in agreement with this plan.
--- NOTE | 2019-04-01 20:59 | NUR ---
Message left for pt daughter/legal guardian to obtain consent for flu vaccine. Will await return call.
--- NOTE | 2019-04-01 22:09 | PDOC ---
Exam Note: Maxwell Note: Please also refer to the separate dictated note~for this date of service dictated separately.~Patient seen individually. Discussed the patient with Nursing staff reviewed the chart.~Reviewed interim history and current functioning. Reviewed vital signs,~Labs/ Radiology~and current medications noted below. Continue current treatment with the changes noted in the dictated addendum note Assessment: Vital Signs/I&O: Vital Signs Date Time Temp Pulse Resp B/P (MAP) Pulse Ox O2 Delivery O2 Flow Rate FiO2 04/01/19 19:40 100 117/62 04/01/19 17:01 98.3 16 100 04/01/19 06:14 Room Air 03/31/19 16:14 96.0 I & O 03/31/19 03/31/19 04/01/19 14:59 22:59 06:59 Intake Total 840 ml 480 ml 240 ml Balance 840 ml 480 ml 240 ml Labs: Laboratory Tests Test 04/01/19 07:04 04/01/19 12:11 04/01/19 16:59 04/01/19 19:08 Glucose (Fingerstick) 76 mg/dL (70-99) 127 mg/dL (70-99) H 155 mg/dL (70-99) H 180 mg/dL (70-99) H Current Medications: I have reviewed the current psychotropics carefully including drug interactions. Risk benefit ratio favors no change other than as noted in my dictated progress note. Diagnosis: Problems: (1) Anxiety disorder (2) Bipolar affective, mixed, sev w/ psych (3) Dementia, vascular, with depression (4) Dementia, vascular, with delusions (5) Impulse control disorder (6) Psychosis, atypical (7) Dementia in Alzheimer's disease with delusions (8) Personality disorder (9) Major neurocognitive disorder (10) Mild cognitive impairment EMERSON RUTH MD Apr 01, 2019 22:09
--- NOTE | 2019-04-01 23:17 | PN ---
DATE: 03/31/2019 PSYCHIATRIC PROGRESS NOTE This late entry, 03/31, covers elements not covered in my initial note. SUBJECTIVE: I met with the patient evening of 03/31. Overall, the patient is doing fairly well. At times he acts helpless, wanting nursing staff to do things he could do for himself, but generally better. REVIEW OF SYSTEMS: Ambulation impaired, in wheelchair. No CV, , pulmonary, eye system symptoms on review. MENTAL STATUS EXAM: Reasonably oriented. Speech is coherent, has some latency. Abstraction fair, computation impaired, language function intact. Mood and affect somewhat improved. LABORATORY DATA: Reviewed. IMPRESSION: Unchanged from initial note. PLAN: No change from initial note. MAN Bladimir RUTH MD DR: TAINA/siddhartha JOB#: [id number] / [id number]
--- NOTE | 2019-04-01 23:28 | NUR ---
Pt sitting up in w/c, sleeping in the day room at shift change. Pt calm, pleasant, and interactive upon approach. Pt cooperative with assessment and compliant with medications administered whole.
[2019-04-02 06:26] VITALS: BP 101/65
[2019-04-02 06:57] LABS: BASO % 1 % (0-3); EOS # 0.2 x10^3/uL (0.0-0.7); EOS % 4 % (0-3); HEMATOCRIT 34.3 % (39.0-53.0); HEMOGLOBIN 11.4 g/dL (13.0-17.5); LYMPH # 1.4 x10^3/uL (1.0-4.8); LYMPH % 19 % (24-48); MEAN CORPUSCULAR HEMOGLOBIN 31 pg (25-35); MEAN CORPUSCULAR HGB CONC 33 g/dL (31-37); MEAN CORPUSCULAR VOLUME 94 fL (79-100); MONO # 0.8 x10^3/uL (0.0-1.1); MONO % 11 % (0-9); NEUT # 4.6 x10^3uL (1.8-7.7); NEUT % 66 % (31-73); PLATELET COUNT 235 x10^3/uL (140-400); RED BLOOD COUNT 3.67 x10^6/uL (4.30-5.70); RED CELL DISTRIBUTION WIDTH 14.1 % (11.5-14.5)
[2019-04-02 07:14] LABS: ALBUMIN/GLOBULIN RATIO 0.8 (1.0-1.7); ALK PHOS 54 U/L (46-116); ALT (SGPT) 7 U/L (16-63); ANION GAP 10 (6-14); AST (SGOT) 17 U/L (15-37); BLOOD UREA NITROGEN 21 mg/dL (8-26); BUN/CREATININE RATIO 18 (6-20); CALCIUM 8.4 mg/dL (8.5-10.1); CARBON DIOXIDE 28 mmol/L (21-32); CHLORIDE 102 mmol/L (98-107); CREATININE 1.2 mg/dL (0.7-1.3); GLUCOSE 64 mg/dL (70-99); POTASSIUM 3.9 mmol/L (3.5-5.1); SODIUM 140 mmol/L (136-145); TOTAL BILIRUBIN 0.2 mg/dL (0.2-1.0); TOTAL PROTEIN 6.7 g/dL (6.4-8.2)
[2019-04-02 07:16] LABS: VAL ACID 57 mcg/mL (50-100)
[2019-04-02] MEDS: LACTOBACILLUS RHAMNOSUS GG 1 CAPSULE. PO SCH (07:43)
[2019-04-02] MEDS: metFORMIN 500 MG TABLET PO SCH ×2 (07:43→17:29)
[2019-04-02] MEDS: ASPIRIN 81 MG TAB.CHEW PO SCH (07:43)
[2019-04-02] MEDS: DIVALPROEX 125 MG CAP.SPRINK PO SCH (07:43)
[2019-04-02] MEDS: CILOSTAZOL 50 MG TABLET. PO SCH (07:44)
[2019-04-02] MEDS: CARBIDOPA/LEVODOPA 10/100MG TABLET PO SCH ×2 (07:44→13:02)
[2019-04-02] MEDS: CEPHALEXIN 250 MG CAPSULE PO SCH ×3 (07:44→17:29)
[2019-04-02] MEDS: MULTIVITAMIN with MINERAL TABLET. PO SCH (07:44)
[2019-04-02] MEDS: ACETAMINOPHEN 325 MG TABLET PO SCH (07:45)
[2019-04-02] MEDS: ASCORBIC ACID 500 MG TABLET PO SCH (07:45)
[2019-04-02] MEDS: NYSTATIN 100,000 UNIT/GM TOPICAL CREAM 15GM TUBE. TP SCH (07:45)
[2019-04-02] MEDS: INSULIN LISPRO 300 UNITS/3 ML VIAL. SQ SCH ×3 (07:54→17:00)
[2019-04-02] MEDS: INSULIN GLARGINE SYRINGE. SQ SCH (09:52)
--- NOTE | 2019-04-02 11:24 | NUR ---
Patient was in the dining room during morning rounding, took medications, allowed for morning assessment. No agitation noted, pt denies pain. Laid down for a nap after breakfast. Will continue to monitor.
--- NOTE | 2019-04-02 16:01 | RAD ---
DUPLEX SONOGRAPHY OF THE PERIPHERAL ARTERIAL SYSTEM OF BOTH LOWER EXTREMITIES Clinical indications: Nonhealing wounds of both heels. Diabetes. Findings: Duplex sonography of the peripheral arterial system of both lower extremities including jhaveri scale and color flow and spectral waveform analysis was performed. Biphasic and triphasic are seen within the right lower extremity. Diminished flow is seen within the right calf arteries. On the left side, biphasic and triphasic waveforms are seen within the common femoral and superficial femoral arteries. There is a change in the waveform at the level of the popliteal artery due to a significant stenosis of at least 50% with significant elevation of the peak systolic flow velocity measurement up to 278 cm/s. Increase in low resistance end-diastolic flow velocity is seen within the left calf arteries as a result. No occlusive disease is seen. The measurements were performed using the NASCET criteria. Peak systolic flow velocities are as follows: Right leg: common femoral artery- 76 cm/sec, profunda femoral artery -67 cm/sec, proximal superficial femoral artery -64 cm/sec, mid superficial femoral artery -80 cm/sec, distal superficial femoral artery- 75 cm/sec, popliteal artery -55 cm/sec, proximal posterior tibial artery- 15 cm/sec, distal posterior tibial artery- 66 cm/sec, peroneal artery- 34 cm/sec, anterior tibial artery- 13 cm/sec, dorsalis pedis artery -12 cm/sec. Left leg: common femoral artery- 97 cm/sec, profunda femoral artery -66 cm/sec, proximal superficial femoral artery- 77cm/sec, mid superficial femoral artery- 82 cm/sec, distal superficial femoral artery- 74 cm/sec, popliteal artery -278 cm/sec, proximal posterior tibial artery -52 cm/sec, distal posterior tibial artery- 110 cm/sec, peroneal artery -104 cm/sec, anterior tibial artery -53 cm/sec, dorsalis pedis artery- 113 cm/sec. Impression: Significant stenosis of at least 50% within the left popliteal artery. Decreased flow velocities within the calf arteries of the right leg. Electronically signed by: Rajiv Mcclain MD (04/02/2019 3:58 PM) [id number]
--- NOTE | 2019-04-02 16:06 | NUR ---
Staff was assisting patient in the bathroom when they noticed that he had started to have sores on his bottom, and was starting to have some breakdown. Patient had some left over feces that was dried and caked on these areas. Wound pictures were taken as well as a new care wound care assessment/ consult. Barrier cream is to be applied when toileting patient. Will continue to monitor.
[2019-04-02] MEDS ORDERED: ACET500T68 PO (17:02)
[2019-04-02] MEDS ORDERED: ASPI-630 PO (17:03)
[2019-04-02] MEDS ORDERED: ASCO500T3 PO (17:03)
[2019-04-02] MEDS ORDERED: [UNRECOGNIZED DRUG - CODE] MM (17:14)
[2019-04-02] MEDS ORDERED: CEPH500T PO (17:15)
[2019-04-02] MEDS ORDERED: INSU100I13 SQ ×2 (17:16→17:54)
[2019-04-02] MEDS ORDERED: CETI10CA PO (17:17)
[2019-04-02 17:18] VITALS: BP 131/79
[2019-04-02] MEDS ORDERED: INSU100V SQ (17:23)
[2019-04-02] MEDS ORDERED: LACT1CAP19 PO (17:25)
[2019-04-02] MEDS ORDERED: MAGN2400 PO (17:28)
[2019-04-02] MEDS ORDERED: MAG30ORA2 PO (17:30)
[2019-04-02] MEDS ORDERED: METH29OI TP (17:31)
[2019-04-02] MEDS ORDERED: MIRT15TA PO (17:32)
[2019-04-02] MEDS ORDERED: MULT1TAB52 PO (17:32)
[2019-04-02] MEDS ORDERED: NYST1000 PO (17:33)
[2019-04-02] MEDS ORDERED: NYST15PO9 TP (17:34)
[2019-04-02] MEDS ORDERED: OLAN2.5T3 PO (17:35)
[2019-04-02] MEDS ORDERED: RISP0.5T10 PO (17:36)
[2019-04-02] MEDS ORDERED: RISP12.5 IM (17:39)
[2019-04-02] MEDS ORDERED: NYST15OI2 TP (17:50)
--- NOTE | 2019-04-02 21:37 | PDOC ---
Exam Note: Maxwell Note: Please also refer to the separate dictated note~for this date of service dictated separately.~Patient seen individually. Discussed the patient with Nursing staff reviewed the chart.~Reviewed interim history and current functioning. Reviewed vital signs,~Labs/ Radiology~and current medications noted below. Continue current treatment with the changes noted in the dictated addendum note Assessment: Vital Signs/I&O: Vital Signs Date Time Temp Pulse Resp B/P (MAP) Pulse Ox O2 Delivery O2 Flow Rate FiO2 04/02/19 17:18 98.1 110 18 131/79 (96) 96 04/02/19 06:26 Room Air 03/31/19 16:14 96.0 I & O 04/01/19 04/01/19 04/02/19 15:00 23:00 07:00 Intake Total 1080 ml 240 ml 240 ml Balance 1080 ml 240 ml 240 ml Labs: Laboratory Tests Test 04/02/19 06:45 04/02/19 07:23 04/02/19 07:47 04/02/19 09:45 White Blood Count 7.0 x10^3/uL (4.0-11.0) Red Blood Count 3.67 x10^6/uL (4.30-5.70) L Hemoglobin 11.4 g/dL (13.0-17.5) L Hematocrit 34.3 % (39.0-53.0) L Mean Corpuscular Volume 94 fL (79-100) Mean Corpuscular Hemoglobin 31 pg (25-35) Mean Corpuscular Hemoglobin Concent 33 g/dL (31-37) Red Cell Distribution Width 14.1 % (11.5-14.5) Platelet Count 235 x10^3/uL (140-400) Neutrophils (%) (Auto) 66 % (31-73) Lymphocytes (%) (Auto) 19 % (24-48) L Monocytes (%) (Auto) 11 % (0-9) H Eosinophils (%) (Auto) 4 % (0-3) H Basophils (%) (Auto) 1 % (0-3) Neutrophils # (Auto) 4.6 x10^3uL (1.8-7.7) Lymphocytes # (Auto) 1.4 x10^3/uL (1.0-4.8) Monocytes # (Auto) 0.8 x10^3/uL (0.0-1.1) Eosinophils # (Auto) 0.2 x10^3/uL (0.0-0.7) Basophils # (Auto) 0.0 x10^3/uL (0.0-0.2) Sodium Level 140 mmol/L (136-145) Potassium Level 3.9 mmol/L (3.5-5.1) Chloride Level 102 mmol/L (98-107) Carbon Dioxide Level 28 mmol/L (21-32) Anion Gap 10 (6-14) Blood Urea Nitrogen 21 mg/dL (8-26) Creatinine 1.2 mg/dL (0.7-1.3) Estimated GFR (Cockcroft-Gault) 59.0 BUN/Creatinine Ratio 18 (6-20) Glucose Level 64 mg/dL (70-99) L Calcium Level 8.4 mg/dL (8.5-10.1) L Total Bilirubin 0.2 mg/dL (0.2-1.0) Aspartate Amino Transferase (AST) 17 U/L (15-37) Alanine Aminotransferase (ALT) 7 U/L (16-63) L Alkaline Phosphatase 54 U/L (46-116) Total Protein 6.7 g/dL (6.4-8.2) Albumin 3.0 g/dL (3.4-5.0) L Albumin/Globulin Ratio 0.8 (1.0-1.7) L Valproic Acid Level 57 mcg/mL (50-100) Valproic Acid Last Dose Date 04/01/19 Valproic Acid Last Dose Time 2100 Glucose (Fingerstick) 57 mg/dL (70-99) L 56 mg/dL (70-99) L 149 mg/dL (70-99) H Test 04/02/19 12:03 04/02/19 17:09 Glucose (Fingerstick) 103 mg/dL (70-99) H 107 mg/dL (70-99) H Current Medications: I have reviewed the current psychotropics carefully including drug interactions. Risk benefit ratio favors no change other than as noted in my dictated progress note. Diagnosis: Problems: (1) Anxiety disorder (2) Bipolar affective, mixed, sev w/ psych (3) Dementia, vascular, with depression (4) Dementia, vascular, with delusions (5) Impulse control disorder (6) Psychosis, atypical (7) Dementia in Alzheimer's disease with delusions (8) Mild cognitive impairment (9) Major neurocognitive disorder EMERSON RUTH MD Apr 02, 2019 21:37
--- NOTE | 2019-04-02 22:24 | NUR ---
Transition Record was faxed to follow-up provider with the following elements: Reason for admission, procedures, tests, principal diagnosis, pending studies, patient instructions, 29/01 contact information for unit, phone number to obtain pending test results, plan for follow-up care, physician follow-up, advanced directive information, and medication list with dose, duration and instructions. This information was included in the following documents: History and physical, lab results, study results, progress notes, social work planning form, DC instruction form, patient visit summary, and medication reconciliation form. Date & time record faxed: 04/02/19 Record faxed to: [facility] Record discussed with/ report given to: [facility] 5 [id number]
--- NOTE | 2019-04-03 00:52 | PN ---
DATE: 04/01/2019 PSYCHIATRIC PROGRESS NOTE This late entry, 04/01, covers elements not covered in my initial note. SUBJECTIVE: I met with the patient evening of 04/01 in his room and then in the day room. He slept 6 hours previous night, has been fairly appropriate, compliant with his medications. At times, he complains of feeling tired. Wound care is being addressed by the wound care team, but behaviorally he is doing better, less depressed. REVIEW OF SYSTEMS: Ambulation impaired, in wheelchair. No CV, , pulmonary, eye, ENT system symptoms on review. MENTAL STATUS EXAM: Reasonably oriented. Speech is coherent, has some latency. Abstraction fair, computation impaired, language function intact. Mood and affect is improved. IMPRESSION: Unchanged from initial note. PLAN: No change from initial note. MAN Bladimir RUTH MD DR: TAINA/siddhartha JOB#: [id number] / [id number]
--- NOTE | 2019-04-04 14:01 | DS ---
DATE OF DISCHARGE: 04/02/2019 DISCHARGE SUMMARY AND PSYCHIATRIC PROGRESS NOTE This late entry 04/02/2019 covers the elements not covered in my initial note. REASON FOR ADMISSION: Please refer to the admission history for details. Briefly, the patient is a 73-year-old male referred to us from [facility] by his primary care physician on account of worsening confusion, being delusional, sexually inappropriate comments being made to nursing staff and he was grabbing at the private parts of nursing staff, exposing his genitals, urinating all around the unit, verbally aggressive, paranoid. He was hiding his things around the facility, then blamed others for stealing them. He barricaded himself in the bathroom with chairs and was running the sink until it flooded. He would often prop the chairs inside the bathroom door, so people would fall when they would open the door and the chairs would fall on them. He was refusing medications including insulin, making racially inappropriate comments, grandiose, labile, psychotic, totally unmanageable at the facility and failed outpatient psychiatric interventions. SIGNIFICANT FINDINGS AND CLINICAL COURSE: Following admission, the patient was seen daily individually by myself from a psychiatric standpoint, medical followup with Dr. Schwartz. The patient had a very lengthy hospitalization because even after he was psychiatrically stable, placement could not be found for him since the facility he came back would not take him back. Multiple changes were made in his psychotropics for his bipolar disorder, paranoia, psychosis, grandiosity within the context of his memory deficits and he seemed to finally respond to a combination of Depakote Sprinkles 500 mg b.i.d. with a valproic acid level therapeutic at 77, Risperdal 0.5 mg at bedtime which was reduced to 0.25 mg at bedtime prior to discharge and he was on Risperdal Consta 12.5 mg every 2 weeks. He was also on Zyprexa p.r.n., Remeron 7.5 mg p.o. at bedtime. Wound Care consult followed him for wounds on his heels and immediately prior to his transfer to [place] in the evening of 04/02/2019, he was found to have some wounds on his bottom area, for which he was transferred per the recommendation of the wound care consult. Prior to discharge on 04/02/2019, I met with him individually before he left. REVIEW OF SYSTEMS: Ambulation impaired, in wheelchair. No CV, , pulmonary, eye system symptoms on review. MENTAL STATUS EXAM: Reasonably oriented. Speech is coherent. He was very appreciative of his care here at the hospital, abstraction fair, computation impaired, language function intact, attention span short. Mood and affect, generally improved, less labile, less grandiose. LABORATORY DATA: Reviewed. IMPRESSION: Bipolar 1 disorder, mixed with psychotic features, in partial remission; mild cognitive impairment, psychotic disorder, unspecified; anxiety disorder, unspecified. Rest as above. DISCHARGE MEDICATIONS: Please refer to the MRAD. DISCHARGE INSTRUCTIONS: Psychiatric and medical followup at [facility]. Time for discharge day management, greater than 30 minutes. MAN Bladimir RUTH MD DR: TAINA/siddhartha JOB#: [id number] / [id number]
== END 2019-04-02 19:07 | disposition short-term general hospital (02) | DRG 885 ==
LOC: ER 20:55 → GEROPSY 23:05
PROVIDERS: ADMIT Psychiatry & Neurology Psychiatry; ATTEND Psychiatry & Neurology Psychiatry
DX: F31.60 Bipolar disorder, current episode mixed, unspecified (principal); L89.614 Pressure ulcer of right heel, stage 4; L89.624 Pressure ulcer of left heel, stage 4; F02.81 Dementia in other diseases classified elsewhere, unspecified severity, with behavioral disturbance; L02.415 Cutaneous abscess of right lower limb; F01.51 Vascular dementia, unspecified severity, with behavioral disturbance; F01.50 Vascular dementia, unspecified severity, without behavioral disturbance, psychotic disturbance, mood disturbance, and anxiety; E11.65 Type 2 diabetes mellitus with hyperglycemia; F41.9 Anxiety disorder, unspecified; F63.9 Impulse disorder, unspecified; G30.9 Alzheimer's disease, unspecified; F60.9 Personality disorder, unspecified; K05.219 Aggressive periodontitis, localized, unspecified severity; M19.90 Unspecified osteoarthritis, unspecified site; I10 Essential (primary) hypertension; E11.51 Type 2 diabetes mellitus with diabetic peripheral angiopathy without gangrene; Z79.899 Other long term (current) drug therapy; Z91.19 Patient's noncompliance with other medical treatment and regimen; E78.5 Hyperlipidemia, unspecified; I25.10 Atherosclerotic heart disease of native coronary artery without angina pectoris; Z86.73 Personal history of transient ischemic attack (TIA), and cerebral infarction without residual deficits; Z91.14 Patient's other noncompliance with medication regimen; Z83.3 Family history of diabetes mellitus; Z82.49 Family history of ischemic heart disease and other diseases of the circulatory system
CPT/HCPCS: 36415; 70450; 71045; 72125; 76881; 80048; 80053; 80061; 80076; 80164; 80307; 81001; 82140; 82306; 82550; 82947; 83036; 83540; 83550; 83690; 83735; 83880; 84436; 84443; 84480; 84484; 85025; 85027; 85379; 85610; 85651; 85730; 86592; 87116; 87493; 93005; 93923; 93970; 96361; 96372; 96374; G0238; J1650; J1815; J2794; J7120; J7620; 97110; 97116; 97530; 99285-25